=== PATIENT | female | born 1935 | race Caucasian/White ===

== ENCOUNTER 2018-05-05 14:16 | Inpatient (IN) | payer MEDICARE, OTHER ==
[2018-05-05] MEDS ORDERED: hydrALAZINE HCL 20 MG/ML 1 ML VIAL IVP STA ×2 (14:37→16:35)
--- NOTE | 2018-05-05 14:46 | ED ---
General Adult HPI - General Chief complaint: Headache Stated complaint: Headache, poss stroke Time Seen by Provider: 05/05/18 14:20 Source: patient, EMS, RN notes reviewed Mode of arrival: EMS Limitations: no limitations - History of Present Illness Initial comments: This is an 83-year-old female presents emergency room with a past medical history significant for CVA and hypertension. Patient comes in today because she started having headache she states is about a 4 out of 10 since she took her blood pressure her blood pressure was well over 200 and she decided come to the emergency department. Patient denies any chest pain difficulty breathing shortest breath per patient denies any fever chills or cough. Patient denies any abdominal pain patient denies nausea vomiting diarrhea. Patient denies any back pain. patient denies any leg swelling or calf tenderness. Patient denies any blurred vision. Patient denies any numbness weakness. Patient denies any lightheadedness dizziness or near syncopal episode. - Related Data Home Medications Medication Instructions Recorded Confirmed Allopurinol [Zyloprim] 100 mg PO BID 05/05/18 05/05/18 Apixaban [Eliquis] 2.5 mg PO BID 05/05/18 05/05/18 Aspirin EC [Ecotrin Low Dose] 81 mg PO DAILY 05/05/18 05/05/18 Butalb/Acetaminophen/Caffeine 1 - 2 cap PO Q6H PRN MDD 6 TABS 05/05/18 05/05/18 [Esgic 50-325-40 Capsule] Colchicine [Colcrys] 0.6 mg PO DAILY 05/05/18 05/05/18 Escitalopram [Lexapro] 5 mg PO DAILY 05/05/18 05/05/18 Fludrocortisone [Florinef] 0.05 mg PO DAILY 05/05/18 05/05/18 Folic Acid 1 mg PO DAILY 05/05/18 05/05/18 Insulin Aspart [NovoLOG Flexpen] 2 units SQ AC-TID 05/05/18 05/05/18 Insulin Aspart [NovoLOG Flexpen] See Protocol SQ AC-TID 05/05/18 05/05/18 Insulin Glargine [Lantus] 10 unit SQ HS 05/05/18 05/05/18 Leucovorin Calcium 5 mg PO FRSA 05/05/18 05/05/18 Levothyroxine Sodium [Synthroid] 75 mcg PO DAILY 05/05/18 05/05/18 Lisinopril [Zestril] 20 mg PO DAILY 05/05/18 05/05/18 Methotrexate Sodium [Methotrexate] 7.5 mg PO FR 05/05/18 05/05/18 Pantoprazole Sodium [Protonix] 40 mg PO BID 05/05/18 05/05/18 inFLIXimab [Remicade] 100 mg IVPB DIRECTED 05/05/18 05/05/18 Allergies Allergy/AdvReac Type Severity Reaction Status Date / Time baclofen Allergy Unknown Verified 05/05/18 15:06 cefdinir [From Omnicef] Allergy Unknown Verified 05/05/18 15:06 ciprofloxacin Allergy Unknown Verified 05/05/18 15:06 codeine Allergy Unknown Verified 05/05/18 15:06 hydrocodone Allergy Unknown Verified 05/05/18 15:06 Iodinated Contrast- Oral and Allergy Unknown Verified 05/05/18 15:06 IV Dye latex Allergy Unknown Verified 05/05/18 15:06 ofloxacin [From Floxin] Allergy Unknown Verified 05/05/18 15:06 Penicillins Allergy Unknown Verified 05/05/18 15:06 promethazine [From Phenergan] Allergy Unknown Verified 05/05/18 15:06 sulfadiazine Allergy Unknown Verified 05/05/18 15:06 sulfamethoxazole Allergy Unknown Verified 05/05/18 15:06 [From Bactrim] Tetracyclines Allergy Unknown Verified 05/05/18 15:06 theophylline [From Ángel-Dur] Allergy Unknown Verified 05/05/18 15:06 tramadol Allergy Unknown Verified 05/05/18 15:06 trimethoprim [From Bactrim] Allergy Unknown Verified 05/05/18 15:06 Review of Systems ROS Statement: Those systems with pertinent positive or pertinent negative responses have been documented in the HPI. ROS Other: All systems not noted in ROS Statement are negative. Past Medical History Past Medical History: CVA/TIA, Diabetes Mellitus, Hyperlipidemia, Hypertension, Osteoarthritis (OA) History of Any Multi-Drug Resistant Organisms: None Reported Past Surgical History: Adenoidectomy, Section, Hysterectomy, Orthopedic Surgery, Pacemaker, Tonsillectomy, Tubal Ligation Additional Past Surgical History / Comment(s): mediport for arthritis medication Past Psychological History: No Psychological Hx Reported Smoking Status: Never smoker Past Alcohol Use History: None Reported Past Drug Use History: None Reported General Exam - General Exam Comments Initial Comments: GENERAL: Patient is well-developed and well-nourished. Patient is nontoxic and well- hydrated and is in mild distress. ENT: Neck is soft and supple. No significant lymphadenopathy is noted. Oropharynx is clear. Moist mucous membranes. Neck has full range of motion without eliciting any pain. EYES: The sclera were anicteric and conjunctiva were pink and moist. Extraocular movements were intact and pupils were equal round and reactive to light. Eyelids were unremarkable. PULMONARY: Unlabored respirations. Good breath sounds bilaterally. No audible rales rhonchi or wheezing was noted. CARDIOVASCULAR: There is a regular rate and rhythm without any murmurs gallops or rubs. ABDOMEN: Soft and nontender with normal bowel sounds. No palpable organomegaly was noted. There is no palpable pulsatile mass. SKIN: Skin is clear with no lesions or rashes and otherwise unremarkable. NEUROLOGIC: Patient is alert and oriented x3. Cranial nerves II through XII are grossly intact. Motor and sensory are also intact. Normal speech, volume and content. Symmetrical smile. MUSCULOSKELETAL: Normal extremities with adequate strength and full range of motion. No lower extremity swelling or edema. No calf tenderness. LYMPHATICS: No significant lymphadenopathy is noted PSYCHIATRIC: Normal psychiatric evaluation. Limitations: no limitations Course Vital Signs 05/05/18 05/05/18 05/05/18 14:22 15:30 15:50 Temperature 98.4 F Pulse Rate 60 60 Respiratory 18 18 Rate Blood Pressure 201/119 194/97 167/76 O2 Sat by Pulse 96 100 Oximetry 05/05/18 16:27 Temperature Pulse Rate 60 Respiratory 18 Rate Blood Pressure 180/82 O2 Sat by Pulse 100 Oximetry Medical Decision Making - Medical Decision Making EKG shows a paced rhythm at 62 bpm ND interval 254 QRS is 160 QT interval [address] of the brain shows no acute normalities. Patient's troponin is elevated so started the patient on heparin I spoke with Dr. Moore admitted the patient and wrote admitting orders and I consult to cardiology - Lab Data Result diagrams: 05/05/18 13:30 05/05/18 13:30 Lab Results 05/05/18 05/05/18 05/05/18 Range/Units 13:30 13:30 13:30 WBC 6.3 (3.8-10.6) k/uL RBC 3.68 L (3.80-5.40) m/uL Hgb 10.7 L (11.4-16.0) gm/dL Hct 34.8 (34.0-46.0) % MCV 94.5 (80.0-100.0) fL MCH 29.1 (25.0-35.0) pg MCHC 30.7 L (31.0-37.0) g/dL RDW 17.9 H (11.5-15.5) % Plt Count 225 (150-450) k/uL Neutrophils % 46 % Lymphocytes % 43 % Monocytes % 4 % Eosinophils % 4 % Basophils % 1 % Neutrophils # 2.9 (1.3-7.7) k/uL Lymphocytes # 2.7 (1.0-4.8) k/uL Monocytes # 0.3 (0-1.0) k/uL Eosinophils # 0.3 (0-0.7) k/uL Basophils # 0.0 (0-0.2) k/uL Hypochromasia Moderate Anisocytosis Slight PT (9.0-12.0) sec INR (<1.2) APTT (22.0-30.0) sec Sodium 140 (137-145) mmol/L Potassium 5.0 (3.5-5.1) mmol/L Chloride 106 (98-107) mmol/L Carbon Dioxide 29 (22-30) mmol/L Anion Gap 5 mmol/L BUN 23 H (7-17) mg/dL Creatinine 1.14 H (0.52-1.04) mg/dL Est GFR (CKD-EPI)AfAm 52 (>60 ml/min/1.73 sqM) Est GFR (CKD-EPI)NonAf 45 (>60 ml/min/1.73 sqM) Glucose 141 H (74-99) mg/dL Calcium 9.5 (8.4-10.2) mg/dL Magnesium 1.7 (1.6-2.3) mg/dL Total Bilirubin 0.4 (0.2-1.3) mg/dL AST 19 (14-36) U/L ALT 17 (9-52) U/L Alkaline Phosphatase 97 (38-126) U/L Total Creatine Kinase 22 L (30-135) U/L CK-MB (CK-2) 0.4 (0.0-2.4) ng/mL CK-MB (CK-2) Rel Index 1.8 Troponin I 0.129 H* (0.000-0.034) ng/mL Total Protein 6.9 (6.3-8.2) g/dL Albumin 3.6 (3.5-5.0) g/dL 05/05/18 Range/Units 13:30 WBC (3.8-10.6) k/uL RBC (3.80-5.40) m/uL Hgb (11.4-16.0) gm/dL Hct (34.0-46.0) % MCV (80.0-100.0) fL MCH (25.0-35.0) pg MCHC (31.0-37.0) g/dL RDW (11.5-15.5) % Plt Count (150-450) k/uL Neutrophils % % Lymphocytes % % Monocytes % % Eosinophils % % Basophils % % Neutrophils # (1.3-7.7) k/uL Lymphocytes # (1.0-4.8) k/uL Monocytes # (0-1.0) k/uL Eosinophils # (0-0.7) k/uL Basophils # (0-0.2) k/uL Hypochromasia Anisocytosis PT 10.2 (9.0-12.0) sec INR 0.9 (<1.2) APTT 26.4 (22.0-30.0) sec Sodium (137-145) mmol/L Potassium (3.5-5.1) mmol/L Chloride (98-107) mmol/L Carbon Dioxide (22-30) mmol/L Anion Gap mmol/L BUN (7-17) mg/dL Creatinine (0.52-1.04) mg/dL Est GFR (CKD-EPI)AfAm (>60 ml/min/1.73 sqM) Est GFR (CKD-EPI)NonAf (>60 ml/min/1.73 sqM) Glucose (74-99) mg/dL Calcium (8.4-10.2) mg/dL Magnesium (1.6-2.3) mg/dL Total Bilirubin (0.2-1.3) mg/dL AST (14-36) U/L ALT (9-52) U/L Alkaline Phosphatase (38-126) U/L Total Creatine Kinase (30-135) U/L CK-MB (CK-2) (0.0-2.4) ng/mL CK-MB (CK-2) Rel Index Troponin I (0.000-0.034) ng/mL Total Protein (6.3-8.2) g/dL Albumin (3.5-5.0) g/dL Disposition Clinical Impression: Headache, Hypertensive urgency, Non-STEMI (non-ST elevated myocardial infarction) Disposition: ADMITTED IP TO THIS HOSP Referrals: Adin Golden MD [Primary Care Provider] - 1-2 days Time of Disposition: 16:41
[2018-05-05 15:41] LABS: Anisocytosis Slight; Basophils % (A) 1 %; Eosinophils # (A) 0.3 k/uL (0-0.7); Eosinophils % (A) 4 %; HCT 34.8 % (34.0-46.0); HGB 10.7 gm/dL (11.4-16.0); Hypochromasia Moderate; Lymphocytes # (A) 2.7 k/uL (1.0-4.8); Lymphocytes % (A) 43 %; MCH 29.1 pg (25.0-35.0); MCHC 30.7 g/dL (31.0-37.0); MCV 94.5 fL (80.0-100.0); Mean Platelet Volume 8.1; Monocytes # (A) 0.3 k/uL (0-1.0); Monocytes % (A) 4 %; Neutrophils # (A) 2.9 k/uL (1.3-7.7); Neutrophils % (A) 46 %; Platelet Count 225 k/uL (150-450); RBC 3.68 m/uL (3.80-5.40); RDW 17.9 % (11.5-15.5); WBC 6.3 k/uL (3.8-10.6)
[2018-05-05 15:52] LABS: Albumin 3.6 g/dL (3.5-5.0); Calcium 9.5 mg/dL (8.4-10.2); INR 0.9 (<1.2); Magnesium 1.7 mg/dL (1.6-2.3); Partial Thromboplastin Time 26.4 sec (22.0-30.0); Prothrombin Time 10.2 sec (9.0-12.0); Total Bilirubin 0.4 mg/dL (0.2-1.3); Total Protein 6.9 g/dL (6.3-8.2)
--- NOTE | 2018-05-05 16:17 | XR ---
EXAMINATION TYPE: XR chest 2V DATE OF EXAM: 05/05/2018 COMPARISON: NONE HISTORY: Shortness of breath TECHNIQUE: Frontal and lateral views of the chest are obtained. FINDINGS: Scattered senescent parenchymal changes noted. Hyperinflation compatible with COPD. No evidence for infiltrate. No evidence for atelectasis. Heart size is stable. Mediastinal structures are stable and grossly unremarkable. No evidence for hilar prominence. Degenerative changes dorsal spine. IMPRESSION: 1. No evidence for acute pulmonary disease.
--- NOTE | 2018-05-05 16:19 | CT ---
EXAMINATION TYPE: CT brain wo con DATE OF EXAM: 05/05/2018 COMPARISON: None HISTORY: elevated BP with weakness CT DLP: 1044.[address] of the brain was performed. The ventricles, basal cisterns and sulci overlying the cerebral convexities demonstrate mild enlargem ent. There is no evidence for intracranial hemorrhage or sulcal effacement. There is decreased attenuation about the periventricular white matter and deep white matter of both c erebral hemispheres, compatible with chronic small vessel ischemia. Differential diagnosis does inclu de demyelination. No mass effects are seen.No midline shift. Osseous calvarium is intact. If symptoms persist consider MRI. IMPRESSION: 1. Age related atrophic and chronic small vessel ischemic change without acute intracranial process s een at this time.
[2018-05-05 16:28] LABS: Creatine Kinase MB 0.4 ng/mL (0.0-2.4)
[2018-05-05 16:33] LABS: Troponin I 0.129 ng/mL (0.000-0.034)
[2018-05-05] MEDS ORDERED: HEPARIN SODIUM,PORCINE 5,000 UNIT/ML 1 ML VIAL IV ONE (16:36)
[2018-05-05] MEDS ORDERED: NITROGLYCERIN SL TABS 0.4 MG TAB SUBLINGUAL PRN (16:41)
[2018-05-05] MEDS ORDERED: HEPARIN SOD,PORK IN 0.45% NACL 25,000 UNIT in 0.45% NACL 1 250ML.BAG IV SCH (16:45)
[2018-05-05 18:34] LABS: Glucose,Whole Blood 112 mg/dL (75-99)
[2018-05-05] MEDS: NITROGLYCERIN OINT 1 INCH/GM PACKET TOPICAL SCH (20:17)
[2018-05-05 20:47] LABS: Glucose,Whole Blood 111 mg/dL (75-99)
[2018-05-05 21:07] LABS: Creatine Kinase MB 0.4 ng/mL (0.0-2.4)
[2018-05-05 21:12] LABS: Troponin I 0.142 ng/mL (0.000-0.034)
[2018-05-05] MEDS ORDERED: INFLIXIMAB 100 MG IVPB SCH (21:45)
[2018-05-05] MEDS: LISINOPRIL 10 MG TAB PO SCH (22:03)
[2018-05-05] MEDS: METOPROLOL TARTRATE 25 MG TAB PO SCH (22:03)
[2018-05-05] MEDS: ACETAMINOPHEN TAB 325 MG TAB PO PRN (22:03)
[2018-05-05] MEDS: APIXABAN 2.5 MG TABLET PO SCH (23:55)
[2018-05-05] MEDS: BUTALB/APAP/CAFF 50-325-40MG TAB PO PRN (23:55)
[2018-05-06] MEDS: NITROGLYCERIN OINT 1 INCH/GM PACKET TOPICAL SCH ×3 (00:41→08:14)
[2018-05-06 02:19] LABS: Cholesterol 196 mg/dL (<200); HDL Cholesterol 37 mg/dL (40-60); LDL Cholesterol,Calculated 113 mg/dL (0-99); Triglycerides 229 mg/dL (<150)
[2018-05-06 02:41] LABS: Creatine Kinase MB 0.3 ng/mL (0.0-2.4)
[2018-05-06 02:44] LABS: Troponin I 0.113 ng/mL (0.000-0.034)
[2018-05-06] MEDS ORDERED: HYDROmorphone 0.5 MG/0.5 ML SYRINGE IVP STA ×2 (04:58→11:40)
[2018-05-06] MEDS: LEVOTHYROXINE 75 MCG TAB PO SCH ×2 (05:45→08:10)
[2018-05-06 06:17] LABS: Glucose,Whole Blood 246 mg/dL (75-99)
[2018-05-06] MEDS ORDERED: INSULIN ASPART 100 UNIT/ML 1 ML 10 ML VIAL SQ SCH (07:30)
[2018-05-06] MEDS: FOLIC ACID 1 MG TAB PO SCH (08:08)
[2018-05-06] MEDS: APIXABAN 2.5 MG TABLET PO SCH ×2 (08:09→20:35)
[2018-05-06] MEDS: PANTOPRAZOLE 40 MG TABLET PO SCH ×2 (08:09→17:43)
[2018-05-06] MEDS: ALLOPURINOL 100 MG TAB PO SCH ×2 (08:09→20:35)
[2018-05-06] MEDS: BUTALB/APAP/CAFF 50-325-40MG TAB PO PRN (08:09)
[2018-05-06] MEDS: METOPROLOL TARTRATE 25 MG TAB PO SCH (08:09)
[2018-05-06] MEDS: ESCITALOPRAM 5 MG TAB PO SCH (08:10)
[2018-05-06] MEDS: COLCHICINE 0.6 MG EACH PO SCH (08:10)
[2018-05-06] MEDS: LISINOPRIL 10 MG TAB PO SCH (08:18)
[2018-05-06] MEDS ORDERED: hydrALAZINE HCL 20 MG/ML 1 ML VIAL IVP PRN (08:30)
[2018-05-06] MEDS: LISINOPRIL 20 MG TAB PO SCH ×2 (08:40→20:35)
[2018-05-06] MEDS: amLODIPine 10 MG TAB PO SCH (08:44)
[2018-05-06] MEDS ORDERED: LEUCOVORIN 5 MG TAB PO SCH (09:00)
[2018-05-06] MEDS ORDERED: NON-FORMULARY DRUG (Aspirin Ec 81 MG) PO SCH (09:00)
[2018-05-06] MEDS ORDERED: ASPIRIN 325 MG TAB PO SCH (09:00)
--- NOTE | 2018-05-06 09:30 | P.CRDCN ---
History of Present Illness Consult date: 05/06/18 Requesting physician: Virgilio Moore Chief complaint: Headache History of present illness: This is an 83-year-old female with known history of hypertension, hypothyroidism, history of prior pacemaker implantation, diabetes, she follows with a patient registration rep out of town. She does have history of prior CVA, paroxysmal atrial fibrillation on Eliquis for anticoagulation. He presents to the hospital on this occasion with symptoms of severe headache. According to the patient, she's been having headaches off and on for approximately one year duration. She denies any chest discomfort and overall her breathing has been stable. Blood pressure on arrival here 201/119, heart rate in the 60s, 96% on room air. White blood cell count is normal, hemoglobin 10.7, platelet count 225. Sodium 140, potassium 5.0, BUN 23, creatinine 1.1. Troponin 0.12, 0.14, 0.11. Cholesterol 196, triglycerides 229, LDL 113, HDL 37. Chest x-ray does not reveal any evidence for acute pulmonary disease. CAT scan of the brain reveals age-related atrophic and chronic small vessel ischemic change without any acute process seen. EKG shows a paced rhythm . At the time of my examination this morning, patient continues to be hypertensive, continues to complain of headache. Denies any chest pain or difficulty in breathing. Past Medical History Past Medical History: CVA/TIA, Diabetes Mellitus, Hyperlipidemia, Hypertension, Osteoarthritis (OA) Additional Past Medical History / Comment(s): RA has injections mediport q 6 months, Kidney cancer no chemo or radiation skin cancer arms History of Any Multi-Drug Resistant Organisms: None Reported Past Surgical History: Adenoidectomy, Section, Hysterectomy, Orthopedic Surgery, Pacemaker, Tonsillectomy, Tubal Ligation Additional Past Surgical History / Comment(s): mediport for arthritis medication , 1/3 kidney removed for CA Past Anesthesia/Blood Transfusion Reactions: No Reported Reaction Type of Cardiac Device: Permanent Pacemaker, AICD Device Placement Date:: 05/12/2017 Past Psychological History: No Psychological Hx Reported Smoking Status: Never smoker Past Alcohol Use History: None Reported Past Drug Use History: None Reported Medications and Allergies Home Medications Medication Instructions Recorded Confirmed Type Allopurinol [Zyloprim] 100 mg PO BID 05/05/18 05/05/18 History Apixaban [Eliquis] 2.5 mg PO BID 05/05/18 05/05/18 History Aspirin EC [Ecotrin Low Dose] 81 mg PO DAILY 05/05/18 05/05/18 History Butalb/Acetaminophen/Caffeine 1 - 2 cap PO Q6H PRN MDD 6 TABS 05/05/18 05/05/18 History [Esgic 50-325-40 Capsule] Colchicine [Colcrys] 0.6 mg PO DAILY 05/05/18 05/05/18 History Escitalopram [Lexapro] 5 mg PO DAILY 05/05/18 05/05/18 History Fludrocortisone [Florinef] 0.05 mg PO DAILY 05/05/18 05/05/18 History Folic Acid 1 mg PO DAILY 05/05/18 05/05/18 History Insulin Aspart [NovoLOG Flexpen] 2 units SQ AC-TID 05/05/18 05/05/18 History Insulin Aspart [NovoLOG Flexpen] See Protocol SQ AC-TID 05/05/18 05/05/18 History Insulin Glargine [Lantus] 6 unit SQ HS 05/05/18 05/05/18 History Leucovorin Calcium 5 mg PO FRSA 05/05/18 05/05/18 History Levothyroxine Sodium [Synthroid] 75 mcg PO DAILY 05/05/18 05/05/18 History Lisinopril [Zestril] 20 mg PO DAILY 05/05/18 05/05/18 History Methotrexate Sodium [Methotrexate] 7.5 mg PO FR 05/05/18 05/05/18 History Pantoprazole Sodium [Protonix] 40 mg PO BID 05/05/18 05/05/18 History inFLIXimab [Remicade] 100 mg IVPB DIRECTED 05/05/18 05/05/18 History Allergies Allergy/AdvReac Type Severity Reaction Status Date / Time baclofen Allergy Unknown Verified 05/05/18 15:06 cefdinir [From Omnicef] Allergy Unknown Verified 05/05/18 15:06 ciprofloxacin Allergy Unknown Verified 05/05/18 15:06 codeine Allergy Unknown Verified 05/05/18 15:06 hydrocodone Allergy Unknown Verified 05/05/18 15:06 Iodinated Contrast- Oral and Allergy Unknown Verified 05/05/18 15:06 IV Dye latex Allergy Unknown Verified 05/05/18 15:06 ofloxacin [From Floxin] Allergy Unknown Verified 05/05/18 15:06 Penicillins Allergy Unknown Verified 05/05/18 15:06 promethazine [From Phenergan] Allergy Unknown Verified 05/05/18 15:06 sulfadiazine Allergy Unknown Verified 05/05/18 15:06 sulfamethoxazole Allergy Unknown Verified 05/05/18 15:06 [From Bactrim] Tetracyclines Allergy Unknown Verified 05/05/18 15:06 theophylline [From Ángel-Dur] Allergy Unknown Verified 05/05/18 15:06 tramadol Allergy Unknown Verified 05/05/18 15:06 trimethoprim [From Bactrim] Allergy Unknown Verified 05/05/18 15:06 Physical Exam Vitals: Vital Signs Temp Pulse Pulse Resp BP BP Pulse Ox 05/06/18 07:50 96 05/06/18 04:00 97.3 F L 60 14 198/90 98 05/06/18 00:00 98.6 F 70 15 189/81 97 05/05/18 20:00 98.2 F 80 16 162/78 93 L 05/05/18 17:07 97.9 F 60 18 172/78 98 05/05/18 17:01 60 170/84 05/05/18 16:58 60 16 184/87 99 05/05/18 16:27 60 18 180/82 100 05/05/18 15:50 167/76 05/05/18 15:30 60 18 194/97 100 05/05/18 14:22 98.4 F 60 18 201/119 96 Intake and Output 05/05/18 05/06/18 05/06/18 22:59 06:59 14:59 Other: # Voids 3 2 Weight 69.853 kg 74.5 kg PHYSICAL EXAMINATION: GENERAL: 83-year-old female in no acute distress at the time of my examination HEENT: Head is atraumatic, normocephalic. Pupils equal, round. Sclera anicteric. Conjunctiva are clear. Mucous membranes of the mouth are moist. Neck is supple. There is no elevated jugular venous pressure. No carotid bruit is heard. HEART EXAMINATION: Heart S1, S2 systolic murmur heard . CHEST EXAMINATION: Lungs are clear to auscultation and precussion. No chest wall tenderness is noted on palpation or with deep breathing. ABDOMEN: Soft, nontender. Bowel sounds are heard. No organomegaly noted. EXTREMITIES: 2+ peripheral pulses with no evidence of peripheral edema and no calf tenderness noted. NEUROLOGIC patient is awake, alert and oriented 3 . . Results 05/05/18 13:30 05/05/18 13:30 Cardiac Enzymes 05/05/18 05/05/18 05/05/18 Range/Units 13:30 13:30 20:11 AST 19 (14-36) U/L CK-MB (CK-2) 0.4 0.4 (0.0-2.4) ng/mL Troponin I 0.129 H* 0.142 H* (0.000-0.034) ng/mL 05/06/18 Range/Units 01:25 AST (14-36) U/L CK-MB (CK-2) 0.3 (0.0-2.4) ng/mL Troponin I 0.113 H* (0.000-0.034) ng/mL Coagulation 05/05/18 Range/Units 13:30 PT 10.2 (9.0-12.0) sec APTT 26.4 (22.0-30.0) sec Lipids 05/06/18 Range/Units 01:25 Triglycerides 229 H (<150) mg/dL Cholesterol 196 (<200) mg/dL HDL Cholesterol 37 L (40-60) mg/dL CBC 05/05/18 Range/Units 13:30 WBC 6.3 (3.8-10.6) k/uL RBC 3.68 L (3.80-5.40) m/uL Hgb 10.7 L (11.4-16.0) gm/dL Hct 34.8 (34.0-46.0) % Plt Count 225 (150-450) k/uL Comprehensive Metabolic Panel 05/05/18 Range/Units 13:30 Sodium 140 (137-145) mmol/L Potassium 5.0 (3.5-5.1) mmol/L Chloride 106 (98-107) mmol/L Carbon Dioxide 29 (22-30) mmol/L BUN 23 H (7-17) mg/dL Creatinine 1.14 H (0.52-1.04) mg/dL Glucose 141 H (74-99) mg/dL Calcium 9.5 (8.4-10.2) mg/dL AST 19 (14-36) U/L ALT 17 (9-52) U/L Alkaline Phosphatase 97 (38-126) U/L Total Protein 6.9 (6.3-8.2) g/dL Albumin 3.6 (3.5-5.0) g/dL Current Medications Generic Name Dose Route Start Last Admin Trade Name Freq PRN Reason Stop Dose Admin Acetaminophen 650 mg 05/05/18 21:40 05/05/18 22:03 Tylenol Tab PO 650 mg Q4HR PRN Administration Fever and/ or Pain Acetaminophen/Butalbital/Caffeine 1 each 05/05/18 23:31 05/06/18 08:09 Fioricet 50-325-40 PO 1 each Q6HR PRN Administration Headache Allopurinol 100 mg 05/06/18 09:00 05/06/18 08:09 Zyloprim PO 100 mg BID [facility] Administration Amlodipine Besylate 10 mg 05/06/18 09:00 05/06/18 08:44 Norvasc PO 10 mg DAILY [facility] Administration Apixaban 2.5 mg 05/05/18 21:45 05/06/18 08:09 Eliquis PO 2.5 mg BID [facility] Administration Aspirin 325 mg 05/06/18 09:00 05/06/18 08:10 Aspirin PO 325 mg DAILY [facility] Administration Colchicine 0.6 mg 05/06/18 09:00 05/06/18 08:10 Colcrys PO 0.6 mg DAILY [facility] Administration Escitalopram Oxalate 5 mg 05/06/18 09:00 05/06/18 08:10 Lexapro PO 5 mg DAILY [facility] Administration Folic Acid 1 mg 05/06/18 12:00 05/06/18 08:08 Folic Acid PO 1 mg DAILY@1200 [facility] Administration Hydralazine HCl 20 mg 05/06/18 08:30 05/06/18 08:44 Apresoline IVP 20 mg Q4HR PRN Administration Blood Pressure - High Insulin Aspart 2 unit 05/06/18 07:30 05/06/18 08:11 Novolog SQ 2 unit AC-TID [facility] Administration Insulin Detemir 6 unit 05/06/18 21:00 Levemir SQ HS [facility] Leucovorin Calcium 5 mg 05/06/18 09:00 05/06/18 08:10 Leucovorin PO 5 mg FrSa@0900 [facility] Administration Levothyroxine Sodium 75 mcg 05/06/18 06:30 05/06/18 08:10 Synthroid PO 75 mcg DAILY@0630 [facility] Administration Lisinopril 20 mg 05/06/18 09:00 05/06/18 08:40 Zestril PO Not Given BID [facility] Methotrexate 7.5 mg 05/12/18 09:00 Methotrexate PO Fr@0900 [facility] Metoprolol Tartrate 25 mg 05/05/18 21:45 05/06/18 08:09 Lopressor PO 25 mg BID [facility] Administration Nitroglycerin 1 inch 05/05/18 18:00 05/06/18 08:14 Nitro-Bid Oint TOPICAL 1 inch Q6HR [facility] Administration Nitroglycerin 0.4 mg 05/05/18 16:41 Nitrostat SUBLINGUAL Q5M PRN Chest Pain Pantoprazole Sodium 40 mg 05/06/18 07:30 05/06/18 08:09 Protonix PO 40 mg BID-W/MEALS [facility] Administration Intake and Output 05/05/18 05/06/18 05/06/18 22:59 06:59 14:59 Other: # Voids 3 2 Weight 69.853 kg 74.5 kg 05/05/18 13:30 05/05/18 13:30 EKG Interpretations (text) EKG shows a paced rhythm Assessment and Plan Plan: Assessment and plan #1 hypertensive urgency #2 symptoms of headache, could be secondary to hypertension, CT of the brain did not reveal any acute findings #3 history of hypertension #4 diabetes #5 paroxysmal atrial fibrillation, on Eliquis for anticoagulation #6 prior pacemaker implantation #7 rheumatoid arthritis #8 hypothyroidism #9 abnormality in troponin, with no significant rise and fall pattern likely secondary to accelerated hypertension Plan We will obtain an echocardiogram with Doppler study. Decrease aspirin 81 mg daily. Add a small dose of Lipitor to the medication regime. Norvasc is also been added for more optimal blood pressure control. We will discontinue the Lopressor and changed to Coreg. Further recommendations to follow. DNP note has been reviewed, I agree with a documented findings and plan of care. Patient was seen and examined.
[2018-05-06 11:51] LABS: Glucose,Whole Blood 187 mg/dL (75-99)
[2018-05-06] MEDS: CARVEDILOL 12.5 MG TAB PO SCH ×2 (11:58→17:43)
[2018-05-06] MEDS: INSULIN ASPART 100 UNIT/ML 1 ML 10 ML VIAL SQ SCH ×3 (11:58→20:45)
--- NOTE | 2018-05-06 12:37 | P.HPIM ---
History of Present Illness H&P Date: 05/06/18 This is an 83-year-old female patient of Dr. Golden with past medical history of paroxysmal atrial fibrillation on eliquis, status post pacemaker placement, diabetes mellitus type 2, gastroesophageal reflux disease, gout, hypertension, migraine headaches, chronic kidney disease stage 3, renal cancer, rheumatoid arthritis. She had a recent hospitalization at [facility] April 20 through April 24 due to high blood pressure, left-sided weakness and headache after a fall at home where she was found by her grandson. 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 She has known carotid stenosis of 50% on the left internal carotid artery. Patient states that she has had high blood pressure readings have been updated very high at home. She recently saw Dr. Arias's nurse practitioner, Sharmila, in the office and her medication was increased. This must have been metoprolol. Patient does complain of headache. She came into [facility] emergency center for evaluation. White count was normal, hemoglobin 10.7, platelet count 225. Sodium 140, potassium 5.0, BUN 23 creatinine 1.1. Troponins 0.129, 0.142, 0.113. Triglycerides 229, cholesterol 196, LDL 113 and HDL 37. Chest x-ray showed no acute pulmonary process. CAT scan of the brain showed age-related atrophy and chronic small vessel ischemic change without acute intracranial process. EKG was a paced rhythm. Patient was given hydralazine 10 mg IV push 2 doses, Dilaudid, nitro ointment and admitted to the selective care unit and cardiology consults requested. At the time of this evaluation, blood pressure remains elevated at 210/94 and a stat dose of IV hydralazine has been ordered, amlodipine 10 mg added and lisinopril increased frequency to 20 mg twice daily. Review of Systems All systems: negative Constitutional: Reports fatigue, Denies chills, Denies fever, Denies lethargy, Denies malaise, Denies poor appetite, Denies weight loss Eyes: denies blurred vision, denies pain Ears, nose, mouth and throat: Reports headache, Denies dysphagia, Denies hoarseness, Denies sore throat, Denies vertigo Cardiovascular: Denies chest pain, Denies dyspnea on exertion, Denies edema, Denies shortness of breath, Denies syncope Respiratory: Denies cough, Denies cough with sputum, Denies dyspnea, Denies excessive sputum, Denies hemoptysis, Denies home oxygen, Denies wheezing Gastrointestinal: Denies abdominal pain, Denies diarrhea, Denies loss of appetite, Denies melena, Denies nausea, Denies vomiting Genitourinary: Denies dysuria, Denies hematuria, Denies urgency, Denies urinary frequency Musculoskeletal: Denies frequent falls, Denies gait dysfunction, Denies myalgias Integumentary: Denies pruritus, Denies rash, Denies wounds Neurological: Denies change in mentation, Denies change in speech, Denies confusion, Denies convulsions, Denies numbness, Denies seizures, Denies weakness Psychiatric: Denies anxiety, Denies depression Endocrine: Denies fatigue, Denies weight change Past Medical History Past Medical History: CVA/TIA, Diabetes Mellitus, Hyperlipidemia, Hypertension, Osteoarthritis (OA) Additional Past Medical History / Comment(s): RA has injections mediport q 6 months, Kidney cancer no chemo or radiation skin cancer arms History of Any Multi-Drug Resistant Organisms: None Reported Past Surgical History: Adenoidectomy, Section, Hysterectomy, Orthopedic Surgery, Pacemaker, Tonsillectomy, Tubal Ligation Additional Past Surgical History / Comment(s): mediport for arthritis medication , 1/3 kidney removed for CA Past Anesthesia/Blood Transfusion Reactions: No Reported Reaction Type of Cardiac Device: Permanent Pacemaker, AICD Device Placement Date:: 05/12/2017 Past Psychological History: No Psychological Hx Reported Smoking Status: Never smoker Past Alcohol Use History: None Reported Additional Past Alcohol Use History / Comment(s): Patient is a lifelong nonsmoker. She denies illicit drug use or alcohol use. She lives at home with her granddaughter and grandson but the airway during the day at work and patient 's home alone. She does not have home oxygen, no nebulizer no CPAP. Patient does not drive. She uses a walker for ambulation. Past Drug Use History: None Reported - Past Family History Father Additional Family Medical History / Comment(s): Father at age 73 from heart disease. Mother Additional Family Medical History / Comment(s): Mother at age 76 from heart disease. Brother(s) Additional Family Medical History / Comment(s): Patient has 2 brothers with no major medical problems. Daughter(s) Additional Family Medical History / Comment(s): Patient has 2 daughters and 1 as an . Patient has one son with no major medical problems. Medications and Allergies Home Medications Medication Instructions Recorded Confirmed Type Allopurinol [Zyloprim] 100 mg PO BID 05/05/18 05/05/18 History Apixaban [Eliquis] 2.5 mg PO BID 05/05/18 05/05/18 History Aspirin EC [Ecotrin Low Dose] 81 mg PO DAILY 05/05/18 05/05/18 History Butalb/Acetaminophen/Caffeine 1 - 2 cap PO Q6H PRN MDD 6 TABS 05/05/18 05/05/18 History [Esgic 50-325-40 Capsule] Colchicine [Colcrys] 0.6 mg PO DAILY 05/05/18 05/05/18 History Escitalopram [Lexapro] 5 mg PO DAILY 05/05/18 05/05/18 History Fludrocortisone [Florinef] 0.05 mg PO DAILY 05/05/18 05/05/18 History Folic Acid 1 mg PO DAILY 05/05/18 05/05/18 History Insulin Aspart [NovoLOG Flexpen] 2 units SQ AC-TID 05/05/18 05/05/18 History Insulin Aspart [NovoLOG Flexpen] See Protocol SQ AC-TID 05/05/18 05/05/18 History Insulin Glargine [Lantus] 6 unit SQ HS 05/05/18 05/05/18 History Leucovorin Calcium 5 mg PO FRSA 05/05/18 05/05/18 History Levothyroxine Sodium [Synthroid] 75 mcg PO DAILY 05/05/18 05/05/18 History Lisinopril [Zestril] 20 mg PO DAILY 05/05/18 05/05/18 History Methotrexate Sodium [Methotrexate] 7.5 mg PO FR 05/05/18 05/05/18 History Pantoprazole Sodium [Protonix] 40 mg PO BID 05/05/18 05/05/18 History inFLIXimab [Remicade] 100 mg IVPB DIRECTED 05/05/18 05/05/18 History Allergies Allergy/AdvReac Type Severity Reaction Status Date / Time baclofen Allergy Unknown Verified 05/05/18 15:06 cefdinir [From Omnicef] Allergy Unknown Verified 05/05/18 15:06 ciprofloxacin Allergy Unknown Verified 05/05/18 15:06 codeine Allergy Unknown Verified 05/05/18 15:06 hydrocodone Allergy Unknown Verified 05/05/18 15:06 Iodinated Contrast- Oral and Allergy Unknown Verified 05/05/18 15:06 IV Dye latex Allergy Unknown Verified 05/05/18 15:06 ofloxacin [From Floxin] Allergy Unknown Verified 05/05/18 15:06 Penicillins Allergy Unknown Verified 05/05/18 15:06 promethazine [From Phenergan] Allergy Unknown Verified 05/05/18 15:06 sulfadiazine Allergy Unknown Verified 05/05/18 15:06 sulfamethoxazole Allergy Unknown Verified 05/05/18 15:06 [From Bactrim] Tetracyclines Allergy Unknown Verified 05/05/18 15:06 theophylline [From Ángel-Dur] Allergy Unknown Verified 05/05/18 15:06 tramadol Allergy Unknown Verified 05/05/18 15:06 trimethoprim [From Bactrim] Allergy Unknown Verified 05/05/18 15:06 Physical Exam Vitals: Vital Signs Temp Pulse Pulse Resp BP BP Pulse Ox 05/06/18 07:50 96 05/06/18 04:00 97.3 F L 60 14 198/90 98 05/06/18 00:00 98.6 F 70 15 189/81 97 05/05/18 20:00 98.2 F 80 16 162/78 93 L 05/05/18 17:07 97.9 F 60 18 172/78 98 05/05/18 17:01 60 170/84 05/05/18 16:58 60 16 184/87 99 05/05/18 16:27 60 18 180/82 100 05/05/18 15:50 167/76 05/05/18 15:30 60 18 194/97 100 05/05/18 14:22 98.4 F 60 18 201/119 96 Intake and Output 05/05/18 05/06/18 05/06/18 22:59 06:59 14:59 Other: # Voids 3 Weight 69.853 kg 74.5 kg Gen: This is an 83-year-old female. She is sitting up in bed and appears to be in no acute distress. HEENT: Head is atraumatic, normocephalic. Pupils equal, round. Sclerae is anicteric. NECK: Supple. No JVD. No lymphadenopathy. No thyromegaly. LUNGS: Clear to auscultation. No wheezes or rhonchi. No intercostal retractions. HEART: Regular rate and rhythm. Systolic murmur. ABDOMEN: Soft. Bowel sounds are present. No masses. No tenderness. EXTREMITIES: No pedal edema. No calf tenderness. Dorsalis pedis +2 bilaterally. NEUROLOGICAL: Patient is awake, alert and oriented x3. Cranial nerves 2 through 12 are grossly intact. Results CBC & Chem 7: 05/05/18 13:30 05/05/18 13:30 Labs: Abnormal Lab Results - Last 24 Hours (Table) 05/05/18 05/05/18 05/05/18 Range/Units 13:30 13:30 13:30 RBC 3.68 L (3.80-5.40) m/uL Hgb 10.7 L (11.4-16.0) gm/dL MCHC 30.7 L (31.0-37.0) g/dL RDW 17.9 H (11.5-15.5) % BUN 23 H (7-17) mg/dL Creatinine 1.14 H (0.52-1.04) mg/dL Glucose 141 H (74-99) mg/dL POC Glucose (mg/dL) (75-99) mg/dL Total Creatine Kinase 22 L (30-135) U/L Troponin I 0.129 H* (0.000-0.034) ng/mL Triglycerides (<150) mg/dL LDL Cholesterol, Calc (0-99) mg/dL HDL Cholesterol (40-60) mg/dL 05/05/18 05/05/18 05/05/18 Range/Units 18:32 20:11 20:46 RBC (3.80-5.40) m/uL Hgb (11.4-16.0) gm/dL MCHC (31.0-37.0) g/dL RDW (11.5-15.5) % BUN (7-17) mg/dL Creatinine (0.52-1.04) mg/dL Glucose (74-99) mg/dL POC Glucose (mg/dL) 112 H 111 H (75-99) mg/dL Total Creatine Kinase 23 L (30-135) U/L Troponin I 0.142 H* (0.000-0.034) ng/mL Triglycerides (<150) mg/dL LDL Cholesterol, Calc (0-99) mg/dL HDL Cholesterol (40-60) mg/dL 05/06/18 05/06/18 05/06/18 Range/Units 01:25 01:25 06:16 RBC (3.80-5.40) m/uL Hgb (11.4-16.0) gm/dL MCHC (31.0-37.0) g/dL RDW (11.5-15.5) % BUN (7-17) mg/dL Creatinine (0.52-1.04) mg/dL Glucose (74-99) mg/dL POC Glucose (mg/dL) 246 H (75-99) mg/dL Total Creatine Kinase 21 L (30-135) U/L Troponin I 0.113 H* (0.000-0.034) ng/mL Triglycerides 229 H (<150) mg/dL LDL Cholesterol, Calc 113 H (0-99) mg/dL HDL Cholesterol 37 L (40-60) mg/dL Thrombosis Risk Factor Assmnt - DVT/VTE Prophylaxis DVT/VTE Prophylaxis: Pharmacologic Prophylaxis ordered - Choose All That Apply Any of the Below Risk Factors Present?: No Other Risk Factors: No Other congenital or acquired thrombophilia - If yes, enter type in comment: No Thrombosis Risk Factor Assessment Level: Very Low Risk Assessment and Plan Plan: 1. Hypertensive emergency. Continue amlodipine 10 mg daily, Coreg 12.5 mg twice daily, lisinopril 20 mg twice daily, hydralazine IV as needed. Cardiology consult appreciated. Florinef discontinued. 2. Headache secondary to uncontrolled hypertension. Continue Fioricet or Tylenol, patient ordered for 1 dose of IV Dilaudid. 3. Paroxysmal atrial fibrillation. Continue eliquis and Coreg. Cardiology consult appreciated. 4. Abnormal troponins. Cardiology consult appreciated. Echocardiogram has been ordered. Aspirin changed to 81 mg daily. Lopressor has been changed to Coreg. 5. Hyperlipidemia. Continue atorvastatin started by cardiology. 6. Hypothyroidism. Continue levothyroxine 75 g daily. 7. Rheumatoid arthritis. Patient is on Remicade, methotrexate. 8. Diabetes mellitus type 2, insulin requiring. Continue Lantus 6 units at bedtime and NovoLog scale. 9. Recurrent depression. Continue Lexapro 5 mg daily 10. DVT prophylaxis. 11.Gastroesophageal reflux disease and GI prophylaxis. Patient will be admitted to the hospital for a minimum of 2 night stay. Discharge plan: Most likely return home. PT and OT added. Impression and plan of care have been directed as dictated by the signing physician. Sharmaine Fang nurse practitioner acting as scribe for signing physician.
[2018-05-06 15:40] VITALS: BMI 26.5
[2018-05-06 17:16] LABS: Glucose,Whole Blood 173 mg/dL (75-99)
[2018-05-06] MEDS: ACETAMINOPHEN TAB 325 MG TAB PO PRN (17:43)
[2018-05-06] MEDS ORDERED: HYDROmorphone 1 MG/ML 1 ML SYRINGE IVP STA (20:02)
[2018-05-06] MEDS ORDERED: ONDANSETRON 4 MG/2 ML VIAL IVP PRN (20:02)
[2018-05-06 20:39] LABS: Glucose,Whole Blood 161 mg/dL (75-99)
[2018-05-06] MEDS: ATORVASTATIN 40 MG TAB PO SCH (20:45)
[2018-05-06] MEDS: INSULIN DETEMIR 100 UNIT/ML 10 ML VIAL SQ SCH (20:45)
[2018-05-06 23:13] LABS: Hemoglobin A1C 7.7 % (4.0-6.0)
[2018-05-07 05:58] LABS: Glucose,Whole Blood 137 mg/dL (75-99)
[2018-05-07] MEDS: LEVOTHYROXINE 75 MCG TAB PO SCH (06:30)
[2018-05-07] MEDS: CARVEDILOL 12.5 MG TAB PO SCH ×2 (06:30→17:34)
[2018-05-07] MEDS: PANTOPRAZOLE 40 MG TABLET PO SCH ×2 (06:30→17:34)
[2018-05-07] MEDS: INSULIN ASPART 100 UNIT/ML 1 ML 10 ML VIAL SQ SCH ×4 (06:31→20:45)
[2018-05-07 07:06] LABS: Glucose,Whole Blood 127 mg/dL (75-99)
[2018-05-07] MEDS: APIXABAN 2.5 MG TABLET PO SCH ×2 (08:25→19:38)
[2018-05-07] MEDS: COLCHICINE 0.6 MG EACH PO SCH (08:25)
[2018-05-07] MEDS: ALLOPURINOL 100 MG TAB PO SCH ×2 (08:25→19:38)
[2018-05-07] MEDS: ASPIRIN 81 MG PO SCH (08:25)
[2018-05-07] MEDS: FOLIC ACID 1 MG TAB PO SCH (08:25)
[2018-05-07] MEDS: ESCITALOPRAM 5 MG TAB PO SCH (08:25)
[2018-05-07] MEDS: LISINOPRIL 20 MG TAB PO SCH ×2 (08:25→19:38)
[2018-05-07] MEDS: amLODIPine 10 MG TAB PO SCH (08:25)
--- NOTE | 2018-05-07 09:26 | P.PN ---
Subjective Progress Note Date: 05/07/18 This is an 83-year-old female patient of Dr. Golden with past medical history of paroxysmal atrial fibrillation on eliquis, status post pacemaker placement, diabetes mellitus type 2, gastroesophageal reflux disease, gout, hypertension, migraine headaches, chronic kidney disease stage 3, renal cancer, rheumatoid arthritis. She had a recent hospitalization at [facility] April 20 through April 24 due to high blood pressure, left-sided weakness and headache after a fall at home where she was found by her grandson. 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 She has known carotid stenosis of 50% on the left internal carotid artery. Patient states that she has had high blood pressure readings have been updated very high at home. She recently saw Dr. Arias's nurse practitioner, Sharmila, in the office and her medication was increased. This must have been metoprolol. Patient does complain of headache. She came into [facility] emergency center for evaluation. White count was normal, hemoglobin 10.7, platelet count 225. Sodium 140, potassium 5.0, BUN 23 creatinine 1.1. Troponins 0.129, 0.142, 0.113. Triglycerides 229, cholesterol 196, LDL 113 and HDL 37. Chest x-ray showed no acute pulmonary process. CAT scan of the brain showed age-related atrophy and chronic small vessel ischemic change without acute intracranial process. EKG was a paced rhythm. Patient was given hydralazine 10 mg IV push 2 doses, Dilaudid, nitro ointment and admitted to the selective care unit and cardiology consults requested. At the time of this evaluation, blood pressure remains elevated at 210/94 and a stat dose of IV hydralazine has been ordered, amlodipine 10 mg added and lisinopril increased frequency to 20 mg twice daily. 05/07: The patient was feeling much better this morning and her blood pressure readings were improved. Her headache was better. Patient was prepared for discharge home but when she walked to the bathroom she developed lightheadedness and blood pressure had dropped to 97/52. Amlodipine will be discontinued although she did receive her morning dose already and patient will be monitored overnight with anticipated discharge tomorrow. Review of Systems All systems: negative Constitutional: Reports fatigue, Denies chills, Denies fever, Denies lethargy, Denies malaise, Denies poor appetite, Denies weight loss Eyes: denies blurred vision, denies pain Ears, nose, mouth and throat: Reports headache, Denies dysphagia, Denies hoarseness, Denies sore throat, Denies vertigo Cardiovascular: Denies chest pain, Denies dyspnea on exertion, Denies edema, Denies shortness of breath, Denies syncope, reports lightheadedness Respiratory: Denies cough, Denies cough with sputum, Denies dyspnea, Denies excessive sputum, Denies hemoptysis, Denies home oxygen, Denies wheezing Gastrointestinal: Denies abdominal pain, Denies diarrhea, Denies loss of appetite, Denies melena, Denies nausea, Denies vomiting Genitourinary: Denies dysuria, Denies hematuria, Denies urgency, Denies urinary frequency Musculoskeletal: Denies frequent falls, Denies gait dysfunction, Denies myalgias Integumentary: Denies pruritus, Denies rash, Denies wounds Neurological: Denies change in mentation, Denies change in speech, Denies confusion, Denies convulsions, Denies numbness, Denies seizures, Denies weakness Psychiatric: Denies anxiety, Denies depression Endocrine: Denies fatigue, Denies weight change Objective - Vital Signs Vital signs: Vital Signs Temp 98.4 F 05/07/18 07:56 Pulse 85 05/07/18 07:56 Resp 18 05/07/18 07:56 BP 97/53 05/07/18 08:59 Pulse Ox 95 05/07/18 07:56 Intake & Output 05/06/18 05/07/18 05/07/18 18:59 06:59 18:59 Intake Total 150 140 Output Total 200 Balance 150 -60 Weight 74.5 kg 77.5 kg Intake: Oral 150 140 Output: Urine 200 Other: # Voids 2 1 1 - Exam Gen: This is an 83-year-old female. She is sitting up in bed and appears to be in no acute distress. HEENT: Head is atraumatic, normocephalic. Pupils equal, round. Sclerae is anicteric. NECK: Supple. No JVD. No lymphadenopathy. No thyromegaly. LUNGS: Clear to auscultation. No wheezes or rhonchi. No intercostal retractions. HEART: Regular rate and rhythm. Systolic murmur. ABDOMEN: Soft. Bowel sounds are present. No masses. No tenderness. EXTREMITIES: No pedal edema. No calf tenderness. Dorsalis pedis +2 bilaterally. NEUROLOGICAL: Patient is awake, alert and oriented x3. Cranial nerves 2 through 12 are grossly intact. - Labs CBC & Chem 7: 05/05/18 13:30 05/05/18 13:30 Labs: Abnormal Lab Results - Last 24 Hours (Table) 05/05/18 05/06/18 05/06/18 Range/Units 13:30 11:28 17:15 POC Glucose (mg/dL) 187 H 173 H (75-99) mg/dL Hemoglobin A1c 7.7 H (4.0-6.0) % 05/06/18 05/07/18 05/07/18 Range/Units 20:38 05:56 07:05 POC Glucose (mg/dL) 161 H 137 H 127 H (75-99) mg/dL Hemoglobin A1c (4.0-6.0) % Assessment and Plan Plan: 1. Hypertensive emergency. Discontinue amlodipine due to hypotension. Continue Coreg 12.5 mg twice daily, lisinopril 20 mg twice daily, hydralazine IV as needed. Cardiology consult appreciated. Florinef discontinued. 2. Headache secondary to uncontrolled hypertension. Continue Fioricet or Tylenol, patient ordered for 1 dose of IV Dilaudid. 3. Paroxysmal atrial fibrillation. Continue eliquis and Coreg. Cardiology consult appreciated. 4. Abnormal troponins. Cardiology consult appreciated. Echocardiogram has been ordered. Aspirin changed to 81 mg daily. Lopressor has been changed to Coreg. 5. Hyperlipidemia. Continue atorvastatin started by cardiology. 6. Hypothyroidism. Continue levothyroxine 75 g daily. 7. Rheumatoid arthritis. Patient is on Remicade, methotrexate. 8. Diabetes mellitus type 2, insulin requiring. Continue Lantus 6 units at bedtime and NovoLog scale. 9. Recurrent depression. Continue Lexapro 5 mg daily 10. DVT prophylaxis. 11.Gastroesophageal reflux disease and GI prophylaxis Discharge plan: Most likely return home on Tuesday. PT and OT added. Impression and plan of care have been directed as dictated by the signing physician. Sharmaine Fang nurse practitioner acting as scribe for signing physician.
[2018-05-07 11:15] LABS: Glucose,Whole Blood 173 mg/dL (75-99)
--- NOTE | 2018-05-07 12:38 | ECHOF ---
Referral Reason:abn trop MEASUREMENTS -------- HEIGHT: 167.6 cm WEIGHT: 74.4 kg BP: 193/91 IVSd: 1.7 cm (0.6 - 1.1) LVIDd: 4.2 cm (3.9 - 5.3) LVPWd: 1.7 cm (0.6 - 1.1) EDV(Teich): 81 ml IVSs: 2.1 cm LVIDs: 2.6 cm LVPWs: 1.8 cm ESV(Teich): 24 ml EF(Teich): 71 % %FS: 40 % SV(Teich): 57 ml LA Diam: 4.3 cm (2.7 - 3.8) RVIDd: 3.5 cm (< 3.3) LALs A4C: 7.6 cm LAAs A4C: 28.4 cm LAESV A-L A4C: 90 ml LAESV MOD A4C: 85 ml LALs A2C: 7.4 cm LAAs A2C: 27.9 cm LAESV A-L A2C: 89 ml LAESV MOD A2C: 84 ml LAESV(A-L): 90 ml LAESV Index (A-L): 49.11 ml/m Ao Diam: 3.4 cm (2.0 - 3.7) AV Cusp: 2.4 cm (1.5 - 2.6) EPSS: 0.7 cm MV E Filiberto: 0.99 m/s MV DecT: 152 ms MV Dec [place]: 6.5 m/s MV A Fliiberto: 0.43 m/s MV E/A Ratio: 2.30 AV Vmax: 1.19 m/s AV maxP.70 mmHg TR Vmax: 2.75 m/s TR maxP.22 mmHg RAP: 5.00 mmHg RVSP: 35.22 mmHg MV EF SLOPE: 58.36 mm/s (70 - 150) MV EXCURSION: 1.73 cm (> 18.000) FINDINGS -------- Paced rhythm. This was a technically good study. The left ventricular size is normal. There is moderate concentric left ventricular hypertrophy. L eft ventricular systolic function is hyperdynamic with an estimated EF of >70%. The right ventricle is mildly enlarged. LA is severely dilated >40 ml/m2 The right atrium is normal in size. Aortic valve is trileaflet and is mildly thickened. Trace to mild aortic regurgitation. The mitral valve leaflets are mildly thickened. Mild mitral annular calcification present. Mild m itral regurgitation is present. Mild tricuspid regurgitation present. There is mild pulmonary hypertension. The right ventricular systolic pressure, as measured by Doppler, is 35.22mmHg. Trace/mild (physiologic) pulmonic regurgitation. The aortic root size is normal. Normal inferior vena cava with normal inspiratory collapse consistent with estimated right atrial pre ssure of 5 mmHg. There is a small, generalized pericardial effusion present. CONCLUSIONS -------- 1. Paced rhythm. 2. This was a technically good study. 3. The left ventricular size is normal. 4. There is moderate concentric left ventricular hypertrophy. 5. Left ventricular systolic function is hyperdynamic with an estimated EF of >70%. 6. The right ventricle is mildly enlarged. 7. LA is severely dilated >40 ml/m2 8. The right atrium is normal in size. 9. Aortic valve is trileaflet and is mildly thickened. 10. Trace to mild aortic regurgitation. 11. The mitral valve leaflets are mildly thickened. 12. Mild mitral annular calcification present. 13. Mild mitral regurgitation is present. 14. Mild tricuspid regurgitation present. 15. There is mild pulmonary hypertension. 16. The right ventricular systolic pressure, as measured by Doppler, is 35.22mmHg. 17. Trace/mild (physiologic) pulmonic regurgitation. 18. The aortic root size is normal. 19. Normal inferior vena cava with normal inspiratory collapse consistent with estimated right atrial pressure of 5 mmHg. 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
--- NOTE | 2018-05-07 16:05 | P.PN ---
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 She does have history of prior CVA, paroxysmal atrial fibrillation on Eliquis for anticoagulation. He presents to the hospital on this occasion with symptoms of severe headache. According to the patient, she's been having headaches off and on for approximately one year duration. She denies any chest discomfort and overall her breathing has been stable. Blood pressure on arrival here 201/119, heart rate in the 60s, 96% on room air. White blood cell count is normal, hemoglobin 10.7, platelet count 225. Sodium 140, potassium 5.0, BUN 23, creatinine 1.1. Troponin 0.12, 0.14, 0.11. Cholesterol 196, triglycerides 229, LDL 113, HDL 37. Chest x-ray does not reveal any evidence for acute pulmonary disease. CAT scan of the brain reveals age-related atrophic and chronic small vessel ischemic change without any acute process seen. EKG shows a paced rhythm . At the time of my examination this morning, patient continues to be hypertensive, continues to complain of headache. Denies any chest pain or difficulty in breathing. 05/07/2018 Patient was seen and examined this morning, overall feeling well. Dr. Granados did review the echocardiogram with Doppler study which revealed a small pericardial effusion. Hemodynamically she is stable. From our perspective she may be able to be discharged home today to follow-up in the office post discharge. Objective - Vital Signs Vital signs: Vital Signs Temp 98.2 F 05/07/18 11:52 Pulse 62 05/07/18 11:52 Resp 18 05/07/18 11:52 BP 127/64 05/07/18 11:52 Pulse Ox 95 05/07/18 11:52 Intake & Output 05/06/18 05/07/18 05/07/18 18:59 06:59 18:59 Intake Total 150 220 Output Total 200 Balance 150 20 Weight 74.5 kg 77.5 kg Intake: Oral 150 220 Output: Urine 200 Other: # Voids 2 1 1 - Exam PHYSICAL EXAMINATION: GENERAL: 83-year-old female in no acute distress at the time of my examination HEENT: Head is atraumatic, normocephalic. Pupils equal, round. Sclera anicteric. Conjunctiva are clear. Mucous membranes of the mouth are moist. Neck is supple. There is no elevated jugular venous pressure. No carotid bruit is heard. HEART EXAMINATION: Heart S1, S2 systolic murmur heard . CHEST EXAMINATION: Lungs are clear to auscultation and precussion. No chest wall tenderness is noted on palpation or with deep breathing. ABDOMEN: Soft, nontender. Bowel sounds are heard. No organomegaly noted. EXTREMITIES: 2+ peripheral pulses with no evidence of peripheral edema and no calf tenderness noted. NEUROLOGIC patient is awake, alert and oriented 3 . - Labs CBC & Chem 7: 05/05/18 13:30 05/05/18 13:30 Labs: Abnormal Lab Results - Last 24 Hours (Table) 05/05/18 05/06/18 05/06/18 Range/Units 13:30 17:15 20:38 POC Glucose (mg/dL) 173 H 161 H (75-99) mg/dL Hemoglobin A1c 7.7 H (4.0-6.0) % 05/07/18 05/07/18 05/07/18 Range/Units 05:56 07:05 11:14 POC Glucose (mg/dL) 137 H 127 H 173 H (75-99) mg/dL Hemoglobin A1c (4.0-6.0) % Assessment and Plan Plan: Assessment and plan #1 hypertensive urgency #2 symptoms of headache, could be secondary to hypertension, CT of the brain did not reveal any acute findings #3 history of hypertension #4 diabetes #5 paroxysmal atrial fibrillation, on Eliquis for anticoagulation #6 prior pacemaker implantation #7 rheumatoid arthritis #8 hypothyroidism #9 abnormality in troponin, with no significant rise and fall pattern likely secondary to accelerated hypertension Plan Echocardiogram with Doppler study was reviewed which revealed small pericardial effusion. From cardiology's perspective, she may be able to be discharged home , we will make her a follow-up appointment to see Dr. VC Granados the office post discharge. DNP note has been reviewed, I agree with a documented findings and plan of care. Patient was seen and examined.
[2018-05-07 16:45] LABS: Glucose,Whole Blood 153 mg/dL (75-99)
[2018-05-07] MEDS: ATORVASTATIN 40 MG TAB PO SCH (19:38)
[2018-05-07 20:08] LABS: Glucose,Whole Blood 159 mg/dL (75-99)
[2018-05-07] MEDS: INSULIN DETEMIR 100 UNIT/ML 10 ML VIAL SQ SCH (20:45)
[2018-05-08 05:37] LABS: Glucose,Whole Blood 123 mg/dL (75-99)
[2018-05-08 05:45] VITALS: RESP 18
[2018-05-08] MEDS: INSULIN ASPART 100 UNIT/ML 1 ML 10 ML VIAL SQ SCH ×2 (05:46→12:14)
[2018-05-08] MEDS: PANTOPRAZOLE 40 MG TABLET PO SCH (06:59)
[2018-05-08] MEDS: CARVEDILOL 12.5 MG TAB PO SCH (06:59)
[2018-05-08] MEDS: LEVOTHYROXINE 75 MCG TAB PO SCH (06:59)
[2018-05-08 07:22] LABS: Anisocytosis Slight; HCT 34.4 % (34.0-46.0); HGB 10.1 gm/dL (11.4-16.0); Hypochromasia Marked; MCH 28.6 pg (25.0-35.0); MCHC 29.5 g/dL (31.0-37.0); Macrocytosis Slight; Mean Platelet Volume 7.6; Platelet Count 220 k/uL (150-450); RBC 3.54 m/uL (3.80-5.40); WBC 6.4 k/uL (3.8-10.6)
[2018-05-08 07:26] LABS: Potassium 4.7 mmol/L (3.5-5.1)
[2018-05-08] MEDS: LISINOPRIL 20 MG TAB PO SCH (09:31)
[2018-05-08] MEDS: ALLOPURINOL 100 MG TAB PO SCH (09:31)
[2018-05-08] MEDS: APIXABAN 2.5 MG TABLET PO SCH (09:31)
[2018-05-08] MEDS: ESCITALOPRAM 5 MG TAB PO SCH (09:31)
[2018-05-08] MEDS: ASPIRIN 81 MG PO SCH (09:31)
[2018-05-08] MEDS: COLCHICINE 0.6 MG EACH PO SCH (09:31)
[2018-05-08 10:26] VITALS: TEMP 97.7
[2018-05-08 11:24] LABS: Glucose,Whole Blood 176 mg/dL (75-99)
--- NOTE | 2018-05-08 12:12 | P.PN ---
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 She does have history of prior CVA, paroxysmal atrial fibrillation on Eliquis for anticoagulation. He presents to the hospital on this occasion with symptoms of severe headache. According to the patient, she's been having headaches off and on for approximately one year duration. She denies any chest discomfort and overall her breathing has been stable. Blood pressure on arrival here 201/119, heart rate in the 60s, 96% on room air. White blood cell count is normal, hemoglobin 10.7, platelet count 225. Sodium 140, potassium 5.0, BUN 23, creatinine 1.1. Troponin 0.12, 0.14, 0.11. Cholesterol 196, triglycerides 229, LDL 113, HDL 37. Chest x-ray does not reveal any evidence for acute pulmonary disease. CAT scan of the brain reveals age-related atrophic and chronic small vessel ischemic change without any acute process seen. EKG shows a paced rhythm . At the time of my examination this morning, patient continues to be hypertensive, continues to complain of headache. Denies any chest pain or difficulty in breathing. 05/07/2018 Patient was seen and examined this morning, overall feeling well. Dr. Granados did review the echocardiogram with Doppler study which revealed a small pericardial effusion. Hemodynamically she is stable. From our perspective she may be able to be discharged home today to follow-up in the office post discharge. 05/08/2018 Patient seen and examined this morning, blood pressure 114/50 with a heart rate in the 60s, 96% on room air. White blood cell count is normal, hemoglobin 10.1 , platelet count 220. Sodium 138, potassium 4.7, BUN 29, creatinine 1.5. Objective - Vital Signs Vital signs: Vital Signs Temp 97.7 F 05/08/18 08:00 Pulse 61 05/08/18 08:00 Resp 18 05/08/18 08:00 BP 113/54 05/08/18 08:00 Pulse Ox 96 05/08/18 08:00 Intake & Output 05/07/18 05/08/18 05/08/18 18:59 06:59 18:59 Intake Total 300 900 222 Output Total 400 Balance -100 900 222 Weight 72.8 kg Intake: Oral 300 900 222 Output: Urine 400 Other: Voiding Method Toilet Toilet # Voids 1 2 - Exam PHYSICAL EXAMINATION: GENERAL: 83-year-old female in no acute distress at the time of my examination HEENT: Head is atraumatic, normocephalic. Pupils equal, round. Sclera anicteric. Conjunctiva are clear. Mucous membranes of the mouth are moist. Neck is supple. There is no elevated jugular venous pressure. No carotid bruit is heard. HEART EXAMINATION: Heart S1, S2 systolic murmur heard . CHEST EXAMINATION: Lungs are clear to auscultation and precussion. No chest wall tenderness is noted on palpation or with deep breathing. ABDOMEN: Soft, nontender. Bowel sounds are heard. No organomegaly noted. EXTREMITIES: 2+ peripheral pulses with no evidence of peripheral edema and no calf tenderness noted. NEUROLOGIC patient is awake, alert and oriented 3 . - Labs CBC & Chem 7: 05/08/18 06:51 05/08/18 06:51 Labs: Abnormal Lab Results - Last 24 Hours (Table) 05/07/18 05/07/18 05/08/18 Range/Units 16:44 20:07 05:36 RBC (3.80-5.40) m/uL Hgb (11.4-16.0) gm/dL MCHC (31.0-37.0) g/dL RDW (11.5-15.5) % Chloride (98-107) mmol/L BUN (7-17) mg/dL Creatinine (0.52-1.04) mg/dL Glucose (74-99) mg/dL POC Glucose (mg/dL) 153 H 159 H 123 H (75-99) mg/dL 05/08/18 05/08/18 05/08/18 Range/Units 06:51 06:51 11:16 RBC 3.54 L (3.80-5.40) m/uL Hgb 10.1 L (11.4-16.0) gm/dL MCHC 29.5 L (31.0-37.0) g/dL RDW 18.0 H (11.5-15.5) % Chloride 109 H (98-107) mmol/L BUN 29 H (7-17) mg/dL Creatinine 1.50 H (0.52-1.04) mg/dL Glucose 127 H (74-99) mg/dL POC Glucose (mg/dL) 176 H (75-99) mg/dL Assessment and Plan Plan: Assessment and plan #1 hypertensive urgency #2 symptoms of headache, could be secondary to hypertension, CT of the brain did not reveal any acute findings #3 history of hypertension #4 diabetes #5 paroxysmal atrial fibrillation, on Eliquis for anticoagulation #6 prior pacemaker implantation #7 rheumatoid arthritis #8 hypothyroidism #9 abnormality in troponin, with no significant rise and fall pattern likely secondary to accelerated hypertension Plan From cardiology's perspective, patient may be able to be discharged home today. We will make her a follow-up appointment to see Dr. VC Granados in the office post discharge. DNP note has been reviewed, I agree with a documented findings and plan of care. Patient was seen and examined.
[2018-05-08] MEDS: FOLIC ACID 1 MG TAB PO SCH (12:13)
[2018-05-08 13:52] VITALS: BP 134/63; PULSE 64
--- NOTE | 2018-05-08 16:23 | P.DS ---
Providers Date of admission: 05/05/18 16:41 Expected date of discharge: 05/08/18 Attending physician: Virgilio Moore Consults: 05/05/18 16:41 Consult Physician Urgent Consulting Provider: [facility] Consult Reason/Comments: Unstable angina Do you want consulting provider notified?: Yes Primary care physician: Adin Golden [facility] Course: This is an 83-year-old female patient of Dr. Golden with past medical history of paroxysmal atrial fibrillation on eliquis, status post pacemaker placement, diabetes mellitus type 2, gastroesophageal reflux disease, gout, hypertension, migraine headaches, chronic kidney disease stage 3, renal cancer, rheumatoid arthritis. She had a recent hospitalization at [facility] April 20 through April 24 due to high blood pressure, left-sided weakness and headache after a fall at home where she was found by her grandson. 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 She has known carotid stenosis of 50% on the left internal carotid artery. Patient states that she has had high blood pressure readings have been updated very high at home. She recently saw Dr. Arias's nurse practitioner, Sharmila, in the office and her medication was increased. This must have been metoprolol. Patient does complain of headache. She came into [facility] emergency center for evaluation. White count was normal, hemoglobin 10.7, platelet count 225. Sodium 140, potassium 5.0, BUN 23 creatinine 1.1. Troponins 0.129, 0.142, 0.113. Triglycerides 229, cholesterol 196, LDL 113 and HDL 37. Chest x-ray showed no acute pulmonary process. CAT scan of the brain showed age-related atrophy and chronic small vessel ischemic change without acute intracranial process. EKG was a paced rhythm. Patient was given hydralazine 10 mg IV push 2 doses, Dilaudid, nitro ointment and admitted to the selective care unit and cardiology consults requested. At the time of this evaluation, blood pressure remains elevated at 210/94 and a stat dose of IV hydralazine has been ordered, amlodipine 10 mg added and lisinopril increased frequency to 20 mg twice daily. 6: The patient was feeling much better this morning and her blood pressure readings were improved. Her headache was better. Patient was prepared for discharge home but when she walked to the bathroom she developed lightheadedness and blood pressure had dropped to 97/52. Amlodipine will be discontinued although she did receive her morning dose already and patient will be monitored overnight with anticipated discharge tomorrow. Echocardiogram reveals EF of greater than 70%, moderate concentric left ventricular hypertrophy, LA severely dilated greater than 40, mild aortic regurgitation, mild mitral regurgitation, mild tricuspid regurgitation, mild pulmonary hypertension. 05/08: Cardiology has cleared the patient for discharge with follow-up in the office with Dr. VC Granados. Blood pressures are stable this morning 137/63, heart rate in the 60s. Pulse ox 95% on room air. Patient denies having any headache. She has no dizziness. Plan to ambulate the patient and then she can be discharged home later today if vital signs remain stable. Discharge diagnoses: 1. Hypertensive emergency. Discontinue amlodipine due to hypotension. 2. Headache secondary to uncontrolled hypertension. 3. Paroxysmal atrial fibrillation. 4. Abnormal troponins. 5. Hyperlipidemia. 6. Hypothyroidism. 7. Rheumatoid arthritis. 8. Diabetes mellitus type 2, insulin requiring. 9. Recurrent depression. Discharge plan: home Impression and plan of care have been directed as dictated by the signing physician. Sharmaine Fang nurse practitioner acting as scribe for signing physician. Patient Condition at Discharge: Good Plan - Discharge Summary Discharge Rx Participant: No New Discharge Prescriptions: New Atorvastatin [Lipitor] 40 mg PO HS #30 tab Carvedilol [Coreg*] 12.5 mg PO BID-W/MEALS #60 tab Lisinopril [Zestril] 20 mg PO BID #60 tab Continue Apixaban [Eliquis] 2.5 mg PO BID Allopurinol [Zyloprim] 100 mg PO BID Leucovorin Calcium 5 mg PO FRSA Butalb/Acetaminophen/Caffeine [Esgic 50-325-40 Capsule] 1 - 2 cap PO Q6H PRN MDD 6 TABS PRN Reason: Headache Insulin Glargine [Lantus] 6 unit SQ HS Insulin Aspart [NovoLOG Flexpen] 2 units SQ AC-TID Insulin Aspart [NovoLOG Flexpen] See Protocol SQ AC-TID inFLIXimab [Remicade] 100 mg IVPB DIRECTED Pantoprazole Sodium [Protonix] 40 mg PO BID Levothyroxine Sodium [Synthroid] 75 mcg PO DAILY Folic Acid 1 mg PO DAILY Escitalopram [Lexapro] 5 mg PO DAILY Colchicine [Colcrys] 0.6 mg PO DAILY Aspirin EC [Ecotrin Low Dose] 81 mg PO DAILY Methotrexate Sodium [Methotrexate] 7.5 mg PO FR Discontinued Lisinopril [Zestril] 20 mg PO DAILY Fludrocortisone [Florinef] 0.05 mg PO DAILY Discharge Medication List Allopurinol [Zyloprim] 100 mg PO BID 05/05/18 [History] Apixaban [Eliquis] 2.5 mg PO BID 05/05/18 [History] Aspirin EC [Ecotrin Low Dose] 81 mg PO DAILY 05/05/18 [History] Butalb/Acetaminophen/Caffeine [Esgic 50-325-40 Capsule] 1 - 2 cap PO Q6H PRN MDD 6 TABS 05/05/18 [History] Colchicine [Colcrys] 0.6 mg PO DAILY 05/05/18 [History] Escitalopram [Lexapro] 5 mg PO DAILY 05/05/18 [History] Folic Acid 1 mg PO DAILY 05/05/18 [History] Insulin Aspart [NovoLOG Flexpen] 2 units SQ AC-TID 05/05/18 [History] Insulin Aspart [NovoLOG Flexpen] See Protocol SQ AC-TID 05/05/18 [History] Insulin Glargine [Lantus] 6 unit SQ HS 05/05/18 [History] Leucovorin Calcium 5 mg PO FRSA 05/05/18 [History] Levothyroxine Sodium [Synthroid] 75 mcg PO DAILY 05/05/18 [History] Methotrexate Sodium [Methotrexate] 7.5 mg PO FR 05/05/18 [History] Pantoprazole Sodium [Protonix] 40 mg PO BID 05/05/18 [History] inFLIXimab [Remicade] 100 mg IVPB DIRECTED 05/05/18 [History] Atorvastatin [Lipitor] 40 mg PO HS #30 tab 05/07/18 [Rx] Carvedilol [Coreg*] 12.5 mg PO BID-W/MEALS #60 tab 05/07/18 [Rx] Lisinopril [Zestril] 20 mg PO BID #60 tab 05/07/18 [Rx] Follow up Appointment(s)/Referral(s): [facility], [NON-STAFF] - As Needed Rocio Meng MD [STAFF PHYSICIAN] - 05/15/18 8:45 am (tuesday) Adin Golden MD [Primary Care Provider] - 05/12/18 12:45 pm (Tuesday) Patient Instructions/Handouts: Acute Headache (DC), Hypertension (DC) Activity/Diet/Wound Care/Special Instructions: Meals on Wheels: #[phone] Discharge Disposition: HOME WITH HOME HEALTH SERVICES
[2018-05-12] MEDS ORDERED: METHOTREXATE SODIUM 2.5 MG TAB PO SCH (09:00)
== END 2018-05-08 13:54 | disposition home health service (06) | DRG 305 ==
LOC: EC 14:16 → 3SCARD 16:41
PROVIDERS: ADMIT Internal Medicine; ATTEND Internal Medicine
DX: I16.1 Hypertensive emergency (principal); F33.9 Major depressive disorder, recurrent, unspecified; I31.3 Pericardial effusion (noninflammatory); E11.22 Type 2 diabetes mellitus with diabetic chronic kidney disease; I27.20 Pulmonary hypertension, unspecified; I08.3 Combined rheumatic disorders of mitral, aortic and tricuspid valves; I48.0 Paroxysmal atrial fibrillation; G31.9 Degenerative disease of nervous system, unspecified; I65.22 Occlusion and stenosis of left carotid artery; N18.3 Chronic kidney disease, stage 3 (moderate); M06.9 Rheumatoid arthritis, unspecified; I12.9 Hypertensive chronic kidney disease with stage 1 through stage 4 chronic kidney disease, or unspecified chronic kidney disease; E03.9 Hypothyroidism, unspecified; G43.909 Migraine, unspecified, not intractable, without status migrainosus; R40.2362 Coma scale, best motor response, obeys commands, at arrival to emergency department; R40.2142 Coma scale, eyes open, spontaneous, at arrival to emergency department; R40.2252 Coma scale, best verbal response, oriented, at arrival to emergency department; E78.5 Hyperlipidemia, unspecified; K21.9 Gastro-esophageal reflux disease without esophagitis; M10.9 Gout, unspecified; M19.90 Unspecified osteoarthritis, unspecified site; R77.8 Other specified abnormalities of plasma proteins; Z79.01 Long term (current) use of anticoagulants; Z79.82 Long term (current) use of aspirin; Z79.4 Long term (current) use of insulin; Z79.890 Hormone replacement therapy; Z79.899 Other long term (current) drug therapy; Z79.52 Long term (current) use of systemic steroids; Z95.810 Presence of automatic (implantable) cardiac defibrillator; Z85.528 Personal history of other malignant neoplasm of kidney; Z90.710 Acquired absence of both cervix and uterus; Z90.5 Acquired absence of kidney; Z85.828 Personal history of other malignant neoplasm of skin; Z98.51 Tubal ligation status; Z98.891 History of uterine scar from previous surgery; Z88.5 Allergy status to narcotic agent; Z88.0 Allergy status to penicillin; Z88.2 Allergy status to sulfonamides; Z88.8 Allergy status to other drugs, medicaments and biological substances; Z88.1 Allergy status to other antibiotic agents; Z91.041 Radiographic dye allergy status; Z91.040 Latex allergy status; Z82.49 Family history of ischemic heart disease and other diseases of the circulatory system; Z86.73 Personal history of transient ischemic attack (TIA), and cerebral infarction without residual deficits
CPT/HCPCS: 36415; 70450; 71046; 80048; 80053; 80061; 82550; 82553; 83036; 83735; 84484; 85025; 85027; 85610; 85730; 93005; 93306; 96374; 96376; 99285

== ENCOUNTER 2018-05-18 11:17 | Emergency (ER) | payer MEDICARE, OTHER ==
--- NOTE | 2018-05-18 12:07 | ED ---
General Adult HPI - General Chief complaint: Dizziness Stated complaint: dizziness Time Seen by Provider: 05/18/18 11:41 Source: patient, RN notes reviewed Mode of arrival: EMS Limitations: no limitations - History of Present Illness Initial comments: 83-year-old female with a past medical history of CVA, IDDM, hyperlipidemia, hypertension presents to the emergency department for a chief complaint of lightheadedness 15 minutes. Patient states this started about 45 minutes ago and resolved when she arrived about 30 minutes ago. Apparently patient was doing physical therapy standing at the counter doing arm exercises when she started to get lightheaded. Patient then sat down in a chair and started slurring her words and seemed confused. Granddaughter did witness the event and states that the slurring has resolved since she arrived at the hospital. At this time patient states she is feeling back to normal. She may start to feel lightheaded again. Patient was recently admitted for an NSTEMI and saw the strip machine operator 3 days ago for "possible blockage in the heart." Patient has no other complaints at this time including shortness of breath, chest pain, abdominal pain, nausea or vomiting, headache, or visual changes. - Related Data Home Medications Medication Instructions Recorded Confirmed Allopurinol [Zyloprim] 100 mg PO DAILY@0805/05/18 05/18/18 Apixaban [Eliquis] 2.5 mg PO BID@05/05/18 05/18/18 Aspirin EC [Ecotrin Low Dose] 81 mg PO DAILY@0805/05/18 05/18/18 Butalb/Acetaminophen/Caffeine 1 - 2 cap PO Q6H PRN MDD 6 TABS 05/05/18 05/18/18 [Esgic 50-325-40 Capsule] Colchicine [Colcrys] 0.6 mg PO DAILY@0805/05/18 05/18/18 Escitalopram [Lexapro] 5 mg PO DAILY@79905/05/18 05/18/18 Folic Acid 1 mg PO DAILY@79905/05/18 05/18/18 Insulin Aspart [NovoLOG Flexpen] See Protocol SQ AC-TID 05/05/18 05/18/18 Insulin Glargine [Lantus] 6 unit SQ HS 05/05/18 05/18/18 Leucovorin Calcium 5 mg PO FRSA 05/05/18 05/18/18 Levothyroxine Sodium [Synthroid] 75 mcg PO DAILY@0800 05/05/18 05/18/18 Methotrexate Sodium [Methotrexate] 7.5 mg PO FR 05/05/18 05/18/18 Pantoprazole Sodium [Protonix] 40 mg PO BID@0800,199905/05/18 05/18/18 inFLIXimab [Remicade] 100 mg IVPB DIRECTED 05/05/18 05/18/18 Carvedilol [Coreg*] 12.5 mg PO BID@0700,1700 05/18/18 05/18/18 Cyanocobalamin [Vitamin B-12] 500 mcg PO DAILY@0800 05/18/18 05/18/18 Lisinopril [Zestril] 20 mg PO BID@0800,199905/18/18 05/18/18 amLODIPine [Norvasc] 10 mg PO DAILY@0800 05/18/18 05/18/18 Previous Rx's Medication Instructions Recorded Atorvastatin [Lipitor] 40 mg PO HS #30 tab 05/07/18 Allergies Allergy/AdvReac Type Severity Reaction Status Date / Time baclofen Allergy Unknown Verified 05/18/18 11:52 cefdinir [From Omnicef] Allergy Unknown Verified 05/18/18 11:52 ciprofloxacin Allergy Unknown Verified 05/18/18 11:52 codeine Allergy Unknown Verified 05/18/18 11:52 hydrocodone Allergy Unknown Verified 05/18/18 11:52 Iodinated Contrast- Oral and Allergy Unknown Verified 05/18/18 11:52 IV Dye latex Allergy Unknown Verified 05/18/18 11:52 ofloxacin [From Floxin] Allergy Unknown Verified 05/18/18 11:52 Penicillins Allergy Unknown Verified 05/18/18 11:52 promethazine [From Phenergan] Allergy Unknown Verified 05/18/18 11:52 sulfadiazine Allergy Unknown Verified 05/18/18 11:52 sulfamethoxazole Allergy Unknown Verified 05/18/18 11:52 [From Bactrim] Tetracyclines Allergy Unknown Verified 05/18/18 11:52 theophylline [From Ángel-Dur] Allergy Unknown Verified 05/18/18 11:52 tramadol Allergy Unknown Verified 05/18/18 11:52 trimethoprim [From Bactrim] Allergy Unknown Verified 01/17/19 11:52 Review of Systems ROS Statement: Those systems with pertinent positive or pertinent negative responses have been documented in the HPI. ROS Other: All systems not noted in ROS Statement are negative. Past Medical History Past Medical History: CVA/TIA, Diabetes Mellitus, Hyperlipidemia, Hypertension, Osteoarthritis (OA) Additional Past Medical History / Comment(s): RA has injections mediport q 6 months, Kidney cancer no chemo or radiation skin cancer arms History of Any Multi-Drug Resistant Organisms: None Reported Past Surgical History: Adenoidectomy, Section, Hysterectomy, Orthopedic Surgery, Pacemaker, Tonsillectomy, Tubal Ligation Additional Past Surgical History / Comment(s): mediport for arthritis medication , 1/3 kidney removed for CA Past Anesthesia/Blood Transfusion Reactions: No Reported Reaction Type of Cardiac Device: Permanent Pacemaker, AICD Device Placement Date:: 05/12/2017 Past Psychological History: No Psychological Hx Reported Smoking Status: Never smoker Past Alcohol Use History: None Reported Past Drug Use History: None Reported - Past Family History Father Additional Family Medical History / Comment(s): Father at age 73 from heart disease. Mother Additional Family Medical History / Comment(s): Mother at age 76 from heart disease. Brother(s) Additional Family Medical History / Comment(s): Patient has 2 brothers with no major medical problems. Daughter(s) Additional Family Medical History / Comment(s): Patient has 2 daughters and 1 as an infant. Patient has one son with no major medical problems. General Exam Limitations: no limitations General appearance: alert, in no apparent distress Head exam: Present: atraumatic, normocephalic, normal inspection Eye exam: Present: normal appearance, PERRL, EOMI. Absent: scleral icterus, conjunctival injection, periorbital swelling ENT exam: Present: normal exam, normal oropharynx, mucous membranes moist, TM's normal bilaterally, normal external ear exam Neck exam: Present: normal inspection, full ROM. Absent: tenderness, meningismus, lymphadenopathy Respiratory exam: Present: normal lung sounds bilaterally. Absent: respiratory distress, wheezes, rales, rhonchi, stridor Cardiovascular Exam: Present: regular rate, normal rhythm, normal heart sounds. Absent: systolic murmur, diastolic murmur, rubs, gallop, clicks GI/Abdominal exam: Present: soft, normal bowel sounds. Absent: distended, tenderness, guarding, rebound, rigid Neurological exam: Present: alert, oriented X3, CN II-XII intact, normal gait Expanded Patient oriented to: Present: person, place, time Cranial nerves: EOM's Intact: Normal, Tongue Deviation: Normal, Nystagmus: Normal, Facial Sensation: Normal Cerebellar function: Finger to Nose: Normal, Romberg: Normal Upper motor neuron: Pronator Drift: Normal Sensory exam: Upper Extremity Light Touch: Normal, Upper Extremity Pin Prick: Normal, Lower Extremity Light Touch: Normal, Lower Extremity Pin Prick: Normal Motor strength exam: RUE: 5, LUE: 5, RLE: 5, LLE: 5 Eye Response: (4) open spontaneously Motor Response: (6) obeys commands Verbal Response: (5) oriented [place] Total: 15 Psychiatric exam: Present: normal affect, normal mood Course Vital Signs 05/18/18 05/18/18 05/18/18 11:28 13:00 14:16 Temperature 98.7 F Pulse Rate 60 60 Pulse Rate [ 56 L Pulse Oximetery ] Respiratory 18 16 Rate Blood Pressure 140/70 160/68 Blood Pressure 149/73 [Right Arm Sitting] Blood Pressure 120/66 [Right Arm Standing] Blood Pressure 142/76 [Right Arm Supine] O2 Sat by Pulse 99 100 Oximetry EKG Findings - EKG Comments: EKG Findings:: Normal sinus rhythm, ventricular rate 60, FL interval 338, QTC 428 Medical Decision Making - Medical Decision Making 83-year-old female presents for lightheadedness and blurred speech lasting for about 15 minutes, resolved prior to arrival. Patient does have a history of CVA. On exam no focal neuro deficits, negative Romberg. NIH 0. CBC CMP unremarkable. Urine does not show any evidence of infection. CT brain shows no acute intracranial abnormality seen. Mild to moderate atrophy and moderate patchy changes of chronic small vessel ischemic changes as well as old right sided PICA infarct noted. On reevaluation, patient remained symptom-free and is well-appearing. Given patient's symptoms she likely had a TIA. Patient did have an aspirin earlier today. Patient will be transferred to [facility] at this time given lack of neurology coverage at this facility. Dr. Cuellar accepts admission. - Lab Data Result diagrams: 05/18/18 12:14 05/18/18 12:14 Lab Results 05/18/18 05/18/18 05/18/18 Range/Units 12:14 12:14 12:14 WBC 6.9 (3.8-10.6) k/uL RBC 3.76 L (3.80-5.40) m/uL Hgb 11.3 L (11.4-16.0) gm/dL Hct 35.9 (34.0-46.0) % MCV 95.2 (80.0-100.0) fL MCH 30.1 (25.0-35.0) pg MCHC 31.6 (31.0-37.0) g/dL RDW 17.7 H (11.5-15.5) % Plt Count 194 (150-450) k/uL Neutrophils % 66 % Lymphocytes % 27 % Monocytes % 3 % Eosinophils % 2 % Basophils % 1 % Neutrophils # 4.6 (1.3-7.7) k/uL Lymphocytes # 1.8 (1.0-4.8) k/uL Monocytes # 0.2 (0-1.0) k/uL Eosinophils # 0.1 (0-0.7) k/uL Basophils # 0.0 (0-0.2) k/uL Hypochromasia Slight Anisocytosis Slight Macrocytosis Slight PT (9.0-12.0) sec INR (<1.2) Sodium 139 (137-145) mmol/L Potassium 5.1 (3.5-5.1) mmol/L Chloride 106 (98-107) mmol/L Carbon Dioxide 24 (22-30) mmol/L Anion Gap 9 mmol/L BUN 33 H (7-17) mg/dL Creatinine 1.30 H (0.52-1.04) mg/dL Est GFR (CKD-EPI)AfAm 45 (>60 ml/min/1.73 sqM) Est GFR (CKD-EPI)NonAf 39 (>60 ml/min/1.73 sqM) Glucose 222 H (74-99) mg/dL Calcium 9.9 (8.4-10.2) mg/dL Magnesium 1.6 (1.6-2.3) mg/dL Total Bilirubin 0.5 (0.2-1.3) mg/dL AST 23 (14-36) U/L ALT 20 (9-52) U/L Alkaline Phosphatase 102 (38-126) U/L Total Creatine Kinase 29 L (30-135) U/L CK-MB (CK-2) 0.3 (0.0-2.4) ng/mL CK-MB (CK-2) Rel Index 1.0 Troponin I 0.021 (0.000-0.034) ng/mL Total Protein 7.4 (6.3-8.2) g/dL Albumin 4.1 (3.5-5.0) g/dL Urine Color Urine Appearance (Clear) Urine pH (5.0-8.0) Ur Specific [place] (1.001-1.035) Urine Protein (Negative) Urine Glucose (UA) (Negative) Urine Ketones (Negative) Urine Blood (Negative) Urine Nitrite (Negative) Urine Bilirubin (Negative) Urine Urobilinogen (<2.0) mg/dL Ur Leukocyte Esterase (Negative) Urine RBC (0-5) /hpf Urine WBC (0-5) /hpf Ur Squamous Epith Cells (0-4) /hpf Urine Mucus (None) /hpf 05/18/18 05/18/18 Range/Units 12:14 13:30 WBC (3.8-10.6) k/uL RBC (3.80-5.40) m/uL Hgb (11.4-16.0) gm/dL Hct (34.0-46.0) % MCV (80.0-100.0) fL MCH (25.0-35.0) pg MCHC (31.0-37.0) g/dL RDW (11.5-15.5) % Plt Count (150-450) k/uL Neutrophils % % Lymphocytes % % Monocytes % % Eosinophils % % Basophils % % Neutrophils # (1.3-7.7) k/uL Lymphocytes # (1.0-4.8) k/uL Monocytes # (0-1.0) k/uL Eosinophils # (0-0.7) k/uL Basophils # (0-0.2) k/uL Hypochromasia Anisocytosis Macrocytosis PT 10.8 (9.0-12.0) sec INR 1.0 (<1.2) Sodium (137-145) mmol/L Potassium (3.5-5.1) mmol/L Chloride (98-107) mmol/L Carbon Dioxide (22-30) mmol/L Anion Gap mmol/L BUN (7-17) mg/dL Creatinine (0.52-1.04) mg/dL Est GFR (CKD-EPI)AfAm (>60 ml/min/1.73 sqM) Est GFR (CKD-EPI)NonAf (>60 ml/min/1.73 sqM) Glucose (74-99) mg/dL Calcium (8.4-10.2) mg/dL Magnesium (1.6-2.3) mg/dL Total Bilirubin (0.2-1.3) mg/dL AST (14-36) U/L ALT (9-52) U/L Alkaline Phosphatase (38-126) U/L Total Creatine Kinase (30-135) U/L CK-MB (CK-2) (0.0-2.4) ng/mL CK-MB (CK-2) Rel Index Troponin I (0.000-0.034) ng/mL Total Protein (6.3-8.2) g/dL Albumin (3.5-5.0) g/dL Urine Color Light Yellow Urine Appearance Clear (Clear) Urine pH 6.5 (5.0-8.0) Ur Specific [place] 1.008 (1.001-1.035) Urine Protein 2+ H (Negative) Urine Glucose (UA) Negative (Negative) Urine Ketones Negative (Negative) Urine Blood Negative (Negative) Urine Nitrite Negative (Negative) Urine Bilirubin Negative (Negative) Urine Urobilinogen <2.0 (<2.0) mg/dL Ur Leukocyte Esterase Negative (Negative) Urine RBC <1 (0-5) /hpf Urine WBC 1 (0-5) /hpf Ur Squamous Epith Cells <1 (0-4) /hpf Urine Mucus Rare H (None) /hpf Disposition Clinical Impression: TIA (transient ischemic attack) Disposition: OTHER INSTITUTION NOT DEFINED Condition: Good Is patient prescribed a controlled substance at d/c from ED?: No Referrals: Adin Golden MD [Primary Care Provider] - 1-2 days Time of Disposition: 14:59 - Out of Hospital Transfer - Req. Specs Out of Hospital Transfer - Requested Specifics: Other Emergency Center ([facility]
[2018-05-18] MEDS ORDERED: SODIUM CHLORIDE 0.9% 500 ML 500 ML IV STA (12:08)
[2018-05-18 12:33] LABS: Anisocytosis Slight; Basophils % (A) 1 %; Eosinophils # (A) 0.1 k/uL (0-0.7); Eosinophils % (A) 2 %; HCT 35.9 % (34.0-46.0); HGB 11.3 gm/dL (11.4-16.0); Hypochromasia Slight; Lymphocytes # (A) 1.8 k/uL (1.0-4.8); Lymphocytes % (A) 27 %; MCH 30.1 pg (25.0-35.0); MCHC 31.6 g/dL (31.0-37.0); MCV 95.2 fL (80.0-100.0); Macrocytosis Slight; Mean Platelet Volume 8.8; Monocytes # (A) 0.2 k/uL (0-1.0); Monocytes % (A) 3 %; Neutrophils # (A) 4.6 k/uL (1.3-7.7); Neutrophils % (A) 66 %; Platelet Count 194 k/uL (150-450); RBC 3.76 m/uL (3.80-5.40); RDW 17.7 % (11.5-15.5); WBC 6.9 k/uL (3.8-10.6)
[2018-05-18 12:41] LABS: Prothrombin Time 10.8 sec (9.0-12.0)
[2018-05-18 12:43] LABS: Albumin 4.1 g/dL (3.5-5.0); Calcium 9.9 mg/dL (8.4-10.2); Magnesium 1.6 mg/dL (1.6-2.3); Potassium 5.1 mmol/L (3.5-5.1); Total Bilirubin 0.5 mg/dL (0.2-1.3); Total Protein 7.4 g/dL (6.3-8.2)
[2018-05-18 13:03] LABS: Creatine Kinase MB 0.3 ng/mL (0.0-2.4); Troponin I 0.021 ng/mL (0.000-0.034)
--- NOTE | 2018-05-18 13:37 | CT ---
EXAMINATION TYPE: CT brain wo con DATE OF EXAM: 05/18/2018 COMPARISON: 05/05/2018 HISTORY: 83-year-old female with pain, Dizziness TECHNIQUE: Examination was done in axial plane without intravenous contrast. Coronal and sagittal r econstructions performed. CT DLP: 1011.4 mGycm Automated exposure control for dose reduction was used. FINDINGS: There is no evidence of acute intracranial hemorrhage, acute ischemic changes, mass, mass-effect, or extra-axial fluid collection. There is no effacement of cerebral sulci or basal subarachnoid cister ns. There is no hydrocephalus. There is no midline shift. De-white matter distinction is preserv ed. Mild to moderate generalized supratentorial volume loss. Wedge-shaped area of encephalomalacia inferi or right cerebellar hemisphere is unchanged. Moderate patchy white matter hypodensities in both cereb ral hemispheres. Atherosclerotic calcifications of the bilateral carotid siphons. Paranasal sinuses showed trace mucosal thickening right maxillary sinus. Some degenerative changes of the right TMJ. Mastoid air cells are well pneumatized. Orbits and globes appear intact. IMPRESSION: No acute intracranial abnormality seen. Similar mild to moderate generalized atrophy and moderate pat maria teresa changes of chronic small vessel ischemic disease. Old right-sided PICA infarct right cerebellar h emisphere.
[2018-05-18 13:44] VITALS: RESP 16
--- NOTE | 2018-05-18 13:46 | XR ---
EXAMINATION TYPE: XR chest 2V DATE OF EXAM: 05/18/2018 COMPARISON: 05/05/2018 HISTORY: 83-year-old female near syncope, pain TECHNIQUE: AP and lateral views FINDINGS: Heart mildly enlarged. Right anterior chest wall subclavian injection port catheter tip at the upper to mid SVC level. Left anterior chest wall pacemaker generator with right atrial and right ventricula r leads. Some strandy atelectasis suggested at the right base. Otherwise, no charleen consolidation or pleural ef fusion. Loss of the subacromial space on the right, similar prior exam suggesting chronic rotator cuf f tear. IMPRESSION: 1. Mild cardiomegaly. 2. Some patchy right basilar opacity, likely atelectasis. Otherwise, no acute process seen.
[2018-05-18 13:58] LABS: Appearance,Urine Clear (Clear); Bilirubin,Urine Negative (Negative); Blood,Urine Negative (Negative); Color,Urine Light Yellow; Glucose,Urine (UA) Negative (Negative); Ketones,Urine Negative (Negative); Leukocyte Esterase,Urine Negative (Negative); Mucus,Urine Rare /hpf; Nitrite,Urine Negative (Negative); PH, Urine 6.5 (5.0-8.0); Protein,Urine 2+ (Negative); RBC,Urine <1 /hpf (0-5); Specific Gravity,Urine 1.008 (1.001-1.035); Squamous Epithelial Cell,Urine <1 /hpf (0-4); Urobilinogen,Urine <2.0 mg/dL (<2.0); WBC,Urine 1 /hpf (0-5)
[2018-05-18 15:23] VITALS: BP 160/79; PULSE 61; TEMP 97.1
== END 2018-05-18 15:30 | disposition other institution (70) ==
LOC: EC 11:17
DX: G45.9 Transient cerebral ischemic attack, unspecified (principal); R29.700 NIHSS score 0; G31.9 Degenerative disease of nervous system, unspecified; E11.9 Type 2 diabetes mellitus without complications; E78.5 Hyperlipidemia, unspecified; I10 Essential (primary) hypertension; M06.9 Rheumatoid arthritis, unspecified; Z85.528 Personal history of other malignant neoplasm of kidney; Z85.828 Personal history of other malignant neoplasm of skin; Z90.710 Acquired absence of both cervix and uterus; Z98.51 Tubal ligation status; Z90.5 Acquired absence of kidney; Z95.810 Presence of automatic (implantable) cardiac defibrillator; Z98.890 Other specified postprocedural states; Z79.01 Long term (current) use of anticoagulants; Z79.4 Long term (current) use of insulin; Z79.82 Long term (current) use of aspirin; Z79.890 Hormone replacement therapy; Z79.899 Other long term (current) drug therapy; Z88.0 Allergy status to penicillin; Z88.1 Allergy status to other antibiotic agents; Z88.2 Allergy status to sulfonamides; Z88.8 Allergy status to other drugs, medicaments and biological substances; Z91.040 Latex allergy status; Z91.041 Radiographic dye allergy status
CPT/HCPCS: 36415; 70450; 71046; 80053; 81001; 82550; 82553; 83735; 84484; 85025; 85610; 93005; 96360; 96361; 99285

== ENCOUNTER 2018-09-07 12:07 | Emergency (ER) | payer MEDICARE, OTHER ==
[2018-09-07] MEDS ORDERED: SODIUM CHLORIDE 0.9% 1,000 ML IV ONE (12:39)
[2018-09-07] MEDS ORDERED: MECLIZINE 25 MG TAB PO STA (12:39)
[2018-09-07] MEDS ORDERED: DIAZEPAM 5 MG/ML 2 ML INJ IVP STA (12:39)
--- NOTE | 2018-09-07 12:43 | ED ---
General Adult HPI - General Chief complaint: Syncope Stated complaint: SYNCOPE Time Seen by Provider: 09/07/18 12:15 Source: patient, EMS, RN notes reviewed Mode of arrival: EMS Limitations: no limitations - History of Present Illness Initial comments: This is an 83-year-old female who presents emergency department stating that she was sitting in a chair became very dizzy she felt as though the room was whirling around her. Patient states this happens every few months she's been in the emergency department multiple times. Patient denies passing out or having anything going black. Patient states she felt more like the room was whirling. Patient states she does have a history of vertigo. Patient denied any chest pain palpitations difficulty breathing or shortness of breath today. Patient states sitting still while she is lying in bed currently she has no symptoms but she sits up and moves little it does seem to get worse. Patient denies any recent fever chills or cough. Patient denies having any medicines at home to treat her for vertigo. Patient denies headache patient denies any numbness or weakness. Patient denies any abdominal pain patient denies nausea vomiting. - Related Data Home Medications Medication Instructions Recorded Confirmed Allopurinol [Zyloprim] 100 mg PO DAILY@0800 05/05/18 09/07/18 Apixaban [Eliquis] 2.5 mg PO BID@05/05/18 09/07/18 Aspirin EC [Ecotrin Low Dose] 81 mg PO DAILY@0800 05/05/18 09/07/18 Escitalopram [Lexapro] 5 mg PO DAILY@0800 05/05/18 09/07/18 Folic Acid 1 mg PO DAILY@0805/05/18 09/07/18 Insulin Aspart [NovoLOG Flexpen] See Protocol SQ HS 05/05/18 09/07/18 Levothyroxine Sodium [Synthroid] 75 mcg PO DAILY@0800 05/05/18 09/07/18 Methotrexate Sodium [Methotrexate] 7.5 mg PO FR 05/05/18 09/07/18 Pantoprazole Sodium [Protonix] 40 mg PO BID@0800,199905/05/18 09/07/18 inFLIXimab [Remicade] 100 mg IVPB Q56D 05/05/18 09/07/18 Cyanocobalamin [Vitamin B-12] 500 mcg PO DAILY@0800 05/18/18 09/07/18 glipiZIDE [Glucotrol] 10 mg PO BID 09/07/18 09/07/18 Previous Rx's Medication Instructions Recorded Atorvastatin [Lipitor] 40 mg PO HS #30 tab 05/07/18 Meclizine [Antivert] 25 mg PO TID #20 tab 09/07/18 Allergies Allergy/AdvReac Type Severity Reaction Status Date / Time baclofen Allergy Unknown Verified 09/07/18 12:36 cefdinir [From Omnicef] Allergy Unknown Verified 09/07/18 12:36 ciprofloxacin Allergy Unknown Verified 09/07/18 12:36 codeine Allergy Unknown Verified 09/07/18 12:36 hydrocodone Allergy Unknown Verified 09/07/18 12:36 Iodinated Contrast- Oral and Allergy Unknown Verified 09/07/18 12:36 IV Dye latex Allergy Unknown Verified 09/07/18 12:36 ofloxacin [From Floxin] Allergy Unknown Verified 09/07/18 12:36 Penicillins Allergy Unknown Verified 09/07/18 12:36 promethazine [From Phenergan] Allergy Unknown Verified 09/07/18 12:36 sulfadiazine Allergy Unknown Verified 09/07/18 12:36 sulfamethoxazole Allergy Unknown Verified 09/07/18 12:36 [From Bactrim] Tetracyclines Allergy Unknown Verified 09/07/18 12:36 theophylline [From Ángel-Dur] Allergy Unknown Verified 09/07/18 12:36 tramadol Allergy Unknown Verified 09/07/18 12:36 trimethoprim [From Bactrim] Allergy Unknown Verified 09/07/18 12:36 Review of Systems ROS Statement: Those systems with pertinent positive or pertinent negative responses have been documented in the HPI. ROS Other: All systems not noted in ROS Statement are negative. Past Medical History Past Medical History: CVA/TIA, Diabetes Mellitus, Hyperlipidemia, Hypertension, Memory Impairment, Osteoarthritis (OA) Additional Past Medical History / Comment(s): RA has injections mediport q 6 months, Kidney cancer no chemo or radiation skin cancer arms History of Any Multi-Drug Resistant Organisms: None Reported Past Surgical History: Adenoidectomy, Section, Hysterectomy, Orthopedic Surgery, Pacemaker, Tonsillectomy, Tubal Ligation Additional Past Surgical History / Comment(s): mediport for arthritis medication, 1/3 kidney removed for CA Past Anesthesia/Blood Transfusion Reactions: No Reported Reaction Type of Cardiac Device: Permanent Pacemaker, AICD Device Placement Date:: 05/12/2017 Past Psychological History: No Psychological Hx Reported Smoking Status: Never smoker Past Alcohol Use History: None Reported Past Drug Use History: None Reported - Past Family History Father Additional Family Medical History / Comment(s): Father at age 73 from heart disease. Mother Additional Family Medical History / Comment(s): Mother at age 76 from heart disease. Brother(s) Additional Family Medical History / Comment(s): Patient has 2 brothers with no major medical problems. Daughter(s) Additional Family Medical History / Comment(s): Patient has 2 daughters and 1 as an . Patient has one son with no major medical problems. General Exam - General Exam Comments Initial Comments: GENERAL: Patient is well-developed and well-nourished. Patient is nontoxic and well- hydrated and is in mild distress. ENT: Neck is soft and supple. No significant lymphadenopathy is noted. Oropharynx is clear. Moist mucous membranes. Neck has full range of motion without eliciting any pain. EYES: The sclera were anicteric and conjunctiva were pink and moist. Extraocular movements were intact and pupils were equal round and reactive to light. Eyelids were unremarkable. PULMONARY: Unlabored respirations. Good breath sounds bilaterally. No audible rales rhonchi or wheezing was noted. CARDIOVASCULAR: There is a regular rate and rhythm without any murmurs gallops or rubs. ABDOMEN: Soft and nontender with normal bowel sounds. No palpable organomegaly was noted. There is no palpable pulsatile mass. SKIN: Skin is clear with no lesions or rashes and otherwise unremarkable. NEUROLOGIC: Patient is alert and oriented x3. Cranial nerves II through XII are grossly intact. Motor and sensory are also intact. Normal speech, volume and content. Symmetrical smile. Cerebellar testing finger to nose is normal bilaterally MUSCULOSKELETAL: Normal extremities with adequate strength and full range of motion. No lower extremity swelling or edema. No calf tenderness. LYMPHATICS: No significant lymphadenopathy is noted PSYCHIATRIC: Normal psychiatric evaluation. Normal interpersonal interactions appears functionally intact in deals appropriately with others. No signs of depression. No signs of anxiety. Limitations: no limitations Course Vital Signs 09/07/18 09/07/18 12:13 15:00 Temperature 98.2 F Pulse Rate 64 Pulse Rate [ 60 Left Sitting Pulse Oximetery ] Pulse Rate [ 60 Left Standing Pulse Oximetery ] Pulse Rate [ 60 Left Supine Pulse Oximetery ] Respiratory 24 Rate Blood Pressure 125/61 Blood Pressure 119/66 [Left Arm Sitting] Blood Pressure 96/64 [Left Arm Standing] Blood Pressure 130/64 [Left Arm Supine] O2 Sat by Pulse 100 99 Oximetry Medical Decision Making - Medical Decision Making EKG shows a paced rhythm at 61 bpm SC interval does not exist because there is no P wave. QRS is 174 Q-T intervals 482 QTC is 485. Patient was orthostatic. Patient received 1-1/2 L of fluid. She was feeling considerably better. She is going to follow-up with Dr. Munoz. I gave the pat laurie some Antivert because she feels as though the medicine that helped her today. - Lab Data Result diagrams: 09/07/18 13:50 09/07/18 13:50 Lab Results 09/07/18 09/07/18 09/07/18 Range/Units 13:50 13:50 13:50 WBC 5.8 (3.8-10.6) k/uL RBC 3.51 L (3.80-5.40) m/uL Hgb 11.4 (11.4-16.0) gm/dL Hct 35.1 (34.0-46.0) % MCV 100.0 (80.0-100.0) fL MCH 32.4 (25.0-35.0) pg MCHC 32.4 (31.0-37.0) g/dL RDW 15.1 (11.5-15.5) % Plt Count 161 (150-450) k/uL Neutrophils % 59 % Lymphocytes % 27 % Monocytes % 6 % Eosinophils % 4 % Basophils % 1 % Neutrophils # 3.5 (1.3-7.7) k/uL Lymphocytes # 1.6 (1.0-4.8) k/uL Monocytes # 0.3 (0-1.0) k/uL Eosinophils # 0.2 (0-0.7) k/uL Basophils # 0.1 (0-0.2) k/uL Macrocytosis Slight PT 10.8 (9.0-12.0) sec INR 1.0 (<1.2) APTT 29.6 (22.0-30.0) sec Sodium 135 L (137-145) mmol/L Potassium 5.1 (3.5-5.1) mmol/L Chloride 104 (98-107) mmol/L Carbon Dioxide 25 (22-30) mmol/L Anion Gap 6 mmol/L BUN 26 H (7-17) mg/dL Creatinine 1.42 H (0.52-1.04) mg/dL Est GFR (CKD-EPI)AfAm 40 (>60 ml/min/1.73 sqM) Est GFR (CKD-EPI)NonAf 35 (>60 ml/min/1.73 sqM) Glucose 248 H (74-99) mg/dL Calcium 9.9 (8.4-10.2) mg/dL Magnesium 1.6 (1.6-2.3) mg/dL Total Bilirubin 0.6 (0.2-1.3) mg/dL AST 23 (14-36) U/L ALT 19 (9-52) U/L Alkaline Phosphatase 135 H (38-126) U/L Troponin I (0.000-0.034) ng/mL Total Protein 6.7 (6.3-8.2) g/dL Albumin 3.7 (3.5-5.0) g/dL 09/07/18 Range/Units 13:50 WBC (3.8-10.6) k/uL RBC (3.80-5.40) m/uL Hgb (11.4-16.0) gm/dL Hct (34.0-46.0) % MCV (80.0-100.0) fL MCH (25.0-35.0) pg MCHC (31.0-37.0) g/dL RDW (11.5-15.5) % Plt Count (150-450) k/uL Neutrophils % % Lymphocytes % % Monocytes % % Eosinophils % % Basophils % % Neutrophils # (1.3-7.7) k/uL Lymphocytes # (1.0-4.8) k/uL Monocytes # (0-1.0) k/uL Eosinophils # (0-0.7) k/uL Basophils # (0-0.2) k/uL Macrocytosis PT (9.0-12.0) sec INR (<1.2) APTT (22.0-30.0) sec Sodium (137-145) mmol/L Potassium (3.5-5.1) mmol/L Chloride (98-107) mmol/L Carbon Dioxide (22-30) mmol/L Anion Gap mmol/L BUN (7-17) mg/dL Creatinine (0.52-1.04) mg/dL Est GFR (CKD-EPI)AfAm (>60 ml/min/1.73 sqM) Est GFR (CKD-EPI)NonAf (>60 ml/min/1.73 sqM) Glucose (74-99) mg/dL Calcium (8.4-10.2) mg/dL Magnesium (1.6-2.3) mg/dL Total Bilirubin (0.2-1.3) mg/dL AST (14-36) U/L ALT (9-52) U/L Alkaline Phosphatase (38-126) U/L Troponin I <0.012 (0.000-0.034) ng/mL Total Protein (6.3-8.2) g/dL Albumin (3.5-5.0) g/dL Disposition Clinical Impression: Vertigo Disposition: HOME SELF-CARE Condition: Good Instructions (If sedation given, give patient instructions): Vertigo (ED) Prescriptions: Meclizine [Antivert] 25 mg PO TID #20 tab Is patient prescribed a controlled substance at d/c from ED?: No Referrals: Adin Golden MD [Primary Care Provider] - 1-2 days Time of Disposition: 15:15
[2018-09-07 14:17] LABS: Basophils # (A) 0.1 k/uL (0-0.2); Basophils % (A) 1 %; Eosinophils # (A) 0.2 k/uL (0-0.7); Eosinophils % (A) 4 %; HCT 35.1 % (34.0-46.0); HGB 11.4 gm/dL (11.4-16.0); Lymphocytes # (A) 1.6 k/uL (1.0-4.8); Lymphocytes % (A) 27 %; MCH 32.4 pg (25.0-35.0); MCHC 32.4 g/dL (31.0-37.0); Macrocytosis Slight; Mean Platelet Volume 8.9; Monocytes # (A) 0.3 k/uL (0-1.0); Monocytes % (A) 6 %; Neutrophils # (A) 3.5 k/uL (1.3-7.7); Neutrophils % (A) 59 %; Platelet Count 161 k/uL (150-450); RBC 3.51 m/uL (3.80-5.40); RDW 15.1 % (11.5-15.5); WBC 5.8 k/uL (3.8-10.6)
[2018-09-07 14:19] LABS: Albumin 3.7 g/dL (3.5-5.0); Calcium 9.9 mg/dL (8.4-10.2); Magnesium 1.6 mg/dL (1.6-2.3); Potassium 5.1 mmol/L (3.5-5.1); Total Bilirubin 0.6 mg/dL (0.2-1.3); Total Protein 6.7 g/dL (6.3-8.2)
[2018-09-07 14:21] LABS: Partial Thromboplastin Time 29.6 sec (22.0-30.0); Prothrombin Time 10.8 sec (9.0-12.0)
--- NOTE | 2018-09-07 14:27 | XR ---
EXAMINATION TYPE: XR chest 2V DATE OF EXAM: 09/07/2018 COMPARISON: Chest x-ray May 18, 2018. HISTORY: Dizziness and hypotension. TECHNIQUE: Frontal and lateral views of the chest are obtained. FINDINGS: There is some chronic parenchymal change without suspicious focal air space opacity, pleur al effusion, or pneumothorax seen. The cardiac silhouette size is stable and enlarged with dual lead pacemaker redemonstrated. Degenerative change right glenohumeral joint is redemonstrated.. IMPRESSION: Cardiomegaly and chronic changes without acute pulmonary process on current study.
[2018-09-07] MEDS ORDERED: SODIUM CHLORIDE 0.9% 500 ML 500 ML IV ONE (14:59)
[2018-09-07 15:04] VITALS: PULSE 60
[2018-09-07 16:20] VITALS: BP 108/59; TEMP 97.7
[2018-09-07 16:39] VITALS: RESP 18
== END 2018-09-07 16:39 | disposition home or self-care (01) ==
LOC: EC 12:07
DX: R42 Dizziness and giddiness (principal); E11.9 Type 2 diabetes mellitus without complications; I10 Essential (primary) hypertension; M06.9 Rheumatoid arthritis, unspecified; Z86.14 Personal history of Methicillin resistant Staphylococcus aureus infection; Z85.828 Personal history of other malignant neoplasm of skin; Z85.528 Personal history of other malignant neoplasm of kidney; Z95.0 Presence of cardiac pacemaker; Z79.01 Long term (current) use of anticoagulants; Z79.82 Long term (current) use of aspirin; Z79.4 Long term (current) use of insulin; Z79.890 Hormone replacement therapy; Z79.899 Other long term (current) drug therapy; Z88.8 Allergy status to other drugs, medicaments and biological substances; Z88.1 Allergy status to other antibiotic agents; Z88.5 Allergy status to narcotic agent; Z91.041 Radiographic dye allergy status; Z91.040 Latex allergy status; Z88.0 Allergy status to penicillin; Z88.2 Allergy status to sulfonamides
CPT/HCPCS: 36415; 93005; 80053; 83735; 84484; 85025; 85610; 85730; 71046; 99284; 96374; 96361 ×2; J3360

== ENCOUNTER 2019-01-19 00:38 | Emergency (ER) | payer MEDICARE, OTHER ==
[2019-01-19 00:50] VITALS: RESP 16; TEMP 98
[2019-01-19 01:59] LABS: Basophils % (A) 0 %; Eosinophils # (A) 0.1 k/uL (0-0.7); Eosinophils % (A) 2 %; HGB 10.6 gm/dL (11.4-16.0); Lymphocytes % (A) 26 %; MCH 31.5 pg (25.0-35.0); MCHC 32.1 g/dL (31.0-37.0); MCV 98.2 fL (80.0-100.0); Mean Platelet Volume 9.2; Monocytes # (A) 0.4 k/uL (0-1.0); Monocytes % (A) 5 %; Neutrophils # (A) 5.1 k/uL (1.3-7.7); Neutrophils % (A) 66 %; Platelet Count 179 k/uL (150-450); RBC 3.36 m/uL (3.80-5.40); WBC 7.8 k/uL (3.8-10.6)
[2019-01-19 02:13] LABS: Calcium 9.4 mg/dL (8.4-10.2); Potassium 4.9 mmol/L (3.5-5.1)
[2019-01-19] MEDS ORDERED: INSULIN REGULAR 100 UNIT/ML VIAL SQ STA (02:37)
[2019-01-19] MEDS ORDERED: SODIUM CHLORIDE 0.9% 1,000 ML IV ONE ×2 (02:37→04:44)
[2019-01-19 04:16] LABS: Glucose,Whole Blood 266 mg/dL (75-99)
--- NOTE | 2019-01-19 05:35 | ED ---
Dizziness HPI - General Chief Complaint: Dizziness Stated Complaint: Near Syncope Time Seen by Provider: 01/19/19 01:13 Source: patient, EMS Mode of arrival: EMS - History of Present Illness Initial Comments: This patient is an 83-year-old woman who presents here to be evaluated for some lightheadedness that had come on tonight. The patient states that she had gotten up to use the bathroom and felt like she was going to pass out in addition to being very dizzy. She did attempt to get up and use the bathroom again and had similar symptoms. The patient's daughter is at its side and states that she has had these symptoms intermittently going back for a number of months. In addition, patient is having some generalized headache. States it is not worst headache of life. Headache is generalized, moderate, without worsening or relieving factors. No accompanying neurologic symptoms. No fever or chills. No neck stiffness. MD Complaint: dizziness -: month(s) Timing: sudden onset Description: lightheadedness, off-balance History of Same: Yes Severity: moderate Improves With: remaining still Worsens With: movement Associated Symptoms: other (Headache) - Related Data Home Medications Medication Instructions Recorded Confirmed Allopurinol [Zyloprim] 100 mg PO DAILY@0800 05/05/18 09/07/18 Apixaban [Eliquis] 2.5 mg PO BID@08,199905/05/18 09/07/18 Aspirin EC [Ecotrin Low Dose] 81 mg PO DAILY@0805/05/18 09/07/18 Escitalopram [Lexapro] 5 mg PO DAILY@0805/05/18 09/07/18 Folic Acid 1 mg PO DAILY@79905/05/18 09/07/18 Insulin Aspart [NovoLOG Flexpen] See Protocol SQ HS 05/05/18 09/07/18 Levothyroxine Sodium [Synthroid] 75 mcg PO DAILY@0805/05/18 09/07/18 Methotrexate Sodium [Methotrexate] 7.5 mg PO FR 05/05/18 09/07/18 Pantoprazole Sodium [Protonix] 40 mg PO BID@0800,199905/05/18 09/07/18 inFLIXimab [Remicade] 100 mg IVPB Q56D 05/05/18 09/07/18 Cyanocobalamin [Vitamin B-12] 500 mcg PO DAILY@0800 05/18/18 09/07/18 glipiZIDE [Glucotrol] 10 mg PO BID 09/07/18 09/07/18 Previous Rx's Medication Instructions Recorded Atorvastatin [Lipitor] 40 mg PO HS #30 tab 05/07/18 Meclizine [Antivert] 25 mg PO TID #20 tab 09/07/18 Allergies Allergy/AdvReac Type Severity Reaction Status Date / Time baclofen Allergy Unknown Verified 09/07/18 12:36 cefdinir [From Omnicef] Allergy Unknown Verified 09/07/18 12:36 ciprofloxacin Allergy Unknown Verified 09/07/18 12:36 codeine Allergy Unknown Verified 09/07/18 12:36 hydrocodone Allergy Unknown Verified 09/07/18 12:36 Iodinated Contrast- Oral and Allergy Unknown Verified 09/07/18 12:36 IV Dye latex Allergy Unknown Verified 09/07/18 12:36 ofloxacin [From Floxin] Allergy Unknown Verified 09/07/18 12:36 Penicillins Allergy Unknown Verified 09/07/18 12:36 promethazine [From Phenergan] Allergy Unknown Verified 09/07/18 12:36 sulfadiazine Allergy Unknown Verified 09/07/18 12:36 sulfamethoxazole Allergy Unknown Verified 09/07/18 12:36 [From Bactrim] Tetracyclines Allergy Unknown Verified 09/07/18 12:36 theophylline [From Ángel-Dur] Allergy Unknown Verified 09/07/18 12:36 tramadol Allergy Unknown Verified 09/07/18 12:36 trimethoprim [From Bactrim] Allergy Unknown Verified 09/07/18 12:36 Review of Systems ROS Statement: Those systems with pertinent positive or pertinent negative responses have been documented in the HPI. ROS Other: All systems not noted in ROS Statement are negative. Constitutional: Denies: fever, chills, weakness Eyes: Denies: vision change Respiratory: Denies: cough, dyspnea Cardiovascular: Reports: syncope (Near syncopal). Denies: chest pain, palpitations, edema Gastrointestinal: Denies: abdominal pain, nausea, vomiting Genitourinary: Denies: dysuria, hematuria Musculoskeletal: Denies: back pain Skin: Denies: rash Neurological: Reports: headache. Denies: weakness, numbness, paresthesias Past Medical History Past Medical History: CVA/TIA, Diabetes Mellitus, Hyperlipidemia, Hypertension, Memory Impairment, Osteoarthritis (OA) Additional Past Medical History / Comment(s): RA has injections mediport q 6 months, Kidney cancer no chemo or radiation skin cancer arms History of Any Multi-Drug Resistant Organisms: None Reported Past Surgical History: Adenoidectomy, Section, Hysterectomy, Orthopedic Surgery, Pacemaker, Tonsillectomy, Tubal Ligation Additional Past Surgical History / Comment(s): mediport for arthritis m edication, 1/3 kidney removed for CA Past Anesthesia/Blood Transfusion Reactions: No Reported Reaction Type of Cardiac Device: Permanent Pacemaker, AICD Device Placement Date:: 05/12/2017 Past Psychological History: No Psychological Hx Reported Smoking Status: Never smoker Past Alcohol Use History: None Reported Past Drug Use History: None Reported - Past Family History Father Additional Family Medical History / Comment(s): Father at age 73 from heart disease. Mother Additional Family Medical History / Comment(s): Mother at age 76 from heart disease. Brother(s) Additional Family Medical History / Comment(s): Patient has 2 brothers with no major medical problems. Daughter(s) Additional Family Medical History / Comment(s): Patient has 2 daughters and 1 as an infant. Patient has one son with no major medical problems. General Exam General appearance: alert, in no apparent distress Head exam: Present: atraumatic, normocephalic Eye exam: Present: normal appearance. Absent: scleral icterus, conjunctival injection ENT exam: Present: mucous membranes dry Neck exam: Present: normal inspection, full ROM. Absent: meningismus Respiratory exam: Present: normal lung sounds bilaterally. Absent: respiratory distress, wheezes, rales, rhonchi, stridor Cardiovascular Exam: Present: regular rate, normal rhythm, normal heart sounds. Absent: systolic murmur, diastolic murmur, rubs, gallop GI/Abdominal exam: Present: soft. Absent: distended, tenderness, guarding, rebound Extremities exam: Present: normal inspection, normal capillary refill. Absent: pedal edema, calf tenderness Back exam: Present: normal inspection Neurological exam: Present: alert, oriented X3, CN II-XII intact. Absent: motor sensory deficit Skin exam: Present: warm, dry, intact, normal color. Absent: rash Course Vital Signs 01/19/19 01/19/19 01/19/19 00:45 03:15 04:53 Temperature 98 F Pulse Rate 60 60 60 Respiratory 16 16 16 Rate Blood Pressure 121/66 112/67 92/64 O2 Sat by Pulse 99 97 99 Oximetry 01/19/19 05:40 Temperature 98 F Pulse Rate 61 Respiratory 16 Rate Blood Pressure 105/63 O2 Sat by Pulse 98 Oximetry Medical Decision Making - Medical Decision Making Patient is an 83-year-old woman with orthostatic symptoms. Found to have elevated blood sugar. Patient is given IV fluids and has relief of her symptoms. She does request to go home. - Lab Data Result diagrams: 01/19/19 01:45 01/19/19 01:45 Lab Results 01/19/19 01/19/19 01/19/19 Range/Units 01:45 01:45 04:14 WBC 7.8 (3.8-10.6) k/uL RBC 3.36 L (3.80-5.40) m/uL Hgb 10.6 L (11.4-16.0) gm/dL Hct 33.0 L (34.0-46.0) % MCV 98.2 (80.0-100.0) fL MCH 31.5 (25.0-35.0) pg MCHC 32.1 (31.0-37.0) g/dL RDW 15.0 (11.5-15.5) % Plt Count 179 (150-450) k/uL Neutrophils % 66 % Lymphocytes % 26 % Monocytes % 5 % Eosinophils % 2 % Basophils % 0 % Neutrophils # 5.1 (1.3-7.7) k/uL Lymphocytes # 2.0 (1.0-4.8) k/uL Monocytes # 0.4 (0-1.0) k/uL Eosinophils # 0.1 (0-0.7) k/uL Basophils # 0.0 (0-0.2) k/uL Sodium 136 L (137-145) mmol/L Potassium 4.9 (3.5-5.1) mmol/L Chloride 104 (98-107) mmol/L Carbon Dioxide 19 L (22-30) mmol/L Anion Gap 13 mmol/L BUN 33 H (7-17) mg/dL Creatinine 1.56 H (0.52-1.04) mg/dL Est GFR (CKD-EPI)AfAm 36 (>60 ml/min/1.73 sqM) Est GFR (CKD-EPI)NonAf 31 (>60 ml/min/1.73 sqM) Glucose 372 H (74-99) mg/dL POC Glucose (mg/dL) 266 H (75-99) mg/dL POC Glu Electronic Warfare Linguist ID Traci Jimenez Calcium 9.4 (8.4-10.2) mg/dL Disposition Clinical Impression: Dehydration, Hyperglycemia Disposition: HOME SELF-CARE Condition: Fair Instructions (If sedation given, give patient instructions): Dizziness (ED), Diabetic Hyperglycemia (ED) Is patient prescribed a controlled substance at d/c from ED?: No Referrals: Adin Golden MD [Primary Care Provider] - 1-2 days
[2019-01-19 05:40] VITALS: BP 105/63; PULSE 61
== END 2019-01-19 06:03 | disposition home or self-care (01) ==
LOC: EC 00:38
DX: E86.0 Dehydration (principal); E11.65 Type 2 diabetes mellitus with hyperglycemia; I10 Essential (primary) hypertension; M06.9 Rheumatoid arthritis, unspecified; Z79.01 Long term (current) use of anticoagulants; Z79.82 Long term (current) use of aspirin; Z79.4 Long term (current) use of insulin; Z79.890 Hormone replacement therapy; Z79.899 Other long term (current) drug therapy; Z88.1 Allergy status to other antibiotic agents; Z88.5 Allergy status to narcotic agent; Z88.0 Allergy status to penicillin; Z91.041 Radiographic dye allergy status; Z88.2 Allergy status to sulfonamides; Z88.8 Allergy status to other drugs, medicaments and biological substances; Z91.040 Latex allergy status; Z86.73 Personal history of transient ischemic attack (TIA), and cerebral infarction without residual deficits; Z85.528 Personal history of other malignant neoplasm of kidney; Z95.0 Presence of cardiac pacemaker; Z90.5 Acquired absence of kidney; Z85.828 Personal history of other malignant neoplasm of skin
CPT/HCPCS: 36415; 80048; 85025; 93005; 96360; 96361; 99284

== ENCOUNTER 2019-01-19 17:34 | Observation (INO) | payer MEDICARE, OTHER ==
[2019-01-19 17:48] LABS: Glucose,Whole Blood 343 mg/dL (75-99)
[2019-01-19] MEDS ORDERED: SODIUM CHLORIDE 0.9% 1,000 ML IV STA (18:37)
--- NOTE | 2019-01-19 18:50 | ED ---
General Adult HPI - General Chief complaint: Recheck/Abnormal Lab/Rx Stated complaint: Hyperglycemia Time Seen by Provider: 01/19/19 18:24 Source: patient Mode of arrival: wheelchair Limitations: no limitations - History of Present Illness Initial comments: Patient is an 83-year-old female with type 2 diabetes presenting to emergency Department with chief complaint of high blood sugar. Patient states that she was discharged this morning the same chief complaint along with some dizziness. Patient reports the dizziness has since resolved but she is unable to fully get her blood sugar under control. Patient reports she takes Lantus once a day and NovoLog 3 times per day prior to meals. Patient reports she recently lost her glucose monitor but found it to days ago. Patient denies any nausea or vomiting or diarrhea. Patient denies any abdominal pain or polyuria. - Related Data Home Medications Medication Instructions Recorded Confirmed Allopurinol [Zyloprim] 100 mg PO DAILY@0800 05/05/18 01/19/19 Apixaban [Eliquis] 2.5 mg PO BID@0800,199905/05/18 01/19/19 Aspirin EC [Ecotrin Low Dose] 81 mg PO DAILY@0800 05/05/18 01/19/19 Escitalopram [Lexapro] 5 mg PO DAILY@0800 05/05/18 01/19/19 Folic Acid 1 mg PO DAILY@0800 05/05/18 01/19/19 Insulin Aspart [NovoLOG Flexpen] See Protocol SQ AC-TID 05/05/18 01/19/19 Levothyroxine Sodium [Synthroid] 75 mcg PO DAILY@0800 05/05/18 01/19/19 Methotrexate Sodium [Methotrexate] 7.5 mg PO FR 05/05/18 01/19/19 Pantoprazole Sodium [Protonix] 40 mg PO BID@0800,199905/05/18 01/19/19 inFLIXimab [Remicade] 100 mg IVPB Q56D 05/05/18 01/19/19 Cyanocobalamin [Vitamin B-12] 500 mcg PO DAILY@0800 05/18/18 01/19/19 Butalb/APAP/Caff 50-325-40Mg 1 tab PO Q6H PRN 01/19/19 01/19/19 [Fioricet 50-325-40] Carvedilol 12.5 mg PO BID 01/19/19 01/19/19 Colchicine 0.6 mg PO DAILY 01/19/19 01/19/19 Insulin Glargine [Lantus] 6 unit SQ HS 01/19/19 01/19/19 Leucovorin Calcium 5 mg PO FRSA 01/19/19 01/19/19 Lisinopril 20 mg PO BID 01/19/19 01/19/19 amLODIPine [Norvasc] 10 mg PO DAILY 01/19/19 01/19/19 Previous Rx's Medication Instructions Recorded Atorvastatin [Lipitor] 40 mg PO HS #30 tab 05/07/18 Allergies Allergy/AdvReac Type Severity Reaction Status Date / Time baclofen Allergy Unknown Verified 01/19/19 19:21 cefdinir [From Omnicef] Allergy Unknown Verified 01/19/19 19:21 ciprofloxacin Allergy Unknown Verified 01/19/19 19:21 codeine Allergy Unknown Verified 01/19/19 19:21 hydrocodone Allergy Unknown Verified 01/19/19 19:21 Iodinated Contrast- Oral and Allergy Unknown Verified 01/19/19 19:21 IV Dye latex Allergy Unknown Verified 01/19/19 19:21 ofloxacin [From Floxin] Allergy Unknown Verified 01/19/19 19:21 Penicillins Allergy Unknown Verified 01/19/19 19:21 promethazine [From Phenergan] Allergy Unknown Verified 01/19/19 19:21 sulfadiazine Allergy Unknown Verified 01/19/19 19:21 sulfamethoxazole Allergy Unknown Verified 01/19/19 19:21 [From Bactrim] Tetracyclines Allergy Unknown Verified 01/19/19 19:21 theophylline [From Ángel-Dur] Allergy Unknown Verified 01/19/19 19:21 tramadol Allergy Unknown Verified 01/19/19 19:21 trimethoprim [From Bactrim] Allergy Unknown Verified 01/19/19 19:21 Review of Systems ROS Statement: Those systems with pertinent positive or pertinent negative responses have been documented in the HPI. ROS Other: All systems not noted in ROS Statement are negative. Past Medical History Past Medical History: CVA/TIA, Diabetes Mellitus, Hyperlipidemia, Hypertension, Memory Impairment, Osteoarthritis (OA) Additional Past Medical History / Comment(s): RA has injections mediport q 6 months, Kidney cancer no chemo or radiation skin cancer arms History of Any Multi-Drug Resistant Organisms: None Reported Past Surgical History: Adenoidectomy, Section, Hysterectomy, Orthopedic Surgery, Pacemaker, Tonsillectomy, Tubal Ligation Additional Past Surgical History / Comment(s): mediport for arthritis medication, 1/3 kidney removed for CA Past Anesthesia/Blood Transfusion Reactions: No Reported Reaction Type of Cardiac Device: Permanent Pacemaker, AICD Device Placement Date:: 05/12/2017 Past Psychological History: No Psychological Hx Reported Smoking Status: Never smoker Past Alcohol Use History: None Reported Past Drug Use History: None Reported - Past Family History Father Additional Family Medical History / Comment(s): Father at age 73 from heart disease. Mother Additional Family Medical History / Comment(s): Mother at age 76 from heart disease. Brother(s) Additional Family Medical History / Comment(s): Patient has 2 brothers with no major medical problems. Daughter(s) Additional Family Medical History / Comment(s): Patient has 2 daughters and 1 as an infant. Patient has one son with no major medical problems. General Exam Limitations: no limitations General appearance: alert, in no apparent distress Head exam: Present: atraumatic, normocephalic, normal inspection Eye exam: Present: normal appearance, PERRL, EOMI Pupils: Present: normal accommodation ENT exam: Present: normal exam, normal oropharynx, mucous membranes moist, TM's normal bilaterally, normal external ear exam. Absent: mucous membranes dry Neck exam: Present: normal inspection, full ROM Respiratory exam: Present: normal lung sounds bilaterally Cardiovascular Exam: Present: regular rate, normal rhythm, normal heart sounds GI/Abdominal exam: Present: soft. Absent: tenderness Extremities exam: Present: normal inspection, full ROM Back exam: Present: normal inspection, full ROM Neurological exam: Present: alert, oriented X3 Psychiatric exam: Present: normal affect, normal mood Skin exam: Present: warm, intact, normal color Course Vital Signs 01/19/19 01/19/19 01/19/19 17:41 20:07 21:36 Temperature 97.7 F Pulse Rate 61 60 Pulse Rate [ 61 Right Sitting] Pulse Rate [ 60 Right Standing] Pulse Rate [ 61 Right Supine] Respiratory 18 20 Rate Blood Pressure 94/60 132/62 Blood Pressure 135/71 [Right Arm Sitting] Blood Pressure 123/99 [Right Arm Standing] Blood Pressure 137/69 [Right Arm Supine] O2 Sat by Pulse 98 Oximetry Medical Decision Making - Medical Decision Making Patient is an 83-year-old female with history of type 2 diabetes presenting to the emergency department with a chief complaint of high blood sugar. Patient reports that she was discharges morning for hypoglycemia and has not been able to control it today. Patient is also reporting orthostatic hypertension. Orthostatics were performed with changes in pressure from sitting to standing position. UA is only indicative of high glucose. Patient is a poor kidney function with increased creatinine but it is at her baseline. Patient is dehydrated based on physical examination with dry mucous membrane. Patient was given a liter of fluid and [address] Maguire also exmined the patient and spoke with Dr. March who advosed admission. Cardiology consult. Echo ordered. - Lab Data Result diagrams: 01/19/19 18:56 01/19/19 18:56 Lab Results 01/19/19 01/19/19 01/19/19 Range/Units 17:44 18:56 18:56 WBC 7.6 (3.8-10.6) k/uL RBC 3.26 L (3.80-5.40) m/uL Hgb 10.6 L (11.4-16.0) gm/dL Hct 32.8 L (34.0-46.0) % MCV 100.8 H (80.0-100.0) fL MCH 32.7 (25.0-35.0) pg MCHC 32.4 (31.0-37.0) g/dL RDW 16.6 H (11.5-15.5) % Plt Count 177 (150-450) k/uL Anisocytosis Slight Macrocytosis Slight VBG pH (7.31-7.41) VBG pCO2 (37-51) mmHg VBG HCO3 (24-28) mmol/L Sodium 138 (137-145) mmol/L Potassium 5.0 (3.5-5.1) mmol/L Chloride 106 (98-107) mmol/L Carbon Dioxide 21 L (22-30) mmol/L Anion Gap 11 mmol/L BUN 28 H (7-17) mg/dL Creatinine 1.46 H (0.52-1.04) mg/dL Est GFR (CKD-EPI)AfAm 39 (>60 ml/min/1.73 sqM) Est GFR (CKD-EPI)NonAf 34 (>60 ml/min/1.73 sqM) Glucose 409 H (74-99) mg/dL POC Glucose (mg/dL) 343 H (75-99) mg/dL POC Glu Hot Mix Operator ID Kaceyjuly Calcium 9.4 (8.4-10.2) mg/dL Phosphorus 3.6 (2.5-4.5) mg/dL Magnesium 1.6 (1.6-2.3) mg/dL Total Bilirubin 0.4 (0.2-1.3) mg/dL AST 21 (14-36) U/L ALT 14 (9-52) U/L Alkaline Phosphatase 90 (38-126) U/L Total Protein 7.0 (6.3-8.2) g/dL Albumin 3.9 (3.5-5.0) g/dL Urine Color Urine Appearance (Clear) Urine pH (5.0-8.0) Ur Specific [place] (1.001-1.035) Urine Protein (Negative) Urine Glucose (UA) (Negative) Urine Ketones (Negative) Urine Blood (Negative) Urine Nitrite (Negative) Urine Bilirubin (Negative) Urine Urobilinogen (<2.0) mg/dL Ur Leukocyte Esterase (Negative) 01/19/19 01/19/19 01/19/19 Range/Units 18:56 21:09 21:33 WBC (3.8-10.6) k/uL RBC (3.80-5.40) m/uL Hgb (11.4-16.0) gm/dL Hct (34.0-46.0) % MCV (80.0-100.0) fL MCH (25.0-35.0) pg MCHC (31.0-37.0) g/dL RDW (11.5-15.5) % Plt Count (150-450) k/uL Anisocytosis Macrocytosis VBG pH 7.32 (7.31-7.41) VBG pCO2 45 (37-51) mmHg VBG HCO3 22 L (24-28) mmol/L Sodium (137-145) mmol/L Potassium (3.5-5.1) mmol/L Chloride (98-107) mmol/L Carbon Dioxide (22-30) mmol/L Anion Gap mmol/L BUN (7-17) mg/dL Creatinine (0.52-1.04) mg/dL Est GFR (CKD-EPI)AfAm (>60 ml/min/1.73 sqM) Est GFR (CKD-EPI)NonAf (>60 ml/min/1.73 sqM) Glucose (74-99) mg/dL POC Glucose (mg/dL) 348 H (75-99) mg/dL POC Glu Hot Mix Operator ID Ariana Murillo Calcium (8.4-10.2) mg/dL Phosphorus (2.5-4.5) mg/dL Magnesium (1.6-2.3) mg/dL Total Bilirubin (0.2-1.3) mg/dL AST (14-36) U/L ALT (9-52) U/L Alkaline Phosphatase (38-126) U/L Total Protein (6.3-8.2) g/dL Albumin (3.5-5.0) g/dL Urine Color Light Yellow Urine Appearance Clear (Clear) Urine pH 5.5 (5.0-8.0) Ur Specific [place] 1.012 (1.001-1.035) Urine Protein Trace H (Negative) Urine Glucose (UA) 4+ H (Negative) Urine Ketones Negative (Negative) Urine Blood Negative (Negative) Urine Nitrite Negative (Negative) Urine Bilirubin Negative (Negative) Urine Urobilinogen <2.0 (<2.0) mg/dL Ur Leukocyte Esterase Negative (Negative) Disposition Clinical Impression: Hyperglycemia Disposition: ADMITTED IP TO THIS HOSP Condition: Stable Additional Instructions: Patient will be admitted Is patient prescribed a controlled substance at d/c from ED?: No Referrals: Adin Golden MD [Primary Care Provider] - 1-2 days Time of Disposition: 23:33
[2019-01-19 19:10] LABS: VBG PH 7.32 (7.31-7.41)
[2019-01-19 19:18] LABS: Albumin 3.9 g/dL (3.5-5.0); Calcium 9.4 mg/dL (8.4-10.2); Magnesium 1.6 mg/dL (1.6-2.3); Phosphorus 3.6 mg/dL (2.5-4.5); Total Bilirubin 0.4 mg/dL (0.2-1.3)
[2019-01-19 19:19] LABS: Anisocytosis Slight; HCT 32.8 % (34.0-46.0); HGB 10.6 gm/dL (11.4-16.0); MCH 32.7 pg (25.0-35.0); MCHC 32.4 g/dL (31.0-37.0); MCV 100.8 fL (80.0-100.0); Macrocytosis Slight; Mean Platelet Volume 9.1; Platelet Count 177 k/uL (150-450); RBC 3.26 m/uL (3.80-5.40); RDW 16.6 % (11.5-15.5); WBC 7.6 k/uL (3.8-10.6)
[2019-01-19] MEDS ORDERED: INSULIN ASPART (NovoLOG) 100 UNIT/ML VIAL SQ ONE (19:53)
[2019-01-19 21:10] LABS: Glucose,Whole Blood 348 mg/dL (75-99)
[2019-01-19 21:42] LABS: Appearance,Urine Clear (Clear); Bilirubin,Urine Negative (Negative); Blood,Urine Negative (Negative); Color,Urine Light Yellow; Glucose,Urine (UA) 4+ (Negative); Ketones,Urine Negative (Negative); Leukocyte Esterase,Urine Negative (Negative); Nitrite,Urine Negative (Negative); PH, Urine 5.5 (5.0-8.0); Protein,Urine Trace (Negative); Specific Gravity,Urine 1.012 (1.001-1.035); Urobilinogen,Urine <2.0 mg/dL (<2.0)
[2019-01-19] MEDS ORDERED: NALOXONE 0.4 MG/ML 1 ML VIAL IV PRN (23:23)
[2019-01-19] MEDS: INSULIN DETEMIR (LEVEMIR) 100 UNIT/ML SYR SQ SCH (23:52)
[2019-01-20] MEDS: SODIUM CHLORIDE 0.9% 1,000 ML IV SCH ×2 (01:57→23:29)
[2019-01-20 07:20] LABS: Glucose,Whole Blood 81 mg/dL (75-99)
--- NOTE | 2019-01-20 13:16 | US ---
EXAMINATION TYPE: US carotid duplex BILAT DATE OF EXAM: 01/20/2019 COMPARISON: NONE CLINICAL HISTORY: near syncope. EXAM MEASUREMENTS: RIGHT: Peak Systolic Velocity (PSV) cm/sec ----- Right CCA: 54.9 ----- Right ICA: 69.7 ----- Right ECA: 52.3 ICA/CCA ratio: 1.3 RIGHT: End Diastole cm/sec ----- Right CCA: 9.5 ----- Right ICA: 17.4 ----- Right ECA: 0.0 LEFT: Peak Systolic Velocity (PSV) cm/sec ----- Left CCA: 54.9 ----- Left ICA: 71.4 ----- Left ECA: 48.8 ICA/CCA ratio: 1.3 LEFT: End Diastole cm/sec ----- Left CCA: 13.1 ----- Left ICA: 13.9 ----- Left ECA: 0.0 VERTEBRALS (direction of flow): Right Vertebral: Antegrade Left Vertebral: Antegrade Rhythm: Normal No significant stenosis seen. No elevated velocities. Bilateral plaque noted. IMPRESSION: I DO NOT SEE EVIDENCE OF A HEMODYNAMICALLY SIGNIFICANT STENOSIS IN EITHER CAROTID SYSTEM. Criteria for Assigning % of Stenosis / Diameter reduction (Estimation based on the indirect measurements of the internal carotid artery velocities (ICA PSV). 1. Normal (no stenosis)=ICA PSV < 125 cm/s: ratio < 2.0: ICA EDV<40 cm/s. 2. Less than 50% stenosis=ICA PSV < 125 cm/s: ratio < 2.0: ICA EDV<40 cm/s. 3. 50 to 69% stenosis=ICA PSV of 125 to 230 cm/s: ration 2.0 ? 4.0: ICA EDV 40-100 cm/s. 4. Greater than 70% stenosis to near occlusion= ICA PSV > 230 cm/s: ratio > 4.0: ICA EDV > 100 cm/s. 5. Near occlusion= ICA PSV velocities may be low or undetectable: variable ratio and ICA EDV. 6. Total occlusion=unable to detect flow.
[2019-01-20 13:19] LABS: Glucose,Whole Blood 247 mg/dL (75-99)
[2019-01-20 14:09] VITALS: BMI 24.0
--- NOTE | 2019-01-20 16:01 | ECHOF ---
Referral Reason:Hyperglycemia, syncope. MEASUREMENTS -------- HEIGHT: 167.6 cm WEIGHT: 67.6 kg BP: 109/67 RVIDd: 3.8 cm (< 3.3) IVSd: 1.3 cm (0.6 - 1.1) LVIDd: 5.7 cm (3.9 - 5.3) LVPWd: 1.2 cm (0.6 - 1.1) IVSs: 1.9 cm LVIDs: 4.1 cm LVPWs: 1.9 cm LA Diam: 4.3 cm (2.7 - 3.8) LAESV Index (A-L): 36.93 ml/m Ao Diam: 3.4 cm (2.0 - 3.7) AV Cusp: 2.2 cm (1.5 - 2.6) MV EXCURSION: 18.048 mm (> 18.000) MV EF SLOPE: 70 mm/s (70 - 150) EPSS: 0.2 cm MV E Filiberto: 0.89 m/s MV DecT: 234 ms MV A Filiberto: 0.67 m/s MV E/A Ratio: 1.33 RAP: 5.00 mmHg RVSP: 36.80 mmHg TAPSE: 18.96 mm FINDINGS -------- Paced rhythm. This was a technically adequate study. The left ventricle is mildly dilated. There is mild concentric left ventricular hypertrophy. Over all left ventricular systolic function is normal with, an EF between 55 - 60 %. The right ventricle is mild to moderately enlarged. LA is moderately dilated 34-39 ml/m2 The right atrium is normal in size. Interatrial and interventricular septum intact. There is mild aortic valve sclerosis. Trace to mild aortic regurgitation. Mild mitral annular calcification present. Mild mitral regurgitation is present. Mild tricuspid regurgitation present. There is mild pulmonary hypertension. The right ventricular systolic pressure, as measured by Doppler, is 36.80mmHg. Trace/mild (physiologic) pulmonic regurgitation. The aortic root size is normal. Normal inferior vena cava with normal inspiratory collapse consistent with estimated right atrial pre ssure of 5 mmHg. There is a small pericardial effusion located near the left ventricle. CONCLUSIONS -------- 1. Paced rhythm. 2. This was a technically adequate study. 3. The left ventricle is mildly dilated. 4. There is mild concentric left ventricular hypertrophy. 5. Overall left ventricular systolic function is normal with, an EF between 55 - 60 %. 6. The right ventricle is mild to moderately enlarged. 7. LA is moderately dilated 34-39 ml/m2 8. The right atrium is normal in size. 9. Interatrial and interventricular septum intact. 10. There is mild aortic valve sclerosis. 11. Trace to mild aortic regurgitation. 12. Mild mitral annular calcification present. 13. Mild mitral regurgitation is present. 14. Mild tricuspid regurgitation present. 15. There is mild pulmonary hypertension. 16. The right ventricular systolic pressure, as measured by Doppler, is 36.80mmHg. 17. Trace/mild (physiologic) pulmonic regurgitation. 18. The aortic root size is normal. 19. Normal inferior vena cava with normal inspiratory collapse consistent with estimated right atrial pressure of 5 mmHg. 20. There is a small pericardial effusion located near the left ventricle. MERCHANDISE CLERK: Porsha Mckeon RDCS
[2019-01-20 17:32] LABS: Glucose,Whole Blood 259 mg/dL (75-99)
--- NOTE | 2019-01-20 17:53 | P.HPIM ---
History of Present Illness H&P Date: 01/20/19 Chief Complaint: Near syncope This is an 83-year-old female patient of Dr. Golden with past medical history of paroxysmal atrial fibrillation on eliquis, status post pacemaker placement, diabetes mellitus type 2, gastroesophageal reflux disease, gout, hypertension, migraine headaches, chronic kidney disease stage 3, renal cancer, rheumatoid arthritis. 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 She has known carotid stenosis of 50% on the left internal carotid artery. Patient was having troubles with lightheadedness and dizziness, she'll do when he stands up, patient has no new medication changes from the office or by any other physicians within the past 2 months, patient was seen in emergency room on 920, with headache and lightheadedness, she was discharged to home are she felt better in emergency room after hydration, patient manages her on meals, no sick contacts, no diarrhea, she now comes seen to the emergency room with recurrent symptoms of lightheadedness, patient did not pass out, and was pasty 40 mL in the emergency room. Patient was given IV fluids are approximately 2 L, sugars were elevated in the 400s, patient denies any palpitations, however symptoms are recurrent in nature approximately 3 times this whole year She came into [facility] emergency center for evaluation. Chest x-ray showed no acute pulmonary process. CAT scan of the brain showed age-related atrophy and chronic small vessel ischemic change without acute intracranial process. EKG was a paced rhythm. Creatinine was 1.56, CO2 of 19, sodium 136, hemoglobin 10.6 echocardiogram and carotid Dopplers were ordered, during this admission echocardiogram shows paced rhythm, concentric LVH, EF 55- 60%, mild aortic valve sclerosis without stenosis, mild AR, mild MR mild TR, mild pulmonary hypertension with RVSP of 36 small pericardial effusion near the left ventricle no hemodynamically significant stenosis noted on the carotid s ystem, no CT of the brain was done in emergency room, EKG shows atrial paced rhythm with prolonged AV conduction septal infarct age did undetermined. We will consult cardiology for recurrent near-syncope history of pacemaker. Patient's also admitted with hyper osmolar nonketotic hyperglycemia and dehydration Review of Systems Constitutional: Reports as per HPI, Denies anorexia, Denies chills, Denies chronic headaches, Denies chronic pain, Denies daytime sleepiness, Denies fatigue, Denies fever, Denies lethargy, Denies malaise, Denies night sweats, Den ies poor appetite, Denies sweats, Denies weakness, Denies weight gain, Denies weight loss Ears, nose, mouth and throat: Reports as per HPI, Denies ant. neck pain, Denies bleeding gums, Denies dental pain, Denies dysphagia, Denies epistaxis, Denies headache, Denies hoarseness, Denies mouth pain, Denies nasal congestion, Denies nasal discharge, Denies neck fullness/pressure, Denies neck lump, Denies nose pain, Denies odynophagia, Denies post-nasal drip, Denies sinus pain, Denies sinus pressure, Denies swelling in mouth, Denies swelling in throat, Denies sore throat, Denies vertigo, Denies voice changes Cardiovascular: Reports as per HPI, Reports lightheadedness, Reports syncope (near), Denies chest pain, Denies claudication, Denies decreased exercise tolerance, Denies dyspnea on exertion, Denies edema, Denies high blood pressure, Denies irregular heart beat, Denies leg edema, Denies orthopnea, Denies palpitations, Denies paroxysmal nocturnal dyspnea, Denies phlebitis, Denies rapid heart beat, Denies shortness of breath Respiratory: Denies as per HPI, Denies congestion, Denies cough, Denies cough with sputum, Denies dyspnea, Denies excessive sputum, Denies hemoptysis, Denies home oxygen, Denies pain, Denies pain on inspiration, Denies pleurisy, Denies respiratory infections, Denies sleep apnea, Denies snoring, Denies wheezing Gastrointestinal: Reports as per HPI, Denies abdominal pain, Denies belching, Denies bloating, Denies BRBPR, Denies change in bowel habits, Denies coffee g round emesis, Denies constipation, Denies diarrhea, Denies dyspepsia, Denies early satiety, Denies excessive gas, Denies heartburn, Denies hematemesis, Denies hematochezia, Denies indigestion, Denies jaundice, Denies lactose intolerance, Denies loss of appetite, Denies melena, Denies nausea, Denies vomiting Genitourinary: Reports as per HPI Menstruation: Reports as per HPI, Denies amenorrhea, Denies amenorrhea on BC, Denies currently menstrual, Denies cycle < 21 days, Denies cycle > 35 days, Denies cycle variable, Denies menses 1-7 days, Denies menses 8 or > days, Denies menses variable, Denies period heavy, Denies period light, Denies period normal, Denies period spotting, Denies post hysterectomy, Denies postmenopausal, Denies premenarcheal Musculoskeletal: Reports as per HPI, Denies arm numbness/tingling, Denies atrophy, Denies fractures, Denies frequent falls, Denies gait dysfunction, Denies hot joints, Denies leg numbness/tingling, Denies limitation of motion, Denies loss of height, Denies low back pain, Denies morning stiffness, Denies muscle cramps, Denies muscle weakness, Denies myalgias, Denies neck pain, Denies neck stiffness, Denies prior amputations, Denies redness of joints, Denies shooting arm pain, Denies shooting leg pain Neurological: Reports as per HPI, Denies aphasia, Denies ataxia, Denies balance difficulties, Denies burning pain, Denies change in mentation, Denies change in smell/taste, Denies change in speech, Denies confusion, Denies convulsions, Denies double vision, Denies gait dysfunction, Denies head injury, Denies headaches, Denies hearing difficulties, Denies lack of coordination, Denies loss of vision, Denies memory loss, Denies migraines, Denies motor disturbance, Denies numbness, Denies paralysis, Denies paresthesias, Denies seizures, Denies sensory deficit, Denies spasticity, Denies syncope, Denies tic, Denies tingling, Denies transient paralysis, Denies tremors, Denies vertigo, Denies weakness, Denies visual changes Psychiatric: Reports as per HPI Endocrine: Reports as per HPI, Denies cold intolerance, Denies deepening of the voice, Denies excessive sweating, Denies excessive thirst, Denies fatigue, Denies flushing, Denies heat intolerance, Denies high blood sugars, Denies incr ease in ring/shoe/hat size, Denies low blood sugars, Denies nocturia, Denies palpitations, Denies polydipsia, Denies polyphagia, Denies polyuria, Denies proptosis, Denies recent glucocorticoid use, Denies thyroid mass, Denies weight change Hematologic/Lymphatic: Reports as per HPI, Denies easy bleeding, Denies easy bruising, Denies lymphadenopathy, Denies lymphedema, Denies thrombophilia Allergic/Immunologic: Reports as per HPI, Denies allergic rhinitis, Denies anaphylaxis, Denies angioedema, Denies gluten intolerance, Denies persistent infections, Denies seasonal allergies, Denies urticaria, Denies wheezing Past Medical History Past Medical History: CVA/TIA, Diabetes Mellitus, Hyperlipidemia, Hypertension, Memory Impairment, Osteoarthritis (OA) Additional Past Medical History / Comment(s): RA has injections mediport q 6 months, Kidney cancer no chemo or radiation skin cancer arms History of Any Multi-Drug Resistant Organisms: None Reported Past Surgical History: Adenoidectomy, Section, Hysterectomy, Orthopedic Surgery, Pacemaker, Tonsillectomy, Tubal Ligation Additional Past Surgical History / Comment(s): mediport for arthritis medication, 1/3 kidney removed for CA Past Anesthesia/Blood Transfusion Reactions: No Reported Reaction Type of Cardiac Device: Permanent Pacemaker, AICD Device Placement Date:: 05/12/2017 Past Psychological History: No Psychological Hx Reported Smoking Status: Never smoker Past Alcohol Use History: None Reported Past Drug Use History: None Reported - Past Family History Father History Unknown: Yes Additional Family Medical History / Comment(s): Father at age 73 from heart disease. Mother Additional Family Medical History / Comment(s): Mother at age 76 from heart disease. Brother(s) Additional Family Medical History / Comment(s): Patient has 2 brothers with no major medical problems. Daughter(s) Additional Family Medical History / Comment(s): Patient has 2 daughters and 1 as an infant. Patient has one son with no major medical problems. Medications and Allergies Home Medications Medication Instructions Recorded Confirmed Type Allopurinol [Zyloprim] 100 mg PO DAILY@0800 05/05/18 01/19/19 History Apixaban [Eliquis] 2.5 mg PO BID@0800,199905/05/18 01/19/19 History Aspirin EC [Ecotrin Low Dose] 81 mg PO DAILY@0800 05/05/18 01/19/19 History Escitalopram [Lexapro] 5 mg PO DAILY@0805/05/18 01/19/19 History Folic Acid 1 mg PO DAILY@0800 05/05/18 01/19/19 History Insulin Aspart [NovoLOG Flexpen] See Protocol SQ AC-TID 05/05/18 01/19/19 History Levothyroxine Sodium [Synthroid] 75 mcg PO DAILY@0800 05/05/18 01/19/19 History Methotrexate Sodium [Methotrexate] 7.5 mg PO FR 05/05/18 01/19/19 History Pantoprazole Sodium [Protonix] 40 mg PO BID@08,199905/05/18 01/19/19 History inFLIXimab [Remicade] 100 mg IVPB Q56D 05/05/18 01/19/19 History Atorvastatin [Lipitor] 40 mg PO HS #30 tab 05/07/18 01/19/19 Rx Cyanocobalamin [Vitamin B-12] 500 mcg PO DAILY@0800 05/18/18 01/19/19 History Butalb/APAP/Caff 50-325-40Mg 1 tab PO Q6H PRN 01/19/19 01/19/19 History [Fioricet 50-325-40] Carvedilol 12.5 mg PO BID 01/19/19 01/19/19 History Colchicine 0.6 mg PO DAILY 01/19/19 01/19/19 History Insulin Glargine [Lantus] 6 unit SQ HS 01/19/19 01/19/19 History Leucovorin Calcium 5 mg PO FRSA 01/19/19 01/19/19 History Lisinopril 20 mg PO BID 01/19/19 01/19/19 History amLODIPine [Norvasc] 10 mg PO DAILY 01/19/19 01/19/19 History Allergies Allergy/AdvReac Type Severity Reaction Status Date / Time baclofen Allergy Unknown Verified 01/19/19 19:21 cefdinir [From Omnicef] Allergy Unknown Verified 01/19/19 19:21 ciprofloxacin Allergy Unknown Verified 01/19/19 19:21 codeine Allergy Unknown Verified 01/19/19 19:21 hydrocodone Allergy Unknown Verified 01/19/19 19:21 Iodinated Contrast- Oral and Allergy Unknown Verified 01/19/19 19:21 IV Dye latex Allergy Unknown Verified 01/19/19 19:21 ofloxacin [From Floxin] Allergy Unknown Verified 01/19/19 19:21 Penicillins Allergy Unknown Verified 01/19/19 19:21 promethazine [From Phenergan] Allergy Unknown Verified 01/19/19 19:21 sulfadiazine Allergy Unknown Verified 01/19/19 19:21 sulfamethoxazole Allergy Unknown Verified 01/19/19 19:21 [From Bactrim] Tetracyclines Allergy Unknown Verified 01/19/19 19:21 theophylline [From Ángel-Dur] Allergy Unknown Verified 01/19/19 19:21 tramadol Allergy Unknown Verified 01/19/19 19:21 trimethoprim [From Bactrim] Allergy Unknown Verified 01/19/19 19:21 Physical Exam Vitals: Vital Signs Temp Pulse Pulse Pulse Pulse Resp BP 01/20/19 15:00 98.1 F 61 15 01/20/19 07:05 59 L 18 01/20/19 07:00 98.1 F 61 17 01/20/19 02:10 98.0 F 59 L 18 01/19/19 21:36 61 60 61 01/19/19 20:07 60 20 132/62 01/19/19 17:41 97.7 F 61 18 94/60 BP BP BP Pulse Ox 01/20/19 15:00 103/66 98 01/20/19 07:05 01/20/19 07:00 109/68 99 01/20/19 02:10 109/67 96 01/19/19 21:36 135/71 123/99 137/69 01/19/19 20:07 98 01/19/19 17:41 Intake and Output 01/20/19 01/20/19 01/20/19 06:59 14:59 22:59 Other: # Voids 2 2 Weight 67.585 kg - Constitutional General appearance: cooperative, no acute distress, obese - EENT Eyes: anicteric sclerae, PERRLA, dentition normal, normal appearance ENT: hard of hearing, NA/AT, normal oropharynx - Neck Neck: normal ROM - Respiratory Respiratory: bilateral: CTA, negative: diminished, dullness, rales - Cardiovascular Rhythm: regular Heart sounds: normal: S1, S2 Abnormal Heart Sounds: no systolic murmur, no diastolic murmur, no rub, no S3 Gallop, no S4 Gallop, no click, no other - Gastrointestinal General gastrointestinal: normal bowel sounds, soft - Integumentary Integumentary: decreased turgor, normal - Neurologic Neurologic: CNII-XII intact - Musculoskeletal Musculoskeletal: gait normal, strength equal bilaterally - Psychiatric Psychiatric: A&O x's 3, appropriate affect, intact judgment & insight Results CBC & Chem 7: 01/19/19 18:56 01/19/19 18:56 Labs: Abnormal Lab Results - Last 24 Hours (Table) 01/19/19 01/19/19 01/19/19 Range/Units 17:44 18:56 18:56 RBC 3.26 L (3.80-5.40) m/uL Hgb 10.6 L (11.4-16.0) gm/dL Hct 32.8 L (34.0-46.0) % MCV 100.8 H (80.0-100.0) fL RDW 16.6 H (11.5-15.5) % VBG HCO3 (24-28) mmol/L Carbon Dioxide 21 L (22-30) mmol/L BUN 28 H (7-17) mg/dL Creatinine 1.46 H (0.52-1.04) mg/dL Glucose 409 H (74-99) mg/dL POC Glucose (mg/dL) 343 H (75-99) mg/dL Hemoglobin A1c (4.0-6.0) % Urine Protein (Negative) Urine Glucose (UA) (Negative) 01/19/19 01/19/19 01/19/19 Range/Units 18:56 18:56 21:09 RBC (3.80-5.40) m/uL Hgb (11.4-16.0) gm/dL Hct (34.0-46.0) % MCV (80.0-100.0) fL RDW (11.5-15.5) % VBG HCO3 22 L (24-28) mmol/L Carbon Dioxide (22-30) mmol/L BUN (7-17) mg/dL Creatinine (0.52-1.04) mg/dL Glucose (74-99) mg/dL POC Glucose (mg/dL) 348 H (75-99) mg/dL Hemoglobin A1c 14.0 H (4.0-6.0) % Urine Protein (Negative) Urine Glucose (UA) (Negative) 01/19/19 01/20/19 Range/Units 21:33 13:08 RBC (3.80-5.40) m/uL Hgb (11.4-16.0) gm/dL Hct (34.0-46.0) % MCV (80.0-100.0) fL RDW (11.5-15.5) % VBG HCO3 (24-28) mmol/L Carbon Dioxide (22-30) mmol/L BUN (7-17) mg/dL Creatinine (0.52-1.04) mg/dL Glucose (74-99) mg/dL POC Glucose (mg/dL) 247 H (75-99) mg/dL Hemoglobin A1c (4.0-6.0) % Urine Protein Trace H (Negative) Urine Glucose (UA) 4+ H (Negative) Laboratory Results WBC 7.6 k/uL (3.8-10.6) 01/19/19 18:56 RBC 3.26 m/uL (3.80-5.40) L 01/19/19 18:56 Hgb 10.6 gm/dL (11.4-16.0) L 01/19/19 18:56 Hct 32.8 % (34.0-46.0) L 01/19/19 18:56 MCV 100.8 fL (80.0-100.0) H 01/19/19 18:56 MCH 32.7 pg (25.0-35.0) 01/19/19 18:56 MCHC 32.4 g/dL (31.0-37.0) 01/19/19 18:56 RDW 16.6 % (11.5-15.5) H 01/19/19 18:56 Plt Count 177 k/uL (150-450) 01/19/19 18:56 Anisocytosis Slight 01/19/19 18:56 Macrocytosis Slight 01/19/19 18:56 VBG pH 7.32 (7.31-7.41) 01/19/19 18:56 VBG pCO2 45 mmHg (37-51) 01/19/19 18:56 VBG HCO3 22 mmol/L (24-28) L 01/19/19 18:56 Sodium 138 mmol/L (137-145) 01/19/19 18:56 Potassium 5.0 mmol/L (3.5-5.1) 01/19/19 18:56 Chloride 106 mmol/L (98-107) 01/19/19 18:56 Carbon Dioxide 21 mmol/L (22-30) L 01/19/19 18:56 Anion Gap 11 mmol/L 01/19/19 18:56 BUN 28 mg/dL (7-17) H 01/19/19 18:56 Creatinine 1.46 mg/dL (0.52-1.04) H 01/19/19 18:56 Est GFR (CKD-EPI)AfAm 39 (>60 ml/min/1.73 sqM) 01/19/19 18:56 Est GFR (CKD-EPI)NonAf 34 (>60 ml/min/1.73 sqM) 01/19/19 18:56 Glucose 409 mg/dL (74-99) H 01/19/19 18:56 POC Glucose (mg/dL) 259 mg/dL (75-99) H 01/20/19 17:20 POC Glu Medical Assembly ID Reji Corona 01/20/19 17:[address] Glu mg/dL 355 01/19/19 18:56 Hemoglobin A1c 14.0 % (4.0-6.0) H 01/19/19 18:56 Calcium 9.4 mg/dL (8.4-10.2) 01/19/19 18:56 Phosphorus 3.6 mg/dL (2.5-4.5) 01/19/19 18:56 Magnesium 1.6 mg/dL (1.6-2.3) 01/19/19 18:56 Total Bilirubin 0.4 mg/dL (0.2-1.3) 01/19/19 18:56 AST 21 U/L (14-36) 01/19/19 18:56 ALT 14 U/L (9-52) 01/19/19 18:56 Alkaline Phosphatase 90 U/L (38-126) 01/19/19 18:56 Total Protein 7.0 g/dL (6.3-8.2) 01/19/19 18:56 Albumin 3.9 g/dL (3.5-5.0) 01/19/19 18:56 Urine Color Light Yellow 01/19/19 21:33 Urine Appearance Clear (Clear) 01/19/19 21:33 Urine pH 5.5 (5.0-8.0) 01/19/19 21:33 Ur Specific [place] 1.012 (1.001-1.035) 01/19/19 21:33 Urine Protein Trace (Negative) H 01/19/19 21:33 Urine Glucose (UA) 4+ (Negative) H 01/19/19 21:33 Urine Ketones Negative (Negative) 01/19/19 21:33 Urine Blood Negative (Negative) 01/19/19 21:33 Urine Nitrite Negative (Negative) 01/19/19 21:33 Urine Bilirubin Negative (Negative) 01/19/19 21:33 Urine Urobilinogen <2.0 mg/dL (<2.0) 01/19/19 21:33 Ur Leukocyte Esterase Negative (Negative) 01/19/19 21:33 Thrombosis Risk Factor Assmnt - Choose All That Apply Each Risk Factor Represents 3 Points: Age 75 years or older Thrombosis Risk Factor Assessment Total Risk Factor Score: 3 Thrombosis Risk Factor Assessment Level: Moderate Risk Assessment and Plan Plan: 1. Recurrent near-syncope, with positive orthostasis emergency room, IV fluids have been required to stabilize blood pressure, patient also has a pacemaker and abnormal EKG with prolonged conduction, consult were made with cardiology to evaluate for cardiac arrhythmias, patient has a negative urinalysis, carotid Dopplers are negative for hemodynamically significant stenosis, echocardiogram has been performed, without any aortic stenosis, underlying autonomic dysfunction is also suspected secondary to her diabetes mellitus, no GI losses are identified at this time, patient might benefit from tilt table test as an outpatient CT of the brain to evaluate for her headaches. Patient might need admitted 3 and prior to discharge, daily orthostatics to be done 2. Hyperosmolar nonketotic hyperglycemia, with uncontrolled blood sugars, A1c this time is 14, home medications needs to be addressed, and increase Levemir to 10 units, pre-meal NovoLog of 4 units breakfast lunch and dinner, early childhood educator aide to see what the patient is here, prior to admission she only has a scale and Levemir 6 units prior to admission 3. Metabolic acidosis secondary to dehydration and uncontrolled sugars monitor labs, IV hydration and monitor lab 4 Hypertension with initial hypotension on admission, old amlodipine 10 mg daily, continue Coreg 12.5 mg twice daily 5. Headache , no imaging studies, computed tomography scan of the brain without contrast creatinine elevated at 1.5 a sed rate to check for vasculitis 6 Paroxysmal atrial fibrillation. Currently on paced rhythm for suspected 6 sinus syndrome Continue eliquis and Coreg. Cardiology consult appreciated. 7 Hyperlipidemia. Continue atorvastatin started by cardiology. 6. Hypothyroidism. Continue levothyroxine 75 g daily. 7. Rheumatoid arthritis. Patient is on Remicade, methotrexate. 8. Diabetes mellitus type 2, insulin requiring. Continue Lantus 6 units at bedtime and NovoLog scale. 9. Recurrent depression. Continue Lexapro 5 mg daily 10. DVT prophylaxis. 11.Gastroesophageal reflux disease and GI prophylaxis.
[2019-01-20] MEDS ORDERED: ACETAMINOPHEN TAB 325 MG TAB PO PRN (19:27)
[2019-01-20] MEDS: CARVEDILOL 12.5 MG TAB PO SCH (19:36)
[2019-01-20] MEDS: PANTOPRAZOLE 40 MG TABLET PO SCH (19:47)
[2019-01-20] MEDS: APIXABAN 2.5 MG TABLET PO SCH (19:47)
[2019-01-20] MEDS: INSULIN DETEMIR (LEVEMIR) 100 UNIT/ML SYR SQ SCH (20:24)
[2019-01-20 20:33] LABS: Glucose,Whole Blood 257 mg/dL (75-99)
[2019-01-21 06:59] LABS: Glucose,Whole Blood 144 mg/dL (75-99)
[2019-01-21 07:13] LABS: Basophils % (A) 1 %; Eosinophils # (A) 0.2 k/uL (0-0.7); Eosinophils % (A) 2 %; HCT 32.3 % (34.0-46.0); HGB 10.3 gm/dL (11.4-16.0); Lymphocytes # (A) 2.2 k/uL (1.0-4.8); Lymphocytes % (A) 34 %; MCH 32.2 pg (25.0-35.0); MCHC 31.9 g/dL (31.0-37.0); MCV 100.8 fL (80.0-100.0); Macrocytosis Slight; Monocytes # (A) 0.3 k/uL (0-1.0); Monocytes % (A) 5 %; Neutrophils # (A) 3.7 k/uL (1.3-7.7); Neutrophils % (A) 57 %; Platelet Count 149 k/uL (150-450); RBC 3.21 m/uL (3.80-5.40); RDW 15.3 % (11.5-15.5); WBC 6.5 k/uL (3.8-10.6)
--- NOTE | 2019-01-21 07:15 | CT ---
EXAMINATION TYPE: CT brain wo con DATE OF EXAM: 01/21/2019 COMPARISON: Previous study dated 05/18/2018. HISTORY: GRANADOS CT DLP: 1021.4 mGycm Automated exposure control for dose reduction was used. FINDINGS: There are generalized changes of sulcal prominence and ventriculomegaly, compatible with atrophic drew nge. There is diffuse periventricular white matter lucency, compatible chronic white matter ischemic change. No acute focal lesion, mass effect or midline shift is seen. I do not see evidence of intracr anial blood. Visualized portions of the paranasal sinuses and mastoids are clear. The bony calvarium is intact. IMPRESSION: 1. NO ACUTE INTRACRANIAL ABNORMALITY. 2. MODERATE DEGENERATIVE CHANGE.
[2019-01-21 07:27] LABS: Total Protein 5.9 g/dL (6.3-8.2)
[2019-01-21 07:28] LABS: Albumin 3.1 g/dL (3.5-5.0); Calcium 9.2 mg/dL (8.4-10.2); Potassium 4.3 mmol/L (3.5-5.1); Total Bilirubin 0.4 mg/dL (0.2-1.3)
[2019-01-21] MEDS: INSULIN ASPART (NovoLOG) 100 UNIT/ML VIAL SQ SCH ×3 (07:51→17:27)
[2019-01-21] MEDS: ALLOPURINOL 100 MG TAB PO SCH (09:40)
[2019-01-21] MEDS: CARVEDILOL 12.5 MG TAB PO SCH ×2 (09:40→20:44)
[2019-01-21] MEDS: PANTOPRAZOLE 40 MG TABLET PO SCH ×2 (09:40→20:44)
[2019-01-21] MEDS: ASPIRIN 81 MG PO SCH (09:40)
[2019-01-21] MEDS: APIXABAN 2.5 MG TABLET PO SCH ×2 (09:40→20:44)
[2019-01-21] MEDS: ESCITALOPRAM 5 MG TAB PO SCH (09:41)
[2019-01-21] MEDS: LEVOTHYROXINE 75 MCG TAB PO SCH (09:41)
[2019-01-21] MEDS: CYANOCOBALAMIN 500 MCG TAB PO SCH (09:41)
[2019-01-21] MEDS: COLCHICINE 0.6 MG EACH PO SCH (09:41)
[2019-01-21 12:15] LABS: Glucose,Whole Blood 248 mg/dL (75-99)
--- NOTE | 2019-01-21 16:19 | P.CRDCN ---
History of Present Illness Consult date: 01/21/19 History of present illness: This is a 83-year-old female with history of paroxysmal atrial fibrillation and also permanent pacemaker implantation was admitted to the hospital with episodes of dizziness and near syncope. Patient did not completely pass out. She claims whenever she gets up from lying or sitting posture, she gets dizzy. She also has history of hypertension J reflux disease, gout and chronic kidney disease stage III. Since admission, it is documented that patient has some postural changes in blood pressure. Patient has a permanent pacemaker implantation. This was not evaluated with last 6 months. We'll going to evaluate the pacemaker for any malfunction. No pacemaker malfunction is noted on the telemetry unit. Denied any chest pain or shortness of breath. Patient was given IV fluids, since admission. It appears that patient is getting up and going to the bathroom without any significant problems. We'll find out the make of her pacemaker and will have pacemaker checkup. Patient is advised to have knee-high stockings and increase fluid intake. If necessary, either Florinef or midodrine can be added Review of Systems As per the chart Past Medical History Past Medical History: CVA/TIA, Diabetes Mellitus, Hyperlipidemia, Hypertension, Memory Impairment, Osteoarthritis (OA) Additional Past Medical History / Comment(s): RA has injections mediport q 6 months, Kidney cancer no chemo or radiation skin cancer arms History of Any Multi-Drug Resistant Organisms: None Reported Past Surgical History: Adenoidectomy, Section, Hysterectomy, Orthopedic Surgery, Pacemaker, Tonsillectomy, Tubal Ligation Additional Past Surgical History / Comment(s): mediport for arthritis medication, 1/3 kidney removed for CA Past Anesthesia/Blood Transfusion Reactions: No Reported Reaction Type of Cardiac Device: Permanent Pacemaker, AICD Device Placement Date:: 05/12/2017 Past Psychological History: No Psychological Hx Reported Smoking Status: Never smoker Past Alcohol Use History: None Reported Past Drug Use History: None Reported - Past Family History Father History Unknown: Yes Additional Family Medical History / Comment(s): Father at age 73 from heart disease. Mother Additional Family Medical History / Comment(s): Mother at age 76 from heart disease. Brother(s) Additional Family Medical History / Comment(s): Patient has 2 brothers with no major medical problems. Daughter(s) Additional Family Medical History / Comment(s): Patient has 2 daughters and 1 as an infant. Patient has one son with no major medical problems. Medications and Allergies Home Medications Medication Instructions Recorded Confirmed Type Allopurinol [Zyloprim] 100 mg PO DAILY@0800 05/05/18 01/19/19 History Apixaban [Eliquis] 2.5 mg PO BID@08,199905/05/18 01/19/19 History Aspirin EC [Ecotrin Low Dose] 81 mg PO DAILY@0800 05/05/18 01/19/19 History Escitalopram [Lexapro] 5 mg PO DAILY@0800 05/05/18 01/19/19 History Folic Acid 1 mg PO DAILY@79905/05/18 01/19/19 History Insulin Aspart [NovoLOG Flexpen] See Protocol SQ AC-TID 05/05/18 01/19/19 History Levothyroxine Sodium [Synthroid] 75 mcg PO DAILY@0800 05/05/18 01/19/19 History Methotrexate Sodium [Methotrexate] 7.5 mg PO FR 05/05/18 01/19/19 History Pantoprazole Sodium [Protonix] 40 mg PO BID@0800,199905/05/18 01/19/19 History inFLIXimab [Remicade] 100 mg IVPB Q56D 05/05/18 01/19/19 History Atorvastatin [Lipitor] 40 mg PO HS #30 tab 05/07/18 01/19/19 Rx Cyanocobalamin [Vitamin B-12] 500 mcg PO DAILY@0800 05/18/18 01/19/19 History Butalb/APAP/Caff 50-325-40Mg 1 tab PO Q6H PRN 01/19/19 01/19/19 History [Fioricet 50-325-40] Carvedilol 12.5 mg PO BID 01/19/19 01/19/19 History Colchicine 0.6 mg PO DAILY 01/19/19 01/19/19 History Insulin Glargine [Lantus] 6 unit SQ HS 01/19/19 01/19/19 History Leucovorin Calcium 5 mg PO FRSA 01/19/19 01/19/19 History Lisinopril 20 mg PO BID 01/19/19 01/19/19 History amLODIPine [Norvasc] 10 mg PO DAILY 01/19/19 01/19/19 History Allergies Allergy/AdvReac Type Severity Reaction Status Date / Time baclofen Allergy Unknown Verified 01/19/19 19:21 cefdinir [From Omnicef] Allergy Unknown Verified 01/19/19 19:21 ciprofloxacin Allergy Unknown Verified 01/19/19 19:21 codeine Allergy Unknown Verified 01/19/19 19:21 hydrocodone Allergy Unknown Verified 01/19/19 19:21 Iodinated Contrast- Oral and Allergy Unknown Verified 01/19/19 19:21 IV Dye latex Allergy Unknown Verified 01/19/19 19:21 ofloxacin [From Floxin] Allergy Unknown Verified 01/19/19 19:21 Penicillins Allergy Unknown Verified 01/19/19 19:21 promethazine [From Phenergan] Allergy Unknown Verified 01/19/19 19:21 sulfadiazine Allergy Unknown Verified 01/19/19 19:21 sulfamethoxazole Allergy Unknown Verified 01/19/19 19:21 [From Bactrim] Tetracyclines Allergy Unknown Verified 01/19/19 19:21 theophylline [From Ángel-Dur] Allergy Unknown Verified 01/19/19 19:21 tramadol Allergy Unknown Verified 01/19/19 19:21 trimethoprim [From Bactrim] Allergy Unknown Verified 01/19/19 19:21 Physical Exam Vitals: Vital Signs Temp Pulse Resp BP BP Pulse Ox 01/21/19 08:05 60 16 01/21/19 07:00 98.0 F 60 16 116/75 98 01/21/19 02:02 98.0 F 60 19 94/53 97 01/20/19 19:15 97.9 F 60 16 99/58 99 01/20/19 16:25 61 15 Intake and Output 01/21/19 01/21/19 01/21/19 06:59 14:59 22:59 Other: # Voids 2 2 GENERAL EXAM: Patient is alert and oriented and doesn't appear to be in any acute distress HEENT: Normocephalic. Normal reaction of pupils, equal size, normal range of extraocular motion. No erythema or exudates in the throat. NECK: No masses, no nuchal rigidity. CHEST: No chest wall deformity. LUNGS: Equal air entry with no crackles or wheeze. HEART: S1 and S2 normal with no audible mumurs or gallops. Regular rhythm, femorals equal on both sides.. ABDOMEN: No hepatosplenomegaly, normal bowel sounds, no guarding or rigidity. SKIN: No rashes CENTRAL NERVOUS SYSTEM: No focal deficits. EXTREMITIES: No cyanosis, clubbing or edema. Results 01/21/19 06:25 01/21/19 06:25 Cardiac Enzymes 01/21/19 Range/Units 06:25 AST 24 (14-36) U/L CBC 01/21/19 Range/Units 06:25 WBC 6.5 (3.8-10.6) k/uL RBC 3.21 L (3.80-5.40) m/uL Hgb 10.3 L (11.4-16.0) gm/dL Hct 32.3 L (34.0-46.0) % Plt Count 149 L (150-450) k/uL Comprehensive Metabolic Panel 01/21/19 Range/Units 06:25 Sodium 139 (137-145) mmol/L Potassium 4.3 (3.5-5.1) mmol/L Chloride 110 H (98-107) mmol/L Carbon Dioxide 22 (22-30) mmol/L BUN 29 H (7-17) mg/dL Creatinine 1.51 H (0.52-1.04) mg/dL Glucose 155 H (74-99) mg/dL Calcium 9.2 (8.4-10.2) mg/dL AST 24 (14-36) U/L ALT 21 (9-52) U/L Alkaline Phosphatase 78 (38-126) U/L Total Protein 5.9 L (6.3-8.2) g/dL Albumin 3.1 L (3.5-5.0) g/dL Current Medications Generic Name Dose Route Start Last Admin Trade Name Freq PRN Reason Stop Dose Admin Acetaminophen 650 mg 01/20/19 19:27 01/20/19 19:47 Tylenol Tab PO 650 mg Q6HR PRN Administration Fever and/ or Pain Allopurinol 100 mg 01/21/19 08:00 01/21/19 09:40 Zyloprim PO 100 mg DAILY@0800 [facility] Administration Apixaban 2.5 mg 01/20/19 20:00 01/21/19 09:40 Eliquis PO 2.5 mg BID@0800,2000 [facility] Administration Aspirin 81 mg 01/21/19 08:00 01/21/19 09:40 Aspirin PO 81 mg DAILY@0800 [facility] Administration Carvedilol 12.5 mg 01/20/19 21:00 01/21/19 09:40 Coreg PO 12.5 mg BID [facility] Administration Colchicine 0.6 mg 01/21/19 09:00 01/21/19 09:41 Colcrys PO 0.6 mg DAILY [facility] Administration Cyanocobalamin 500 mcg 01/21/19 08:00 01/21/19 09:41 Vitamin B-12 PO 500 mcg DAILY@0800 [facility] Administration Escitalopram Oxalate 5 mg 01/21/19 08:00 01/21/19 09:41 Lexapro PO 5 mg DAILY@0800 [facility] Administration Sodium Chloride 1,000 mls @ 20 mls/hr 01/19/19 23:30 01/20/19 23:29 Saline 0.9% IV Not Given .Q24H [facility] Insulin Aspart 5 unit 01/21/19 07:30 01/21/19 12:43 Novolog SQ 5 unit AC-TID [facility] Administration Protocol Insulin Detemir 10 unit 01/19/19 23:30 01/20/19 20:24 Levemir SQ 10 unit HS [facility] Administration Levothyroxine Sodium 75 mcg 01/21/19 08:00 01/21/19 09:41 Synthroid PO 75 mcg DAILY@0800 [facility] Administration Methotrexate 7.5 mg 01/26/19 09:00 Methotrexate PO FR [facility] Naloxone HCl 0.2 mg 01/19/19 23:23 Narcan IV Q2M PRN Opioid Reversal Pantoprazole Sodium 40 mg 01/20/19 20:00 01/21/19 09:40 Protonix PO 40 mg BID@0800,1999 [facility] Administration Intake and Output 01/21/19 01/21/19 01/21/19 06:59 14:59 22:59 Other: # Voids 2 2 01/21/19 06:25 01/21/19 06:25 Assessment and Plan (1) Dizziness Current Visit: Yes Status: Acute Code(s): R42 - DIZZINESS AND GIDDINESS SNOMED Code(s): 840657017 (2) Postural hypotension Current Visit: Yes Status: Acute Code(s): I95.1 - ORTHOSTATIC HYPOTENSION SNOMED Code(s): 90026058 (3) Paroxysmal atrial fibrillation Current Visit: Yes Status: Acute Code(s): I48.0 - PAROXYSMAL ATRIAL FIBRILLATION SNOMED Code(s): 272093569 (4) Presence of permanent cardiac pacemaker Current Visit: Yes Status: Acute Code(s): Z95.0 - PRESENCE OF CARDIAC PACEMAKER SNOMED Code(s): 025885108 Plan: Continue to monitor blood pressure for postural changes. Increase her salt intake. Consider knee-high stockings. We'll evaluate permanent pacemaker. If necessary, either Florinef or midodrine can bear
--- NOTE | 2019-01-21 16:35 | P.PN ---
Subjective Progress Note Date: 01/21/19 This is an 83-year-old female patient of Dr. Golden with past medical history of paroxysmal atrial fibrillation on eliquis, status post pacemaker placement, diabetes mellitus type 2, gastroesophageal reflux disease, gout, hypertension, migraine headaches, chronic kidney disease stage 3, renal cancer, rheumatoid arthritis. 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 She has known carotid stenosis of 50% on the left internal carotid artery. Patient was having troubles with lightheadedness and dizziness, she'll do when he stands up, patient has no new medication changes from the office or by any other physicians within the past 2 months, patient was seen in emergency room on 920, with headache and lightheadedness, she was discharged to home are she felt better in emergency room after hydration, patient manages her on meals, no sick contacts, no diarrhea, she now comes seen to the emergency room with recurrent symptoms of lightheadedness, patient did not pass out, and was pasty 40 mL in the emergency room. Patient was given IV fluids are approximately 2 L, sugars were elevated in the 400s, patient denies any palpitations, however symptoms are recurrent in nature approximately 3 times this whole year She came into [facility] emergency center for evaluation. Chest x-ray showed no acute pulmonary process. CAT scan of the brain showed age-related atrophy and chronic small vessel ischemic change without acute intracranial process. EKG was a paced rhythm. Creatinine was 1.56, CO2 of 19, sodium 136, hemoglobin 10.6 echocardiogram and carotid Dopplers were ordered, during this admission echocardiogram shows paced rhythm, concentric LVH, EF 55- 60%, mild aortic valve sclerosis without stenosis, mild AR, mild MR mild TR, mild pulmonary hypertension with RVSP of 36 small pericardial effusion near the left ventricle no hemodynamically significant stenosis noted on the carotid system, no CT of the brain was done in emergency room, EKG shows atrial paced rhythm with prolonged AV conduction septal infarct age did undetermined. We will consult cardiology for recurrent near-syncope history of pacemaker. Patient's also admitted with hyper osmolar nonketotic hyperglycemia and dehydration 01/21: Patient's blood sugar has been better, without any hypoglycemia episodes, blood sugars are ranging between 90-240 pre-meal, patient has been seen by dietitian, no lightheadedness on [place] stasis, orthostasis are checked and are last night, and was borderline psotive with drop of 13 mmhg on immediate standing, however BP this has stabilized without any further drop Symptoms have resolved orthostasis, were awaiting the our cardiology to evaluate arrhythmias as the patient has a pacemaker, might need interrogation, patient has been off antihypertensives secondary to normotensive readings in the hospital, orthostasis numbers in the morning, Review of Systems Constitutional: Reports as per HPI, Denies anorexia, Denies chills, Denies chronic headaches, Denies chronic pain, Denies daytime sleepiness, Denies fatigue, Denies fever, Denies lethargy, Denies malaise, Denies night sweats, Denies poor appetite, Denies sweats, Denies weakness, Denies weight gain, Denies weight loss Ears, nose, mouth and throat: Reports as per HPI, Denies ant. neck pain, Denies bleeding gums, Denies dental pain, Denies dysphagia, Denies epistaxis, Denies headache, Denies hoarseness, Denies mouth pain, Denies nasal congestion, Denies nasal discharge, Denies neck fullness/pressure, Denies neck lump, Denies nose pain, Denies odynophagia, Denies post-nasal drip, Denies sinus pain, Denies sinus pressure, Denies swelling in mouth, Denies swelling in throat, Denies sore throat, Denies vertigo, Denies voice changes Cardiovascular: Reports as per HPI, Reports lightheadedness, Reports syncope (near), Denies chest pain, Denies claudication, Denies decreased exercise tolerance, Denies dyspnea on exertion, Denies edema, Denies high blood pressure, Denies irregular heart beat, Denies leg edema, Denies orthopnea, Denies palpitations, Denies paroxysmal nocturnal dyspnea, Denies phlebitis, Denies rapid heart beat, Denies shortness of breath Respiratory: Denies as per HPI, Denies congestion, Denies cough, Denies cough with sputum, Denies dyspnea, Denies excessive sputum, Denies hemoptysis, Denies home oxygen, Denies pain, Denies pain on inspiration, Denies pleurisy, Denies respiratory infections, Denies sleep apnea, Denies snoring, Denies wheezing Gastrointestinal: Reports as per HPI, Denies abdominal pain, Denies belching, Denies bloating, Denies BRBPR, Denies change in bowel habits, Denies coffee ground emesis, Denies constipation, Denies diarrhea, Denies dyspepsia, Denies early satiety, Denies excessive gas, Denies heartburn, Denies hematemesis, Denies hematochezia, Denies indigestion, Denies jaundice, Denies lactose intolerance, Denies loss of appetite, Denies melena, Denies nausea, Denies vomiting Genitourinary: Reports as per HPI Menstruation: Reports as per HPI, Denies amenorrhea, Denies amenorrhea on BC, Denies currently menstrual, Denies cycle < 21 days, Denies cycle > 35 days, Denies cycle variable, Denies menses 1-7 days, Denies menses 8 or > days, Denies menses variable, Denies period heavy, Denies period light, Denies period normal, Denies period spotting, Denies post hysterectomy, Denies postmenopausal, Denies premenarcheal Musculoskeletal: Reports as per HPI, Denies arm numbness/tingling, Denies atro phy, Denies fractures, Denies frequent falls, Denies gait dysfunction, Denies hot joints, Denies leg numbness/tingling, Denies limitation of motion, Denies loss of height, Denies low back pain, Denies morning stiffness, Denies muscle cramps, Denies muscle weakness, Denies myalgias, Denies neck pain, Denies neck stiffness, Denies prior amputations, Denies redness of joints, Denies shooting arm pain, Denies shooting leg pain Neurological: Reports as per HPI, Denies aphasia, Denies ataxia, Denies balance difficulties, Denies burning pain, Denies change in mentation, Denies change in smell/taste, Denies change in speech, Denies confusion, Denies convulsions, Denies double vision, Denies gait dysfunction, Denies head injury, Denies headaches, Denies hearing difficulties, Denies lack of coordination, Denies loss of vision, Denies memory loss, Denies migraines, Denies motor disturbance, Denies numbness, Denies paralysis, Denies paresthesias, Denies seizures, Denies sensory deficit, Denies spasticity, Denies syncope, Denies tic, Denies tingling, Denies transient paralysis, Denies tremors, Denies vertigo, Denies weakness, Denies visual changes Psychiatric: Reports as per HPI Endocrine: Reports as per HPI, Denies cold intolerance, Denies deepening of the voice, Denies excessive sweating, Denies excessive thirst, Denies fatigue, Denies flushing, Denies heat intolerance, Denies high blood sugars, Denies increase in ring/shoe/hat size, Denies low blood sugars, Denies nocturia, Denies palpitations, Denies polydipsia, Denies polyphagia, Denies polyuria, Denies proptosis, Denies recent glucocorticoid use, Denies thyroid mass, Denies weight change Hematologic/Lymphatic: Reports as per HPI, Denies easy bleeding, Denies easy bruising, Denies lymphadenopathy, Denies lymphedema, Denies thrombophilia Allergic/Immunologic: Reports as per HPI, Denies allergic rhinitis, Denies anaphylaxis, Denies angioedema, Denies gluten intolerance, Denies persistent infections, Denies seasonal allergies, Denies urticaria, Denies wheezing Objective - Vital Signs Vital signs: Vital Signs Temp 98.0 F 01/21/19 07:00 Pulse 60 01/21/19 08:05 Resp 16 01/21/19 08:05 BP 116/75 01/21/19 07:00 Pulse Ox 98 01/21/19 07:00 Intake & Output 01/20/19 01/21/19 01/21/19 18:59 06:59 18:59 Intake Total 400 Balance 400 Weight 67.585 kg Intake: Oral 400 Other: # Voids 3 2 2 - Constitutional General appearance: Present: cooperative, no acute distress - EENT Eyes: Present: anicteric sclerae, EOMI, PERRLA, dentition normal ENT: Present: NA/AT, normal oropharynx - Neck Neck: Present: normal ROM - Respiratory Respiratory: bilateral: CTA, negative: diminished, dullness, rales - Cardiovascular Rhythm: regular Heart sounds: normal: S1, S2 Abnormal Heart Sounds: Absent: systolic murmur, diastolic murmur, rub, S3 Gallop, S4 Gallop, click, other - Gastrointestinal General gastrointestinal: Present: decreased bowel sounds, normal bowel sounds - Integumentary Integumentary: Present: normal, normal turgor - Neurologic Neurologic: Present: CNII-XII intact, focal deficits - Musculoskeletal Musculoskeletal: Present: gait normal, strength equal bilaterally - Psychiatric Psychiatric: Present: A&O x's 3, appropriate affect, intact judgment & insight - Labs CBC & Chem 7: 01/21/19 06:25 01/21/19 06:25 Labs: Abnormal Lab Results - Last 24 Hours (Table) 01/20/19 01/20/19 01/21/19 Range/Units 17:20 20:21 06:25 RBC 3.21 L (3.80-5.40) m/uL Hgb 10.3 L (11.4-16.0) gm/dL Hct 32.3 L (34.0-46.0) % MCV 100.8 H (80.0-100.0) fL Plt Count 149 L (150-450) k/uL Chloride (98-107) mmol/L BUN (7-17) mg/dL Creatinine (0.52-1.04) mg/dL Glucose (74-99) mg/dL POC Glucose (mg/dL) 259 H 257 H (75-99) mg/dL Total Protein (6.3-8.2) g/dL Albumin (3.5-5.0) g/dL 01/21/19 01/21/19 01/21/19 Range/Units 06:25 06:47 12:03 RBC (3.80-5.40) m/uL Hgb (11.4-16.0) gm/dL Hct (34.0-46.0) % MCV (80.0-100.0) fL Plt Count (150-450) k/uL Chloride 110 H (98-107) mmol/L BUN 29 H (7-17) mg/dL Creatinine 1.51 H (0.52-1.04) mg/dL Glucose 155 H (74-99) mg/dL POC Glucose (mg/dL) 144 H 248 H (75-99) mg/dL Total Protein 5.9 L (6.3-8.2) g/dL Albumin 3.1 L (3.5-5.0) g/dL Assessment and Plan Plan: 1. Recurrent near-syncope, with positive orthostasis emergency room, IV fluids have been required to stabilize blood pressure, patient also has a pacemaker and abnormal EKG with prolonged conduction, consult were made with cardiology to evaluate for cardiac arrhythmias, patient has a negative urinalysis, carotid Dopplers are negative for hemodynamically significant stenosis, echocardiogram has been performed, without any aortic stenosis, underlying autonomic dysfunction is also suspected secondary to her diabetes mellitus, no GI losses are identified at this time, patient might benefit from tilt table test as an outpatient CT of the brain to evaluate for her headaches. Patient might need admitted 3 and prior to discharge, daily orthostatics to be done, 2. Hyperosmolar nonketotic hyperglycemia, with uncontrolled blood sugars, A1c this time is 14, home medications needs to be addressed, and increase Levemir to 10 units, pre-meal NovoLog 5 units breakfast lunch and dinner, nutrition educator to see what the patient is here, prior to admission she only has a scale and Levemir 6 units prior to admission 3. Metabolic acidosis secondary to dehydration and uncontrolled sugars monitor labs, IV hydration and monitor lab 4 Hypertension with initial hypotension on admission, old amlodipine 10 mg daily, continue Coreg 12.5 mg twice daily 5. Headache , no imaging studies, computed tomography scan of the brain without contrast creatinine elevated at 1.5 a sed rate to check for vasculitis 6 Paroxysmal atrial fibrillation. Currently on paced rhythm for suspected 6 sinus syndrome Continue eliquis and Coreg. Cardiology consult appreciated. 7 Hyperlipidemia. Continue atorvastatin started by cardiology. 6. Hypothyroidism. Continue levothyroxine 75 g daily. 7. Rheumatoid arthritis. Patient is on Remicade, methotrexate. 8. Diabetes mellitus type 2, insulin requiring. Continue Lantus 6 units at bedtime and NovoLog scale. 9. Recurrent depression. Continue Lexapro 5 mg daily 10. DVT prophylaxis. 11.Gastroesophageal reflux disease and GI prophylaxis. Discharge planning in the morning, pending cardiology consultation with pacemaker evaluation
[2019-01-21 17:14] LABS: Glucose,Whole Blood 165 mg/dL (75-99)
[2019-01-21] MEDS: INSULIN DETEMIR (LEVEMIR) 100 UNIT/ML SYR SQ SCH (20:44)
[2019-01-21 20:50] LABS: Glucose,Whole Blood 131 mg/dL (75-99)
[2019-01-22] MEDS: SODIUM CHLORIDE 0.9% 1,000 ML IV SCH (00:06)
[2019-01-22 06:54] LABS: Glucose,Whole Blood 119 mg/dL (75-99)
[2019-01-22] MEDS: INSULIN ASPART (NovoLOG) 100 UNIT/ML VIAL SQ SCH ×3 (07:24→17:26)
[2019-01-22 08:08] LABS: Basophils % (A) 0 %; Eosinophils # (A) 0.1 k/uL (0-0.7); Eosinophils % (A) 2 %; HCT 33.5 % (34.0-46.0); HGB 10.6 gm/dL (11.4-16.0); Lymphocytes # (A) 2.1 k/uL (1.0-4.8); Lymphocytes % (A) 29 %; MCH 32.2 pg (25.0-35.0); MCHC 31.6 g/dL (31.0-37.0); Macrocytosis Slight; Mean Platelet Volume 8.9; Monocytes # (A) 0.1 k/uL (0-1.0); Monocytes % (A) 2 %; Neutrophils # (A) 4.8 k/uL (1.3-7.7); Neutrophils % (A) 67 %; Platelet Count 159 k/uL (150-450); RBC 3.29 m/uL (3.80-5.40); RDW 15.4 % (11.5-15.5); WBC 7.2 k/uL (3.8-10.6)
[2019-01-22 08:32] LABS: Albumin 3.3 g/dL (3.5-5.0); Calcium 9.3 mg/dL (8.4-10.2); Potassium 4.4 mmol/L (3.5-5.1); Total Bilirubin 0.5 mg/dL (0.2-1.3); Total Protein 6.4 g/dL (6.3-8.2)
[2019-01-22] MEDS: PANTOPRAZOLE 40 MG TABLET PO SCH ×2 (09:00→20:39)
[2019-01-22] MEDS: ESCITALOPRAM 5 MG TAB PO SCH (09:00)
[2019-01-22] MEDS: APIXABAN 2.5 MG TABLET PO SCH ×2 (09:00→20:39)
[2019-01-22] MEDS: ASPIRIN 81 MG PO SCH (09:00)
[2019-01-22] MEDS: ALLOPURINOL 100 MG TAB PO SCH (09:00)
[2019-01-22] MEDS: LEVOTHYROXINE 75 MCG TAB PO SCH (09:01)
[2019-01-22] MEDS: CARVEDILOL 12.5 MG TAB PO SCH ×2 (09:01→20:39)
[2019-01-22] MEDS: CYANOCOBALAMIN 500 MCG TAB PO SCH (09:01)
[2019-01-22] MEDS: COLCHICINE 0.6 MG EACH PO SCH (09:01)
--- NOTE | 2019-01-22 11:43 | P.PN ---
Subjective This is a pleasant 83-year-old female past medical history significant for paroxysmal atrial fibrillation, hypertension, dyslipidemia and permanent pacemaker implantation. She follows with Dr. Archibald out of town for cardiology. We are following her secondary to a pre-syncopal episode. She is quite vague about her symptoms and outpatient follow-up. She states it has been quite awhile since her last pacemaker interrogation. She has been seen in the office with Dr. Meng one time earlier this year after being hospitalized with abnormal troponins. She underwent a Lexiscan stress test at that time June 2018 which revealed a mildly sized reversible defect involving the lateral and apical wall consistent with stress-induced ischemia. She, unfortunately, never returned to the office. Device interrogation at that time was unremarkable with normally functioning [employer] device with underling bradycardia v junctional rhythm. Currently maintained on Eliquis 2.5 mg twice a day, aspirin 81 mg daily, and carvedilol 12.5 mg twice a day. Echocardiogram obtained on this admission reveals preserved LV systolic function with ejection fraction 55-60%, moderately dilated left atrium, mild aortic valve sclerosis, mild aortic reg urgitation, mild mitral regurgitation, mild tricuspid regurgitation and mild pulmonary hypertension with an RVSP of 36 mmHg. Blood pressure 131/86 heart rate 60 afebrile maintaining oxygen saturation on room air. GENERAL: Well-appearing, well-nourished and in no acute distress. NECK: Supple without JVD or thyromegaly. LUNGS: Breath sounds clear to auscultation bilaterally. Respiration equal and unlabored. No wheezes, rales or rhonchi. HEART: Regular rate and rhythm without murmurs, rubs or gallops. S1 and S2 heard. EXTREMITIES: Normal range of motion, no edema. No clubbing or cyanosis. Per ipheral pulses intact. ASSESSMENT Presyncope and dizziness associated with postural hypotension Paroxysmal atrial fibrillation on long-term anticoagulation Permanent pacemaker implantation, [employer] device. Generator change 03/[address] Archibald Hypertension Dyslipidemia Abnormal stress test 06/2018, currently stable. PLAN Interrogate device for evidence of an acute arrhythmia or device failure. If unremarkable she can be discharged from a cardiac perspective. Follow up in the office with Dr. Meng upon discharge. Nurse Practitioner note has been reviewed, I agree with a documented findings and plan of care. Patient was seen and examined. Objective - Vital Signs Vital signs: Vital Signs Temp 98.2 F 01/22/19 07:28 Pulse 60 01/22/19 07:28 Resp 16 01/22/19 07:28 BP 131/86 01/22/19 07:28 Pulse Ox 97 01/22/19 07:28 Intake & Output 01/21/19 01/22/19 01/22/19 18:59 06:59 18:59 Intake Total 480 480 240 Balance 480 480 240 Intake: Oral 480 480 240 Other: # Voids 3 3 - Labs CBC & Chem 7: 01/22/19 07:28 01/22/19 07:28 Labs: Abnormal Lab Results - Last 24 Hours (Table) 01/21/19 01/21/19 01/21/19 Range/Units 12:03 17:02 20:37 RBC (3.80-5.40) m/uL Hgb (11.4-16.0) gm/dL Hct (34.0-46.0) % MCV (80.0-100.0) fL Chloride (98-107) mmol/L Carbon Dioxide (22-30) mmol/L BUN (7-17) mg/dL Creatinine (0.52-1.04) mg/dL Glucose (74-99) mg/dL POC Glucose (mg/dL) 248 H 165 H 131 H (75-99) mg/dL AST (14-36) U/L ALT (9-52) U/L Alkaline Phosphatase (38-126) U/L Albumin (3.5-5.0) g/dL 01/22/19 01/22/19 01/22/19 Range/Units 06:43 07:28 07:28 RBC 3.29 L (3.80-5.40) m/uL Hgb 10.6 L (11.4-16.0) gm/dL Hct 33.5 L (34.0-46.0) % MCV 102.0 H (80.0-100.0) fL Chloride 111 H (98-107) mmol/L Carbon Dioxide 21 L (22-30) mmol/L BUN 26 H (7-17) mg/dL Creatinine 1.27 H (0.52-1.04) mg/dL Glucose 109 H (74-99) mg/dL POC Glucose (mg/dL) 119 H (75-99) mg/dL AST 114 H (14-36) U/L ALT 66 H (9-52) U/L Alkaline Phosphatase 135 H (38-126) U/L Albumin 3.3 L (3.5-5.0) g/dL
[2019-01-22 12:13] LABS: Glucose,Whole Blood 161 mg/dL (75-99)
--- NOTE | 2019-01-22 15:43 | P.PN ---
Subjective Progress Note Date: 01/22/19 This is an 83-year-old female patient of Dr. Golden with past medical history of paroxysmal atrial fibrillation on eliquis, status post pacemaker placement, diabetes mellitus type 2, gastroesophageal reflux disease, gout, hypertension, migraine headaches, chronic kidney disease stage 3, renal cancer, rheumatoid arthritis. 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 She has known carotid stenosis of 50% on the left internal carotid artery. Patient was having troubles with lightheadedness and dizziness, she'll do when he stands up, patient has no new medication changes from the office or by any other physicians within the past 2 months, patient was seen in emergency room on 920, with headache and lightheadedness, she was discharged to home are she felt better in emergency room after hydration, patient manages her on meals, no sick contacts, no diarrhea, she now comes seen to the emergency room with recurrent symptoms of lightheadedness, patient did not pass out, and was pasty 40 mL in the emergency room. Patient was given IV fluids are approximately 2 L, sugars were elevated in the 400s, patient denies any palpitations, however symptoms are recurrent in nature approximately 3 times this whole year She came into [facility] emergency center for evaluation. Chest x-ray showed no acute pulmonary process. CAT scan of the brain showed age-related atrophy and chronic small vessel ischemic change without acute intracranial process. EKG was a paced rhythm. Creatinine was 1.56, CO2 of 19, sodium 136, hemoglobin 10.6 echocardiogram and carotid Dopplers were ordered, during this admission echocardiogram shows paced rhythm, concentric LVH, EF 55- 60%, mild aortic valve sclerosis without stenosis, mild AR, mild MR mild TR, mild pulmonary hypertension with RVSP of 36 small pericardial effusion near the left ventricle no hemodynamically significant stenosis noted on the carotid system, no CT of the brain was done in emergency room, EKG shows atrial paced rhythm with prolonged AV conduction septal infarct age did undetermined. We will consult cardiology for recurrent near-syncope history of pacemaker. Patient's also admitted with hyper osmolar nonketotic hyperglycemia and dehydration 01/21: Patient's blood sugar has been better, without any hypoglycemia episodes, blood sugars are ranging between 90-240 pre-meal, patient has been seen by dietitian, no lightheadedness on [place] stasis, orthostasis are checked and are last night, and was borderline psotive with drop of 13 mmhg on immediate standing, however BP this has stabilized without any further drop Symptoms have resolved orthostasis, were awaiting the our cardiology to evaluate arrhythmias as the patient has a pacemaker, might need interrogation, patient has been off antihypertensives secondary to normotensive readings in the hospital, orthostasis numbers in the morning, 01/22: Patient has been seen by cardiology with plan to interrogate her pacemaker but unfortunately no one was available to interrogate and patient was unable to obtain ride [facility] before the office closed so patient will be waiting until tomorrow to have interrogation completed. Orthostatics are positive and admitted drain will be started. Lisinopril decreased to 2.5 m g. Blood sugars are well controlled with current medication changes in her insulins. Repeat lab work today reveals BUN 26, creatinine 1.27, hemoglobin 10.6, AST 114, ALT 66, alkaline phosphatase 135. Sodium 141, potassium 4.4, chloride 111 CO2 21 Objective - Vital Signs Vital signs: Vital Signs Temp 98.1 F 01/22/19 14:31 Pulse 64 01/22/19 14:31 Resp 16 01/22/19 14:31 BP 95/52 01/22/19 14:31 Pulse Ox 98 01/22/19 14:31 Intake & Output 01/21/19 01/22/19 01/22/19 18:59 06:59 18:59 Intake Total 480 480 480 Output Total 200 Balance 480 480 280 Intake: Oral 480 480 480 Output: Urine 200 Other: # Voids 3 3 2 - Exam Review Of Systems: Constitutional: No fever, no chills, no night sweats. No weight change. No weakness, fatigue or lethargy. No daytime sleepiness. EENT: No headache. No blurred vision or double vision, no loss of vision. No loss of Hearing, no ringing in the ears, no dizziness. No nasal drainage or congestion. No epistaxis. No sore throat. Lungs: No shortness of breath, cough, no sputum production. No wheezing. Cardiovascular: No chest pain, no lower extremity edema. No palpitations. No paroxysmal nocturnal dyspnea. No orthopnea. No lightheadedness or dizziness. No syncopal episodes. Abdominal: No abdominal pain. No nausea, vomiting. No diarrhea. No constipation. No bloody or tarry stools. No loss of appetite. Genitourinary: No dysuria, increased frequency, urgency. No urinary retention. Musculoskeletal: No myalgias. No muscle weakness, no gait dysfunction, no frequent falls. No back pain. No neck pain. Integumentary: No wounds, no lesions. No rash or pruritus. No unusual bruising. No change in hair or nails. Neurologic: No aphasia. No facial droop. No change in mentation. No head injury. No headache. No paralysis. No paresthesia. Psychiatric: No depression. No anxiety. No mood swings. Endocrine: Reports abnormal blood sugars-improved. No weight change. No exces sive sweating or thirst. No cold intolerance. - Constitutional General appearance: Present: cooperative, no acute distress - EENT Eyes: Present: anicteric sclerae, EOMI, PERRLA, dentition normal ENT: Present: NA/AT, normal oropharynx - Neck Neck: Present: normal ROM - Respiratory Respiratory: bilateral: CTA, negative: diminished, dullness, rales - Cardiovascular Rhythm: regular Heart sounds: normal: S1, S2 Abnormal Heart Sounds: Absent: systolic murmur, diastolic murmur, rub, S3 Gallop, S4 Gallop, click, other - Gastrointestinal General gastrointestinal: Present: decreased bowel sounds, normal bowel sounds - Integumentary Integumentary: Present: normal, normal turgor - Neurologic Neurologic: Present: CNII-XII intact, focal deficits - Musculoskeletal Musculoskeletal: Present: gait normal, strength equal bilaterally - Psychiatric Psychiatric: Present: A&O x's 3, appropriate affect, intact judgment & insight - Labs CBC & Chem 7: 01/22/19 07:28 01/22/19 07:28 Labs: Abnormal Lab Results - Last 24 Hours (Table) 01/21/19 01/21/19 01/22/19 Range/Units 17:02 20:37 06:43 RBC (3.80-5.40) m/uL Hgb (11.4-16.0) gm/dL Hct (34.0-46.0) % MCV (80.0-100.0) fL Chloride (98-107) mmol/L Carbon Dioxide (22-30) mmol/L BUN (7-17) mg/dL Creatinine (0.52-1.04) mg/dL Glucose (74-99) mg/dL POC Glucose (mg/dL) 165 H 131 H 119 H (75-99) mg/dL AST (14-36) U/L ALT (9-52) U/L Alkaline Phosphatase (38-126) U/L Albumin (3.5-5.0) g/dL 01/22/19 01/22/19 01/22/19 Range/Units 07:28 07:28 11:52 RBC 3.29 L (3.80-5.40) m/uL Hgb 10.6 L (11.4-16.0) gm/dL Hct 33.5 L (34.0-46.0) % MCV 102.0 H (80.0-100.0) fL Chloride 111 H (98-107) mmol/L Carbon Dioxide 21 L (22-30) mmol/L BUN 26 H (7-17) mg/dL Creatinine 1.27 H (0.52-1.04) mg/dL Glucose 109 H (74-99) mg/dL POC Glucose (mg/dL) 161 H (75-99) mg/dL AST 114 H (14-36) U/L ALT 66 H (9-52) U/L Alkaline Phosphatase 135 H (38-126) U/L Albumin 3.3 L (3.5-5.0) g/dL Assessment and Plan Plan: 1. Recurrent near-syncope, with positive orthostasis . Admitted during 10 mg 3 times daily added. 2. Hyperosmolar nonketotic hyperglycemia, with uncontrolled blood sugars, A1c this time is 14, home medications needs to be addressed, and increase Levemir to 10 units, pre-meal NovoLog 5 units breakfast lunch and dinner, life educator to see what the patient is here, prior to admission she only has a scale and Levemir 6 units prior to admission 3. Metabolic acidosis secondary to dehydration and uncontrolled sugars monitor labs, IV hydration and monitor lab 4 Hypertension with initial hypotension on admission, old amlodipine 10 mg daily, continue Coreg 12.5 mg twice daily, decrease lisinopril to 2.5 mg daily 5. Headache , no imaging studies, computed tomography scan of the brain without contrast creatinine elevated at 1.5 a sed rate to check for vasculitis 6 Paroxysmal atrial fibrillation. Currently on paced rhythm for suspected 6 sinus syndrome Continue eliquis and Coreg. Cardiology consult appreciated. 7 Hyperlipidemia. Continue atorvastatin started by cardiology. 6. Hypothyroidism. Continue levothyroxine 75 g daily. 7. Rheumatoid arthritis. Patient is on Remicade, methotrexate. 8. Diabetes mellitus type 2, insulin requiring. Continue Lantus 6 units at bedtime and NovoLog scale. 9. Recurrent depression. Continue Lexapro 5 mg daily 10. DVT prophylaxis. 11.Gastroesophageal reflux disease and GI prophylaxis. Discharge plan: Home tomorrow after pacemaker is interrogated. Impression and plan of care have been directed as dictated by the signing physician. Sharmaine Fang nurse practitioner acting as scribe for signing rach breen.
[2019-01-22 17:08] LABS: Glucose,Whole Blood 173 mg/dL (75-99)
[2019-01-22] MEDS: MIDODRINE 5 MG TAB PO SCH (17:27)
[2019-01-22 19:46] VITALS: RESP 18
[2019-01-22 20:15] LABS: Glucose,Whole Blood 143 mg/dL (75-99)
[2019-01-22] MEDS: INSULIN DETEMIR (LEVEMIR) 100 UNIT/ML SYR SQ SCH (20:39)
[2019-01-23] MEDS: SODIUM CHLORIDE 0.9% 1,000 ML IV SCH (01:49)
[2019-01-23 07:12] LABS: Glucose,Whole Blood 111 mg/dL (75-99)
[2019-01-23 07:33] LABS: Basophils # (A) 0.1 k/uL (0-0.2); Basophils % (A) 1 %; Eosinophils # (A) 0.3 k/uL (0-0.7); Eosinophils % (A) 3 %; HCT 34.3 % (34.0-46.0); HGB 11.1 gm/dL (11.4-16.0); Lymphocytes # (A) 2.7 k/uL (1.0-4.8); Lymphocytes % (A) 36 %; MCH 32.5 pg (25.0-35.0); MCHC 32.5 g/dL (31.0-37.0); Macrocytosis Slight; Mean Platelet Volume 8.7; Monocytes # (A) 0.2 k/uL (0-1.0); Monocytes % (A) 2 %; Neutrophils # (A) 4.4 k/uL (1.3-7.7); Neutrophils % (A) 57 %; Platelet Count 161 k/uL (150-450); RBC 3.42 m/uL (3.80-5.40); RDW 15.3 % (11.5-15.5); WBC 7.7 k/uL (3.8-10.6)
[2019-01-23] MEDS: INSULIN ASPART (NovoLOG) 100 UNIT/ML VIAL SQ SCH ×2 (08:08→13:05)
[2019-01-23] MEDS: MIDODRINE 5 MG TAB PO SCH (08:08)
[2019-01-23] MEDS: ALLOPURINOL 100 MG TAB PO SCH (08:08)
[2019-01-23] MEDS: CYANOCOBALAMIN 500 MCG TAB PO SCH (08:08)
[2019-01-23] MEDS: COLCHICINE 0.6 MG EACH PO SCH (08:08)
[2019-01-23] MEDS: APIXABAN 2.5 MG TABLET PO SCH (08:08)
[2019-01-23] MEDS: PANTOPRAZOLE 40 MG TABLET PO SCH (08:08)
[2019-01-23] MEDS: LEVOTHYROXINE 75 MCG TAB PO SCH (08:08)
[2019-01-23] MEDS: ASPIRIN 81 MG PO SCH (08:09)
[2019-01-23] MEDS: CARVEDILOL 12.5 MG TAB PO SCH (08:09)
[2019-01-23] MEDS: ESCITALOPRAM 5 MG TAB PO SCH (08:09)
[2019-01-23 08:39] VITALS: PULSE 61; TEMP 97.7
[2019-01-23 10:06] VITALS: BP 118/68
--- NOTE | 2019-01-23 11:24 | P.PN ---
Subjective This is a pleasant 83-year-old female past medical history significant for paroxysmal atrial fibrillation, hypertension, dyslipidemia and permanent pacemaker implantation. She is currently being followed in the hospital secondary to presyncope. She underwent a pacemaker interrogation this morning revealing normally functioning device with no significant events. She is seen and examined sitting up in bed in no acute distress. She denies chest pain, shortness of breath, dizziness or palpitations. Blood pressure supine 118/68 sitting 104/65 and standing 88/54. Currently maintained on eliquis 2.5 mg BID, aspirin 81 mg daily, coreg 12.5 mg BID and midodrine 10 mg TID. Lisinopril and amlodipine have been discontinued. GENERAL: Well-appearing, well-nourished and in no acute distress. NECK: Supple without JVD or thyromegaly. LUNGS: Breath sounds clear to auscultation bilaterally. Respiration equal and unlabored. No wheezes, rales or rhonchi. HEART: Regular rate and rhythm without murmurs, rubs or gallops. S1 and S2 heard. EXTREMITIES: Normal range of motion, no edema. No clubbing or cyanosis. Peripheral pulses intact. ASSESSMENT Presyncope and dizziness associated with postural hypotension. Ongoing. Paroxysmal atrial fibrillation on long-term anticoagulation Permanent pacemaker implantation, [employer] device. Generator change 03/[address] Archibald Hypertension Dyslipidemia Abnormal stress test 06/2018, currently stable. PLAN Decrease coreg to 6.25 mg BID. Follow up in the office with Dr. Meng upon discharge. Appointment has been made. Nurse Practitioner note has been reviewed, I agree with a documented findings and plan of care. Patient was seen and examined. Objective - Vital Signs Vital signs: Vital Signs Temp 97.7 F 01/23/19 07:00 Pulse 61 01/23/19 07:00 Resp 18 01/23/19 03:50 BP 118/68 01/23/19 10:05 Pulse Ox 98 01/23/19 07:00 Intake & Output 01/22/19 01/23/19 01/23/19 18:59 06:59 18:59 Intake Total 480 240 100 Output Total 200 Balance 280 240 100 Intake: Oral 480 240 100 Output: Urine 200 Other: Voiding Method Toilet # Voids 2 2 - Labs CBC & Chem 7: 01/23/19 07:06 01/22/19 07:28 Labs: Abnormal Lab Results - Last 24 Hours (Table) 01/22/19 01/22/19 01/22/19 Range/Units 11:52 16:57 20:12 RBC (3.80-5.40) m/uL Hgb (11.4-16.0) gm/dL POC Glucose (mg/dL) 161 H 173 H 143 H (75-99) mg/dL 01/23/19 01/23/19 Range/Units 07:01 07:06 RBC 3.42 L (3.80-5.40) m/uL Hgb 11.1 L (11.4-16.0) gm/dL POC Glucose (mg/dL) 111 H (75-99) mg/dL
[2019-01-23 11:54] LABS: Glucose,Whole Blood 87 mg/dL (75-99)
--- NOTE | 2019-01-23 14:12 | P.DS ---
Providers Date of admission: 01/20/19 00:17 Expected date of discharge: 01/23/19 Attending physician: Cristina March Consults: 01/20/19 17:49 Consult Physician Routine Consulting Provider: Zoltan Jewell Consult Reason/Comments: near syncope recurrent, pacemaker Do you want consulting provider notified?: Yes Primary care physician: [facility] Course: This is an 83-year-old female patient of Dr. Golden with past medical history of paroxysmal atrial fibrillation on eliquis, status post pacemaker placement, diabetes mellitus type 2, gastroesophageal reflux disease, gout, hypertension, migraine headaches, chronic kidney disease stage 3, renal cancer, rheumatoid arthritis. 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 She has known carotid stenosis of 50% on the left internal carotid artery. Patient was having troubles with lightheadedness and dizziness, she'll do when he stands up, patient has no new medication changes from the office or by any other physicians within the past 2 months, patient was seen in emergency room on 920, with headache and lightheadedness, she was discharged to home are she felt better in emergency room after hydration, patient manages her on meals, no sick contacts, no diarrhea, she now comes seen to the emergency room with recurrent symptoms of lightheadedness, patient did not pass out, and was pasty 40 mL in the emergency room. Patient was given IV fluids are approximately 2 L, sugars were elevated in the 400s, patient denies any palpitations, however symptoms are recurrent in nature approximately 3 times this whole year She came into [facility] emergency center for evaluation. Chest x-ray showed no acute pulmonary process. CAT scan of the brain showed age-related atrophy and chronic small vessel ischemic change without acute intracranial process. EKG was a paced rhythm. Creatinine was 1.56, CO2 of 19, sodium 136, hemoglobin 10.6 echocardiogram and carotid Dopplers were ordered, during this admission echocardiogram shows paced rhythm, concentric LVH, EF 55- 60%, mild aortic valve sclerosis without stenosis, mild AR, mild MR mild TR, mild pulmonary hypertension with RVSP of 36 small pericardial effusion near the left ventricle no hemodynamically significant stenosis noted on the carotid system, no CT of the brain was done in emergency room, EKG shows atrial paced rhythm with prolonged AV conduction septal infarct age did undetermined. We will consult cardiology for recurrent near-syncope history of pacemaker. Patient's also admitted with hyper osmolar nonketotic hyperglycemia and dehydration 01/21: Patient's blood sugar has been better, without any hypoglycemia episodes, blood sugars are ranging between 90-240 pre-meal, patient has been seen by trell peguero, no lightheadedness on [place] stasis, orthostasis are checked and are last night, and was borderline psotive with drop of 13 mmhg on immediate standing, however BP this has stabilized without any further drop Symptoms have resolved orthostasis, were awaiting the our cardiology to evaluate arrhythmias as the patient has a pacemaker, might need interrogation, patient has been off antihypertensives secondary to normotensive readings in the hospital, orthostasis numbers in the morning, 01/22: Patient has been seen by cardiology with plan to interrogate her pacemaker but unfortunately no one was available to interrogate and patient was unable to obtain ride [facility] to [facility] before the office closed so patient will be waiting until tomorrow to have interrogation completed. Orthostatics are positive and admitted drain will be started. Lisinopril decreased to 2.5 mg. Blood sugars are well controlled with current medication changes in her insulins. Repeat lab work today reveals BUN 26, creatinine 1.27, hemoglobin 10.6, AST 114, ALT 66, alkaline phosphatase 135. Sodium 141, potassium 4.4, chloride 111 CO2 21 01/23: Pacemaker was interrogated this morning and cardiology has cleared the patient for discharge. She did have repeat vital signs which were orthostatic positive. Patient has been started on Midodrine as of yesterday. Blood sugars are much improved running between 87 and 143. Patient will be discharged home today in stable condition. Discharge diagnoses: 1. Recurrent near-syncope, with positive orthostatic hypotension. 2. Hyperosmolar nonketotic hyperglycemia, with uncontrolled blood sugars, A1c this time is 14 3. Metabolic acidosis secondary to dehydration and uncontrolled sugars 4 Hypertension with initial hypotension on admission 5. Headache 6 Paroxysmal atrial fibrillation. 7 Hyperlipidemia. 6. Hypothyroidism. 7. Rheumatoid arthritis. 8. Diabetes mellitus type 2, insulin requiring. 9. Recurrent depression. 10. Gastroesophageal reflux disease and GI prophylaxis. Discharge plan: Home Impression and plan of care have been directed as dictated by the signing physician. Sharmaine Fang nurse practitioner acting as scribe for signing physician. Patient Condition at Discharge: Good Plan - Discharge Summary New Discharge Prescriptions: New INSULIN ASPART (NovoLOG) [NovoLOG (formulary)] 5 unit SQ AC-TID vial Midodrine HCl [ProAmatine] 10 mg PO TID #90 tablet Lisinopril [Zestril] 2.5 mg PO DAILY #30 tab Continue Apixaban [Eliquis] 2.5 mg PO BID@0800,1999 Allopurinol [Zyloprim] 100 mg PO DAILY@0800 Insulin Aspart [NovoLOG Flexpen] See Protocol SQ AC-TID inFLIXimab [Remicade] 100 mg IVPB Q56D Pantoprazole Sodium [Protonix] 40 mg PO BID@0800,1999 Levothyroxine Sodium [Synthroid] 75 mcg PO DAILY@0800 Folic Acid 1 mg PO DAILY@0800 Escitalopram [Lexapro] 5 mg PO DAILY@0800 Aspirin EC [Ecotrin Low Dose] 81 mg PO DAILY@0800 Methotrexate Sodium [Methotrexate] 7.5 mg PO FR Atorvastatin [Lipitor] 40 mg PO HS #30 tab Cyanocobalamin [Vitamin B-12] 500 mcg PO DAILY@0800 Colchicine 0.6 mg PO DAILY Butalb/APAP/Caff 50-325-40Mg [Fioricet 50-325-40] 1 tab PO Q6H PRN PRN Reason: Migraine Headache Carvedilol 12.5 mg PO BID Leucovorin Calcium 5 mg PO FRSA Changed Insulin Glargine [Lantus] 10 unit SQ HS #0 Discontinued amLODIPine [Norvasc] 10 mg PO DAILY Lisinopril 20 mg PO BID Discharge Medication List Allopurinol [Zyloprim] 100 mg PO DAILY@0800 05/05/18 [History] Apixaban [Eliquis] 2.5 mg PO BID@0800,199905/05/18 [History] Aspirin EC [Ecotrin Low Dose] 81 mg PO DAILY@0800 05/05/18 [History] Escitalopram [Lexapro] 5 mg PO DAILY@0800 05/05/18 [History] Folic Acid 1 mg PO DAILY@0800 05/05/18 [History] Insulin Aspart [NovoLOG Flexpen] See Protocol SQ AC-TID 05/05/18 [History] Levothyroxine Sodium [Synthroid] 75 mcg PO DAILY@0800 05/05/18 [History] Methotrexate Sodium [Methotrexate] 7.5 mg PO FR 05/05/18 [History] Pantoprazole Sodium [Protonix] 40 mg PO BID@0800,199905/05/18 [History] inFLIXimab [Remicade] 100 mg IVPB Q56D 05/05/18 [History] Atorvastatin [Lipitor] 40 mg PO HS #30 tab 05/07/18 [Rx] Cyanocobalamin [Vitamin B-12] 500 mcg PO DAILY@0800 05/18/18 [History] Butalb/APAP/Caff 50-325-40Mg [Fioricet 50-325-40] 1 tab PO Q6H PRN 01/19/19 [History] Carvedilol 12.5 mg PO BID 01/19/19 [History] Colchicine 0.6 mg PO DAILY 01/19/19 [History] Leucovorin Calcium 5 mg PO FRSA 01/19/19 [History] INSULIN ASPART (NovoLOG) [NovoLOG (formulary)] 5 unit SQ AC-TID vial 01/22/19 [Rx] Insulin Glargine [Lantus] 10 unit SQ HS #0 01/22/19 [Rx] Lisinopril [Zestril] 2.5 mg PO DAILY #30 tab 01/22/19 [Rx] Midodrine HCl [ProAmatine] 10 mg PO TID #90 tablet 01/22/19 [Rx] Follow up Appointment(s)/Referral(s): Rocio Meng MD [STAFF PHYSICIAN] - 02/02/19 9:00 am Adin Golden MD [Primary Care Provider] - 1 Week (Office will be in contact with patient upon discharge to set up a follow up appointment) Patient Instructions/Handouts: Syncope (DC), Diabetic Hyperglycemia (DC) Discharge Disposition: HOME SELF-CARE
[2019-01-23] MEDS ORDERED: CARVEDILOL 6.25 MG TAB PO SCH (17:30)
[2019-01-26] MEDS ORDERED: METHOTREXATE SODIUM 2.5 MG TAB PO SCH (09:00)
== END 2019-01-23 14:22 | disposition home or self-care (01) ==
LOC: EC 17:34 → 4SSUR 01-20 00:17
PROVIDERS: ADMIT Family Medicine; ATTEND Family Medicine
DX: I95.1 Orthostatic hypotension (principal); E11.65 Type 2 diabetes mellitus with hyperglycemia; E11.00 Type 2 diabetes mellitus with hyperosmolarity without nonketotic hyperglycemic-hyperosmolar coma (NKHHC); E86.0 Dehydration; E87.2 Acidosis; I48.0 Paroxysmal atrial fibrillation; E78.5 Hyperlipidemia, unspecified; E03.9 Hypothyroidism, unspecified; M06.9 Rheumatoid arthritis, unspecified; F33.9 Major depressive disorder, recurrent, unspecified; K21.9 Gastro-esophageal reflux disease without esophagitis; M10.9 Gout, unspecified; G43.909 Migraine, unspecified, not intractable, without status migrainosus; E11.22 Type 2 diabetes mellitus with diabetic chronic kidney disease; I12.9 Hypertensive chronic kidney disease with stage 1 through stage 4 chronic kidney disease, or unspecified chronic kidney disease; N18.3 Chronic kidney disease, stage 3 (moderate); I65.22 Occlusion and stenosis of left carotid artery; Z79.02 Long term (current) use of antithrombotics/antiplatelets; Z79.01 Long term (current) use of anticoagulants; Z79.899 Other long term (current) drug therapy; Z79.82 Long term (current) use of aspirin; Z86.73 Personal history of transient ischemic attack (TIA), and cerebral infarction without residual deficits; Z79.890 Hormone replacement therapy; Z79.4 Long term (current) use of insulin; Z88.5 Allergy status to narcotic agent; Z88.0 Allergy status to penicillin; Z88.2 Allergy status to sulfonamides; Z88.8 Allergy status to other drugs, medicaments and biological substances; Z88.1 Allergy status to other antibiotic agents; Z91.041 Radiographic dye allergy status; Z91.040 Latex allergy status; M19.90 Unspecified osteoarthritis, unspecified site; R41.3 Other amnesia; Z85.528 Personal history of other malignant neoplasm of kidney; Z95.810 Presence of automatic (implantable) cardiac defibrillator; Z85.828 Personal history of other malignant neoplasm of skin; Z90.5 Acquired absence of kidney; Z82.49 Family history of ischemic heart disease and other diseases of the circulatory system; E11.649 Type 2 diabetes mellitus with hypoglycemia without coma; E66.9 Obesity, unspecified
CPT/HCPCS: 93289; 96360; 99284; 36415; 93306; 80053 ×3; 82803; 83735; 84100; 85025 ×3; 85027; 81003; 83036; 93880; 70450; G0378 ×4

== ENCOUNTER 2019-02-16 10:15 | Inpatient (IN) | payer MEDICARE, OTHER ==
--- NOTE | 2019-02-16 10:50 | ED ---
General Adult HPI - General Chief complaint: Syncope Stated complaint: Syncope Time Seen by Provider: 02/16/19 10:15 Source: EMS, RN notes reviewed Mode of arrival: EMS Limitations: physical limitation - History of Present Illness Initial comments: This is an 83-year-old female who presents to the emergency department with past medical history significant for a pacemaker and one previous episode of syncope. Patient was sitting in Court for about 40 minutes then she got up to go speak to the guitar maker hand with her granddaughter and approximately a minute or so later she became very unsteady and eventually passed out. According to the granddaughter the patient was unconscious for about 2 minutes. Granddaughter states this happened once before in the past. That was approximately one and half years ago. Patient had no complaints of chest pain difficulty breathing shortness of breath. Patient has no complaints of a headache or neck pain. Granddaughter states she will was set down easily and granddaughter states she did not strike anything on her way down. Patient currently has no complaints. Patient does have a history of dementia. Granddaughter states that the patient has chronic lower back pain. - Related Data Home Medications Medication Instructions Recorded Confirmed Allopurinol [Zyloprim] 100 mg PO DAILY@0800 05/05/18 02/16/19 Apixaban [Eliquis] 2.5 mg PO BID@05/05/18 02/16/19 Aspirin EC [Ecotrin Low Dose] 81 mg PO DAILY@0800 05/05/18 02/16/19 Escitalopram [Lexapro] 5 mg PO DAILY@0800 05/05/18 02/16/19 Folic Acid 1 mg PO DAILY@0800 05/05/18 02/16/19 Insulin Aspart [NovoLOG Flexpen] See Protocol SQ AC-TID 05/05/18 02/16/19 Levothyroxine Sodium [Synthroid] 75 mcg PO DAILY@0800 05/05/18 02/16/19 Methotrexate Sodium [Methotrexate] 7.5 mg PO FR 05/05/18 02/16/19 Pantoprazole Sodium [Protonix] 40 mg PO BID@0800,199905/05/18 02/16/19 inFLIXimab [Remicade] 100 mg IVPB Q56D 05/05/18 02/16/19 Cyanocobalamin [Vitamin B-12] 500 mcg PO DAILY@0800 05/18/18 02/16/19 Butalb/APAP/Caff 50-325-40Mg 1 tab PO Q6H PRN 01/19/19 02/16/19 [Fioricet 50-325-40] Carvedilol 12.5 mg PO BID@0700,1700 01/19/19 02/16/19 Colchicine 0.6 mg PO DAILY@0800 01/19/19 02/16/19 Leucovorin Calcium 5 mg PO FRSA 01/19/19 02/16/19 Atorvastatin [Lipitor] 40 mg PO HS@199902/16/19 02/16/19 Insulin Glargine [Lantus] 6 unit SQ HS 02/16/19 02/16/19 Lisinopril [Zestril] 20 mg PO BID@0800,199902/16/19 02/16/19 amLODIPine [Norvasc] 10 mg PO DAILY@0800 02/16/19 02/16/19 Allergies Allergy/AdvReac Type Severity Reaction Status Date / Time baclofen Allergy Unknown Verified 02/16/19 10:31 cefdinir [From Omnicef] Allergy Unknown Verified 02/16/19 10:31 ciprofloxacin Allergy Unknown Verified 02/16/19 10:31 codeine Allergy Unknown Verified 02/16/19 10:31 hydrocodone Allergy Unknown Verified 02/16/19 10:31 Iodinated Contrast Media Allergy Unknown Verified 02/16/19 10:31 [Iodinated Contrast- Oral and IV Dye] latex Allergy Unknown Verified 02/16/19 10:31 ofloxacin [From Floxin] Allergy Unknown Verified 02/16/19 10:31 Penicillins Allergy Unknown Verified 02/16/19 10:31 promethazine [From Phenergan] Allergy Unknown Verified 02/16/19 10:31 sulfadiazine Allergy Unknown Verified 02/16/19 10:31 sulfamethoxazole Allergy Unknown Verified 02/16/19 10:31 [From Bactrim] Tetracyclines Allergy Unknown Verified 02/16/19 10:31 theophylline [From Ángel-Dur] Allergy Unknown Verified 02/16/19 10:31 tramadol Allergy Unknown Verified 02/16/19 10:31 trimethoprim [From Bactrim] Allergy Unknown Verified 02/16/19 10:31 Review of Systems ROS Statement: Those systems with pertinent positive or pertinent negative responses have been documented in the HPI. ROS Other: All systems not noted in ROS Statement are negative. Past Medical History Past Medical History: CVA/TIA, Diabetes Mellitus, Hyperlipidemia, Hypertension, Memory Impairment, Osteoarthritis (OA) Additional Past Medical History / Comment(s): RA has injections mediport q 6 months, Kidney cancer no chemo or radiation skin cancer arms History of Any Multi-Drug Resistant Organisms: None Reported Past Surgical History: Adenoidectomy, Section, Hysterectomy, Orthopedic Surgery, Pacemaker, Tonsillectomy, Tubal Ligation Additional Past Surgical History / Comment(s): mediport for arthritis medication, 1/3 kidney removed for CA Past Anesthesia/Blood Transfusion Reactions: No Reported Reaction Type of Cardiac Device: Permanent Pacemaker, AICD Device Placement Date:: 05/12/2017 Past Psychological History: No Psychological Hx Reported Smoking Status: Never smoker - Past Family History Father History Unknown: Yes Additional Family Medical History / Comment(s): Father at age 73 from heart disease. Mother Additional Family Medical History / Comment(s): Mother at age 76 from heart disease. Brother(s) Additional Family Medical History / Comment(s): Patient has 2 brothers with no major medical problems. Daughter(s) Additional Family Medical History / Comment(s): Patient has 2 daughters and 1 as an infant. Patient has one son with no major medical problems. General Exam - General Exam Comments Initial Comments: GENERAL: Patient is well-developed and well-nourished. Patient is nontoxic and well- hydrated and is in no acute distress. ENT: Neck is soft and supple. No significant lymphadenopathy is noted. Oropharynx is clear. Moist mucous membranes. Neck has full range of motion without eliciting any pain. EYES: The sclera were anicteric and conjunctiva were pink and moist. Extraocular movements were intact and pupils were equal round and reactive to light. Eyelids were unremarkable. PULMONARY: Unlabored respirations. Good breath sounds bilaterally. No audible rales rhonchi or wheezing was noted. CARDIOVASCULAR: There is a regular rate and rhythm without any murmurs gallops or rubs. ABDOMEN: Soft and nontender with normal bowel sounds. No palpable organomegaly was noted. There is no palpable pulsatile mass. SKIN: Skin is clear with no lesions or rashes and otherwise unremarkable. NEUROLOGIC: Patient is alert and oriented 2. Cranial nerves II through XII are grossly intact. Motor and sensory are also intact. Normal speech, volume and content. Symmetrical smile. MUSCULOSKELETAL: Normal extremities with adequate strength and full range of motion. No lower extremity swelling or edema. No calf tenderness. Patient has no tenderness of the back. LYMPHATICS: No significant lymphadenopathy is noted PSYCHIATRIC: Normal psychiatric evaluation. Limitations: physical limitation Course Vital Signs 02/16/19 02/16/19 10:17 12:21 Temperature 97.5 F L Pulse Rate 64 Pulse Rate [ 68 Left Pulse Oximetery] Pulse Rate [ 60 Left Sitting Pulse Oximetery ] Pulse Rate [ 73 Left Standing Pulse Oximetery ] Respiratory 17 Rate Blood Pressure 93/71 Blood Pressure 119/61 [Left Arm Sitting] Blood Pressure 122/93 [Left Arm Standing] Blood Pressure 115/63 [Left Arm Supine] O2 Sat by Pulse 100 Oximetry Medical Decision Making - Medical Decision Making Patient orthostatics were normal. I spoke with Dr. March and Dr. March wanted the patient admitted I consult neurology and cardiology. I spoke with the family patient wanted to stay at [facility] for now. - Lab Data Result diagrams: 02/16/19 11:12 02/16/19 11:12 Lab Results 02/16/19 02/16/19 02/16/19 Range/Units 11:12 11:12 11:12 WBC 8.1 (3.8-10.6) k/uL RBC 3.29 L (3.80-5.40) m/uL Hgb 10.7 L (11.4-16.0) gm/dL Hct 33.7 L (34.0-46.0) % MCV 102.3 H (80.0-100.0) fL MCH 32.6 (25.0-35.0) pg MCHC 31.9 (31.0-37.0) g/dL RDW 14.8 (11.5-15.5) % Plt Count 184 (150-450) k/uL Neutrophils % 73 % Lymphocytes % 18 % Monocytes % 5 % Eosinophils % 2 % Basophils % 0 % Neutrophils # 5.9 (1.3-7.7) k/uL Lymphocytes # 1.4 (1.0-4.8) k/uL Monocytes # 0.4 (0-1.0) k/uL Eosinophils # 0.1 (0-0.7) k/uL Basophils # 0.0 (0-0.2) k/uL Macrocytosis Slight PT 10.6 (9.0-12.0) sec INR 1.0 (<1.2) APTT 26.1 (22.0-30.0) sec Sodium 140 (137-145) mmol/L Potassium 4.8 (3.5-5.1) mmol/L Chloride 108 H (98-107) mmol/L Carbon Dioxide 19 L (22-30) mmol/L Anion Gap 13 mmol/L BUN 40 H (7-17) mg/dL Creatinine 1.72 H (0.52-1.04) mg/dL Est GFR (CKD-EPI)AfAm 32 (>60 ml/min/1.73 sqM) Est GFR (CKD-EPI)NonAf 28 (>60 ml/min/1.73 sqM) Glucose 158 H (74-99) mg/dL Calcium 10.0 (8.4-10.2) mg/dL Magnesium 1.7 (1.6-2.3) mg/dL Total Bilirubin 0.5 (0.2-1.3) mg/dL AST 19 (14-36) U/L ALT 23 (9-52) U/L Alkaline Phosphatase 119 (38-126) U/L Troponin I (0.000-0.034) ng/mL Total Protein 7.3 (6.3-8.2) g/dL Albumin 3.9 (3.5-5.0) g/dL Urine Color Urine Appearance (Clear) Urine pH (5.0-8.0) Ur Specific [place] (1.001-1.035) Urine Protein (Negative) Urine Glucose (UA) (Negative) Urine Ketones (Negative) Urine Blood (Negative) Urine Nitrite (Negative) Urine Bilirubin (Negative) Urine Urobilinogen (<2.0) mg/dL Ur Leukocyte Esterase (Negative) Urine RBC (0-5) /hpf Urine WBC (0-5) /hpf Hyaline Casts (0-2) /lpf Urine Mucus (None) /hpf 02/16/19 02/16/19 Range/Units 11:12 11:12 WBC (3.8-10.6) k/uL RBC (3.80-5.40) m/uL Hgb (11.4-16.0) gm/dL Hct (34.0-46.0) % MCV (80.0-100.0) fL MCH (25.0-35.0) pg MCHC (31.0-37.0) g/dL RDW (11.5-15.5) % Plt Count (150-450) k/uL Neutrophils % % Lymphocytes % % Monocytes % % Eosinophils % % Basophils % % Neutrophils # (1.3-7.7) k/uL Lymphocytes # (1.0-4.8) k/uL Monocytes # (0-1.0) k/uL Eosinophils # (0-0.7) k/uL Basophils # (0-0.2) k/uL Macrocytosis PT (9.0-12.0) sec INR (<1.2) APTT (22.0-30.0) sec Sodium (137-145) mmol/L Potassium (3.5-5.1) mmol/L Chloride (98-107) mmol/L Carbon Dioxide (22-30) mmol/L Anion Gap mmol/L BUN (7-17) mg/dL Creatinine (0.52-1.04) mg/dL Est GFR (CKD-EPI)AfAm (>60 ml/min/1.73 sqM) Est GFR (CKD-EPI)NonAf (>60 ml/min/1.73 sqM) Glucose (74-99) mg/dL Calcium (8.4-10.2) mg/dL Magnesium (1.6-2.3) mg/dL Total Bilirubin (0.2-1.3) mg/dL AST (14-36) U/L ALT (9-52) U/L Alkaline Phosphatase (38-126) U/L Troponin I <0.012 (0.000-0.034) ng/mL Total Protein (6.3-8.2) g/dL Albumin (3.5-5.0) g/dL Urine Color Yellow Urine Appearance Cloudy H (Clear) Urine pH 5.5 (5.0-8.0) Ur Specific [place] 1.016 (1.001-1.035) Urine Protein 1+ H (Negative) Urine Glucose (UA) Trace H (Negative) Urine Ketones Negative (Negative) Urine Blood Negative (Negative) Urine Nitrite Negative (Negative) Urine Bilirubin Negative (Negative) Urine Urobilinogen 2.0 (<2.0) mg/dL Ur Leukocyte Esterase Trace H (Negative) Urine RBC 1 (0-5) /hpf Urine WBC 1 (0-5) /hpf Hyaline Casts 4 H (0-2) /lpf Urine Mucus Rare H (None) /hpf Disposition Clinical Impression: Syncope, Incontinence of bowel Disposition: ADMITTED IP TO THIS HOSP Referrals: Adin Golden MD [Primary Care Provider] - 1-2 days Time of Disposition: 13:27
[2019-02-16 11:23] LABS: Basophils % (A) 0 %; Eosinophils # (A) 0.1 k/uL (0-0.7); Eosinophils % (A) 2 %; HCT 33.7 % (34.0-46.0); HGB 10.7 gm/dL (11.4-16.0); Lymphocytes # (A) 1.4 k/uL (1.0-4.8); Lymphocytes % (A) 18 %; MCH 32.6 pg (25.0-35.0); MCHC 31.9 g/dL (31.0-37.0); MCV 102.3 fL (80.0-100.0); Macrocytosis Slight; Mean Platelet Volume 8.3; Monocytes # (A) 0.4 k/uL (0-1.0); Monocytes % (A) 5 %; Neutrophils # (A) 5.9 k/uL (1.3-7.7); Neutrophils % (A) 73 %; Platelet Count 184 k/uL (150-450); RBC 3.29 m/uL (3.80-5.40); RDW 14.8 % (11.5-15.5); WBC 8.1 k/uL (3.8-10.6)
[2019-02-16 11:32] LABS: Partial Thromboplastin Time 26.1 sec (22.0-30.0); Prothrombin Time 10.6 sec (9.0-12.0)
--- NOTE | 2019-02-16 11:33 | XR ---
EXAMINATION TYPE: XR chest 2V DATE OF EXAM: 02/16/2019 CLINICAL HISTORY: Syncope and chest pain. TECHNIQUE: Frontal and lateral views of the chest are obtained. COMPARISON: Chest x-ray September 07, 2018 FINDINGS: There is no focal air space opacity, pleural effusion, or pneumothorax seen. The cardiac silhouette size remains enlarged with dual lead pacemaker. Stable right subclavian Mediport catheter. High riding right humeral head is consistent with chronic rotator cuff tear. IMPRESSION: Cardiomegaly without acute pulmonary process.
[2019-02-16] MEDS ORDERED: ACETAMINOPHEN TAB 325 MG TAB PO STA (11:41)
[2019-02-16 11:46] LABS: Albumin 3.9 g/dL (3.5-5.0); Magnesium 1.7 mg/dL (1.6-2.3); Potassium 4.8 mmol/L (3.5-5.1); Total Bilirubin 0.5 mg/dL (0.2-1.3); Total Protein 7.3 g/dL (6.3-8.2)
[2019-02-16 12:00] LABS: Appearance,Urine Cloudy (Clear); Bilirubin,Urine Negative (Negative); Blood,Urine Negative (Negative); Color,Urine Yellow; Glucose,Urine (UA) Trace (Negative); Hyaline Casts,Urine 4 /lpf (0-2); Ketones,Urine Negative (Negative); Leukocyte Esterase,Urine Trace (Negative); Mucus,Urine Rare /hpf; Nitrite,Urine Negative (Negative); PH, Urine 5.5 (5.0-8.0); Protein,Urine 1+ (Negative); RBC,Urine 1 /hpf (0-5); Specific Gravity,Urine 1.016 (1.001-1.035)
[2019-02-16] MEDS ORDERED: NITROGLYCERIN SL TABS 0.4 MG TAB SUBLINGUAL PRN (13:31)
[2019-02-16 14:23] LABS: Glucose,Whole Blood 208 mg/dL (75-99)
[2019-02-16] MEDS ORDERED: ACETAMINOPHEN TAB 325 MG TAB PO PRN (15:07)
--- NOTE | 2019-02-16 15:08 | P.HPIM ---
History of Present Illness H&P Date: 02/16/19 Chief Complaint: Syncope, stool incontinence Chief complaint, syncope, stool incontinence This is an 83-year-old female patient of Dr. Golden with past medical history of paroxysmal atrial fibrillation on eliquis, status post pacemaker placement, diabetes mellitus type 2, gastroesophageal reflux disease, gout, hypertension, migraine headaches, chronic kidney disease stage 3, renal cancer, rheumatoid arthritis. 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 She has known carotid stenosis of 50% on the left internal carotid artery. Patient was having troubles with lightheadedness and dizziness, she'll do when he stands up, patient has no new medication changes from the office or by any other physicians within the past 3 months, patient was seen in emergency room on with headache and lightheadedness, she was discharged to home are she felt better in emergency room after hydration, patient manages her on meals, no sick contacts, no diarrhea, she now comes seen to the emergency room with recurrent symptoms of lightheadedness, patient did not pass out, and was pasty 40 mL in the emergency room. Patient was given IV fluids are approximately 2 L, sugars were elevated in the 400s, patient denies any palpitations, however symptoms are recurrent in nature approximately 3 times this whole year on 01/20/19 She returned into [facility] emergency center for evaluation. Chest x-ray showed no acute pulmonary process. CAT scan of the brain showed age-related atrophy and chronic small vessel ischemic change without acute intracranial process. EKG was a paced rhythm. Creatinine was 1.56, CO2 of 19, sodium 136, hemoglobin 10.6 echocardiogram and carotid Dopplers were ordered, during this admission echocardiogram shows paced rhythm, concentric LVH, EF 55-60%, mild aortic valve sclerosis without stenosis, mild AR, mild MR mild TR, mild pulmonary hypertension with RVSP of 36 small pericardial effusion near the left ventricle no hemodynamically significant stenosis noted on the carotid system, no CT of the brain was done in emergency room, EKG shows atrial paced rhythm with prolonged AV conduction septal infarct age did undetermined. consult cardiology for recurrent near-syncope history of pacemaker. During her last admission, pacemaker was interrogated, and was cleared by cardiology for discharge. She was started on midodrin on her last admission, Patient's also admitted with hyper osmolar nonketotic hyperglycemia and dehydration related to her hyperglycemia She comes back emergency room 02/16/2019 after a syncopal event, white at Court no aura prior to event. Patient stood up, and thereafter lost consciousness, unknown how long, patient denies any motor deficits thereafter, no visible tonic-clonic contractions of upper and lower extremity, unknown down time, she was subsequently sent to the emergency room. ER team has noticed that she have stool incontinence related to this, and they have performed orthostatic vitals in the ER, heart rate 64, and they have reported to be negative we have no head trauma, her last CAT scan was reviewed from 01/21/2019, urinalysis negative, ex cept for proteinuria creatinine 1.7, CO2 of 19, glucose 158 no EKG for review today, patient would be seen consultation by neurology, and cardiology, EEG of the brain and repeat orthostatics, she comes in with slightly elevated creatinine from baseline, 1.7 to from previous of 1.27, consistent with acute renal sufficiency. Patient denies any new GI losses, patient denies any decline in by mouth intake Review of Systems Constitutional: Reports as per HPI, Denies anorexia, Denies chills, Denies chronic headaches, Denies chronic pain, Denies daytime sleepiness, Denies fatigue, Denies fever, Denies lethargy, Denies malaise, Denies night sweats, Denies poor appetite, Denies sweats, Denies weakness, Denies weight gain, Denies weight loss Ears, nose, mouth and throat: Reports as per HPI, Denies ant. neck pain, Denies bleeding gums, Denies dental pain, Denies dysphagia, Denies epistaxis, Denies headache, Denies hoarseness, Denies mouth pain, Denies nasal congestion, Denies nasal discharge, Denies neck fullness/pressure, Denies neck lump, Denies nose pain, Denies odynophagia, Denies post-nasal drip, Denies sinus pain, Denies sinus pressure, Denies swelling in mouth, Denies swelling in throat, Denies sore throat, Denies vertigo, Denies voice changes Cardiovascular: Reports as per HPI, Reports syncope, Denies chest pain, Denies claudication, Denies decreased exercise tolerance, Denies dyspnea on exertion, Denies edema, Denies high blood pressure, Denies irregular heart beat, Denies leg edema, Denies lightheadedness, Denies orthopnea, Denies palpitations, Denies paroxysmal nocturnal dyspnea, Denies phlebitis, Denies rapid heart beat, Denies shortness of breath Respiratory: Reports as per HPI, Denies congestion, Denies cough, Denies cough with sputum, Denies dyspnea, Denies excessive sputum, Denies hemoptysis, Denies home oxygen, Denies pain, Denies pain on inspiration, Denies pleurisy, Denies respiratory infections, Denies sleep apnea, Denies snoring, Denies wheezing Gastrointestinal: Reports as per HPI, Denies abdominal pain, Denies belching, Denies bloating, Denies BRBPR, Denies change in bowel habits, Denies coffee ground emesis, Denies constipation, Denies diarrhea, Denies dyspepsia, Denies early satiety, Denies excessive gas, Denies heartburn, Denies hematemesis, Denies hematochezia, Denies indigestion, Denies jaundice, Denies lactose intolerance, Denies loss of appetite, Denies melena, Denies nausea, Denies vomiting Genitourinary: Reports as per HPI Menstruation: Reports as per HPI Musculoskeletal: Reports as per HPI Integumentary: Reports as per HPI Neurological: Reports as per HPI, Denies aphasia, Denies ataxia, Denies balance difficulties, Denies burning pain, Denies change in mentation, Denies change in smell/taste, Denies change in speech, Denies confusion, Denies convulsions, Denies double vision, Denies gait dysfunction, Denies head injury, Denies headaches, Denies hearing difficulties, Denies lack of coordination, Denies loss of vision, Denies memory loss, Denies migraines, Denies motor disturbance, Denies numbness, Denies paralysis, Denies paresthesias, Denies seizures, Denies sensory deficit, Denies spasticity, Denies syncope, Denies tic, Denies tingling, Denies transient paralysis, Denies tremors, Denies vertigo, Denies weakness, Denies visual changes Endocrine: Reports as per HPI Hematologic/Lymphatic: Reports as per HPI Past Medical History Past Medical History: CVA/TIA, Diabetes Mellitus, Hyperlipidemia, Hypertension, Memory Impairment, Osteoarthritis (OA) Additional Past Medical History / Comment(s): RA has injections mediport q 6 weeks, Kidney cancer no chemo or radiation skin cancer arms History of Any Multi-Drug Resistant Organisms: None Reported Past Surgical History: Adenoidectomy, Section, Hysterectomy, Orthopedic Surgery, Pacemaker, Tonsillectomy, Tubal Ligation Additional Past Surgical History / Comment(s): mediport for arthritis medication, 1/3 kidney removed for CA Past Anesthesia/Blood Transfusion Reactions: No Reported Reaction Type of Cardiac Device: Permanent Pacemaker, AICD Device Placement Date:: 05/12/2017 Past Psychological History: No Psychological Hx Reported Smoking Status: Never smoker Past Alcohol Use History: None Reported Additional Past Alcohol Use History / Comment(s): Patient is a lifelong nonsmoker. She denies illicit drug use or alcohol use. She lives at home with her granddaughter and grandson. She does not have home oxygen, no nebulizer no CPAP. Patient does not drive. She uses a walker for ambulation. Past Drug Use History: None Reported - Past Family History Father History Unknown: Yes Additional Family Medical History / Comment(s): Father at age 73 from heart disease. Mother Additional Family Medical History / Comment(s): Mother at age 76 from heart disease. Brother(s) Additional Family Medical History / Comment(s): Patient has 2 brothers with no major medical problems. Daughter(s) Additional Family Medical History / Comment(s): Patient has 2 daughters and 1 as an infant. Patient has one son with no major medical problems. Medications and Allergies Home Medications Medication Instructions Recorded Confirmed Type Allopurinol [Zyloprim] 100 mg PO DAILY@0800 05/05/18 02/16/19 History Apixaban [Eliquis] 2.5 mg PO BID@0805/05/18 02/16/19 History Aspirin EC [Ecotrin Low Dose] 81 mg PO DAILY@0800 05/05/18 02/16/19 History Escitalopram [Lexapro] 5 mg PO DAILY@0805/05/18 02/16/19 History Folic Acid 1 mg PO DAILY@0805/05/18 02/16/19 History Insulin Aspart [NovoLOG Flexpen] See Protocol SQ AC-TID 05/05/18 02/16/19 History Levothyroxine Sodium [Synthroid] 75 mcg PO DAILY@0800 05/05/18 02/16/19 History Methotrexate Sodium [Methotrexate] 7.5 mg PO FR 05/05/18 02/16/19 History Pantoprazole Sodium [Protonix] 40 mg PO BID@0800,199905/05/18 02/16/19 History inFLIXimab [Remicade] 100 mg IVPB Q56D 05/05/18 02/16/19 History Cyanocobalamin [Vitamin B-12] 500 mcg PO DAILY@0800 05/18/18 02/16/19 History Butalb/APAP/Caff 50-325-40Mg 1 tab PO Q6H PRN 01/19/19 02/16/19 History [Fioricet 50-325-40] Carvedilol 12.5 mg PO BID@0700,1700 01/19/19 02/16/19 History Colchicine 0.6 mg PO DAILY@0800 01/19/19 02/16/19 History Leucovorin Calcium 5 mg PO FRSA 01/19/19 02/16/19 History Atorvastatin [Lipitor] 40 mg PO HS@199902/16/19 02/16/19 History Insulin Glargine [Lantus] 6 unit SQ HS 02/16/19 02/16/19 History Lisinopril [Zestril] 20 mg PO BID@0800,199902/16/19 02/16/19 History amLODIPine [Norvasc] 10 mg PO DAILY@0800 02/16/19 02/16/19 History Allergies Allergy/AdvReac Type Severity Reaction Status Date / Time baclofen Allergy Unknown Verified 02/16/19 10:31 cefdinir [From Omnicef] Allergy Unknown Verified 02/16/19 10:31 ciprofloxacin Allergy Unknown Verified 02/16/19 10:31 codeine Allergy Unknown Verified 02/16/19 10:31 hydrocodone Allergy Unknown Verified 02/16/19 10:31 Iodinated Contrast Media Allergy Unknown Verified 02/16/19 10:31 [Iodinated Contrast- Oral and IV Dye] latex Allergy Unknown Verified 02/16/19 10:31 ofloxacin [From Floxin] Allergy Unknown Verified 02/16/19 10:31 Penicillins Allergy Unknown Verified 02/16/19 10:31 promethazine [From Phenergan] Allergy Unknown Verified 02/16/19 10:31 sulfadiazine Allergy Unknown Verified 02/16/19 10:31 sulfamethoxazole Allergy Unknown Verified 02/16/19 10:31 [From Bactrim] Tetracyclines Allergy Unknown Verified 02/16/19 10:31 theophylline [From Ángel-Dur] Allergy Unknown Verified 02/16/19 10:31 tramadol Allergy Unknown Verified 02/16/19 10:31 trimethoprim [From Bactrim] Allergy Unknown Verified 02/16/19 10:31 Physical Exam Vitals: Vital Signs Temp Pulse Pulse Pulse Pulse Resp BP 02/16/19 14:00 59 L 17 117/59 02/16/19 12:21 68 60 73 02/16/19 10:17 97.5 F L 64 17 93/71 BP BP BP Pulse Ox 02/16/19 14:00 95 02/16/19 12:21 119/61 122/93 115/63 02/16/19 10:17 100 Intake and Output 02/15/19 02/16/19 02/16/19 22:59 06:59 14:59 Other: Weight 68.039 kg - Constitutional General appearance: cooperative, no acute distress - EENT Eyes: anicteric sclerae, EOMI, PERRLA, dentition normal, normal appearance ENT: hard of hearing, NA/AT, normal oropharynx - Neck Neck: normal ROM Thyroid: bilateral: normal size, negative: enlarged, firm, nodule - Respiratory Respiratory: bilateral: CTA, negative: diminished, dullness, rales - Cardiovascular Rhythm: regular Heart sounds: normal: S1, S2 Abnormal Heart Sounds: no systolic murmur, no diastolic murmur, no rub, no S3 Gallop, no S4 Gallop, no click, no other - Gastrointestinal No stools on evaluation of diaper, apparently per ER physician, she's been cleaned out prior to my examination General gastrointestinal: normal bowel sounds, soft - Integumentary Integumentary: decreased turgor, normal - Neurologic Neurologic: CNII-XII intact - Musculoskeletal Musculoskeletal: gait normal, strength equal bilaterally - Psychiatric Psychiatric: A&O x's 3, appropriate affect Results CBC & Chem 7: 02/16/19 11:12 02/16/19 11:12 Labs: Abnormal Lab Results - Last 24 Hours (Table) 02/16/19 02/16/19 02/16/19 Range/Units 11:12 11:12 11:12 RBC 3.29 L (3.80-5.40) m/uL Hgb 10.7 L (11.4-16.0) gm/dL Hct 33.7 L (34.0-46.0) % MCV 102.3 H (80.0-100.0) fL Chloride 108 H (98-107) mmol/L Carbon Dioxide 19 L (22-30) mmol/L BUN 40 H (7-17) mg/dL Creatinine 1.72 H (0.52-1.04) mg/dL Glucose 158 H (74-99) mg/dL POC Glucose (mg/dL) (75-99) mg/dL Urine Appearance Cloudy H (Clear) Urine Protein 1+ H (Negative) Urine Glucose (UA) Trace H (Negative) Ur Leukocyte Esterase Trace H (Negative) Hyaline Casts 4 H (0-2) /lpf Urine Mucus Rare H (None) /hpf 02/16/19 Range/Units 14:21 RBC (3.80-5.40) m/uL Hgb (11.4-16.0) gm/dL Hct (34.0-46.0) % MCV (80.0-100.0) fL Chloride (98-107) mmol/L Carbon Dioxide (22-30) mmol/L BUN (7-17) mg/dL Creatinine (0.52-1.04) mg/dL Glucose (74-99) mg/dL POC Glucose (mg/dL) 208 H (75-99) mg/dL Urine Appearance (Clear) Urine Protein (Negative) Urine Glucose (UA) (Negative) Ur Leukocyte Esterase (Negative) Hyaline Casts (0-2) /lpf Urine Mucus (None) /hpf Laboratory Results WBC 8.1 k/uL (3.8-10.6) 02/16/19 11:12 RBC 3.29 m/uL (3.80-5.40) L 02/16/19 11:12 Hgb 10.7 gm/dL (11.4-16.0) L 02/16/19 11:12 Hct 33.7 % (34.0-46.0) L 02/16/19 11:12 MCV 102.3 fL (80.0-100.0) H 02/16/19 11:12 MCH 32.6 pg (25.0-35.0) 02/16/19 11:12 MCHC 31.9 g/dL (31.0-37.0) 02/16/19 11:12 RDW 14.8 % (11.5-15.5) 02/16/19 11:12 Plt Count 184 k/uL (150-450) 02/16/19 11:12 Neutrophils % 73 % 02/16/19 11:12 Lymphocytes % 18 % 02/16/19 11:12 Monocytes % 5 % 02/16/19 11:12 Eosinophils % 2 % 02/16/19 11:12 Basophils % 0 % 02/16/19 11:12 Neutrophils # 5.9 k/uL (1.3-7.7) 02/16/19 11:12 Lymphocytes # 1.4 k/uL (1.0-4.8) 02/16/19 11:12 Monocytes # 0.4 k/uL (0-1.0) 02/16/19 11:12 Eosinophils # 0.1 k/uL (0-0.7) 02/16/19 11:12 Basophils # 0.0 k/uL (0-0.2) 02/16/19 11:12 Macrocytosis Slight 02/16/19 11:12 PT 10.6 sec (9.0-12.0) 02/16/19 11:12 INR 1.0 (<1.2) 02/16/19 11:12 APTT 26.1 sec (22.0-30.0) 02/16/19 11:12 Sodium 140 mmol/L (137-145) 02/16/19 11:12 Potassium 4.8 mmol/L (3.5-5.1) 02/16/19 11:12 Chloride 108 mmol/L (98-107) H 02/16/19 11:12 Carbon Dioxide 19 mmol/L (22-30) L 02/16/19 11:12 Anion Gap 13 mmol/L 02/16/19 11:12 BUN 40 mg/dL (7-17) H 02/16/19 11:12 Creatinine 1.72 mg/dL (0.52-1.04) H 02/16/19 11:12 Est GFR (CKD-EPI)AfAm 32 (>60 ml/min/1.73 sqM) 02/16/19 11:12 Est GFR (CKD-EPI)NonAf 28 (>60 ml/min/1.73 sqM) 02/16/19 11:12 Glucose 158 mg/dL (74-99) H 02/16/19 11:12 POC Glucose (mg/dL) 208 mg/dL (75-99) H 02/16/19 14:21 POC Glu Vice President [employer] Roque Whitaker 02/16/19 14:21 Calcium 10.0 mg/dL (8.4-10.2) 02/16/19 11:12 Magnesium 1.7 mg/dL (1.6-2.3) 02/16/19 11:12 Total Bilirubin 0.5 mg/dL (0.2-1.3) 02/16/19 11:12 AST 19 U/L (14-36) 02/16/19 11:12 ALT 23 U/L (9-52) 02/16/19 11:12 Alkaline Phosphatase 119 U/L (38-126) 02/16/19 11:12 Troponin I <0.012 ng/mL (0.000-0.034) 02/16/19 11:12 Total Protein 7.3 g/dL (6.3-8.2) 02/16/19 11:12 Albumin 3.9 g/dL (3.5-5.0) 02/16/19 11:12 Urine Color Yellow 02/16/19 11:12 Urine Appearance Cloudy (Clear) H 02/16/19 11:12 Urine pH 5.5 (5.0-8.0) 02/16/19 11:12 Ur Specific [place] 1.016 (1.001-1.035) 02/16/19 11:12 Urine Protein 1+ (Negative) H 02/16/19 11:12 Urine Glucose (UA) Trace (Negative) H 02/16/19 11:12 Urine Ketones Negative (Negative) 02/16/19 11:12 Urine Blood Negative (Negative) 02/16/19 11:12 Urine Nitrite Negative (Negative) 02/16/19 11:12 Urine Bilirubin Negative (Negative) 02/16/19 11:12 Urine Urobilinogen 2.0 mg/dL (<2.0) 02/16/19 11:12 Ur Leukocyte Esterase Trace (Negative) H 02/16/19 11:12 Urine RBC 1 /hpf (0-5) 02/16/19 11:12 Urine WBC 1 /hpf (0-5) 02/16/19 11:12 Hyaline Casts 4 /lpf (0-2) H 02/16/19 11:12 Urine Mucus Rare /hpf (None) H 02/16/19 11:12 Thrombosis Risk Factor Assmnt - DVT/VTE Prophylaxis DVT/VTE Prophylaxis: Pharmacologic Prophylaxis ordered, Low risk, early ambulation encouraged - Choose All That Apply Any of the Below Risk Factors Present?: Yes Each Factor Represents 1 point: Abnormal pulmonary function (COPD) Each Risk Factor Represents 3 Points: Age 75 years or older Thrombosis Risk Factor Assessment Total Risk Factor Score: 4 Thrombosis Risk Factor Assessment Level: Moderate Risk Assessment and Plan Plan: 1. Recurrent near-syncope, with autonomic dysfunction history, however this time it would be accompanied by stool incontinence, or ER orthostatics was negative in emergency room, IV fluids have been required to stabilize blood pressure, patient also has a pacemaker and hx abnormal EKG with prolonged conduction, consult were made with cardiology to evaluate for cardiac arrhythmias, patient has a negative urinalysis, last admission carotid Dopplers are negative for hemodynamically significant stenosis, 12/2018echocardiogram has been performed, without any aortic stenosis, underlying autonomic dysfunction is also suspected secondary to her diabetes mellitus, no GI losses are identified at this time, daily orthostatics to be done 2 acute renal sufficiency with underlying CK D stage III, anemia of chronic diseases suspected, IV fluids for hydration, orthostatics to be done daily 3. Diabetes mellitus type 2 with complications uncontrolled blood sugars, A1c this time is 14, home medications needs to be addressed, and increase Levemir to 10 units, pre-meal NovoLog of 5 units breakfast, 5 u lunch and 5 u dinner, , prior to admission and glargine 10 units 4. Autonomic dysfunction, on ranitidine 10 mg 3 times a day orthostatics to be done daily 5. Mild Metabolic acidosis secondary to dehydration and uncontrolled sugars monitor labs, IV hydration and monitor lab 6 Hypertension with initial hypotension on admission, we have discontinued in the last admission amlodipine 10 mg daily,, she should be on lisinopril2.5 mg daily not 20 mg twice a day continue Coreg 12.5 mg twice daily 7 Headache , no imaging studies, computed tomography scan of the brain with out contrast creatinine elevated at 1.5 a sed rate to check for vasculitis 8 Paroxysmal atrial fibrillation. Currently on paced rhythm for suspected sick sinus syndrome Continue eliquis and Coreg. Cardiology consult 10 Hyperlipidemia. Continue atorvastatin started by cardiology. 11 Hypothyroidism. Continue levothyroxine 75 g daily. 12 Rheumatoid arthritis. Patient is on Remicade, methotrexate. 13 Recurrent depression. Continue Lexapro 5 mg daily 14. DVT prophylaxis. 15.Gastroesophageal reflux disease and GI prophylaxis.
[2019-02-16] MEDS ORDERED: INFLUENZA VACCINE (6 MOS+) 60 MCG/0.5 ML SYRINGE IM ONE (15:30)
[2019-02-16 17:04] LABS: Glucose,Whole Blood 286 mg/dL (75-99)
[2019-02-16] MEDS: INSULIN ASPART (NovoLOG) 100 UNIT/ML VIAL SQ SCH ×2 (17:20→21:00)
[2019-02-16] MEDS: CARVEDILOL 12.5 MG TAB PO SCH (17:20)
[2019-02-16] MEDS: PANTOPRAZOLE 40 MG TABLET PO SCH (19:55)
[2019-02-16] MEDS: APIXABAN 2.5 MG TABLET PO SCH (19:55)
[2019-02-16] MEDS: ATORVASTATIN 40 MG TAB PO SCH (19:55)
[2019-02-16] MEDS ORDERED: LISINOPRIL 20 MG TAB PO SCH (20:00)
[2019-02-16 20:33] LABS: Glucose,Whole Blood 242 mg/dL (75-99)
--- NOTE | 2019-02-16 20:47 | P.CNNES ---
History of Present Illness Consult date: 02/16/19 Requesting physician: Cristina March Reason for Consult: Syncope and stool incontinence. History of Present Illness: Patient is a 83-year-old female who came to the hospital after she had a syncopal spell earlier today. Patient states that her granddaughter was going to the Court for some routine work, and patient went with her to give the [employer]. Patient states that it was late morning or early afternoon, and she w as sitting in the chair for about 15 minutes. Once they were done, she stood up from her seat to go outside, when after taking 8-10 steps, she felt dizzy and then she passed out. Next thing she remembers is waking up in the ambulance. She does not remember being taken out from the Court to the ambulance. Apparently patient did lose control of stools with this episode. Patient after being ambulance remembers everything thereafter. Patient says that she has taken breakfast and was not dehydrated. She states that she has passed out long time ago about 4 years ago. She does not pass out frequently otherwise. She does not have any problems with bowel or bladder control on an routine basis. Denies any tongue bite with this spell. Patient had a normal carotid Doppler on 01/20/2019. Chest x-ray showed cardiomegaly without acute pulmonary process. CT head showed no acute intracranial abnormality. Moderate degenerative changes. EKG showed atrial paced rhythm with prolonged AV conduction. Left axis deviation. 2-D echo from 01/20/2019 showed EF 55-60%. Left atrium is moderately dilated. There is mild aortic regurgitation. Review of Systems Arthritis. Denies any chest pain shortness of breath wheezing or cough. Denies any headache double vision loss of vision. Denies nausea vomiting diarrhea. Other review of systems also unremarkable. Past Medical History Past Medical History: CVA/TIA, Diabetes Mellitus, Hyperlipidemia, Hypertension, Memory Impairment, Osteoarthritis (OA) Additional Past Medical History / Comment(s): RA has injections mediport q 6 weeks, Kidney cancer no chemo or radiation skin cancer arms History of Any Multi-Drug Resistant Organisms: None Reported Past Surgical History: Adenoidectomy, Section, Hysterectomy, Orthopedic Surgery, Pacemaker, Tonsillectomy, Tubal Ligation Additional Past Surgical History / Comment(s): mediport for arthritis medication, 1/3 kidney removed for CA Past Anesthesia/Blood Transfusion Reactions: No Reported Reaction Type of Cardiac Device: Permanent Pacemaker, AICD Device Placement Date:: 05/12/2017 Past Psychological History: No Psychological Hx Reported Smoking Status: Never smoker Past Alcohol Use History: None Reported Additional Past Alcohol Use History / Comment(s): Patient is a lifelong nonsmoker. She denies illicit drug use or alcohol use. She lives at home with her granddaughter and grandson. She does not have home oxygen, no nebulizer no CPAP. Patient does not drive. She uses a walker for ambulation. Past Drug Use History: None Reported - Past Family History Father History Unknown: Yes Additional Family Medical History / Comment(s): Father at age 73 from heart disease. Mother Additional Family Medical History / Comment(s): Mother at age 76 from heart disease. Brother(s) Additional Family Medical History / Comment(s): Patient has 2 brothers with no major medical problems. Daughter(s) Additional Family Medical History / Comment(s): Patient has 2 daughters and 1 as an . Patient has one son with no major medical problems. Medications and Allergies Home Medications Medication Instructions Recorded Confirmed Type Allopurinol [Zyloprim] 100 mg PO DAILY@0800 05/05/18 02/16/19 History Apixaban [Eliquis] 2.5 mg PO BID@05/05/18 02/16/19 History Aspirin EC [Ecotrin Low Dose] 81 mg PO DAILY@0800 05/05/18 02/16/19 History Escitalopram [Lexapro] 5 mg PO DAILY@0800 05/05/18 02/16/19 History Folic Acid 1 mg PO DAILY@0800 05/05/18 02/16/19 History Insulin Aspart [NovoLOG Flexpen] See Protocol SQ AC-TID 05/05/18 02/16/19 History Levothyroxine Sodium [Synthroid] 75 mcg PO DAILY@0800 05/05/18 02/16/19 History Methotrexate Sodium [Methotrexate] 7.5 mg PO FR 05/05/18 02/16/19 History Pantoprazole Sodium [Protonix] 40 mg PO BID@0800,199905/05/18 02/16/19 History inFLIXimab [Remicade] 100 mg IVPB Q56D 05/05/18 02/16/19 History Cyanocobalamin [Vitamin B-12] 500 mcg PO DAILY@0800 05/18/18 02/16/19 History Butalb/APAP/Caff 50-325-40Mg 1 tab PO Q6H PRN 01/19/19 02/16/19 History [Fioricet 50-325-40] Carvedilol 12.5 mg PO BID@0700,1700 01/19/19 02/16/19 History Colchicine 0.6 mg PO DAILY@0800 01/19/19 02/16/19 History Leucovorin Calcium 5 mg PO FRSA 01/19/19 02/16/19 History Atorvastatin [Lipitor] 40 mg PO HS@199902/16/19 02/16/19 History Insulin Glargine [Lantus] 6 unit SQ HS 02/16/19 02/16/19 History Lisinopril [Zestril] 20 mg PO BID@0800,199902/16/19 02/16/19 History amLODIPine [Norvasc] 10 mg PO DAILY@0800 02/16/19 02/16/19 History Allergies Allergy/AdvReac Type Severity Reaction Status Date / Time baclofen Allergy Unknown Verified 02/16/19 10:31 cefdinir [From Omnicef] Allergy Unknown Verified 02/16/19 10:31 ciprofloxacin Allergy Unknown Verified 02/16/19 10:31 codeine Allergy Unknown Verified 02/16/19 10:31 hydrocodone Allergy Unknown Verified 02/16/19 10:31 Iodinated Contrast Media Allergy Unknown Verified 02/16/19 10:31 [Iodinated Contrast- Oral and IV Dye] latex Allergy Unknown Verified 02/16/19 10:31 ofloxacin [From Floxin] Allergy Unknown Verified 02/16/19 10:31 Penicillins Allergy Unknown Verified 02/16/19 10:31 promethazine [From Phenergan] Allergy Unknown Verified 02/16/19 10:31 sulfadiazine Allergy Unknown Verified 02/16/19 10:31 sulfamethoxazole Allergy Unknown Verified 02/16/19 10:31 [From Bactrim] Tetracyclines Allergy Unknown Verified 02/16/19 10:31 theophylline [From Ángel-Dur] Allergy Unknown Verified 02/16/19 10:31 tramadol Allergy Unknown Verified 02/16/19 10:31 trimethoprim [From Bactrim] Allergy Unknown Verified 02/16/19 10:31 Physical Examination - Vital Signs Vital Signs: Vital Signs Temp Pulse Pulse Pulse Pulse Pulse Resp 02/16/19 19:26 97.9 F 98 15 02/16/19 16:00 17 02/16/19 14:47 97.6 F 71 17 02/16/19 14:00 59 L 17 02/16/19 12:21 68 60 73 02/16/19 10:17 97.5 F L 64 17 BP BP BP BP BP Pulse Ox 02/16/19 19:26 119/56 93 L 02/16/19 16:00 02/16/19 14:47 119/71 99 02/16/19 14:00 117/59 95 02/16/19 12:21 119/61 122/93 115/63 02/16/19 10:17 93/71 100 Intake and Output 02/16/19 02/16/19 02/16/19 06:59 14:59 22:59 Output Total 1 Balance -1 Output: Urine/Stool Mix 1 Other: Voiding Method Toilet Weight 68.039 kg On examination patient is an elderly female, in no distress. There is no carotid bruit or murmur. Peripheral pulses present. Patient is fully alert awake oriented to time place and person. Speech and language functions are normal. Attention and concentration fund of knowledge is adequate. On cranial nerve exam his pupils are round and reactive to light, visual waters are full. Face is symmetric and tongue protrudes the midline. Palatal elevation and sensation normal. On muscle strength testing there is no pronator drift and the strength is normal in arms and legs distally and proximally. No ataxia. Tone and bulk of muscles normal. Reflexes are symmetric and plantars downgoing. Gait deferred. Results Patient's baseline BUN is 26 and it was 40 today. Her baseline creatinine is 1.27 and it was 1.72. Patient's hemoglobin A1c is 14.0 on 01/19/2019. MCV is elevated 102.3. - Laboratory Findings CBC and BMP: 02/16/19 11:12 02/16/19 11:12 Abnormal Lab Findings: Abnormal Labs 02/16/19 02/16/19 02/16/19 11:12 11:12 11:12 RBC 3.29 L Hgb 10.7 L Hct 33.7 L MCV 102.3 H Chloride 108 H Carbon Dioxide 19 L BUN 40 H Creatinine 1.72 H Glucose 158 H POC Glucose (mg/dL) Urine Appearance Cloudy H Urine Protein 1+ H Urine Glucose (UA) Trace H Ur Leukocyte Esterase Trace H Hyaline Casts 4 H Urine Mucus Rare H 02/16/19 02/16/19 14:21 17:03 RBC Hgb Hct MCV Chloride Carbon Dioxide BUN Creatinine Glucose POC Glucose (mg/dL) 208 H 286 H Urine Appearance Urine Protein Urine Glucose (UA) Ur Leukocyte Esterase Hyaline Casts Urine Mucus Assessment and Plan Assessment: * Syncope and collapse. Patient was dehydrated, as her renal function shows evidence of dehydration. Patient had a prolonged postictal state. Therefore seizure also needs to be ruled out. Rule out arrhythmia. * Atrial fibrillation, on anticoagulation. * History of pacemaker. * Diabetes mellitus, poorly controlled. * Macrocytosis, rule out B12/folate deficiency. Plan: * EEG to rule out epileptiform activity. * Hydration * Agree with cardiology consultation to rule out arrhythmia. May need interrogation of pacemaker data. * Consider tilt table test, now, versus if syncopal symptoms recurs. * Check B12, folate and TSH. * Neurology service not available on the weekend. * Thank you very much for allowing me to participate in care of your patient.
[2019-02-16] MEDS: INSULIN DETEMIR (LEVEMIR) 100 UNIT/ML SYR SQ SCH (21:00)
[2019-02-16 22:48] LABS: T4, Free (Free Thyroxine) 1.02 ng/dL (0.78-2.19)
[2019-02-17 02:28] LABS: Hemoglobin A1C 11.3 % (4.0-6.0)
[2019-02-17 07:02] LABS: Glucose,Whole Blood 139 mg/dL (75-99)
[2019-02-17] MEDS ORDERED: amLODIPine 10 MG TAB PO SCH (08:00)
[2019-02-17] MEDS: INSULIN ASPART (NovoLOG) 100 UNIT/ML VIAL SQ SCH ×4 (08:31→20:51)
[2019-02-17] MEDS: APIXABAN 2.5 MG TABLET PO SCH ×2 (08:58→21:17)
[2019-02-17] MEDS: ESCITALOPRAM 5 MG TAB PO SCH (08:58)
[2019-02-17] MEDS: LEVOTHYROXINE 75 MCG TAB PO SCH (08:58)
[2019-02-17] MEDS: ASPIRIN 81 MG PO SCH (08:58)
[2019-02-17] MEDS: LISINOPRIL 2.5 MG TAB PO SCH (08:58)
[2019-02-17] MEDS: CYANOCOBALAMIN 500 MCG TAB PO SCH (08:58)
[2019-02-17] MEDS: COLCHICINE 0.6 MG EACH PO SCH (08:58)
[2019-02-17] MEDS: FOLIC ACID 1 MG TAB PO SCH (08:58)
[2019-02-17] MEDS: PANTOPRAZOLE 40 MG TABLET PO SCH ×2 (08:58→21:17)
[2019-02-17] MEDS: CARVEDILOL 12.5 MG TAB PO SCH (08:58)
[2019-02-17] MEDS ORDERED: LEUCOVORIN 5 MG TAB PO SCH (09:00)
[2019-02-17] MEDS ORDERED: ASPIRIN 325 MG TAB PO SCH (09:00)
[2019-02-17 11:37] LABS: Glucose,Whole Blood 266 mg/dL (75-99)
[2019-02-17 11:41] VITALS: BMI 23.5
--- NOTE | 2019-02-17 13:29 | P.CRDCN ---
History of Present Illness Consult date: 02/17/19 Consult reason: sycope History of present illness: the patient is an 83-year-old female with past medical history of paroxysmal atrial fibrillation, sick sinus syndrome status post permanent pacemaker, diabetes mellitus type 2, GERD, hypertension, and stage III chronic kidney disease, who follows with Dr. Meng in the office. She presented to the emergency room yesterday after having a syncopal episode at the [facility]. She states she had no prodromal symptoms or warning of her collapse. this was a witness fall and there were no visible tonic-clonic contractions or motor deficits thereafter. Upon arrival to the hospital she was noted to be incontinent of stool. Orthostatic blood pressures were negative in the emergency room. White blood cell count 8.1, hemoglobin 10.7, hematocrit 33.7, platelet 184, sodium 140, potassium 4.8, BUN 40, creatinine 1.72,hemoglobin A1c 11.3, troponin 1 negative, TSH 7.4. telemetry readings revealed paced rhythm. PAST MEDICAL HISTORY: paroxysmal atrial fibrillation, sick sinus syndrome status post permanent pacemaker, diabetes mellitus type 2, GERD, hypertension, and stage III chronic kidney disease, GERD, gout, migraine headaches REVIEW OF SYSTEMS: No fever or chills. No cough or expectoration. No diaphoresis. Patient denies headache, dizziness, blurred vision, double vision. Patient denies any stomach discomfort. No nausea, vomiting. No hematochezia. No hematemesis. Denies any black stools or blood in his stools. Denies dysuria or hematuria. No muscle weakness or numbness. she denies any chest discomfort, shortness of breath, palpitations, dizziness, or lightheadedness. PHYSICAL EXAMINATION: This is a 83-year-old female in no apparent distress at the time of my examination. HEENT: Head is atraumatic, normocephalic. Pupils are equal, round. Sclerae anicteric. Conjunctivae are clear. Mucous membranes of the mouth are moist. Neck is supple. There is no jugular venous distention. No carotid bruit is heard. CHEST EXAMINATION: Lungs are clear to auscultation. No chest wall tenderness is noted on palpation or with deep breathing. HEART EXAMINATION: Heart regular rate and rhythm. S1, S2 heard. No murmurs, gallops or rub. ABDOMEN: Soft, nontender. Bowel sounds are heard. No organomegaly noted. EXTREMITIES: 2+ peripheral pulses with no evidence of peripheral edema and no calf tenderness noted. NEUROLOGIC EXAMINATION: Patient is awake, alert and oriented x3. LABORATORY DATA: White blood cell count 8.1, hemoglobin 10.7, hematocrit 33.7, platelet 184, sodium 140, potassium 4.8, BUN 40, creatinine 1.72,hemoglobin A1c 11.3, troponin 1 negative, TSH 7.4. FINAL ASSESSMENT AND PLAN: #1 syncope and collapse #2 sick sinus syndrome, status post permanent pacemaker #3 paroxysmal atrial fibrillation, on Eliquis #4 diabetes mellitus, uncontrolled #5 hypertension #6 chronic kidney disease, stage III PLAN: We will interrogate her pacemaker for proper functioning and assessment of tachyarrhythmia. Echocardiogram to be done to assess LV function and valvular heart disease. Orthostatic blood pressures to be repeated. Continue to monitor. Past Medical History Past Medical History: CVA/TIA, Diabetes Mellitus, Hyperlipidemia, Hypertension, Memory Impairment, Osteoarthritis (OA) Additional Past Medical History / Comment(s): RA has injections mediport q 6 weeks, Kidney cancer no chemo or radiation skin cancer arms History of Any Multi-Drug Resistant Organisms: None Reported Past Surgical History: Adenoidectomy, Section, Hysterectomy, Orthopedic Surgery, Pacemaker, Tonsillectomy, Tubal Ligation Additional Past Surgical History / Comment(s): mediport for arthritis medication, 1/3 kidney removed for CA Past Anesthesia/Blood Transfusion Reactions: No Reported Reaction Type of Cardiac Device: Permanent Pacemaker, AICD Device Placement Date:: 05/12/2017 Past Psychological History: No Psychological Hx Reported Smoking Status: Never smoker Past Alcohol Use History: None Reported Additional Past Alcohol Use History / Comment(s): Patient is a lifelong nonsmoker. She denies illicit drug use or alcohol use. She lives at home with her granddaughter and grandson. She does not have home oxygen, no nebulizer no CPAP. Patient does not drive. She uses a walker for ambulation. Past Drug Use History: None Reported - Past Family History Father History Unknown: Yes Additional Family Medical History / Comment(s): Father at age 73 from heart disease. Mother Additional Family Medical History / Comment(s): Mother at age 76 from heart disease. Brother(s) Additional Family Medical History / Comment(s): Patient has 2 brothers with no major medical problems. Daughter(s) Additional Family Medical History / Comment(s): Patient has 2 daughters and 1 as an . Patient has one son with no major medical problems. Medications and Allergies Home Medications Medication Instructions Recorded Confirmed Type Allopurinol [Zyloprim] 100 mg PO DAILY@0800 05/05/18 02/16/19 History Apixaban [Eliquis] 2.5 mg PO BID@0800,199905/05/18 02/16/19 History Aspirin EC [Ecotrin Low Dose] 81 mg PO DAILY@0800 05/05/18 02/16/19 History Escitalopram [Lexapro] 5 mg PO DAILY@0800 05/05/18 02/16/19 History Folic Acid 1 mg PO DAILY@0800 05/05/18 02/16/19 History Insulin Aspart [NovoLOG Flexpen] See Protocol SQ AC-TID 05/05/18 02/16/19 History Levothyroxine Sodium [Synthroid] 75 mcg PO DAILY@0800 05/05/18 02/16/19 History Methotrexate Sodium [Methotrexate] 7.5 mg PO FR 05/05/18 02/16/19 History Pantoprazole Sodium [Protonix] 40 mg PO BID@0800,199905/05/18 02/16/19 History inFLIXimab [Remicade] 100 mg IVPB Q56D 05/05/18 02/16/19 History Cyanocobalamin [Vitamin B-12] 500 mcg PO DAILY@0800 05/18/18 02/16/19 History Butalb/APAP/Caff 50-325-40Mg 1 tab PO Q6H PRN 01/19/19 02/16/19 History [Fioricet 50-325-40] Carvedilol 12.5 mg PO BID@0700,1700 01/19/19 02/16/19 History Colchicine 0.6 mg PO DAILY@0800 01/19/19 02/16/19 History Leucovorin Calcium 5 mg PO FRSA 01/19/19 02/16/19 History Atorvastatin [Lipitor] 40 mg PO HS@199902/16/19 02/16/19 History Insulin Glargine [Lantus] 6 unit SQ HS 02/16/19 02/16/19 History Lisinopril [Zestril] 20 mg PO BID@0800,199902/16/19 02/16/19 History amLODIPine [Norvasc] 10 mg PO DAILY@0800 02/16/19 02/16/19 History Allergies Allergy/AdvReac Type Severity Reaction Status Date / Time baclofen Allergy Unknown Verified 02/16/19 10:31 cefdinir [From Omnicef] Allergy Unknown Verified 02/16/19 10:31 ciprofloxacin Allergy Unknown Verified 02/16/19 10:31 codeine Allergy Unknown Verified 02/16/19 10:31 hydrocodone Allergy Unknown Verified 02/16/19 10:31 Iodinated Contrast Media Allergy Unknown Verified 02/16/19 10:31 [Iodinated Contrast- Oral and IV Dye] latex Allergy Unknown Verified 02/16/19 10:31 ofloxacin [From Floxin] Allergy Unknown Verified 02/16/19 10:31 Penicillins Allergy Unknown Verified 02/16/19 10:31 promethazine [From Phenergan] Allergy Unknown Verified 02/16/19 10:31 sulfadiazine Allergy Unknown Verified 02/16/19 10:31 sulfamethoxazole Allergy Unknown Verified 02/16/19 10:31 [From Bactrim] Tetracyclines Allergy Unknown Verified 02/16/19 10:31 theophylline [From Ángel-Dur] Allergy Unknown Verified 02/16/19 10:31 tramadol Allergy Unknown Verified 02/16/19 10:31 trimethoprim [From Bactrim] Allergy Unknown Verified 02/16/19 10:31 Physical Exam Vitals: Vital Signs Temp Pulse Pulse Resp BP BP Pulse Ox 02/17/19 12:00 98.0 F 60 16 94/57 97 02/17/19 08:00 98.4 F 60 16 96/55 97 02/17/19 04:00 97.9 F 60 15 104/60 97 02/17/19 00:00 60 15 02/16/19 23:17 97.9 F 60 15 113/55 98 02/16/19 20:00 98 15 02/16/19 19:26 97.9 F 98 15 119/56 93 L 02/16/19 16:00 17 02/16/19 14:47 97.6 F 71 17 119/71 99 02/16/19 14:00 59 L 17 117/59 95 Intake and Output 02/16/19 02/17/19 02/17/19 22:59 06:59 14:59 Intake Total 100 Output Total 1 Balance -1 100 Intake: Oral 100 Output: Urine/Stool Mix 1 Other: Voiding Method Toilet Toilet Toilet # Voids 1 Weight 68.039 kg Results 02/16/19 11:12 02/16/19 11:12 Current Medications Generic Name Dose Route Start Last Admin Trade Name Freq PRN Reason Stop Dose Admin Acetaminophen 650 mg 02/16/19 15:07 Tylenol Tab PO Q6HR PRN Fever and/ or Pain Apixaban 2.5 mg 02/16/19 20:00 02/17/19 08:58 Eliquis PO 2.5 mg BID@0800,1999 [facility] Administration Aspirin 81 mg 02/17/19 08:00 02/17/19 08:58 Aspirin PO 81 mg DAILY@0800 [facility] Administration Atorvastatin Calcium 40 mg 02/16/19 20:00 02/16/19 19:55 Lipitor PO 40 mg HS@1999 [facility] Administration Carvedilol 12.5 mg 02/16/19 17:00 02/17/19 08:58 Coreg PO 12.5 mg BID@0700,1700 [facility] Administration Colchicine 0.6 mg 02/17/19 08:00 02/17/19 08:58 Colcrys PO 0.6 mg DAILY@0800 [facility] Administration Cyanocobalamin 500 mcg 02/17/19 08:00 02/17/19 08:58 Vitamin B-12 PO 500 mcg DAILY@0800 [facility] Administration Escitalopram Oxalate 5 mg 02/17/19 08:00 02/17/19 08:58 Lexapro PO 5 mg DAILY@0800 [facility] Administration Folic Acid 1 mg 02/17/19 08:00 02/17/19 08:58 Folic Acid PO 1 mg DAILY@0800 [facility] Administration Insulin Aspart 0 unit 02/16/19 17:30 02/17/19 12:14 Novolog SQ 4 unit ACHS [facility] Administration Protocol Insulin Detemir 6 unit 02/16/19 21:00 02/16/19 21:00 Levemir SQ 6 unit HS [facility] Administration Leucovorin Calcium 5 mg 02/17/19 09:00 02/17/19 08:58 Leucovorin PO 5 mg FRSA [facility] Administration Levothyroxine Sodium 75 mcg 02/17/19 08:00 02/17/19 08:58 Synthroid PO 75 mcg DAILY@0800 [facility] Administration Lisinopril 2.5 mg 02/17/19 09:00 02/17/19 08:58 Zestril PO 2.5 mg DAILY [facility] Administration Methotrexate 7.5 mg 02/23/19 09:00 Methotrexate PO FR [facility] Nitroglycerin 0.4 mg 02/16/19 13:31 Nitrostat SUBLINGUAL Q5M PRN Chest Pain Pantoprazole Sodium 40 mg 02/16/19 20:00 02/17/19 08:58 Protonix PO 40 mg BID@0800,1999 [facility] Administration Intake and Output 02/16/19 02/17/19 02/17/19 22:59 06:59 14:59 Intake Total 100 Output Total 1 Balance -1 100 Intake: Oral 100 Output: Urine/Stool Mix 1 Other: Voiding Method Toilet Toilet Toilet # Voids 1 Weight 68.039 kg Patient Weight 02/18/19 06:59 Weight 68.039 kg 02/16/19 11:12 02/16/19 11:12
--- NOTE | 2019-02-17 14:16 | P.PN ---
Subjective Progress Note Date: 02/17/19 This is an 83-year-old female patient of Dr. Golden with past medical history of paroxysmal atrial fibrillation on eliquis, status post pacemaker placement, diabetes mellitus type 2, gastroesophageal reflux disease, gout, hypertension, migraine headaches, chronic kidney disease stage 3, renal cancer, rheumatoid arthritis. 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 She has known carotid stenosis of 50% on the left internal carotid artery. Patient was having troubles with lightheadedness and dizziness, she'll do when he stands up, patient has no new medication changes from the office or by any other physicians within the past 3 months, patient was seen in emergency room on with headache and lightheadedness, she was discharged to home are she felt better in emergency room after hydration, patient manages her on meals, no sick contacts, no diarrhea, she now comes seen to the emergency room with recurrent symptoms of lightheadedness, patient did not pass out, and was pasty 40 mL in the emergency room. Patient was given IV fluids are approximately 2 L, sugars were elevated in the 400s, patient denies any palpitations, however symptoms are recurrent in nature approximately 3 times this whole year on 01/20/19 She returned into [facility] emergency center for evaluation. Chest x-ray showed no acute pulmonary process. CAT scan of the br ain showed age-related atrophy and chronic small vessel ischemic change without acute intracranial process. EKG was a paced rhythm. Creatinine was 1.56, CO2 of 19, sodium 136, hemoglobin 10.6 echocardiogram and carotid Dopplers were ordered, during this admission echocardiogram shows paced rhythm, concentric LVH, EF 55-60%, mild aortic valve sclerosis without stenosis, mild AR, mild MR mild TR, mild pulmonary hypertension with RVSP of 36 small pericardial effusion near the left ventricle no hemodynamically significant stenosis noted on the carotid system, no CT of the brain was done in emergency room, EKG shows atrial paced rhythm with prolonged AV conduction septal infarct age did undetermined. consult cardiology for recurrent near-syncope history of pacemaker. During her last admission, pacemaker was interrogated, and was cleared by cardiology for discharge. She was started on midodrin on her last admission, Patient's also admitted with hyper osmolar nonketotic hyperglycemia and dehydration related to her hyperglycemia She comes back emergency room 02/16/2019 after a syncopal event, white at Court no aura prior to event. Patient stood up, and thereafter lost consciousness, unknown how long, patient denies any motor deficits thereafter, no visible tonic-clonic contractions of upper and lower extremity, unknown down time, she was subsequently sent to the emergency room. ER team has noticed that she have stool incontinence related to this, and they have performed orthostatic vitals in the ER, heart rate 64, and they have reported to be negative we have no head trauma, her last CAT scan was reviewed from 01/21/2019, urinalysis negative, except for proteinuria creatinine 1.7, CO2 of 19, glucose 158 no EKG for review today, patient would be seen consultation by neurology, and cardiology, EEG of the brain and repeat orthostatics, she comes in with slightly elevated creatinine from baseline, 1.7 to from previous of 1.27, consistent with acute renal sufficiency. Patient denies any new GI losses, patient denies any decline in by mouth intake 02/17: Patient is doing better today she denies any chest pain or shortness breath, she is admitted to the bathroom without any problems she is not dizzy or lightheaded, awaiting EEG, awaiting cardiology input, since this is likely related to cardiac arrhythmia and less likely seizure. Objective - Vital Signs Vital signs: Vital Signs Temp 97.9 F 02/17/19 04:00 Pulse 60 02/17/19 04:00 Resp 15 02/17/19 04:00 BP 104/60 02/17/19 04:00 Pulse Ox 97 02/17/19 04:00 Intake & Output 02/16/19 02/17/19 02/17/19 18:59 06:59 18:59 Intake Total 100 Output Total 1 Balance -1 100 Weight 68.039 kg Intake: Oral 100 Output: Urine/Stool Mix 1 Other: Voiding Method Toilet Toilet # Voids 1 - Exam - Constitutional General appearance: cooperative, no acute distress - EENT Eyes: anicteric sclerae, EOMI, PERRLA, dentition normal, normal appearance ENT: hard of hearing, NA/AT, normal oropharynx - Neck Neck: normal ROM Thyroid: bilateral: normal size, negative: enlarged, firm, nodule - Respiratory Respiratory: bilateral: CTA, negative: diminished, dullness, rales - Cardiovascular Rhythm: regular Heart sounds: normal: S1, S2 Abnormal Heart Sounds: no systolic murmur, no diastolic murmur, no rub, no S3 Gallop, no S4 Gallop, no click, no other - Gastrointestinal No stools on evaluation of diaper, apparently per ER physician, she's been cleaned out prior to my examination General gastrointestinal: normal bowel sounds, soft - Integumentary Integumentary: decreased turgor, normal - Neurologic Neurologic: CNII-XII intact - Musculoskeletal Musculoskeletal: gait normal, strength equal bilaterally - Psychiatric Psychiatric: A&O x's 3, appropriate affect - Labs CBC & Chem 7: 02/16/19 11:12 02/16/19 11:12 Labs: Abnormal Lab Results - Last 24 Hours (Table) 02/16/19 02/16/19 02/16/19 Range/Units 11:12 11:12 11:12 RBC 3.29 L (3.80-5.40) m/uL Hgb 10.7 L (11.4-16.0) gm/dL Hct 33.7 L (34.0-46.0) % MCV 102.3 H (80.0-100.0) fL Chloride 108 H (98-107) mmol/L Carbon Dioxide 19 L (22-30) mmol/L BUN 40 H (7-17) mg/dL Creatinine 1.72 H (0.52-1.04) mg/dL Glucose 158 H (74-99) mg/dL POC Glucose (mg/dL) (75-99) mg/dL Hemoglobin A1c (4.0-6.0) % TSH (0.465-4.680) mIU/L Urine Appearance Cloudy H (Clear) Urine Protein 1+ H (Negative) Urine Glucose (UA) Trace H (Negative) Ur Leukocyte Esterase Trace H (Negative) Hyaline Casts 4 H (0-2) /lpf Urine Mucus Rare H (None) /hpf 02/16/19 02/16/19 02/16/19 Range/Units 11:12 11:12 14:21 RBC (3.80-5.40) m/uL Hgb (11.4-16.0) gm/dL Hct (34.0-46.0) % MCV (80.0-100.0) fL Chloride (98-107) mmol/L Carbon Dioxide (22-30) mmol/L BUN (7-17) mg/dL Creatinine (0.52-1.04) mg/dL Glucose (74-99) mg/dL POC Glucose (mg/dL) 208 H (75-99) mg/dL Hemoglobin A1c 11.3 H (4.0-6.0) % TSH 7.400 H (0.465-4.680) mIU/L Urine Appearance (Clear) Urine Protein (Negative) Urine Glucose (UA) (Negative) Ur Leukocyte Esterase (Negative) Hyaline Casts (0-2) /lpf Urine Mucus (None) /hpf 02/16/19 02/16/19 02/17/19 Range/Units 17:03 20:32 07:00 RBC (3.80-5.40) m/uL Hgb (11.4-16.0) gm/dL Hct (34.0-46.0) % MCV (80.0-100.0) fL Chloride (98-107) mmol/L Carbon Dioxide (22-30) mmol/L BUN (7-17) mg/dL Creatinine (0.52-1.04) mg/dL Glucose (74-99) mg/dL POC Glucose (mg/dL) 286 H 242 H 139 H (75-99) mg/dL Hemoglobin A1c (4.0-6.0) % TSH (0.465-4.680) mIU/L Urine Appearance (Clear) Urine Protein (Negative) Urine Glucose (UA) (Negative) Ur Leukocyte Esterase (Negative) Hyaline Casts (0-2) /lpf Urine Mucus (None) /hpf Assessment and Plan Assessment: Assessment and Plan: 1. Recurrent near-syncope, with autonomic dysfunction history, however this time it would be accompanied by stool incontinence, or ER orthostatics was negative in emergency room, IV fluids have been required to stabilize blood pressure, patient also has a pacemaker and hx abnormal EKG with prolonged conduction, consult were made with cardiology to evaluate for cardiac arrhythmias, patient has a negative urinalysis, last admission carotid Dopplers are negative for hemodynamically significant stenosis, 12/2018echocardiogram has been performed, without any aortic stenosis, underlying autonomic dysfunction is also suspected secondary to her diabetes mellitus, no GI losses are identified at this time, daily orthostatics to be done 2 acute renal sufficiency with underlying CK D stage III, anemia of chronic diseases suspected, IV fluids for hydration, orthostatics to be done daily 3. Diabetes mellitus type 2 with complications uncontrolled blood sugars, A1c this time is 14, home medications needs to be addressed, and increase Levemir to 10 units, pre-meal NovoLog of 5 units breakfast, 5 u lunch and 5 u dinner, , prior to admission and glargine 10 units 4. Autonomic dysfunction, on ranitidine 10 mg 3 times a day orthostatics to be done daily 5. Mild Metabolic acidosis secondary to dehydration and uncontrolled sugars monitor labs, IV hydration and monitor lab 6 Hypertension with initial hypotension on admission, we have discontinued in the last admission amlodipine 10 mg daily,, she should be on lisinopril2.5 mg daily not 20 mg twice a day continue Coreg 12.5 mg twice daily 7 Headache , no imaging studies, computed tomography scan of the brain without contrast creatinine elevated at 1.5 a sed rate to check for vasculitis 8 Paroxysmal atrial fibrillation. Currently on paced rhythm for suspected sick sinus syndrome Continue eliquis and Coreg. Cardiology consult 10 Hyperlipidemia. Continue atorvastatin started by cardiology. 11 Hypothyroidism. Continue levothyroxine 75 g daily. 12 Rheumatoid arthritis. Patient is on Remicade, methotrexate. 13 Recurrent depression. Continue Lexapro 5 mg daily 14. DVT prophylaxis. 15.Gastroesophageal reflux disease and GI prophylaxis. 16. Home after clearance from cardiology and neurology.
[2019-02-17 16:38] LABS: Glucose,Whole Blood 265 mg/dL (75-99)
[2019-02-17] MEDS: CARVEDILOL 6.25 MG TAB PO SCH (17:17)
[2019-02-17 20:10] LABS: Glucose,Whole Blood 107 mg/dL (75-99)
[2019-02-17] MEDS: ATORVASTATIN 40 MG TAB PO SCH (21:17)
[2019-02-17] MEDS: INSULIN DETEMIR (LEVEMIR) 100 UNIT/ML SYR SQ SCH (21:17)
[2019-02-18 06:04] LABS: Glucose,Whole Blood 167 mg/dL (75-99)
[2019-02-18 06:43] LABS: Basophils % (A) 0 %; Eosinophils # (A) 0.1 k/uL (0-0.7); Eosinophils % (A) 2 %; HCT 31.1 % (34.0-46.0); HGB 9.6 gm/dL (11.4-16.0); Hypochromasia Slight; Lymphocytes # (A) 1.6 k/uL (1.0-4.8); Lymphocytes % (A) 28 %; MCH 32.1 pg (25.0-35.0); MCHC 30.7 g/dL (31.0-37.0); MCV 104.5 fL (80.0-100.0); Macrocytosis Moderate; Mean Platelet Volume 8.2; Monocytes # (A) 0.3 k/uL (0-1.0); Monocytes % (A) 4 %; Neutrophils # (A) 3.5 k/uL (1.3-7.7); Neutrophils % (A) 63 %; Platelet Count 165 k/uL (150-450); RBC 2.98 m/uL (3.80-5.40); RDW 15.2 % (11.5-15.5); WBC 5.6 k/uL (3.8-10.6)
[2019-02-18 07:03] LABS: Calcium 8.9 mg/dL (8.4-10.2); Potassium 5.1 mmol/L (3.5-5.1); Total Bilirubin 0.5 mg/dL (0.2-1.3); Total Protein 6.1 g/dL (6.3-8.2)
[2019-02-18] MEDS: CARVEDILOL 6.25 MG TAB PO SCH ×2 (07:11→17:03)
[2019-02-18] MEDS: INSULIN ASPART (NovoLOG) 100 UNIT/ML VIAL SQ SCH ×4 (07:12→21:17)
[2019-02-18] MEDS: LEVOTHYROXINE 75 MCG TAB PO SCH (08:10)
[2019-02-18] MEDS: APIXABAN 2.5 MG TABLET PO SCH ×2 (08:10→21:17)
[2019-02-18] MEDS: ASPIRIN 81 MG PO SCH (08:10)
[2019-02-18] MEDS: FOLIC ACID 1 MG TAB PO SCH (08:10)
[2019-02-18] MEDS: CYANOCOBALAMIN 500 MCG TAB PO SCH (08:10)
[2019-02-18] MEDS: COLCHICINE 0.6 MG EACH PO SCH (08:10)
[2019-02-18] MEDS: ESCITALOPRAM 5 MG TAB PO SCH (08:10)
[2019-02-18] MEDS: LISINOPRIL 2.5 MG TAB PO SCH (08:11)
[2019-02-18] MEDS: PANTOPRAZOLE 40 MG TABLET PO SCH ×2 (08:11→21:17)
--- NOTE | 2019-02-18 10:39 | P.PN ---
Subjective Progress Note Date: 02/18/19 This is an 83-year-old female patient of Dr. Golden with past medical history of paroxysmal atrial fibrillation on eliquis, status post pacemaker placement, diabetes mellitus type 2, gastroesophageal reflux disease, gout, hypertension, migraine headaches, chronic kidney disease stage 3, renal cancer, rheumatoid arthritis. 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 She has known carotid stenosis of 50% on the left internal carotid artery. Patient was having troubles with lightheadedness and dizziness, she'll do when he stands up, patient has no new medication changes from the office or by any other physicians within the past 3 months, patient was seen in emergency room on with headache and lightheadedness, she was discharged to home are she felt better in emergency room after hydration, patient manages her on meals, no sick contacts, no diarrhea, she now comes seen to the emergency room with recurrent symptoms of lightheadedness, patient did not pass out, and was pasty 40 mL in the emergency room. Patient was given IV fluids are approximately 2 L, sugars were elevated in the 400s, patient denies any palpitations, however symptoms are recurrent in nature approximately 3 times this whole year on 01/20/19 She returned into [facility] emergency center for evaluation. Chest x-ray showed no acute pulmonary process. CAT scan of the br ain showed age-related atrophy and chronic small vessel ischemic change without acute intracranial process. EKG was a paced rhythm. Creatinine was 1.56, CO2 of 19, sodium 136, hemoglobin 10.6 echocardiogram and carotid Dopplers were ordered, during this admission echocardiogram shows paced rhythm, concentric LVH, EF 55-60%, mild aortic valve sclerosis without stenosis, mild AR, mild MR mild TR, mild pulmonary hypertension with RVSP of 36 small pericardial effusion near the left ventricle no hemodynamically significant stenosis noted on the carotid system, no CT of the brain was done in emergency room, EKG shows atrial paced rhythm with prolonged AV conduction septal infarct age did undetermined. consult cardiology for recurrent near-syncope history of pacemaker. During her last admission, pacemaker was interrogated, and was cleared by cardiology for discharge. She was started on midodrin on her last admission, Patient's also admitted with hyper osmolar nonketotic hyperglycemia and dehydration related to her hyperglycemia She comes back emergency room 02/16/2019 after a syncopal event, white at Court no aura prior to event. Patient stood up, and thereafter lost consciousness, unknown how long, patient denies any motor deficits thereafter, no visible tonic-clonic contractions of upper and lower extremity, unknown down time, she was subsequently sent to the emergency room. ER team has noticed that she have stool incontinence related to this, and they have performed orthostatic vitals in the ER, heart rate 64, and they have reported to be negative we have no head trauma, her last CAT scan was reviewed from 01/21/2019, urinalysis negative, except for proteinuria creatinine 1.7, CO2 of 19, glucose 158 no EKG for review today, patient would be seen consultation by neurology, and cardiology, EEG of the brain and repeat orthostatics, she comes in with slightly elevated creatinine from baseline, 1.7 to from previous of 1.27, consistent with acute renal sufficiency. Patient denies any new GI losses, patient denies any decline in by mouth intake 02/17: Patient is doing better today she denies any chest pain or shortness breath, she is admitted to the bathroom without any problems she is not dizzy or lightheaded, awaiting EEG, awaiting cardiology input, since this is likely related to cardiac arrhythmia and less likely seizure. 02/18: Patient is sitting up in bed in no apparent distress, she slept well last night she denies any dizziness or lightheadedness, she has not had her pacemaker interrogated yet, this will be done tomorrow morning along with EEG that she can be discharged home. Objective - Vital Signs Vital signs: Vital Signs Temp 98.5 F 02/18/19 04:00 Pulse 61 02/18/19 04:00 Resp 17 02/18/19 04:00 BP 121/67 02/18/19 04:00 Pulse Ox 97 02/18/19 04:00 Intake & Output 02/17/19 02/18/19 02/18/19 18:59 06:59 18:59 Output Total 650 Balance -650 Weight 68.039 kg 69.6 kg Output: Urine 650 Other: Voiding Method Toilet Toilet # Voids 1 1 - Exam - Constitutional General appearance: cooperative, no acute distress - EENT Eyes: anicteric sclerae, EOMI, PERRLA, dentition normal, normal appearance ENT: hard of hearing, NA/AT, normal oropharynx - Neck Neck: normal ROM Thyroid: bilateral: normal size, negative: enlarged, firm, nodule - Respiratory Respiratory: bilateral: CTA, negative: diminished, dullness, rales - Cardiovascular Rhythm: regular Heart sounds: normal: S1, S2 Abnormal Heart Sounds: no systolic murmur, no diastolic murmur, no rub, no S3 Gallop, no S4 Gallop, no click, no other - Gastrointestinal No stools on evaluation of diaper, apparently per ER physician, she's been cleaned out prior to my examination General gastrointestinal: normal bowel sounds, soft - Integumentary Integumentary: decreased turgor, normal - Neurologic Neurologic: CNII-XII intact - Musculoskeletal Musculoskeletal: gait normal, strength equal bilaterally - Psychiatric Psychiatric: A&O x's 3, appropriate affect - Labs CBC & Chem 7: 02/18/19 06:02 02/18/19 06:02 Labs: Abnormal Lab Results - Last 24 Hours (Table) 02/16/19 02/17/19 02/17/19 Range/Units 11:12 11:33 16:37 RBC (3.80-5.40) m/uL Hgb (11.4-16.0) gm/dL Hct (34.0-46.0) % MCV (80.0-100.0) fL MCHC (31.0-37.0) g/dL Chloride (98-107) mmol/L Carbon Dioxide (22-30) mmol/L BUN (7-17) mg/dL Creatinine (0.52-1.04) mg/dL Glucose (74-99) mg/dL POC Glucose (mg/dL) 266 H 265 H (75-99) mg/dL Total Protein (6.3-8.2) g/dL Albumin (3.5-5.0) g/dL Vitamin B12 1933.0 H (200.0-944.0) pg/mL 02/17/19 02/18/19 02/18/19 Range/Units 20:09 06:02 06:02 RBC 2.98 L (3.80-5.40) m/uL Hgb 9.6 L (11.4-16.0) gm/dL Hct 31.1 L (34.0-46.0) % MCV 104.5 H (80.0-100.0) fL MCHC 30.7 L (31.0-37.0) g/dL Chloride 113 H (98-107) mmol/L Carbon Dioxide 17 L (22-30) mmol/L BUN 43 H (7-17) mg/dL Creatinine 1.52 H (0.52-1.04) mg/dL Glucose 185 H (74-99) mg/dL POC Glucose (mg/dL) 107 H (75-99) mg/dL Total Protein 6.1 L (6.3-8.2) g/dL Albumin 3.0 L (3.5-5.0) g/dL Vitamin B12 (200.0-944.0) pg/mL 02/18/19 Range/Units 06:03 RBC (3.80-5.40) m/uL Hgb (11.4-16.0) gm/dL Hct (34.0-46.0) % MCV (80.0-100.0) fL MCHC (31.0-37.0) g/dL Chloride (98-107) mmol/L Carbon Dioxide (22-30) mmol/L BUN (7-17) mg/dL Creatinine (0.52-1.04) mg/dL Glucose (74-99) mg/dL POC Glucose (mg/dL) 167 H (75-99) mg/dL Total Protein (6.3-8.2) g/dL Albumin (3.5-5.0) g/dL Vitamin B12 (200.0-944.0) pg/mL Assessment and Plan Assessment: Assessment and Plan: 1. Recurrent syncope, with autonomic dysfunction history, however this time it would be accompanied by stool incontinence, or ER orthostatics was negative in emergency room, IV fluids have been required to stabilize blood pressure, patient also has a pacemaker and hx abnormal EKG with prolonged conduction, consult were made with cardiology to evaluate for cardiac arrhythmias, patient has a negative urinalysis, last admission carotid Dopplers are negative for hemodynamically significant stenosis, 12/2018echocardiogram has been performed, without any aortic stenosis, underlying autonomic dysfunction is also suspected secondary to her diabetes mellitus, no GI losses are identified at this time, daily orthostatics to be done 2 acute renal sufficiency with underlying CK D stage III, anemia of chronic diseases suspected, IV fluids for hydration, orthostatics to be done daily 3. Diabetes mellitus type 2 with complications uncontrolled blood sugars, A1c this time is 14, home medications needs to be addressed, and increase Levemir to 10 units, pre-meal NovoLog of 5 units breakfast, 5 u lunch and 5 u dinner, , prior to admission and glargine 10 units 4. Autonomic dysfunction, on ranitidine 10 mg 3 times a day orthostatics to be done daily 5. Mild Metabolic acidosis secondary to dehydration and uncontrolled sugars monitor labs, IV hydration and monitor lab 6 Hypertension with initial hypotension on admission, we have discontinued in the last admission amlodipine 10 mg daily,, she should be on lisinopril2.5 mg daily not 20 mg twice a day continue Coreg 12.5 mg twice daily 7 Headache , no imaging studies, computed tomography scan of the brain without contrast creatinine elevated at 1.5 a sed rate to check for vasculitis 8 Paroxysmal atrial fibrillation. Currently on paced rhythm for suspected sick sinus syndrome Continue eliquis and Coreg. Cardiology consult 10 Hyperlipidemia. Continue atorvastatin started by cardiology. 11 Hypothyroidism. Continue levothyroxine 75 g daily. 12 Rheumatoid arthritis. Patient is on Remicade, methotrexate. 13 Recurrent depression. Continue Lexapro 5 mg daily 14. DVT prophylaxis. 15.Gastroesophageal reflux disease and GI prophylaxis. 16. Home after EEG and pacemaker interrogation is completed.
[2019-02-18 11:41] LABS: Glucose,Whole Blood 185 mg/dL (75-99)
--- NOTE | 2019-02-18 14:08 | P.PN ---
Subjective Progress Note Date: 02/18/19 the patient is an 83-year-old female with past medical history of paroxysmal atrial fibrillation, sick sinus syndrome status post permanent pacemaker, diabetes mellitus type 2, GERD, hypertension, and stage III chronic kidney disease, who follows with Dr. Meng in the office. She presented to the emergency room yesterday after having a syncopal episode at the [facility]. She states she had no prodromal symptoms or warning of her collapse. this was a witness fall and there were no visible tonic-clonic contractions or motor deficits thereafter. Upon arrival to the hospital she was noted to be incon tinent of stool. Orthostatic blood pressures were negative in the emergency room. White blood cell count 8.1, hemoglobin 10.7, hematocrit 33.7, platelet 184, sodium 140, potassium 4.8, BUN 40, creatinine 1.72,hemoglobin A1c 11.3, troponin 1 negative, TSH 7.4. telemetry readings revealed paced rhythm. 02/17/19 On exam the patient has been asymptomatic since her initial episode. White blood cell count 8.1, hemoglobin 10.7, hematocrit 33.7, platelet 184, sodium 140, potassium 4.8, BUN 40, creatinine 1.72,hemoglobin A1c 11.3, troponin 1 negative, TSH 7.4. Blood pressure readings have been well controlled. Awaiting recommendations per neurology. Orthostatic blood pressures negative. 02/18/19 Patient continues to be asymptomatic from the cardiac standpoint. She states she was up ambulating throughout her room without symptoms. Awaiting device interrogation to assess for cardiac arrhythmias. Also awaiting results of the EEG per neurology. Laboratory data this morning shows what WBC of 5.6, hemoglobin at 9.6, hematocrit 31.1, platelet at 165, sodium 139, potassium of 5.1, BUN 43, creatinine 1.52, AST 24, ALT 15. Blood pressures continue to be well controlled in the 1-teens. SpO2 97% on room air. Heart rates in the 50s to 60s. Objective - Vital Signs Vital signs: Vital Signs Temp 97.3 F L 02/18/19 11:51 Pulse 58 L 02/18/19 11:57 Resp 16 02/18/19 11:51 BP 113/63 02/18/19 11:57 Pulse Ox 99 02/18/19 11:51 Intake & Output 02/17/19 02/18/1919 18:59 06:59 18:59 Intake Total 610 Output Total 650 Balance -650 610 Weight 68.039 kg 69.6 kg Intake: IV 10 0.9 10 Oral 600 Output: Urine 650 Other: Voiding Method Toilet Toilet Toilet # Voids 1 1 - Exam GENERAL: Well-appearing, well-nourished and in no acute distress. NECK: Supple without JVD or thyromegaly. LUNGS: Breath sounds clear to auscultation bilaterally. Respiration equal and unlabored. No wheezes, rales or rhonchi. HEART: Regular rate and rhythm without murmurs, rubs or gallops. S1 and S2 heard. EXTREMITIES: Normal range of motion, no edema. No clubbing or cyanosis. Peripheral pulses intact and strong. - Labs CBC & Chem 7: 02/18/19 06:02 02/18/19 06:02 Labs: Abnormal Lab Results - Last 24 Hours (Table) 02/17/19 02/17/19 02/18/19 Range/Units 16:37 20:09 06:02 RBC 2.98 L (3.80-5.40) m/uL Hgb 9.6 L (11.4-16.0) gm/dL Hct 31.1 L (34.0-46.0) % MCV 104.5 H (80.0-100.0) fL MCHC 30.7 L (31.0-37.0) g/dL Chloride (98-107) mmol/L Carbon Dioxide (22-30) mmol/L BUN (7-17) mg/dL Creatinine (0.52-1.04) mg/dL Glucose (74-99) mg/dL POC Glucose (mg/dL) 265 H 107 H (75-99) mg/dL Total Protein (6.3-8.2) g/dL Albumin (3.5-5.0) g/dL 02/18/19 02/18/19 02/18/19 Range/Units 06:02 06:03 11:35 RBC (3.80-5.40) m/uL Hgb (11.4-16.0) gm/dL Hct (34.0-46.0) % MCV (80.0-100.0) fL MCHC (31.0-37.0) g/dL Chloride 113 H (98-107) mmol/L Carbon Dioxide 17 L (22-30) mmol/L BUN 43 H (7-17) mg/dL Creatinine 1.52 H (0.52-1.04) mg/dL Glucose 185 H (74-99) mg/dL POC Glucose (mg/dL) 167 H 185 H (75-99) mg/dL Total Protein 6.1 L (6.3-8.2) g/dL Albumin 3.0 L (3.5-5.0) g/dL Assessment and Plan Assessment: #1 syncope and collapse #2 sick sinus syndrome, status post permanent pacemaker #3 paroxysmal atrial fibrillation, on Eliquis #4 diabetes mellitus, uncontrolled #5 hypertension #6 chronic kidney disease, stage III Plan: Awaiting device interrogation and EEG per neurology.
[2019-02-18 17:11] LABS: Glucose,Whole Blood 223 mg/dL (75-99)
[2019-02-18 21:13] LABS: Glucose,Whole Blood 231 mg/dL (75-99)
[2019-02-18] MEDS: INSULIN DETEMIR (LEVEMIR) 100 UNIT/ML SYR SQ SCH (21:17)
[2019-02-18] MEDS: ATORVASTATIN 40 MG TAB PO SCH (21:17)
[2019-02-19 06:25] LABS: Glucose,Whole Blood 105 mg/dL (75-99)
[2019-02-19] MEDS: CARVEDILOL 6.25 MG TAB PO SCH ×2 (06:29→16:45)
[2019-02-19] MEDS: INSULIN ASPART (NovoLOG) 100 UNIT/ML VIAL SQ SCH ×4 (06:29→21:29)
[2019-02-19] MEDS: APIXABAN 2.5 MG TABLET PO SCH ×2 (08:25→21:29)
[2019-02-19] MEDS: PANTOPRAZOLE 40 MG TABLET PO SCH ×2 (08:25→21:29)
[2019-02-19] MEDS: LEVOTHYROXINE 75 MCG TAB PO SCH (08:25)
[2019-02-19] MEDS: COLCHICINE 0.6 MG EACH PO SCH (08:25)
[2019-02-19] MEDS: CYANOCOBALAMIN 500 MCG TAB PO SCH (08:25)
[2019-02-19] MEDS: FOLIC ACID 1 MG TAB PO SCH (08:25)
[2019-02-19] MEDS: ASPIRIN 81 MG PO SCH (08:25)
[2019-02-19] MEDS: ESCITALOPRAM 5 MG TAB PO SCH (08:25)
[2019-02-19 11:41] LABS: Glucose,Whole Blood 178 mg/dL (75-99)
[2019-02-19] MEDS: LISINOPRIL 2.5 MG TAB PO SCH (11:46)
--- NOTE | 2019-02-19 12:25 | P.PN ---
Subjective Progress Note Date: 02/19/19 Patient denies any new symptoms. Feeling fine. No further syncopal spells. Objective - Vital Signs Vital signs: Vital Signs Temp 97.7 F 02/19/19 08:15 Pulse 61 02/19/19 08:15 Resp 18 02/19/19 08:15 BP 106/51 02/19/19 08:15 Pulse Ox 98 02/19/19 08:15 Intake & Output 02/18/19 02/19/19 02/19/19 18:59 06:59 18:59 Intake Total 970 360 Balance 970 360 Weight 68.5 kg Intake: IV 10 0.9 10 Oral 960 360 Other: Voiding Method Toilet Toilet # Voids 1 - Exam Nonfocal. - Labs CBC & Chem 7: 02/18/19 06:02 02/18/19 06:02 Labs: Abnormal Lab Results - Last 24 Hours (Table) 02/18/19 02/18/19 02/19/19 Range/Units 16:32 21:11 06:24 POC Glucose (mg/dL) 223 H 231 H 105 H (75-99) mg/dL 02/19/19 Range/Units 11:40 POC Glucose (mg/dL) 178 H (75-99) mg/dL Assessment and Plan Assessment: * Syncope and collapse. Patient was dehydrated, as her renal function shows evidence of dehydration. Patient had a prolonged postictal state. Therefore seizure also needs to be ruled out. Rule out arrhythmia. * Atrial fibrillation, on anticoagulation. * History of pacemaker. * Diabetes mellitus, poorly controlled. * Macrocytosis, B12 1933, folate > 24. * Hypothyroidism Plan: * EEG was normal, with no epileptiform activity. * Hydration * Cardiology following to rule out arrhythmia and for interrogation of pacemaker data. * Consider tilt table test, if syncopal symptoms recurs. * B12 1933, folate >24. * Hypothyroidism, TSH 7.4/4.68. Need adjustment of thyroid medication. Free T4 normal. * Patient neurologically clear, if cleared by cardiology.
[2019-02-19] MEDS ORDERED: SODIUM CHLORIDE 0.9% 500 ML 500 ML IV ONE (13:06)
--- NOTE | 2019-02-19 15:39 | P.PN ---
Subjective Progress Note Date: 02/19/19 This is an 83-year-old female patient of Dr. Golden with past medical history of paroxysmal atrial fibrillation on eliquis, status post pacemaker placement, diabetes mellitus type 2, gastroesophageal reflux disease, gout, hypertension, migraine headaches, chronic kidney disease stage 3, renal cancer, rheumatoid arthritis. 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 She has known carotid stenosis of 50% on the left internal carotid artery. Patient was having troubles with lightheadedness and dizziness, she'll do when he stands up, patient has no new medication changes from the office or by any other physicians within the past 3 months, patient was seen in emergency room on with headache and lightheadedness, she was discharged to home are she felt better in emergency room after hydration, patient manages her on meals, no sick contacts, no diarrhea, she now comes seen to the emergency room with recurrent symptoms of lightheadedness, patient did not pass out, and was pasty 40 mL in the emergency room. Patient was given IV fluids are approximately 2 L, sugars were elevated in the 400s, patient denies any palpitations, however symptoms are recurrent in nature approximately 3 times this whole year on 01/20/19 She returned into [facility] emergency center for evaluation. Chest x-ray showed no acute pulmonary process. CAT scan of the br ain showed age-related atrophy and chronic small vessel ischemic change without acute intracranial process. EKG was a paced rhythm. Creatinine was 1.56, CO2 of 19, sodium 136, hemoglobin 10.6 echocardiogram and carotid Dopplers were ordered, during this admission echocardiogram shows paced rhythm, concentric LVH, EF 55-60%, mild aortic valve sclerosis without stenosis, mild AR, mild MR mild TR, mild pulmonary hypertension with RVSP of 36 small pericardial effusion near the left ventricle no hemodynamically significant stenosis noted on the carotid system, no CT of the brain was done in emergency room, EKG shows atrial paced rhythm with prolonged AV conduction septal infarct age did undetermined. consult cardiology for recurrent near-syncope history of pacemaker. During her last admission, pacemaker was interrogated, and was cleared by cardiology for discharge. She was started on midodrin on her last admission, Patient's also admitted with hyper osmolar nonketotic hyperglycemia and dehydration related to her hyperglycemia She comes back emergency room 02/16/2019 after a syncopal event, white at Court no aura prior to event. Patient stood up, and thereafter lost consciousness, unknown how long, patient denies any motor deficits thereafter, no visible tonic-clonic contractions of upper and lower extremity, unknown down time, she was subsequently sent to the emergency room. ER team has noticed that she have stool incontinence related to this, and they have performed orthostatic vitals in the ER, heart rate 64, and they have reported to be negative we have no head trauma, her last CAT scan was reviewed from 01/21/2019, urinalysis negative, except for proteinuria creatinine 1.7, CO2 of 19, glucose 158 no EKG for review today, patient would be seen consultation by neurology, and cardiology, EEG of the brain and repeat orthostatics, she comes in with slightly elevated creatinine from baseline, 1.7 to from previous of 1.27, consistent with acute renal sufficiency. Patient denies any new GI losses, patient denies any decline in by mouth intake 02/17: Patient is doing better today she denies any chest pain or shortness breath, she is admitted to the bathroom without any problems she is not dizzy or lightheaded, awaiting EEG, awaiting cardiology input, since this is likely related to cardiac arrhythmia and less likely seizure. 02/18: Patient is sitting up in bed in no apparent distress, she slept well last night she denies any dizziness or lightheadedness, she has not had her pacemaker interrogated yet, this will be done tomorrow morning along with EEG that she can be discharged home. 02/19: Patient has had EEG obtained this morning and she is still waiting for pacemaker interrogation [facility] nurse will organize. Patient was up this morning and did have significant orthostatic changes and a half liter of IV fluids will be ordered. Regarding her pacemaker, patient does not recall the brand but she and his placed at [facility]. Patient will be monitored overnight and plan for discharge tomorrow. Objective - Vital Signs Vital signs: Vital Signs Temp 98 F 02/19/19 11:55 Pulse 61 02/19/19 11:55 Resp 18 02/19/19 11:55 BP 119/56 02/19/19 11:55 Pulse Ox 98 02/19/19 11:55 Intake & Output 02/18/19 02/19/19 02/19/19 18:59 06:59 18:59 Intake Total 970 480 Output Total 400 Balance 970 80 Weight 68.5 kg Intake: IV 10 0.9 10 Oral 960 480 Output: Urine 400 Other: Voiding Method Toilet Toilet # Voids 1 - Exam Review Of Systems: Constitutional: No fever, no chills, no night sweats. No weight change. No weakness, fatigue or lethargy. No daytime sleepiness. EENT: No headache. No blurred vision or double vision, no loss of vision. No loss of Hearing, no ringing in the ears, reports dizziness. No nasal drainage or congestion. No epistaxis. No sore throat. Lungs: No shortness of breath, cough, no sputum production. No wheezing. Cardiovascular: No chest pain, no lower extremity edema. No palpitations. No paroxysmal nocturnal dyspnea. No orthopnea. Reports lightheadedness or dizziness. No syncopal episodes. Abdominal: No abdominal pain. No nausea, vomiting. No diarrhea. No constipation. No bloody or tarry stools.. No loss of appetite. Genitourinary: No dysuria, increased frequency, urgency. No urinary retention. Musculoskeletal: No myalgias. No muscle weakness, no gait dysfunction, no frequent falls. No back pain. No neck pain. Integumentary: No wounds, no lesions. No rash or pruritus. No unusual bruising . No change in hair or nails. Neurologic: No aphasia. No facial droop. No change in mentation. No head injury. No headache. No paralysis. No paresthesia. Psychiatric: No depression. No anxiety. No mood swings. Endocrine: No abnormal blood sugars. No weight change. No excessive sweating or thirst. No cold intolerance. - Constitutional General appearance: cooperative, no acute distress, resting in bed - EENT Eyes: anicteric sclerae, EOMI, PERRLA, dentition normal, normal appearance ENT: hard of hearing, NA/AT, normal oropharynx - Neck Neck: normal ROM Thyroid: bilateral: normal size, negative: enlarged, firm, nodule - Respiratory Respiratory: bilateral: CTA, negative: diminished, dullness, rales - Cardiovascular Rhythm: regular Heart sounds: normal: S1, S2 Abnormal Heart Sounds: no systolic murmur, no diastolic murmur, no rub, no S3 Gallop, no S4 Gallop, no click, no other - Gastrointestinal No stools on evaluation of diaper, apparently per ER physician, she's been cleaned out prior to my examination General gastrointestinal: normal bowel sounds, soft - Integumentary Integumentary: decreased turgor, normal - Neurologic Neurologic: CNII-XII intact - Musculoskeletal Musculoskeletal: gait normal, strength equal bilaterally - Psychiatric Psychiatric: A&O x's 3, appropriate affect - Labs CBC & Chem 7: 02/18/19 06:02 02/18/19 06:02 Labs: Abnormal Lab Results - Last 24 Hours (Table) 02/18/19 02/18/19 02/19/19 Range/Units 16:32 21:11 06:24 POC Glucose (mg/dL) 223 H 231 H 105 H (75-99) mg/dL 02/19/19 Range/Units 11:40 POC Glucose (mg/dL) 178 H (75-99) mg/dL Assessment and Plan Plan: 1. Recurrent syncope, with autonomic dysfunction history, however this time it would be accompanied by stool incontinence, or ER orthostatics was negative in emergency room, IV fluids have been required to stabilize blood pressure, patient also has a pacemaker and hx abnormal EKG with prolonged conduction, consult were made with cardiology to evaluate for cardiac arrhythmias, patient has a negative urinalysis, last admission carotid Dopplers are negative for hemodynamically significant stenosis, 12/2018echocardiogram has been performed, without any aortic stenosis, underlying autonomic dysfunction is also suspected secondary to her diabetes mellitus, no GI losses are identified at this time, daily orthostatics to be done. Orthostatics remain positive. IV fluid 500 mL bolus today. EEG report is pending. Pacemaker interrogation. 2 acute renal sufficiency with underlying CK D stage III, anemia of chronic diseases suspected, IV fluids for hydration, orthostatics to be done daily 3. Diabetes mellitus type 2 with complications uncontrolled blood sugars, A1c this time is 14, home medications needs to be addressed, and increase Levemir to 10 units, pre-meal NovoLog of 5 units breakfast, 5 u lunch and 5 u dinner, , prior to admission and glargine 10 units 4. Autonomic dysfunction, on ranitidine 10 mg 3 times a day orthostatics to be done daily 5. Mild Metabolic acidosis secondary to dehydration and uncontrolled sugars monitor labs, IV hydration and monitor lab 6 Hypertension with initial hypotension on admission, we have discontinued in the last admission amlodipine 10 mg daily,, she should be on lisinopril2.5 mg daily not 20 mg twice a day continue Coreg 12.5 mg twice daily 7 Headache , no imaging studies, computed tomography scan of the brain without contrast creatinine elevated at 1.5 a sed rate to check for vasculitis 8 Paroxysmal atrial fibrillation. Currently on paced rhythm for suspected sick sinus syndrome Continue eliquis and Coreg. Cardiology consult 10 Hyperlipidemia. Continue atorvastatin started by cardiology. 11 Hypothyroidism. Continue levothyroxine 75 g daily. 12 Rheumatoid arthritis. Patient is on Remicade, methotrexate. 13 Recurrent depression. Continue Lexapro 5 mg daily 14. DVT prophylaxis. 15.Gastroesophageal reflux disease and GI prophylaxis. Discharge plan: Home tomorrow Impression and plan of care have been directed as dictated by the signing physician. Sharmaine Fang nurse practitioner acting as scribe for signing physician.
[2019-02-19 16:40] LABS: Glucose,Whole Blood 223 mg/dL (75-99)
[2019-02-19 16:44] LABS: Glucose,Whole Blood 209 mg/dL (75-99)
--- NOTE | 2019-02-19 18:04 | EEG ---
ELECTROENCEPHALOGRAM REPORT DATE OF SERVICE: 02/19/2019. PREAMBLE: This is an 83-year-old female who had a syncopal spell versus seizure. This study is performed to evaluate for any epileptiform activity. EEG FINDINGS: A routine 21-channel awake digital EEG recording was accomplished utilizing the 10/20 international system with bipolar and referential montages. The background consists of well-developed, well-regulated, moderate amplitude activity in 9 to 10 Hz alpha. Background is posterior-dominant and reactive to eye opening and closing. Photic driving response was not seen. Different stages of sleep were not seen. No definitive focal or generalized epileptiform activity was seen. IMPRESSION: This is a normal awake EEG. No definitive epileptiform activity were seen. If your suspicion for seizures is high, consider prolonged, sleep-deprived EEG. MMODL / IJN: [id number] /
--- NOTE | 2019-02-19 18:16 | P.PN ---
Subjective This is Deborah Saldana PA-C dictating a progress note on this patient The patient was interviewed and examined by me as well as by Dr. Gant Case discussed with Dr. Gant and he agrees with the plan of care IMPRESSION / ASSESSMENT: Syncopal episode, etiology unclear, neurology following, possibly secondary to orthostatic hypotension Sick sinus syndrome status post pacemaker placement Paroxysmal atrial fibrillation, On anticoagulation with eliquis Diabetes Hypertension CKD PLAN: Decrease carvedilol to 3.125 mg twice a day Repeat Orthostatic vital signs tomorrow Device interrogation by [facility] Obtain office notes HPI/interval history Patient is an 83-year-old female with a past medical history of paroxysmal atrial fibrillation, sick sinus syndrome status post permanent pacemaker placement, diabetes, GERD, hypertension, and CK D who presented after syncopal episode. Patient has been ventricular paced on telemetry, no arrhythmias on telemetry. EEG today was normal. Orthostatic vital signs were positive with a drop in the setting systolic blood pressure from 106 down to 75 from lying to standing. Patient seen and examined sitting in bed. Complaining of headache in the back of her head when she moves. She has been getting up and using the bathroom, denies any dizziness. No palpitations chest pain or shortness of breath. No further syncopal episodes. EXAMINATION Temperature 97.7F, pulse 64, respirations 18, blood pressure 130/60, oxygen saturation 99% on room air Patient seen and examined lying comfortably in bed, in no acute distress Lungs are clear to auscultation bilaterally Heart is regular, no murmurs noted no elevated JVD or lower extremity edema EVIEW OF LABS, ECG No new labs today Objective - Vital Signs Vital signs: Vital Signs Temp 97.7 F 02/19/19 15:51 Pulse 64 02/19/19 15:51 Resp 18 02/19/19 15:51 BP 130/60 02/19/19 15:51 Pulse Ox 99 02/19/19 15:51 Intake & Output 02/18/19 02/19/19 02/19/19 18:59 06:59 18:59 Intake Total 970 480 Output Total 400 Balance 970 80 Weight 68.5 kg Intake: IV 10 0.9 10 Oral 960 480 Output: Urine 400 Other: Voiding Method Toilet Toilet # Voids 1 - Labs CBC & Chem 7: 02/18/19 06:02 02/18/19 06:02 Labs: Abnormal Lab Results - Last 24 Hours (Table) 02/18/19 02/19/19 02/19/19 Range/Units 21:11 06:24 11:40 POC Glucose (mg/dL) 231 H 105 H 178 H (75-99) mg/dL 02/19/19 02/19/19 Range/Units 16:26 16:42 POC Glucose (mg/dL) 223 H 209 H (75-99) mg/dL
[2019-02-19 20:01] LABS: Glucose,Whole Blood 189 mg/dL (75-99)
[2019-02-19] MEDS: INSULIN DETEMIR (LEVEMIR) 100 UNIT/ML SYR SQ SCH (21:29)
[2019-02-19] MEDS: ATORVASTATIN 40 MG TAB PO SCH (21:29)
[2019-02-20 04:58] VITALS: RESP 16
[2019-02-20 06:12] LABS: Glucose,Whole Blood 131 mg/dL (75-99)
[2019-02-20] MEDS: INSULIN ASPART (NovoLOG) 100 UNIT/ML VIAL SQ SCH ×2 (07:02→12:03)
[2019-02-20] MEDS ORDERED: CARVEDILOL 3.125 MG TAB PO SCH (07:30)
[2019-02-20] MEDS: LEVOTHYROXINE 75 MCG TAB PO SCH (08:35)
[2019-02-20] MEDS: ASPIRIN 81 MG PO SCH (08:35)
[2019-02-20] MEDS: FOLIC ACID 1 MG TAB PO SCH (08:35)
[2019-02-20] MEDS: CYANOCOBALAMIN 500 MCG TAB PO SCH (08:35)
[2019-02-20] MEDS: COLCHICINE 0.6 MG EACH PO SCH (08:35)
[2019-02-20] MEDS: PANTOPRAZOLE 40 MG TABLET PO SCH (08:35)
[2019-02-20] MEDS: APIXABAN 2.5 MG TABLET PO SCH (08:35)
[2019-02-20] MEDS: LISINOPRIL 2.5 MG TAB PO SCH (08:35)
[2019-02-20] MEDS: ESCITALOPRAM 5 MG TAB PO SCH (08:35)
[2019-02-20 11:38] LABS: Glucose,Whole Blood 168 mg/dL (75-99)
[2019-02-20 12:22] VITALS: BP 146/65; PULSE 57; TEMP 97.5
--- NOTE | 2019-02-20 12:26 | P.PN ---
Subjective Progress Note Date: 02/20/19 This is an 83-year-old female with past medical history of paroxysmal atrial fibrillation, sick sinus syndrome status post permanent pacemaker, diabetes mellitus type 2, GERD, hypertension, and stage III chronic kidney disease, who follows with Dr. Meng in the office. She presented to the emergency room after having a syncopal episode at the [facility]. She states she had no prodromal symptoms or warning of her collapse. this was a witness fall and there were no visible tonic-clonic contractions or motor deficits thereafter. Upon arrival to the hospital she was noted to be incontinent of stool. Orthostatic blood pressures were negative in the emergency room. Orthostatics were also obtained when the patient came up to the unit, blood pressure 106/50 lying, 90/54 sitting and 75/45 standing. They were performed again this morning, 132/60 lying, 131/60 sitting, 103/50 standing. An EEG was also performed which was reported to be a normal awake EEG with no definite epileptiform activity. Her device was also interrogated this morning which revealed normal function, there was some noise noted in the atrial lead causing some mode switching the capture and sense impedance are stable. Patient was seen and examined this morning, denied any dizziness or lightheadedness, overall feels well. She does have some dementia, she did not even recall that her device had been interrogated this morning. No laboratory data was available this morning. Objective - Vital Signs Vital signs: Vital Signs Temp 97.8 F 02/20/19 07:40 Pulse 61 02/20/19 07:40 Resp 16 02/20/19 07:40 BP 132/63 02/20/19 07:40 Pulse Ox 97 02/20/19 07:40 Intake & Output 02/19/19 02/20/19 02/20/19 18:59 06:59 18:59 Intake Total 720 240 Output Total 400 240 Balance 320 -240 240 Weight 68.9 kg Intake: Oral 720 240 Output: Urine 400 240 Other: Voiding Method Toilet # Voids 1 1 - Exam Patient seen and examined lying comfortably in bed, in no acute distress Lungs are clear to auscultation bilaterally Heart is regular, no murmurs noted no elevated JVD or lower extremity edema - Labs CBC & Chem 7: 02/18/19 06:02 02/18/19 06:02 Labs: Abnormal Lab Results - Last 24 Hours (Table) 02/19/19 02/19/19 02/19/19 Range/Units 16:26 16:42 20:00 POC Glucose (mg/dL) 223 H 209 H 189 H (75-99) mg/dL 02/20/19 02/20/19 Range/Units 06:10 11:27 POC Glucose (mg/dL) 131 H 168 H (75-99) mg/dL Assessment and Plan Plan: IMPRESSION / ASSESSMENT: #1 Syncopal episode, etiology unclear, neurology following, possibly secondary to orthostatic hypotension, orthostatic hypotension improved with the decreased dose of Coreg #2 Sick sinus syndrome status post pacemaker placement, device was interrogated and is functioning normally #3 Paroxysmal atrial fibrillation, On anticoagulation with eliquis #4 Diabetes #5 Hypertension #6 CKD #7 hyperlipidemia Plan The patient's device was interrogated and is functioning normally. She did have some orthostatic changes which seemed to have improved with decrease dose of Coreg. DNP note has been reviewed, I agree with a documented findings and plan of care. Patient was seen and examined.
--- NOTE | 2019-02-20 12:59 | P.PN ---
Subjective Progress Note Date: 02/20/19 Patient denies any new symptoms. Feeling fine. No further syncopal spells. Objective - Vital Signs Vital signs: Vital Signs Temp 97.5 F L 02/20/19 12:05 Pulse 57 L 02/20/19 12:05 Resp 16 02/20/19 12:05 BP 146/65 02/20/19 12:05 Pulse Ox 98 02/20/19 12:05 Intake & Output 02/19/19 02/20/19 02/20/19 18:59 06:59 18:59 Intake Total 720 240 Output Total 400 240 Balance 320 -240 240 Weight 68.9 kg Intake: Oral 720 240 Output: Urine 400 240 Other: Voiding Method Toilet # Voids 1 1 - Exam Nonfocal. - Labs CBC & Chem 7: 02/18/19 06:02 02/18/19 06:02 Labs: Abnormal Lab Results - Last 24 Hours (Table) 02/19/19 02/19/19 02/19/19 Range/Units 16:26 16:42 20:00 POC Glucose (mg/dL) 223 H 209 H 189 H (75-99) mg/dL 02/20/19 02/20/19 Range/Units 06:10 11:27 POC Glucose (mg/dL) 131 H 168 H (75-99) mg/dL Assessment and Plan Assessment: * Syncope and collapse. Patient was dehydrated, as her renal function shows evidence of dehydration. Rule out arrhythmia. Seizure unlikely, with normal EEG. * Atrial fibrillation, on anticoagulation. * History of pacemaker. * Diabetes mellitus, poorly controlled. * Macrocytosis, B12 1933, folate > 24. * Hypothyroidism Plan: * EEG was normal, with no epileptiform activity. No other neurological workup indicated. * Hydration * Cardiology following to rule out arrhythmia and for interrogation of pacemaker data. Dose of Coreg has been decreased. * B12 1933, folate >24. * Hypothyroidism, TSH 7.4/4.68. Need adjustment of thyroid medication. Free T4 normal. * Patient neurologically clear, if cleared by cardiology.
--- NOTE | 2019-02-23 08:41 | P.DS ---
Providers Date of admission: 02/16/19 13:41 Expected date of discharge: 02/20/19 Attending physician: Cristina March Consults: 02/16/19 13:31 Consult Physician Stat Consulting Provider: Davin Rueda Consult Reason/Comments: Syncope, stool incontinence Do you want consulting provider notified?: Yes 02/16/19 13:32 Consult Physician Urgent Consulting Provider: [facility] Consult Reason/Comments: Syncope Do you want consulting provider notified?: Yes Primary care physician: Adin Golden [facility] Course: This is an 83-year-old female patient of Dr. Golden with past medical history of paroxysmal atrial fibrillation on eliquis, status post pacemaker placement, diabetes mellitus type 2, gastroesophageal reflux disease, gout, hypertension, migraine headaches, chronic kidney disease stage 3, renal cancer, rheumatoid arthritis. 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 She has known carotid stenosis of 50% on the left internal carotid artery. Patient was having troubles with lightheadedness and dizziness, she'll do when he stands up, patient has no new medication changes from the office or by any other physicians within the past 3 months, patient was seen in emergency room on with headache and lightheadedness, she was discharged to home are she felt better in emergency room after hydration, patient manages her on meals, no sick contacts, no diarrhea, she now comes seen to the emergency room with recurrent symptoms of lightheadedness, patient did not pass out, and was pasty 40 mL in the emergency room. Patient was given IV fluids are approximately 2 L, sugars were elevated in the 400s, patient denies any palpitations, however symptoms are recurrent in nature approximately 3 times this whole year on 01/20/19 She returned into [facility] emergency center for evaluation. Chest x-ray showed no acute pulmonary process. CAT scan of the brain showed age-related atrophy and chronic small vessel ischemic change without acute intracranial process. EKG was a paced rhythm. Creatinine was 1.56, CO2 of 19, sodium 136, hemoglobin 10.6 echocardiogram and carotid Dopplers were ordered, during this admission echocardiogram shows paced rhythm, concentric LVH, EF 55-60%, mild aortic valve sclerosis without stenosis, mild AR, mild MR mild TR, mild pulmonary hypertension with RVSP of 36 small genna cardial effusion near the left ventricle no hemodynamically significant stenosis noted on the carotid system, no CT of the brain was done in emergency room, EKG shows atrial paced rhythm with prolonged AV conduction septal infarct age did undetermined. consult cardiology for recurrent near-syncope history of pacemaker. During her last admission, pacemaker was interrogated, and was cleared by cardiology for discharge. She was started on midodrin on her last admission, Patient's also admitted with hyper osmolar nonketotic hyperglycemia and dehydration related to her hyperglycemia She comes back emergency room 02/16/2019 after a syncopal event, white at Court no aura prior to event. Patient stood up, and thereafter lost consciousness, unknown how long, patient denies any motor deficits thereafter, no visible tonic-clonic contractions of upper and lower extremity, unknown down time, she was subsequently sent to the emergency room. ER team has noticed that she have stool incontinence related to this, and they have performed orthostatic vitals in the ER, heart rate 64, and they have reported to be negative we have no head trauma, her last CAT scan was reviewed from 01/21/2019, urinalysis negative, except for proteinuria creatinine 1.7, CO2 of 19, glucose 158 no EKG for review today, patient would be seen consultation by neurology, and cardiology, EEG of the brain and repeat orthostatics, she comes in with slightly elevated creatinine from baseline, 1.7 to from previous of 1.27, consistent with acute renal sufficiency. Patient denies any new GI losses, patient denies any decline in by mouth intake 02/17: Patient is doing better today she denies any chest pain or shortness breath, she is admitted to the bathroom without any problems she is not dizzy or lightheaded, awaiting EEG, awaiting cardiology input, since this is likely related to cardiac arrhythmia and less likely seizure. 02/18: Patient is sitting up in bed in no apparent distress, she slept well last night she denies any dizziness or lightheadedness, she has not had her pacemaker interrogated yet, this will be done tomorrow morning along with EEG that she can be discharged home. 02/19: Patient has had EEG obtained this morning and she is still waiting for pacemaker interrogation for which her nurse will coordinate. Patient was up this morning and did have significant orthostatic changes and a half liter of IV fluids will be ordered. Regarding her pacemaker, patient does not recall the brand but she and his placed at [facility]. Patient will be monitored overnight and plan for discharge tomorrow. 02/20: Pacemaker has been interrogated and is functionally normally. Patient continues to have orthostatic changes and cardiology has decreased dose of Coreg. EEG was normal. Neurology has determined no further neurologic workup is necessary. Patient will be discharged home today in stable condition. Discharge diagnoses: 1. Recurrent syncope secondary to autonomic dysfunction with history of same 2. Acute kidney injury with underlying CKD stage III 3. Diabetes mellitus type 2 with complications uncontrolled blood sugars 4. Autonomic dysfunction 5. Mild Metabolic acidosis secondary to dehydration and uncontrolled sugars 6. Hypertension with initial hypotension on admission 7. Headache 8. Paroxysmal atrial fibrillation. 10. Hyperlipidemia. 11. Hypothyroidism. 12. Rheumatoid arthritis. 13. Recurrent depression. 15. Gastroesophageal reflux disease Discharge plan: home Impression and plan of care have been directed as dictated by the signing physician. Sharmaine Fang nurse practitioner acting as scribe for signing physician. Patient Condition at Discharge: Good Plan - Discharge Summary Discharge Rx Participant: No New Discharge Prescriptions: New Carvedilol [Coreg] 3.125 mg PO BID-W/MEALS #60 tab Lisinopril [Zestril] 2.5 mg PO DAILY #30 tab Continue Apixaban [Eliquis] 2.5 mg PO BID@0800,1999 Allopurinol [Zyloprim] 100 mg PO DAILY@0800 Insulin Aspart [NovoLOG Flexpen] See Protocol SQ AC-TID inFLIXimab [Remicade] 100 mg IVPB Q56D Pantoprazole Sodium [Protonix] 40 mg PO BID@0800,1999 Levothyroxine Sodium [Synthroid] 75 mcg PO DAILY@0800 Folic Acid 1 mg PO DAILY@0800 Escitalopram [Lexapro] 5 mg PO DAILY@0800 Aspirin EC [Ecotrin Low Dose] 81 mg PO DAILY@0800 Methotrexate Sodium [Methotrexate] 7.5 mg PO FR Cyanocobalamin [Vitamin B-12] 500 mcg PO DAILY@0800 Colchicine 0.6 mg PO DAILY@0800 Butalb/APAP/Caff 50-325-40Mg [Fioricet 50-325-40] 1 tab PO Q6H PRN PRN Reason: Migraine Headache Leucovorin Calcium 5 mg PO FRSA Insulin Glargine [Lantus] 6 unit SQ HS Atorvastatin [Lipitor] 40 mg PO HS@2000 Discontinued Carvedilol 12.5 mg PO BID@0700,1700 amLODIPine [Norvasc] 10 mg PO DAILY@0800 Lisinopril [Zestril] 20 mg PO BID@799,1999 Discharge Medication List Allopurinol [Zyloprim] 100 mg PO DAILY@0800 05/05/18 [History] Apixaban [Eliquis] 2.5 mg PO BID@799,199905/05/18 [History] Aspirin EC [Ecotrin Low Dose] 81 mg PO DAILY@0805/05/18 [History] Escitalopram [Lexapro] 5 mg PO DAILY@0805/05/18 [History] Folic Acid 1 mg PO DAILY@79905/05/18 [History] Insulin Aspart [NovoLOG Flexpen] See Protocol SQ AC-TID 05/05/18 [History] Levothyroxine Sodium [Synthroid] 75 mcg PO DAILY@0805/05/18 [History] Methotrexate Sodium [Methotrexate] 7.5 mg PO FR 05/05/18 [History] Pantoprazole Sodium [Protonix] 40 mg PO BID@08,199905/05/18 [History] inFLIXimab [Remicade] 100 mg IVPB Q56D 05/05/18 [History] Cyanocobalamin [Vitamin B-12] 500 mcg PO DAILY@0805/18/18 [History] Butalb/APAP/Caff 50-325-40Mg [Fioricet 50-325-40] 1 tab PO Q6H PRN 01/19/19 [History] Colchicine 0.6 mg PO DAILY@0801/19/19 [History] Leucovorin Calcium 5 mg PO FRSA 01/19/19 [History] Atorvastatin [Lipitor] 40 mg PO HS@199902/16/19 [History] Insulin Glargine [Lantus] 6 unit SQ HS 02/16/19 [History] Carvedilol [Coreg] 3.125 mg PO BID-W/MEALS #60 tab 02/20/19 [Rx] Lisinopril [Zestril] 2.5 mg PO DAILY #30 tab 02/20/19 [Rx] Follow up Appointment(s)/Referral(s): [facility] [[facility]FF] - Rocio Meng MD [STAFF PHYSICIAN] - 02/23/19 11:00 am (With Kely MORRISON.) Adin Golden MD [Primary Care Provider] - 1 Week (Office will call with follow up appointment. ) Patient Instructions/Handouts: Syncope (DC), Hypotension (DC) Activity/Diet/Wound Care/Special Instructions: Please check blood pressures at least twice daily and bring log into follow up appointments. Discharge Disposition: HOME WITH HOME HEALTH SERVICES
[2019-02-23] MEDS ORDERED: METHOTREXATE SODIUM 2.5 MG TAB PO SCH (09:00)
== END 2019-02-20 14:20 | disposition home health service (06) | DRG 74 ==
LOC: EC 10:15 → 1SOBS 13:41 → 3SCARD 02-17 19:45 → OBSVTOIN 02-19 15:01
PROVIDERS: ADMIT Family Medicine; ATTEND Family Medicine
PROC: 4B02XSZ Measurement of Cardiac Pacemaker, External Approach (ICD-10-PCS; principal; 2019-02-20)
DX: E11.43 Type 2 diabetes mellitus with diabetic autonomic (poly)neuropathy (principal); E87.2 Acidosis; F33.9 Major depressive disorder, recurrent, unspecified; N17.9 Acute kidney failure, unspecified; E11.22 Type 2 diabetes mellitus with diabetic chronic kidney disease; E11.65 Type 2 diabetes mellitus with hyperglycemia; E86.0 Dehydration; I48.0 Paroxysmal atrial fibrillation; I27.20 Pulmonary hypertension, unspecified; I65.22 Occlusion and stenosis of left carotid artery; R15.9 Full incontinence of feces; I08.3 Combined rheumatic disorders of mitral, aortic and tricuspid valves; D63.8 Anemia in other chronic diseases classified elsewhere; D75.89 Other specified diseases of blood and blood-forming organs; F03.90 Unspecified dementia, unspecified severity, without behavioral disturbance, psychotic disturbance, mood disturbance, and anxiety; M06.9 Rheumatoid arthritis, unspecified; N18.3 Chronic kidney disease, stage 3 (moderate); E03.9 Hypothyroidism, unspecified; E78.5 Hyperlipidemia, unspecified; G89.29 Other chronic pain; I12.9 Hypertensive chronic kidney disease with stage 1 through stage 4 chronic kidney disease, or unspecified chronic kidney disease; K21.9 Gastro-esophageal reflux disease without esophagitis; G43.909 Migraine, unspecified, not intractable, without status migrainosus; M10.9 Gout, unspecified; M19.90 Unspecified osteoarthritis, unspecified site; M54.5 Low back pain; I95.1 Orthostatic hypotension; H91.90 Unspecified hearing loss, unspecified ear; Z79.01 Long term (current) use of anticoagulants; Z79.4 Long term (current) use of insulin; Z79.82 Long term (current) use of aspirin; Z79.890 Hormone replacement therapy; Z79.899 Other long term (current) drug therapy; Z85.528 Personal history of other malignant neoplasm of kidney; Z86.73 Personal history of transient ischemic attack (TIA), and cerebral infarction without residual deficits; Z90.710 Acquired absence of both cervix and uterus; Z95.0 Presence of cardiac pacemaker; Z88.5 Allergy status to narcotic agent; Z88.0 Allergy status to penicillin; Z88.2 Allergy status to sulfonamides; Z88.1 Allergy status to other antibiotic agents; Z91.041 Radiographic dye allergy status; Z91.040 Latex allergy status; Z98.51 Tubal ligation status; Z82.49 Family history of ischemic heart disease and other diseases of the circulatory system
CPT/HCPCS: 36415; 51701; 71046; 80053; 81001; 82607; 82746; 83036; 83735; 84439; 84443; 84484; 85025; 85610; 85730; 90686; 93005; 95816; 99285

== ENCOUNTER 2019-05-12 03:02 | Inpatient (IN) | payer MEDICARE, OTHER ==
[2019-05-12] MEDS ORDERED: SODIUM CHLORIDE 0.9% 1,000 ML IV STA (03:39)
[2019-05-12] MEDS ORDERED: ONDANSETRON 4 MG/2 ML VIAL IVP STA (03:39)
--- NOTE | 2019-05-12 03:40 | ED ---
General Adult HPI - General Chief complaint: Shortness of Breath Stated complaint: Diff Breathing, High Blood Sugar Source: EMS Mode of arrival: EMS - History of Present Illness Initial comments: Keira is a pleasant 84-year-old female with history of diabetes which is poorly controlled, rheumatoid arthritis, cardiac history. Patient is brought to the ER today by ambulance for evaluation of not feeling well may be some chest pain. Patient reports her whole body hurts she missed her last Remicade injection due to not feeling well at the time. She states that she has chest pain doesn't know when this started doesn't know if anything makes it better or worse doesn't know if it radiates , states that there is pain in her chest. Does state that she feels short of breath but gets short of breath sometimes has a history of COPD and wears oxygen at home when she feels like she needs it. - Related Data Home Medications Medication Instructions Recorded Confirmed Allopurinol [Zyloprim] 100 mg PO DAILY@0800 05/05/18 02/16/19 Apixaban [Eliquis] 2.5 mg PO BID@08,199905/05/18 02/16/19 Aspirin EC [Ecotrin Low Dose] 81 mg PO DAILY@0800 05/05/18 02/16/19 Escitalopram [Lexapro] 5 mg PO DAILY@0805/05/18 02/16/19 Folic Acid 1 mg PO DAILY@0800 05/05/18 02/16/19 Insulin Aspart [NovoLOG Flexpen] See Protocol SQ AC-TID 05/05/18 02/16/19 Levothyroxine Sodium [Synthroid] 75 mcg PO DAILY@0805/05/18 02/16/19 Methotrexate Sodium [Methotrexate] 7.5 mg PO FR 05/05/18 02/16/19 Pantoprazole Sodium [Protonix] 40 mg PO BID@799,199905/05/18 02/16/19 inFLIXimab [Remicade] 100 mg IVPB Q56D 05/05/18 02/16/19 Cyanocobalamin [Vitamin B-12] 500 mcg PO DAILY@0800 05/18/18 02/16/19 Butalb/APAP/Caff 50-325-40Mg 1 tab PO Q6H PRN 01/19/19 02/16/19 [Fioricet 50-325-40] Colchicine 0.6 mg PO DAILY@0800 01/19/19 02/16/19 Leucovorin Calcium 5 mg PO FRSA 01/19/19 02/16/19 Atorvastatin [Lipitor] 40 mg PO HS@2000 02/16/19 02/16/19 Insulin Glargine [Lantus] 6 unit SQ HS 02/16/19 02/16/19 Previous Rx's Medication Instructions Recorded Carvedilol [Coreg] 3.125 mg PO BID-W/MEALS #60 tab 02/20/19 Lisinopril [Zestril] 2.5 mg PO DAILY #30 tab 02/20/19 Allergies Allergy/AdvReac Type Severity Reaction Status Date / Time baclofen Allergy Unknown Verified 02/16/19 10:31 cefdinir [From Omnicef] Allergy Unknown Verified 02/16/19 10:31 ciprofloxacin Allergy Unknown Verified 02/16/19 10:31 codeine Allergy Unknown Verified 02/16/19 10:31 hydrocodone Allergy Unknown Verified 02/16/19 10:31 Iodinated Contrast Media Allergy Unknown Verified 02/16/19 10:31 [Iodinated Contrast- Oral and IV Dye] latex Allergy Unknown Verified 02/16/19 10:31 ofloxacin [From Floxin] Allergy Unknown Verified 02/16/19 10:31 Penicillins Allergy Unknown Verified 02/16/19 10:31 promethazine [From Phenergan] Allergy Unknown Verified 02/16/19 10:31 sulfadiazine Allergy Unknown Verified 02/16/19 10:31 sulfamethoxazole Allergy Unknown Verified 02/16/19 10:31 [From Bactrim] Tetracyclines Allergy Unknown Verified 02/16/19 10:31 theophylline [From Ángel-Dur] Allergy Unknown Verified 02/16/19 10:31 tramadol Allergy Unknown Verified 02/16/19 10:31 trimethoprim [From Bactrim] Allergy Unknown Verified 02/16/19 10:31 Review of Systems ROS Statement: Those systems with pertinent positive or pertinent negative responses have been documented in the HPI. ROS Other: All systems not noted in ROS Statement are negative. Past Medical History Past Medical History: CVA/TIA, Diabetes Mellitus, Hyperlipidemia, Hypertension, Memory Impairment, Osteoarthritis (OA) Additional Past Medical History / Comment(s): RA has injections mediport q 6 weeks, Kidney cancer no chemo or radiation skin cancer arms History of Any Multi-Drug Resistant Organisms: None Reported Past Surgical History: Adenoidectomy, Section, Hysterectomy, Orthopedic Surgery, Pacemaker, Tonsillectomy, Tubal Ligation Additional Past Surgical History / Comment(s): mediport for arthritis medication, 1/3 kidney removed for CA Past Anesthesia/Blood Transfusion Reactions: No Reported Reaction Type of Cardiac Device: Permanent Pacemaker, AICD Device Placement Date:: 05/12/2017 Past Psychological History: No Psychological Hx Reported Smoking Status: Never smoker Past Alcohol Use History: None Reported Past Drug Use History: None Reported - Past Family History Father History Unknown: Yes Additional Family Medical History / Comment(s): Father at age 73 from heart disease. Mother Additional Family Medical History / Comment(s): Mother at age 76 from heart disease. Brother(s) Additional Family Medical History / Comment(s): Patient has 2 brothers with no major medical problems. Daughter(s) Additional Family Medical History / Comment(s): Patient has 2 daughters and 1 as an infant. Patient has one son with no major medical problems. General Exam - General Exam Comments Initial Comments: Physical Exam GENERAL: Elderly female No acute distress HENT: Normocephalic, Atraumatic. EYES: PERRL, EOMI PULMONARY: Mild expiratory wheeze CARDIOVASCULAR: RRR No Murmur ABDOMEN: soft, non-tender, non-distended SKIN: Large bruise to right forearm : Deferred NEUROLOGIC: Alert and oriented to self MUSCULOSKELETAL: Normal extremities with adequate strength and full range of motion. No lower extremity swelling or edema. No calf tenderness. PSYCHIATRIC: Normal psychiatric evaluation. Course Vital Signs 05/12/19 05/12/19 05/12/19 03:14 04:19 05:24 Temperature 99 F Pulse Rate 61 70 Respiratory 18 18 Rate Blood Pressure 142/92 174/84 171/76 O2 Sat by Pulse 100 98 98 Oximetry 05/12/19 06:36 Temperature 98.6 F Pulse Rate 70 Respiratory 18 Rate Blood Pressure 149/71 O2 Sat by Pulse 100 Oximetry EKG Findings - EKG Comments: EKG Findings:: KG is obtained to complain of chest pain, EKG obtained at 3:25 AM, rate of 60 rhythm is atrial pace, MA 174, QRS 1 44, QTC is [address] elevations or depressions no evidence of acute skin or infarction. Medical Decision Making - Medical Decision Making The patient was seen and evaluated history was obtained patient as well as family at bedside This is a pleasant 84-year-old female with a history of dementia presenting repeatedly stating that she can catch her breath and that she's having chest pain. Patient also pain all over secondary to rheumatoid arthritis. Labs and imaging were obtained, BNP is mildly elevated consistent with congestive heart failure though there is no signs of overt heart failure on physical exam or x-ray. Troponin is negative and EKG was nonischemic. Given the patient's age and risk factors and continues complaint of chest pain her care was discussed with primary care physician Dr. March who agrees with plan for observation and evaluation by cardiology. Recommended IV Lasix and echocardiogram which were both ordered upon admission. - Lab Data Result diagrams: 05/12/19 03:59 05/12/19 03:59 Lab Results 05/12/19 05/12/19 05/12/19 Range/Units 03:59 03:59 03:59 WBC 8.4 (3.8-10.6) k/uL RBC 3.27 L (3.80-5.40) m/uL Hgb 10.3 L (11.4-16.0) gm/dL Hct 31.7 L (34.0-46.0) % MCV 97.0 (80.0-100.0) fL MCH 31.4 (25.0-35.0) pg MCHC 32.4 (31.0-37.0) g/dL RDW 13.9 (11.5-15.5) % Plt Count 282 (150-450) k/uL Neutrophils % 74 % Lymphocytes % 18 % Monocytes % 5 % Eosinophils % 1 % Basophils % 1 % Neutrophils # 6.3 (1.3-7.7) k/uL Lymphocytes # 1.5 (1.0-4.8) k/uL Monocytes # 0.5 (0-1.0) k/uL Eosinophils # 0.1 (0-0.7) k/uL Basophils # 0.1 (0-0.2) k/uL PT (9.0-12.0) sec INR (<1.2) APTT (22.0-30.0) sec Sodium 135 L (137-145) mmol/L Potassium 4.9 (3.5-5.1) mmol/L Chloride 102 (98-107) mmol/L Carbon Dioxide 21 L (22-30) mmol/L Anion Gap 12 mmol/L BUN 22 H (7-17) mg/dL Creatinine 1.24 H (0.52-1.04) mg/dL Est GFR (CKD-EPI)AfAm 47 (>60 ml/min/1.73 sqM) Est GFR (CKD-EPI)NonAf 41 (>60 ml/min/1.73 sqM) Glucose 278 H (74-99) mg/dL POC Glucose (mg/dL) (75-99) mg/dL POC Glu Ecg Technician ID Calcium 9.2 (8.4-10.2) mg/dL Magnesium 1.3 L (1.6-2.3) mg/dL Total Bilirubin 0.6 (0.2-1.3) mg/dL AST 20 (14-36) U/L ALT 9 (4-34) U/L Alkaline Phosphatase 130 H (38-126) U/L Troponin I (0.000-0.034) ng/mL NT-Pro-B Natriuret Pep 3820 pg/mL Total Protein 6.8 (6.3-8.2) g/dL Albumin 3.3 L (3.5-5.0) g/dL 05/12/19 05/12/19 05/12/19 Range/Units 03:59 03:59 06:08 WBC (3.8-10.6) k/uL RBC (3.80-5.40) m/uL Hgb (11.4-16.0) gm/dL Hct (34.0-46.0) % MCV (80.0-100.0) fL MCH (25.0-35.0) pg MCHC (31.0-37.0) g/dL RDW (11.5-15.5) % Plt Count (150-450) k/uL Neutrophils % % Lymphocytes % % Monocytes % % Eosinophils % % Basophils % % Neutrophils # (1.3-7.7) k/uL Lymphocytes # (1.0-4.8) k/uL Monocytes # (0-1.0) k/uL Eosinophils # (0-0.7) k/uL Basophils # (0-0.2) k/uL PT 10.9 (9.0-12.0) sec INR 1.0 (<1.2) APTT 31.2 H (22.0-30.0) sec Sodium (137-145) mmol/L Potassium (3.5-5.1) mmol/L Chloride (98-107) mmol/L Carbon Dioxide (22-30) mmol/L Anion Gap mmol/L BUN (7-17) mg/dL Creatinine (0.52-1.04) mg/dL Est GFR (CKD-EPI)AfAm (>60 ml/min/1.73 sqM) Est GFR (CKD-EPI)NonAf (>60 ml/min/1.73 sqM) Glucose (74-99) mg/dL POC Glucose (mg/dL) 288 H (75-99) mg/dL POC Glu Ecg Technician ID Tana Donaldson Calcium (8.4-10.2) mg/dL Magnesium (1.6-2.3) mg/dL Total Bilirubin (0.2-1.3) mg/dL AST (14-36) U/L ALT (4-34) U/L Alkaline Phosphatase (38-126) U/L Troponin I <0.012 (0.000-0.034) ng/mL NT-Pro-B Natriuret Pep pg/mL Total Protein (6.3-8.2) g/dL Albumin (3.5-5.0) g/dL Disposition Clinical Impression: Congestive heart failure, Chest pain Disposition: ADMITTED IP TO THIS HOSP
[2019-05-12 04:15] LABS: Basophils # (A) 0.1 k/uL (0-0.2); Basophils % (A) 1 %; Eosinophils # (A) 0.1 k/uL (0-0.7); Eosinophils % (A) 1 %; HCT 31.7 % (34.0-46.0); HGB 10.3 gm/dL (11.4-16.0); Lymphocytes # (A) 1.5 k/uL (1.0-4.8); Lymphocytes % (A) 18 %; MCH 31.4 pg (25.0-35.0); MCHC 32.4 g/dL (31.0-37.0); Mean Platelet Volume 9.7; Monocytes # (A) 0.5 k/uL (0-1.0); Monocytes % (A) 5 %; Neutrophils # (A) 6.3 k/uL (1.3-7.7); Neutrophils % (A) 74 %; Platelet Count 282 k/uL (150-450); RBC 3.27 m/uL (3.80-5.40); RDW 13.9 % (11.5-15.5); WBC 8.4 k/uL (3.8-10.6)
[2019-05-12 04:23] LABS: Partial Thromboplastin Time 31.2 sec (22.0-30.0); Prothrombin Time 10.9 sec (9.0-12.0)
--- NOTE | 2019-05-12 04:30 | XR ---
EXAMINATION TYPE: XR chest 2V DATE OF EXAM: 05/12/2019 COMPARISON: 02/16/2019 HISTORY: Chest pain TECHNIQUE: FINDINGS: There is no heart failure nor confluent pneumonic infiltrate. Thoracic aorta is atheromatou s. There is a left axillary pacemaker. There is right central venous catheter with tip in the superio r vena cava. Costophrenic angles are clear. Heart size is fairly normal. There is moderate right shoulder joint subacromial joint space narrowing. IMPRESSION: No active cardiopulmonary disease. Normal heart. No change.
[2019-05-12 04:33] LABS: Albumin 3.3 g/dL (3.5-5.0); Calcium 9.2 mg/dL (8.4-10.2); Magnesium 1.3 mg/dL (1.6-2.3); Potassium 4.9 mmol/L (3.5-5.1); Total Bilirubin 0.6 mg/dL (0.2-1.3); Total Protein 6.8 g/dL (6.3-8.2)
[2019-05-12] MEDS ORDERED: MAGNESIUM SULFATE-D5W PMX 1 GM in DEXTROSE/WATER 1 100ML.BAG IVPB ONE (05:05)
[2019-05-12 06:09] LABS: Glucose,Whole Blood 288 mg/dL (75-99)
[2019-05-12] MEDS ORDERED: NITROGLYCERIN SL TABS 0.4 MG TAB SUBLINGUAL PRN (06:39)
[2019-05-12] MEDS ORDERED: FUROSEMIDE 10 MG/ML 4 ML VIAL IV STA (06:41)
[2019-05-12 09:46] LABS: Glucose,Whole Blood 229 mg/dL (75-99)
--- NOTE | 2019-05-12 10:52 | P.CRDCN ---
History of Present Illness History of present illness: HISTORY OF PRESENTING ILLNESS This is a pleasant 84-year-old female past medical history significant for hypertension, dyslipidemia, diabetes mellitus, sick sinus syndrome status p ost permanent pacemaker implantation, paroxysmal atrial fibrillation and dementia. She follows in the office with Dr. Meng. We have been asked to see in consultation for chest pain. She is seen and examined resting comfortably lying completely flat in bed in no acute distress. The patient suffers from memory impairment and dementia. Her granddaughter who is her legal guardian is at the bedside and most of the information is obtained from her. Apparently the granddaughter left the home around 10:30 and her grandmother was in her normal state of health. She received a call around 2:30 in the morning stating that she was short of breath, disoriented and complaining of chest pain. Upon arrival to the emergency department EKG was obtained revealing a paced rhythm with left bundle-branch block. The patient herself does recall feeling short of breath on the previous evening however does not recall having any chest discomfort. DIAGNOSTICS EKG reveals paced rhythm with left bundle branch block. Chronic. No acute changes. Chest xray negative for an acute cardiopulmonary process. Laboratory reviewed, WBC 8.4, hemoglobin 10.3, platelets 282, sodium 135, potassium 4.9, creatinine 1.24, magnesium 1.3, cardiac enzymes negative 2, NT proBNP 3820. Current cardiac medications include Eliquis 2.5 mg twice a day, aspirin 81 mg daily, atorvastatin 40 mg daily, carvedilol 3.125 mg twice a day, lisinopril 2.5 mg daily and midodrine 2.5 mg 3 times a day as needed for systolic blood pre ssure was 110. Most recent stress test performed in the office May 2018 with a Lexiscan stress test revealing a mildly size reversible defect of the lateral apical wall consistent with stress-induced ischemia possibly in the circumflex territory. Maximum medical therapy recommended at that time. Most recent echocardiogram obtained in the office May 2018 revealed hyperdynamic LV systolic function with ejection fraction greater than 70%, mild TR, mild MR, mild AR and mild pulmonary hypertension, permanent placement a implantation. REVIEW OF SYSTEMS At the time of my exam: CONSTITUTIONAL: Denies fever or chills. CARDIOVASCULAR: Denies chest pain, shortness of breath, orthopnea, PND or palpitations. RESPIRATORY: Denies cough. GASTROINTESTINAL: Denies abdominal pain, diarrhea, constipation, nausea or vomiting. MUSCULOSKELETAL: Denies myalgias. NEUROLOGIC: Denies numbness, tingling or weakness. ENDOCRINE: Denies fatigue, weight change, polydipsia or polyurina. GENITOURINARY: Denies burning, hematuria or urgency with micturation. HEMATOLOGIC: Denies history of anemia or bleeding. PHYSICAL EXAMINATION Blood pressure 171/74 heart rate 60 afebrile and maintaining oxygen saturation on nasal cannula. CONSTITUTIONAL: No apparent distress. HEENT: Head is normocephalic. Pupils are equal, round. Sclerae anicteric. Mucous membranes of the mouth are moist. No JVD. No carotid bruit. CHEST EXAMINATION: Lungs are clear to auscultation. No chest wall tenderness is noted on palpation or with deep breathing. HEART EXAMINATION: Regular rate and rhythm. S1, S2 heard. No murmur, gallops or rub. ABDOMEN: Soft, nontender. Positive bowel sounds. EXTREMITIES: 2+ peripheral pulses, no lower extremity edema and no calf tenderness. NEUROLOGIC EXAMINATION: Patient is awake, alert and oriented. ASSESSMENT Chest pain, atypical. Paroxysmal atrial fibrillation on long-term anticoagulation Sick sinus syndrome status post permanent pacemaker implantation Hypertension Dyslipidemia Diabetes mellitus Dementia PLAN Increase lisinopril to 5 mg daily. Resume Eliquis, atorvastatin, carvedilol and aspirin as previously ordered. Repeat 2D echocardiogram and doppler study to assess cardiac structure and function. Clinically she is euvolemic with no evidence of heart failure. Stable for discharge from a cardiac perspective. She can be discharged. Thank you kindly for this consultation. Nurse Practitioner note has been reviewed, I agree with a documented findings and plan of care. Patient was seen and examined. Past Medical History Past Medical History: CVA/TIA, Diabetes Mellitus, Hyperlipidemia, Hypertension, Memory Impairment, Osteoarthritis (OA) Additional Past Medical History / Comment(s): RA has injections mediport q 6 weeks, Kidney cancer no chemo or radiation skin cancer arms History of Any Multi-Drug Resistant Organisms: None Reported Past Surgical History: Adenoidectomy, Section, Hysterectomy, Orthopedic Surgery, Pacemaker, Tonsillectomy, Tubal Ligation Additional Past Surgical History / Comment(s): mediport for arthritis medication, 1/3 kidney removed for CA Past Anesthesia/Blood Transfusion Reactions: No Reported Reaction Type of Cardiac Device: Permanent Pacemaker, AICD Device Placement Date:: 05/12/2017 Past Psychological History: Depression Smoking Status: Never smoker Past Alcohol Use History: None Reported Additional Past Alcohol Use History / Comment(s): Patient is a lifelong nonsmoker. She denies illicit drug use or alcohol use. She lives at home with her granddaughter and grandson. She does not have home oxygen, no nebulizer no CPAP. Patient does not drive. She uses a walker for ambulation. Past Drug Use History: None Reported - Past Family History Father History Unknown: Yes Additional Family Medical History / Comment(s): Father at age 73 from heart disease. Mother Additional Family Medical History / Comment(s): Mother at age 76 from heart disease. Brother(s) Additional Family Medical History / Comment(s): Patient has 2 brothers with no major medical problems. Daughter(s) Additional Family Medical History / Comment(s): Patient has 2 daughters and 1 as an infant. Patient has one son with no major medical problems. Medications and Allergies Home Medications Medication Instructions Recorded Confirmed Type Allopurinol [Zyloprim] 100 mg PO DAILY@0800 05/05/18 05/12/19 History Apixaban [Eliquis] 2.5 mg PO BID@08,199905/05/18 05/12/19 History Aspirin EC [Ecotrin Low Dose] 81 mg PO DAILY@0800 05/05/18 05/12/19 History Escitalopram [Lexapro] 5 mg PO DAILY@0800 05/05/18 05/12/19 History Folic Acid 1 mg PO DAILY@0800 05/05/18 05/12/19 History Insulin Aspart [NovoLOG Flexpen] See Protocol SQ AC-TID 05/05/18 05/12/19 History Levothyroxine Sodium [Synthroid] 75 mcg PO DAILY@0800 05/05/18 05/12/19 History Methotrexate Sodium [Methotrexate] 7.5 mg PO FR 05/05/18 05/12/19 History Pantoprazole Sodium [Protonix] 40 mg PO BID@0800,199905/05/18 05/12/19 History inFLIXimab [Remicade] 100 mg IVPB Q56D 05/05/18 05/12/19 History Cyanocobalamin [Vitamin B-12] 500 mcg PO DAILY@0800 05/18/18 05/12/19 History Butalb/APAP/Caff 50-325-40Mg 1 - 2 tab PO Q6H PRN 01/19/19 05/12/19 History [Fioricet 50-325-40] Colchicine 0.6 mg PO DAILY@0800 01/19/19 05/12/19 History Leucovorin Calcium 5 mg PO FRSA 01/19/19 05/12/19 History Atorvastatin [Lipitor] 40 mg PO DAILY@0800 02/16/19 05/12/19 History Insulin Glargine [Lantus] 6 unit SQ HS 02/16/19 05/12/19 History Carvedilol [Coreg] 3.125 mg PO BID@0800,1700 05/12/19 05/12/19 History Lisinopril [Zestril] 2.5 mg PO DAILY@0800 05/12/19 05/12/19 History Midodrine HCl [ProAmantine] 2.5 mg PO TID PRN MDD BELOW 110 05/12/19 05/12/19 History Allergies Allergy/AdvReac Type Severity Reaction Status Date / Time baclofen Allergy Unknown Verified 05/12/19 07:36 cefdinir [From Omnicef] Allergy Unknown Verified 05/12/19 07:36 ciprofloxacin Allergy Unknown Verified 05/12/19 07:36 codeine Allergy Unknown Verified 05/12/19 07:36 hydrocodone Allergy Unknown Verified 05/12/19 07:36 Iodinated Contrast Media Allergy Unknown Verified 05/12/19 07:36 [Iodinated Contrast- Oral and IV Dye] latex Allergy Unknown Verified 05/12/19 07:36 ofloxacin [From Floxin] Allergy Unknown Verified 05/12/19 07:36 Penicillins Allergy Unknown Verified 05/12/19 07:36 promethazine [From Phenergan] Allergy Unknown Verified 05/12/19 07:36 sulfadiazine Allergy Unknown Verified 05/12/19 07:36 sulfamethoxazole Allergy Unknown Verified 05/12/19 07:36 [From Bactrim] Tetracyclines Allergy Unknown Verified 05/12/19 07:36 theophylline [From Ángel-Dur] Allergy Unknown Verified 05/12/19 07:36 tramadol Allergy Unknown Verified 05/12/19 07:36 trimethoprim [From Bactrim] Allergy Unknown Verified 05/12/19 07:36 Physical Exam Vitals: Vital Signs Temp Pulse Pulse Resp BP BP Pulse Ox 05/12/19 08:05 98.1 F 60 20 171/74 05/12/19 07:47 62 18 139/64 98 05/12/19 06:36 98.6 F 70 18 149/71 100 05/12/19 05:24 70 18 171/76 98 05/12/19 04:19 174/84 98 05/12/19 03:14 99 F 61 18 142/92 100 Intake and Output 05/11/19 05/12/19 05/12/19 22:59 06:59 14:59 Other: # Voids 0 Weight 96.162 kg 96.162 kg Results 05/12/19 03:59 05/12/19 03:59 Cardiac Enzymes 05/12/19 05/12/19 Range/Units 03:59 03:59 AST 20 (14-36) U/L Troponin I <0.012 (0.000-0.034) ng/mL Coagulation 05/12/19 Range/Units 03:59 PT 10.9 (9.0-12.0) sec APTT 31.2 H (22.0-30.0) sec CBC 05/12/19 Range/Units 03:59 WBC 8.4 (3.8-10.6) k/uL RBC 3.27 L (3.80-5.40) m/uL Hgb 10.3 L (11.4-16.0) gm/dL Hct 31.7 L (34.0-46.0) % Plt Count 282 (150-450) k/uL Comprehensive Metabolic Panel 05/12/19 Range/Units 03:59 Sodium 135 L (137-145) mmol/L Potassium 4.9 (3.5-5.1) mmol/L Chloride 102 (98-107) mmol/L Carbon Dioxide 21 L (22-30) mmol/L BUN 22 H (7-17) mg/dL Creatinine 1.24 H (0.52-1.04) mg/dL Glucose 278 H (74-99) mg/dL Calcium 9.2 (8.4-10.2) mg/dL AST 20 (14-36) U/L ALT 9 (4-34) U/L Alkaline Phosphatase 130 H (38-126) U/L Total Protein 6.8 (6.3-8.2) g/dL Albumin 3.3 L (3.5-5.0) g/dL Current Medications Generic Name Dose Route Start Last Admin Trade Name Lori PRN Reason Stop Dose Admin Apixaban 2.5 mg 05/12/19 20:00 Eliquis PO BID@0800,2000 [facility] Aspirin 325 mg 05/13/19 09:00 Aspirin PO DAILY [facility] Atorvastatin Calcium 40 mg 05/13/19 08:00 Lipitor PO DAILY@0800 [facility] Carvedilol 3.125 mg 05/12/19 17:00 Coreg PO BID@0800,1700 [facility] Sodium Chloride 1,000 mls @ 100 mls/hr 05/12/19 03:39 05/12/19 04:10 Saline 0.9% IV 05/12/19 13:38 100 mls/hr .Q10H STA Administration Insulin Aspart 0 unit 05/12/19 07:30 Novolog SQ ACHS [facility] Protocol Lisinopril 2.5 mg 05/13/19 08:00 Zestril PO DAILY@0800 [facility] Nitroglycerin 0.4 mg 05/12/19 06:39 Nitrostat SUBLINGUAL Q5M PRN Chest Pain Intake and Output 05/11/19 05/12/19 05/12/19 22:59 06:59 14:59 Other: # Voids 0 Weight 96.162 kg 96.162 kg Patient Weight 05/13/19 06:59 Weight 96.162 kg 05/12/19 03:59 05/12/19 03:59
[2019-05-12 12:00] LABS: Glucose,Whole Blood 229 mg/dL (75-99)
[2019-05-12] MEDS: INSULIN ASPART (NovoLOG) 100 UNIT/ML VIAL SQ SCH ×4 (12:32→20:42)
--- NOTE | 2019-05-12 14:34 | P.HPIM ---
History of Present Illness H&P Date: 05/12/19 This is a 84-year-old pleasant female with a past medical history of hypertension, hyperlipidemia, diabetes mellitus, sick sinus syndrome status post permanent pacemaker plantation, proximal atrial fibrillation, osteoarthritis, dementia and history of CVA. Patient is followed in the outpatient setting by Dr. Golden. Patient lives at home with her granddaughter and grandson. The patient was brought into the emergency room due to chest pain. Patient states that she was feeling fine at around 10:30 she began to have chest pain and felt lightheaded. She did not feel secure. She was brought into the emergency room where EKG revealed a paced rhythm with a left bundle branch block. Patient denies any shortness of breath or feeling that her heart was racing. Granddaughter stated that around 2:00 her grandmother was feeling fine upon her arrival at home at 10:30 she was found to be not quite herself. At this time patient is resting comfortably in bed without any distress. Dalila ent is up to the commode without any difficulties. Patient denies any chest pain or shortness of breath at this time. Patient does not have any lightheadedness or dizziness upon standing. Patient denies any pain with urination, back pain or frequency. Patient has been afebrile vital signs remain ed stable. W BC 8.4, hemoglobin 10.3, potassium 4.9, BUN 22, creatinine 1.24, troponin is negative. Review of Systems Review Of Systems: Constitutional: No fever, no chills, no night sweats. No weight change. No weakness, fatigue or lethargy. No daytime sleepiness. Reported lightheadedness which is resolved EENT: No headache. No blurred vision or double vision, no loss of vision. No loss of Hearing, no ringing in the ears, no dizziness. No nasal drainage or co ngestion. No epistaxis. No sore throat. Lungs: No shortness of breath, cough, no sputum production. No wheezing. Cardiovascular: Reported chest pain which is resolved No chest pain, no lower extremity edema. No palpitations. No paroxysmal nocturnal dyspnea. No orthopnea. No lightheadedness or dizziness. No syncopal episodes. Abdominal: no abdominal discomfort. No nausea, vomiting. no diarrhea. No constipation. No bloody or tarry stools. no loss of appetite. Genitourinary: No dysuria, increased frequency, urgency. No urinary retention. Musculoskeletal: No myalgias. No muscle weakness, no gait dysfunction, no frequent falls. No back pain. No neck pain. Integumentary: No wounds, no lesions. No rash or pruritus. No unusual bruising. No change in hair or nails. Neurologic: No aphasia. No facial droop. No change in mentation. No head injury. No headache. No paralysis. No paresthesia. Psychiatric: No depression. No anxiety. No mood swings. Endocrine: No abnormal blood sugars. No weight change. No excessive sweating or thirst. Past Medical History Past Medical History: CVA/TIA, Diabetes Mellitus, Hyperlipidemia, Hypertension, Memory Impairment, Osteoarthritis (OA) Additional Past Medical History / Comment(s): RA has injections mediport q 6 weeks, Kidney cancer no chemo or radiation skin cancer arms History of Any Multi-Drug Resistant Organisms: None Reported Past Surgical History: Adenoidectomy, Section, Hysterectomy, Orthopedic Surgery, Pacemaker, Tonsillectomy, Tubal Ligation Additional Past Surgical History / Comment(s): mediport for arthritis medication, 1/3 kidney removed for CA Past Anesthesia/Blood Transfusion Reactions: No Reported Reaction Type of Cardiac Device: Permanent Pacemaker, AICD Device Placement Date:: 05/12/2017 Past Psychological History: Depression Smoking Status: Never smoker Past Alcohol Use History: None Reported Additional Past Alcohol Use History / Comment(s): Patient is a lifelong nonsmoker. She denies illicit drug use or alcohol use. She lives at home with her granddaughter and grandson. She does not have home oxygen, no nebulizer no CPAP. Patient does not drive. She uses a walker for ambulation. Past Drug Use History: None Reported - Past Family History Father History Unknown: Yes Additional Family Medical History / Comment(s): Father at age 73 from heart disease. Mother Additional Family Medical History / Comment(s): Mother at age 76 from heart disease. Brother(s) Additional Family Medical History / Comment(s): Patient has 2 brothers with no major medical problems. Daughter(s) Additional Family Medical History / Comment(s): Patient has 2 daughters and 1 as an infant. Patient has one son with no major medical problems. Medications and Allergies Home Medications Medication Instructions Recorded Confirmed Type Allopurinol [Zyloprim] 100 mg PO DAILY@0800 05/05/18 05/12/19 History Apixaban [Eliquis] 2.5 mg PO BID@799,199905/05/18 05/12/19 History Aspirin EC [Ecotrin Low Dose] 81 mg PO DAILY@0800 05/05/18 05/12/19 History Escitalopram [Lexapro] 5 mg PO DAILY@0800 05/05/18 05/12/19 History Folic Acid 1 mg PO DAILY@0805/05/18 05/12/19 History Insulin Aspart [NovoLOG Flexpen] See Protocol SQ AC-TID 05/05/18 05/12/19 History Levothyroxine Sodium [Synthroid] 75 mcg PO DAILY@79905/05/18 05/12/19 History Methotrexate Sodium [Methotrexate] 7.5 mg PO FR 05/05/18 05/12/19 History Pantoprazole Sodium [Protonix] 40 mg PO BID@08,199905/05/18 05/12/19 History inFLIXimab [Remicade] 100 mg IVPB Q56D 05/05/18 05/12/19 History Cyanocobalamin [Vitamin B-12] 500 mcg PO DAILY@0800 05/18/18 05/12/19 History Butalb/APAP/Caff 50-325-40Mg 1 - 2 tab PO Q6H PRN 01/19/19 05/12/19 History [Fioricet 50-325-40] Colchicine 0.6 mg PO DAILY@0800 01/19/19 05/12/19 History Leucovorin Calcium 5 mg PO FRSA 01/19/19 05/12/19 History Atorvastatin [Lipitor] 40 mg PO DAILY@0800 02/16/19 05/12/19 History Insulin Glargine [Lantus] 6 unit SQ HS 02/16/19 05/12/19 History Carvedilol [Coreg] 3.125 mg PO BID@0800,1700 05/12/19 05/12/19 History Lisinopril [Zestril] 2.5 mg PO DAILY@0800 05/12/19 05/12/19 History Midodrine HCl [ProAmantine] 2.5 mg PO TID PRN MDD BELOW 110 05/12/19 05/12/19 History Allergies Allergy/AdvReac Type Severity Reaction Status Date / Time baclofen Allergy Unknown Verified 05/12/19 07:36 cefdinir [From Omnicef] Allergy Unknown Verified 05/12/19 07:36 ciprofloxacin Allergy Unknown Verified 05/12/19 07:36 codeine Allergy Unknown Verified 05/12/19 07:36 hydrocodone Allergy Unknown Verified 05/12/19 07:36 Iodinated Contrast Media Allergy Unknown Verified 05/12/19 07:36 [Iodinated Contrast- Oral and IV Dye] latex Allergy Unknown Verified 05/12/19 07:36 ofloxacin [From Floxin] Allergy Unknown Verified 05/12/19 07:36 Penicillins Allergy Unknown Verified 05/12/19 07:36 promethazine [From Phenergan] Allergy Unknown Verified 05/12/19 07:36 sulfadiazine Allergy Unknown Verified 05/12/19 07:36 sulfamethoxazole Allergy Unknown Verified 05/12/19 07:36 [From Bactrim] Tetracyclines Allergy Unknown Verified 05/12/19 07:36 theophylline [From Ángel-Dur] Allergy Unknown Verified 05/12/19 07:36 tramadol Allergy Unknown Verified 05/12/19 07:36 trimethoprim [From Bactrim] Allergy Unknown Verified 05/12/19 07:36 Physical Exam Vitals: Vital Signs Temp Pulse Pulse Resp BP BP Pulse Ox 05/12/19 08:05 98.1 F 60 20 171/74 05/12/19 07:47 62 18 139/64 98 05/12/19 06:36 98.6 F 70 18 149/71 100 05/12/19 05:24 70 18 171/76 98 05/12/19 04:19 174/84 98 05/12/19 03:14 99 F 61 18 142/92 100 Intake and Output 05/11/19 05/12/19 05/12/19 22:59 06:59 14:59 Intake Total 240 Output Total 500 Balance -260 Intake: Oral 240 Output: Urine 500 Other: # Voids 0 Weight 96.162 kg 96.162 kg General Appearance: Alert, cooperative, no distress, appears stated age. Neck HEENT: Supple, no lymphadenopathy, no thyroid enlargement, no carotid bruits. Lungs: Clear to auscultation without crackles or wheezes no rhonchi, no deformity. Chest Wall: Chest wall normal expansion with deep inspiration no tenderness and no deformity was found on exam, no costochondral pain or discomfort. Heart: Regular rate and rhythm, S1, S2 normal, no murmur, rub or gallop. Back: Symmetric, no curvature, ROM normal, no CVA tenderness. Abdomen: Soft, non-tender, no rebound or rigidity, no hepatosplenomegaly. Extremities: Extremities normal, atraumatic, no cyanosis or edema. Pulses: 2+ and symmetric. Skin: Skin color, texture, tugor normal, no rashes or lesions. Neurologic: Alert oriented x3 cranial nerves II through XII intact, no motor deficit, no abnormal balance or gait Results CBC & Chem 7: 05/12/19 03:59 05/12/19 03:59 Labs: Abnormal Lab Results - Last 24 Hours (Table) 05/12/19 05/12/19 05/12/19 Range/Units 03:59 03:59 03:59 RBC 3.27 L (3.80-5.40) m/uL Hgb 10.3 L (11.4-16.0) gm/dL Hct 31.7 L (34.0-46.0) % APTT 31.2 H (22.0-30.0) sec Sodium 135 L (137-145) mmol/L Carbon Dioxide 21 L (22-30) mmol/L BUN 22 H (7-17) mg/dL Creatinine 1.24 H (0.52-1.04) mg/dL Glucose 278 H (74-99) mg/dL POC Glucose (mg/dL) (75-99) mg/dL Magnesium 1.3 L (1.6-2.3) mg/dL Alkaline Phosphatase 130 H (38-126) U/L Albumin 3.3 L (3.5-5.0) g/dL 05/12/19 05/12/19 05/12/19 Range/Units 06:08 09:43 11:54 RBC (3.80-5.40) m/uL Hgb (11.4-16.0) gm/dL Hct (34.0-46.0) % APTT (22.0-30.0) sec Sodium (137-145) mmol/L Carbon Dioxide (22-30) mmol/L BUN (7-17) mg/dL Creatinine (0.52-1.04) mg/dL Glucose (74-99) mg/dL POC Glucose (mg/dL) 288 H 229 H 229 H (75-99) mg/dL Magnesium (1.6-2.3) mg/dL Alkaline Phosphatase (38-126) U/L Albumin (3.5-5.0) g/dL Thrombosis Risk Factor Assmnt - Choose All That Apply Each Factor Represents 1 point: Heart failure (<1month) Each Risk Factor Represents 3 Points: Age 75 years or older Thrombosis Risk Factor Assessment Total Risk Factor Score: 4 Thrombosis Risk Factor Assessment Level: Moderate Risk Assessment and Plan Plan: 1. Atypical chest pain. Cardiology consult reviewed patient is scheduled for a 2-D echo. Increase lisinopril to 5 mg, resume elquis, atorvastatin, carvedilol and aspirin. Patient is stable for discharge from cardiac perspective. 2. Proximal atrial fibrillation on long-term anticoagulant. Continue elquis 3. Hypertension. Continue carvedilol and increased to Lopressor 4. Diabetes, Accu-Cheks before meals at bedtime, insulin sliding scale 5. Hyperlipidemia. Continue atorvastatin 6. Sick sinus syndrome status post permanent pacemaker implantation 7. Dementia, stable 8. History of CVA TIA 9. Osteoarthritis. Stable. Consult occupational/physical therapy 10. DVT prophylaxis. Continue Elquis 11. GI prophylaxis. Protonix 40 mg IV daily Discharge plan: Possible discharge tomorrow, home Impression and plan of care have been directed as dictated by the signing physician. Judit Chin nurse practitioner acting as scribe for signing physician.
--- NOTE | 2019-05-12 16:00 | ECHOF ---
Referral Reason:CHF MEASUREMENTS -------- HEIGHT: 170.2 cm WEIGHT: 96.2 kg BP: 149/71 RVIDd: 3.5 cm (< 3.3) IVSd: 1.4 cm (0.6 - 1.1) LVIDd: 4.8 cm (3.9 - 5.3) LVPWd: 1.4 cm (0.6 - 1.1) IVSs: 1.9 cm LVIDs: 3.0 cm LVPWs: 1.6 cm LA Diam: 4.3 cm (2.7 - 3.8) LAESV Index (A-L): 30.45 ml/m Ao Diam: 3.1 cm (2.0 - 3.7) AV Cusp: 2.3 cm (1.5 - 2.6) MV EXCURSION: 16.312 mm (> 18.000) MV EF SLOPE: 49 mm/s (70 - 150) EPSS: 0.6 cm MV E Filiberto: 0.98 m/s MV DecT: 186 ms MV A Filiberto: 0.64 m/s MV E/A Ratio: 1.54 RAP: 5.00 mmHg RVSP: 37.98 mmHg FINDINGS -------- Paced rhythm. This was a technically adequate study. The left ventricular size is normal. There is moderate concentric left ventricular hypertrophy. O verall left ventricular systolic function is normal with, an EF between 55 - 60 %. The right ventricle is mildly enlarged. LA is midly dilated 29-33ml/m2. The right atrium is normal in size. Interatrial and interventricular septum intact. There is mild aortic valve sclerosis. The mitral valve leaflets are mildly thickened. Mild mitral annular calcification present. Mild m itral regurgitation is present. Mild tricuspid regurgitation present. There is mild pulmonary hypertension. The right ventricular systolic pressure, as measured by Doppler, is 37.98mmHg. Trace/mild (physiologic) pulmonic regurgitation. The aortic root size is normal. Normal inferior vena cava with normal inspiratory collapse consistent with estimated right atrial pre ssure of 5 mmHg. There is a small pericardial effusion located near the left ventricle. CONCLUSIONS -------- 1. Paced rhythm. 2. This was a technically adequate study. 3. The left ventricular size is normal. 4. There is moderate concentric left ventricular hypertrophy. 5. Overall left ventricular systolic function is normal with, an EF between 55 - 60 %. 6. The right ventricle is mildly enlarged. 7. LA is midly dilated 29-33ml/m2. 8. The right atrium is normal in size. 9. Interatrial and interventricular septum intact. 10. There is mild aortic valve sclerosis. 11. The mitral valve leaflets are mildly thickened. 12. Mild mitral annular calcification present. 13. Mild mitral regurgitation is present. 14. Mild tricuspid regurgitation present. 15. There is mild pulmonary hypertension. 16. The right ventricular systolic pressure, as measured by Doppler, is 37.98mmHg. 17. Trace/mild (physiologic) pulmonic regurgitation. 18. The aortic root size is normal. 19. Normal inferior vena cava with normal inspiratory collapse consistent with estimated right atrial pressure of 5 mmHg. 20. There is a small pericardial effusion located near the left ventricle. DRAWER MAKER: Porsha Mckeon RDCS
[2019-05-12 16:38] LABS: Glucose,Whole Blood 240 mg/dL (75-99)
[2019-05-12] MEDS: CARVEDILOL 3.125 MG TAB PO SCH (17:27)
[2019-05-12] MEDS: APIXABAN 2.5 MG TABLET PO SCH (17:27)
[2019-05-12 20:16] LABS: Glucose,Whole Blood 197 mg/dL (75-99)
[2019-05-13 06:07] LABS: Basophils # (A) 0.1 k/uL (0-0.2); Basophils % (A) 1 %; Eosinophils # (A) 0.1 k/uL (0-0.7); Eosinophils % (A) 2 %; HGB 9.2 gm/dL (11.4-16.0); Hypochromasia Slight; Lymphocytes # (A) 1.5 k/uL (1.0-4.8); Lymphocytes % (A) 23 %; MCH 30.6 pg (25.0-35.0); MCHC 30.8 g/dL (31.0-37.0); MCV 99.3 fL (80.0-100.0); Mean Platelet Volume 9.5; Monocytes # (A) 0.4 k/uL (0-1.0); Monocytes % (A) 7 %; Neutrophils # (A) 4.2 k/uL (1.3-7.7); Neutrophils % (A) 66 %; Platelet Count 253 k/uL (150-450); RBC 3.02 m/uL (3.80-5.40); WBC 6.4 k/uL (3.8-10.6)
[2019-05-13 06:13] LABS: Glucose,Whole Blood 185 mg/dL (75-99)
[2019-05-13 06:19] LABS: Calcium 8.9 mg/dL (8.4-10.2); Potassium 4.6 mmol/L (3.5-5.1)
[2019-05-13] MEDS ORDERED: LISINOPRIL 2.5 MG TAB PO SCH (08:00)
[2019-05-13] MEDS ORDERED: PANTOPRAZOLE 40 MG/10 ML VIAL IVP SCH (09:00)
[2019-05-13] MEDS ORDERED: ASPIRIN 325 MG TAB PO SCH (09:00)
[2019-05-13] MEDS: INSULIN ASPART (NovoLOG) 100 UNIT/ML VIAL SQ SCH ×4 (09:26→20:28)
[2019-05-13] MEDS: APIXABAN 2.5 MG TABLET PO SCH ×2 (09:31→20:28)
[2019-05-13] MEDS: ASPIRIN 81 MG PO SCH (09:31)
[2019-05-13] MEDS: CARVEDILOL 3.125 MG TAB PO SCH ×2 (09:31→16:05)
[2019-05-13] MEDS: ATORVASTATIN 40 MG TAB PO SCH (09:31)
[2019-05-13] MEDS: LISINOPRIL 5 MG TAB PO SCH (09:31)
[2019-05-13] MEDS ORDERED: BARIUM SULFATE 450 ML ORAL.SUSP BOTTLE PO PRN (11:18)
[2019-05-13 11:19] LABS: Glucose,Whole Blood 200 mg/dL (75-99)
[2019-05-13] MEDS ORDERED: ONDANSETRON 4 MG/2 ML VIAL IVP PRN (11:23)
[2019-05-13 11:36] LABS: Glucose,Whole Blood 214 mg/dL (75-99)
--- NOTE | 2019-05-13 12:26 | P.PN ---
Subjective HISTORY OF PRESENTING ILLNESS This is a pleasant 84-year-old female past medical history significant for hypertension, dyslipidemia, diabetes mellitus, sick sinus syndrome status post permanent pacemaker implantation, paroxysmal atrial fibrillation and dementia. She follows in the office with Dr. Meng. She is seen and examined laying flat in bed complaining of significant pain in the right upper back, mid back and lower back. At times she also feels pain in the chest. She is shaking and quite anxious. On exam her pain does improve by sitting her up in bed. There is an area of reproducibility in the right lower scapula that causes her to grimace and shout in pain when palpated. Repeat EKG unremarkable with no acute changes noted. Blood pressure initially was 150's systolic and apparently per the staff while she was laying flat her pressure dropped to 60's systolic and then came right back up to 137/81. Heart rates stable in the 80's throughout this episode. Dr. Montano and Dr. March both present at the bedside. PHYSICAL EXAMINATION CONSTITUTIONAL: No apparent distress. HEENT: Head is normocephalic. Pupils are equal, round. Sclerae anicteric. Mucous membranes of the mouth are moist. No JVD. No carotid bruit. CHEST EXAMINATION: Lungs are clear to auscultation. No chest wall tenderness is noted on palpation or with deep breathing. HEART EXAMINATION: Irregular rate and rhythm. S1, S2 heard. No murmur, gallops or rub. EXTREMITIES: 2+ peripheral pulses, no lower extremity edema and no calf tenderness. ASSESSMENT Chest pain, atypical. Paroxysmal atrial fibrillation on long-term anticoagulation Sick sinus syndrome status post permanent pacemaker implantation Hypertension Dyslipidemia Diabetes mellitus Dementia PLAN Recommend apply a heat pack to the right upper back scapular area that appears to be actively spasming currently. Ongoing medical management. No further cardiac work-up at this time. Nurse Practitioner note has been reviewed, I agree with a documented findings and plan of care. Patient was seen and examined. Objective - Vital Signs Vital signs: Vital Signs Temp 98.4 F 05/12/19 20:00 Pulse 61 05/13/19 04:00 Resp 16 05/13/19 04:00 BP 118/62 05/13/19 04:00 Pulse Ox 97 05/13/19 04:00 Intake & Output 05/12/19 05/13/19 05/13/19 18:59 06:59 18:59 Intake Total 360 200 0 Output Total 900 1200 Balance -540 -1000 0 Weight 96.162 kg 65 kg Intake: Oral 360 200 0 Output: Urine 900 1200 Other: Voiding Method Toilet Toilet # Voids 0 0 0 - Labs CBC & Chem 7: 05/13/19 05:22 05/13/19 05:22 Labs: Abnormal Lab Results - Last 24 Hours (Table) 05/12/19 05/12/19 05/13/19 Range/Units 16:36 20:14 05:22 RBC (3.80-5.40) m/uL Hgb (11.4-16.0) gm/dL Hct (34.0-46.0) % MCHC (31.0-37.0) g/dL BUN 26 H (7-17) mg/dL Creatinine 1.32 H (0.52-1.04) mg/dL Glucose 179 H (74-99) mg/dL POC Glucose (mg/dL) 240 H 197 H (75-99) mg/dL HDL Cholesterol 31 L (40-60) mg/dL 05/13/19 05/13/19 05/13/19 Range/Units 05:22 06:11 11:08 RBC 3.02 L (3.80-5.40) m/uL Hgb 9.2 L (11.4-16.0) gm/dL Hct 30.0 L (34.0-46.0) % MCHC 30.8 L (31.0-37.0) g/dL BUN (7-17) mg/dL Creatinine (0.52-1.04) mg/dL Glucose (74-99) mg/dL POC Glucose (mg/dL) 185 H 200 H (75-99) mg/dL HDL Cholesterol (40-60) mg/dL 05/13/19 Range/Units 11:33 RBC (3.80-5.40) m/uL Hgb (11.4-16.0) gm/dL Hct (34.0-46.0) % MCHC (31.0-37.0) g/dL BUN (7-17) mg/dL Creatinine (0.52-1.04) mg/dL Glucose (74-99) mg/dL POC Glucose (mg/dL) 214 H (75-99) mg/dL HDL Cholesterol (40-60) mg/dL
[2019-05-13] MEDS: SUCRALFATE 1 GM TAB PO SCH ×2 (12:54→16:05)
[2019-05-13] MEDS: LIDOCAINE 4% CREAM 5 GM TUBE TOPICAL SCH ×3 (12:55→23:11)
[2019-05-13 13:00] VITALS: BMI 22.4
--- NOTE | 2019-05-13 14:16 | P.PN ---
Subjective Progress Note Date: 05/13/19 This is a 84-year-old pleasant female with a past medical history of hypertension, hyperlipidemia, diabetes mellitus, sick sinus syndrome status post permanent pacemaker plantation, proximal atrial fibrillation, osteoarthritis, dementia and history of CVA. Patient is followed in the outpatient setting by Dr. Golden. Patient lives at home with her granddaughter and grandson. The patient was brought into the emergency room due to chest pain. Patient states that she was feeling fine at around 10:30 she began to have chest pain and felt lightheaded. She did not feel secure. She was brought into the emergency room where EKG revealed a paced rhythm with a left bundle branch block. Patient denies any shortness of breath or feeling that her heart was racing. Granddaughter stated that around 2:00 her grandmother was feeling fine upon her arrival at home at 10:30 she was found to be not quite herself. At this time patient is resting comfortably in bed without any distress. Patient is up to the commode without any difficulties. Patient denies any chest pain or shortness of breath at this time. Patient does not have any lightheadedness or dizziness upon standing. Patient denies any pain with urination, back pain or frequency. Patient has been afebrile vital signs remained stable. W BC 8.4, hemoglobin 10.3, potassium 4.9, BUN 22, creatinine 1.24, troponin is negative. 05/13: Patient complained of chest pain and weakness blood pressure was 60. Patient had a 18 called. Upon further examination patient stated that the pain was more located in the back thoracic area. Patient denies any urinary issues or chronic back pain. Patient states that she felt very shaky and weak. Hemoglobin did drop by 1 g compared to yesterday. CT of the abdomen and pelvis with oral contrast was ordered to rule out dissection. Influenza swab and Hemoccult ordered. Obtain a urinalysis. to rule out urinary tract infection or GI bleed. Hemoglobin 9.2, BUN 26 creatinine 1.32. Due to the elevated creatinine patient was unable to have IV contrast. Review Of Systems: Constitutional: No fever, reports chills, no night sweats. No weight change. Reports weakness, no fatigue or lethargy. No daytime sleepiness. Reported lightheadedness EENT: No headache. No blurred vision or double vision, no loss of vision. No loss of Hearing, no ringing in the ears, no dizziness. No nasal drainage or congestion. No epistaxis. No sore throat. Lungs: No shortness of breath, cough, no sputum production. No wheezing. Cardiovascular: Reported chest pain which is resolved No chest pain, no lower extremity edema. No palpitations. No paroxysmal nocturnal dyspnea. No orthopnea. No lightheadedness or dizziness. No syncopal episodes. Abdominal: no abdominal discomfort. No nausea, vomiting. no diarrhea. No constipation. No bloody or tarry stools. no loss of appetite. Genitourinary: No dysuria, increased frequency, urgency. No urinary retention. Musculoskeletal: Reports myalgias. No muscle weakness, no gait dysfunction, no frequent falls. Reports back pain thoracic. No neck pain. Integumentary: No wounds, no lesions. No rash or pruritus. No unusual bruising. No change in hair or nails. Neurologic: No aphasia. No facial droop. No change in mentation. No head injury. No headache. No paralysis. No paresthesia. Psychiatric: No depression. No anxiety. No mood swings. Endocrine: No abnormal blood sugars. No weight change. No excessive sweating or thirst. Objective - Vital Signs Vital signs: Vital Signs Temp 98.2 F 05/13/19 08:15 Pulse 67 05/13/19 12:15 Resp 20 05/13/19 12:15 BP 150/68 05/13/19 12:15 Pulse Ox 100 05/13/19 12:15 Intake & Output 05/12/19 05/13/19 05/13/19 18:59 06:59 18:59 Intake Total 360 200 0 Output Total 900 1200 Balance -540 -1000 0 Weight 96.162 kg 65 kg 65 kg Intake: Oral 360 200 0 Output: Urine 900 1200 Other: Voiding Method Toilet Toilet Toilet # Voids 0 0 0 - Exam General Appearance: Alert, cooperative, no moderate distress, appears stated age. Shaking from chills. Neck HEENT: Supple, no lymphadenopathy, no thyroid enlargement, no carotid bruits. Lungs: Clear to auscultation without crackles or wheezes no rhonchi, no deformity. Chest Wall: Chest wall normal expansion with deep inspiration no tenderness and no deformity was found on exam, no costochondral pain or discomfort. Heart: Regular rate and rhythm, S1, S2 normal, no murmur, rub or gallop. Back: Tenderness to the thoracic spine with palpation Symmetric, no curvature, ROM normal, no CVA tenderness. Abdomen: Soft, non-tender, no rebound or rigidity, no hepatosplenomegaly. Extremities: Extremities normal, atraumatic, no cyanosis or edema. Pulses: 2+ and symmetric. Skin: Skin color, texture, tugor normal, no rashes or lesions. Neurologic: Alert oriented x3 cranial nerves II through XII intact, no motor deficit, no abnormal balance or gait - Labs CBC & Chem 7: 05/13/19 05:22 05/13/19 05:22 Labs: Abnormal Lab Results - Last 24 Hours (Table) 05/12/19 05/12/19 05/13/19 Range/Units 16:36 20:14 05:22 RBC (3.80-5.40) m/uL Hgb (11.4-16.0) gm/dL Hct (34.0-46.0) % MCHC (31.0-37.0) g/dL BUN 26 H (7-17) mg/dL Creatinine 1.32 H (0.52-1.04) mg/dL Glucose 179 H (74-99) mg/dL POC Glucose (mg/dL) 240 H 197 H (75-99) mg/dL HDL Cholesterol 31 L (40-60) mg/dL 05/13/19 05/13/19 05/13/19 Range/Units 05:22 06:11 11:08 RBC 3.02 L (3.80-5.40) m/uL Hgb 9.2 L (11.4-16.0) gm/dL Hct 30.0 L (34.0-46.0) % MCHC 30.8 L (31.0-37.0) g/dL BUN (7-17) mg/dL Creatinine (0.52-1.04) mg/dL Glucose (74-99) mg/dL POC Glucose (mg/dL) 185 H 200 H (75-99) mg/dL HDL Cholesterol (40-60) mg/dL 05/13/19 Range/Units 11:33 RBC (3.80-5.40) m/uL Hgb (11.4-16.0) gm/dL Hct (34.0-46.0) % MCHC (31.0-37.0) g/dL BUN (7-17) mg/dL Creatinine (0.52-1.04) mg/dL Glucose (74-99) mg/dL POC Glucose (mg/dL) 214 H (75-99) mg/dL HDL Cholesterol (40-60) mg/dL Assessment and Plan Plan: 1. Atypical chest pain. Cardiology consult reviewed, 2-D echo shows paced rhythm, EF of 55-60%, mild aortic valve sclerosis, mild mitral regurgitation and tricuspid regurgitation and mild pulmonary hypertension.. Increase lisinopril t o 5 mg, resume elquis, atorvastatin, carvedilol and aspirin. Influenza swab 2. Sudden onset Thoracic back pain with chills and hypotension. Stat CT of chest with oral contrast to rule out dissection and/or compression fractures. Hemoccult to rule out gastroparesis. Lidocaine cream to thoracic and lumbar spine as needed for pain control. 3. Abdominal pain possible gastric paresis. Hemoccult. Consult GI. Obtain urinalysis to rule out UTI. 4. Proximal atrial fibrillation on long-term anticoagulant. Continue elquis 5. Hypertension. Continue carvedilol and increased to Lopressor 6. Diabetes, Accu-Cheks before meals at bedtime, insulin sliding scale 7. Hyperlipidemia. Continue atorvastatin 8. Sick sinus syndrome status post permanent pacemaker implantation 9. Dementia, stable 10. History of CVA TIA 11. Osteoarthritis. Stable. Consult occupational/physical therapy 12. DVT prophylaxis. Continue Elquis 13. GI prophylaxis. Protonix 40 mg IV daily Discharge plan: Possible discharge tomorrow, home Impression and plan of care have been directed as dictated by the signing physician. Judit Chin nurse practitioner acting as scribe for signing physician.
[2019-05-13] MEDS: ACETAMINOPHEN TAB 325 MG TAB PO PRN (16:05)
--- NOTE | 2019-05-13 16:08 | CT ---
EXAMINATION TYPE: CT abdomen pelvis wo con DATE OF EXAM: 05/13/2019 COMPARISON: None HISTORY: Mid abdominal pain. CT DLP: 475.6 mGycm Automated exposure control for dose reduction was used. Multiple axial sections were obtained from the diaphragm to the floor the pelvis with oral contrast o nly. FINDINGS: Lung bases are clear. There is no pleural effusion. Heart size is normal. Stomach is intact. There is some thickening of the wall of the gastric fundus. Liver and spleen appear intact. Bile ducts are no t dilated. There is no pancreatic mass. There is no adrenal mass. Kidneys have normal size. There is no hydronephrosis. There is some calcifi cation on the cortical surface lower pole left kidney that could relate to old trauma or infection. T here is no retroperitoneal adenopathy. Ureters are not dilated. Bladder distends smoothly. There is n o inguinal hernia. There is no free fluid in the pelvis. There is no evidence of thickened appendix. There is no mesenteric edema. There is no ascites or free air. There is mild fat stranding in the paracolic gutters bilaterally. There is no evidence of bowel obstruction. There is multilevel mild spondylotic changes in the lumbar spine. There is no compression fracture. B valente pelvis is intact. There is a minimal degenerative first-degree L4-5 spondylolisthesis. IMPRESSION: There is some gastric wall thickening in the fundus that could relate to hypertrophic gastritis. Mild fat stranding in the paracolic gutters of uncertain significance. This could relate to old infla mmatory disease. No renal stone or obstruction.
[2019-05-13 16:49] LABS: Glucose,Whole Blood 190 mg/dL (75-99)
[2019-05-13 20:05] LABS: Glucose,Whole Blood 224 mg/dL (75-99)
[2019-05-14 00:49] LABS: Appearance,Urine Clear (Clear); Bacteria,Urine Rare /hpf; Bilirubin,Urine Negative (Negative); Blood,Urine Negative (Negative); Color,Urine Yellow; Glucose,Urine (UA) Negative (Negative); Ketones,Urine Negative (Negative); Leukocyte Esterase,Urine Moderate (Negative); Mucus,Urine Rare /hpf; Nitrite,Urine Negative (Negative); PH, Urine 5.5 (5.0-8.0); Protein,Urine Trace (Negative); RBC,Urine 8 /hpf (0-5); Specific Gravity,Urine 1.009 (1.001-1.035); Squamous Epithelial Cell,Urine <1 /hpf (0-4); Urobilinogen,Urine <2.0 mg/dL (<2.0); WBC,Urine 8 /hpf (0-5)
[2019-05-14 06:13] LABS: Glucose,Whole Blood 184 mg/dL (75-99)
[2019-05-14] MEDS: PANTOPRAZOLE 40 MG TABLET PO SCH (06:21)
[2019-05-14] MEDS: INSULIN ASPART (NovoLOG) 100 UNIT/ML VIAL SQ SCH ×4 (06:21→20:39)
[2019-05-14] MEDS: SUCRALFATE 1 GM TAB PO SCH ×3 (06:21→16:47)
[2019-05-14] MEDS: CARVEDILOL 3.125 MG TAB PO SCH ×2 (09:32→16:47)
[2019-05-14] MEDS: ASPIRIN 81 MG PO SCH (09:32)
[2019-05-14] MEDS: APIXABAN 2.5 MG TABLET PO SCH ×2 (09:32→20:38)
[2019-05-14] MEDS: LISINOPRIL 5 MG TAB PO SCH (09:32)
[2019-05-14] MEDS: ATORVASTATIN 40 MG TAB PO SCH (09:32)
[2019-05-14] MEDS: ACETAMINOPHEN TAB 325 MG TAB PO PRN (09:32)
[2019-05-14] MEDS: LIDOCAINE 4% CREAM 5 GM TUBE TOPICAL SCH ×4 (09:36→22:43)
[2019-05-14 12:31] LABS: Glucose,Whole Blood 178 mg/dL (75-99)
--- NOTE | 2019-05-14 13:09 | P.DS ---
Providers Date of admission: 05/12/19 06:39 Expected date of discharge: 05/15/19 Attending physician: Cristina March Consults: 05/12/19 06:39 Consult Physician Urgent Consulting Provider: [facility] Consult Reason/Comments: chest pain, chf Do you want consulting provider notified?: Yes, Notify in am Primary care physician: [facility] Course: This is a 84-year-old pleasant female with a past medical history of hypertension, hyperlipidemia, diabetes mellitus, sick sinus syndrome status post permanent pacemaker plantation, proximal atrial fibrillation, osteoarthritis, dementia and history of CVA. Patient is followed in the outpatient setting by Dr. Golden. Patient lives at home with her granddaughter and grandson. The patient was brought into the emergency room due to chest pain. Patient states that she was feeling fine at around 10:30 she began to have chest pain and felt lightheaded. She did not feel secure. She was brought into the emergency room where EKG revealed a paced rhythm with a left bundle branch block. Patient denies any shortness of breath or feeling that her heart was racing. Granddaughter stated that around 2:00 her grandmother was feeling fine upon her arrival at home at 10:30 she was found to be not quite herself. At this time patient is resting comfortably in bed without any distress. Patient is up to the commode without any difficulties. Patient denies any chest pain or shortness of breath at this time. Patient does not have any lightheadedness or dizziness upon standing. Patient denies any pain with urination, back pain or frequency. Patient has been afebrile vital signs remained stable. W BC 8.4, hemoglobin 10.3, potassium 4.9, BUN 22, creatinine 1.24, troponin is negative. 05/13: Patient complained of chest pain and weakness blood pressure was 60. Patient had a 18 called. Upon further examination patient stated that the pain was more located in the back thoracic area. Patient denies any urinary issues or chronic back pain. Patient states that she felt very shaky and weak. Hemoglobin did drop by 1 g compared to yesterday. CT of the abdomen and pelvis with oral contrast was ordered to rule out dissection. Influenza swab and Hemoccult ordered. Obtain a urinalysis. to rule out urinary tract infection or GI bleed. Hemoglobin 9.2, BUN 26 creatinine 1.32. Due to the elevated creatinine patient was unable to have IV contrast. 05/14: Urinalysis was clear, leukoesterase moderate, RBCs 8, WBC 8, bacteria rare. Influenza testing negative Patient has been afebrile, heart rate 61, blood pressure 136/66, pulse ox 98% on room air. CAT scan of the abdomen and pelvis without contrast revealed gastric wall thickening in the fundus could relate to hypertrophic gastritis. Mild fat stranding in the paracolic gutters of uncertain significance. This could relate to old inflammatory disease. No renal stones or obstruction. A cardiology has been following the patient with no further cardiac workup at this time. He Was recommended for the right upper back scapular area for spasms and continue current medications. Patient also has lidocaine gel and Tylenol for pain Echocardiogram reveals EF of 55-60% with moderate concentric left hypertrophy, LV mildly dilated 29-33 mL/M2, mild aortic valve sclerosis, mild mitral regurgitation, mild tricuspid regurgitation, mild p ulmonary hypertension, small pericardial effusion of the left ventricle. Discharge diagnoses: 1. Atypical chest pain. 2. Sudden onset Thoracic back pain with chills and hypotension. 3. Abdominal pain secondary to gastritis. 4. Proximal atrial fibrillation on long-term anticoagulant. 5. Hypertension. 6. Diabetes mellitus type II 7. Hyperlipidemia. 8. Sick sinus syndrome status post permanent pacemaker implantation 9. Dementia, stable 10. History of CVA 11. Osteoarthritis, generalized. Discharge plan: [facility] Impression and plan of care have been directed as dictated by the signing physician. Sharmaine Fang nurse practitioner acting as scribe for signing physician. Patient Condition at Discharge: Good Plan - Discharge Summary Discharge Rx Participant: No New Discharge Prescriptions: New Sucralfate [Carafate] 1 gm PO AC-TID #42 tab Lidocaine 4% Cream [Lmx 4] 1 applic TOPICAL QID applic Lisinopril [Zestril] 5 mg PO DAILY@0800 #30 tab Continue Apixaban [Eliquis] 2.5 mg PO BID@ Allopurinol [Zyloprim] 100 mg PO DAILY@0800 Insulin Aspart [NovoLOG Flexpen] See Protocol SQ AC-TID inFLIXimab [Remicade] 100 mg IVPB Q56D Pantoprazole Sodium [Protonix] 40 mg PO BID@ Levothyroxine Sodium [Synthroid] 75 mcg PO DAILY@0800 Folic Acid 1 mg PO DAILY@0800 Escitalopram [Lexapro] 5 mg PO DAILY@0800 Aspirin EC [Ecotrin Low Dose] 81 mg PO DAILY@0800 Methotrexate Sodium [Methotrexate] 7.5 mg PO FR Cyanocobalamin [Vitamin B-12] 500 mcg PO DAILY@0800 Colchicine 0.6 mg PO DAILY@0800 Butalb/APAP/Caff 50-325-40Mg [Fioricet 50-325-40] 1 - 2 tab PO Q6H PRN PRN Reason: Migraine Headache Leucovorin Calcium 5 mg PO FRSA Insulin Glargine [Lantus] 6 unit SQ HS Atorvastatin [Lipitor] 40 mg PO DAILY@0800 Carvedilol [Coreg] 3.125 mg PO BID@0800,1700 Midodrine HCl [ProAmantine] 2.5 mg PO TID PRN MDD BELOW 110 PRN Reason: Blood Pressure - Low Discontinued Lisinopril [Zestril] 2.5 mg PO DAILY@0800 Discharge Medication List Allopurinol [Zyloprim] 100 mg PO DAILY@0800 05/05/18 [History] Apixaban [Eliquis] 2.5 mg PO BID@0800,199905/05/18 [History] Aspirin EC [Ecotrin Low Dose] 81 mg PO DAILY@0800 05/05/18 [History] Escitalopram [Lexapro] 5 mg PO DAILY@0800 05/05/18 [History] Folic Acid 1 mg PO DAILY@0800 05/05/18 [History] Insulin Aspart [NovoLOG Flexpen] See Protocol SQ AC-TID 05/05/18 [History] Levothyroxine Sodium [Synthroid] 75 mcg PO DAILY@0800 05/05/18 [History] Methotrexate Sodium [Methotrexate] 7.5 mg PO FR 05/05/18 [History] Pantoprazole Sodium [Protonix] 40 mg PO BID@0800,199905/05/18 [History] inFLIXimab [Remicade] 100 mg IVPB Q56D 05/05/18 [History] Cyanocobalamin [Vitamin B-12] 500 mcg PO DAILY@0800 05/18/18 [History] Butalb/APAP/Caff 50-325-40Mg [Fioricet 50-325-40] 1 - 2 tab PO Q6H PRN 01/19/19 [History] Colchicine 0.6 mg PO DAILY@0800 01/19/19 [History] Leucovorin Calcium 5 mg PO FRSA 01/19/19 [History] Atorvastatin [Lipitor] 40 mg PO DAILY@0800 02/16/19 [History] Insulin Glargine [Lantus] 6 unit SQ HS 02/16/19 [History] Carvedilol [Coreg] 3.125 mg PO BID@0800,1700 05/12/19 [History] Midodrine HCl [ProAmantine] 2.5 mg PO TID PRN MDD BELOW 110 05/12/19 [History] Lidocaine 4% Cream [Lmx 4] 1 applic TOPICAL QID applic 05/14/19 [Rx] Lisinopril [Zestril] 5 mg PO DAILY@0800 #30 tab 05/14/19 [Rx] Sucralfate [Carafate] 1 gm PO AC-TID #42 tab 05/14/19 [Rx] Follow up Appointment(s)/Referral(s): Rocio Meng MD [STAFF PHYSICIAN] - 05/23/19 10:00 am (WITH [employer]MINISTRATOR) Adin Golden MD [Primary Care Provider] - 1-2 days (OFFICE WILL CALL WITH APPOINTMENT DATE AND TIME) Meghann Jewell MD [STAFF PHYSICIAN] - 06/11/19 2:15 pm (hypertrophic gastritis, BRING PICTURE ID AND INSURANCE CARDS) Patient Instructions/Handouts: Heart Failure (DC), Chest Pain (DC) Discharge Disposition: TRANSFER TO SNF/ECF
[2019-05-14 16:53] LABS: Glucose,Whole Blood 139 mg/dL (75-99)
[2019-05-14 17:25] LABS: Glucose,Whole Blood 115 mg/dL (75-99)
[2019-05-14 20:11] LABS: Glucose,Whole Blood 172 mg/dL (75-99)
[2019-05-15] MEDS: ACETAMINOPHEN TAB 325 MG TAB PO PRN ×2 (05:22→12:04)
[2019-05-15 05:25] VITALS: RESP 18; TEMP 98.2
[2019-05-15 05:56] LABS: Glucose,Whole Blood 211 mg/dL (75-99)
[2019-05-15] MEDS: SUCRALFATE 1 GM TAB PO SCH ×2 (06:19→12:04)
[2019-05-15] MEDS: PANTOPRAZOLE 40 MG TABLET PO SCH (06:19)
[2019-05-15] MEDS: INSULIN ASPART (NovoLOG) 100 UNIT/ML VIAL SQ SCH ×2 (06:19→12:04)
[2019-05-15] MEDS: ATORVASTATIN 40 MG TAB PO SCH (08:20)
[2019-05-15] MEDS: ASPIRIN 81 MG PO SCH (08:20)
[2019-05-15] MEDS: CARVEDILOL 3.125 MG TAB PO SCH (08:20)
[2019-05-15] MEDS: LISINOPRIL 5 MG TAB PO SCH (08:20)
[2019-05-15] MEDS: APIXABAN 2.5 MG TABLET PO SCH (08:20)
--- NOTE | 2019-05-15 08:20 | P.PN ---
Subjective Progress Note Date: 05/14/19 This is a 84-year-old pleasant female with a past medical history of hypertension, hyperlipidemia, diabetes mellitus, sick sinus syndrome status post permanent pacemaker plantation, proximal atrial fibrillation, osteoarthritis, dementia and history of CVA. Patient is followed in the outpatient setting by Dr. Golden. Patient lives at home with her granddaughter and grandson. The patient was brought into the emergency room due to chest pain. Patient states that she was feeling fine at around 10:30 she began to have chest pain and felt lightheaded. She did not feel secure. She was brought into the emergency room where EKG revealed a paced rhythm with a left bundle branch block. Patient denies any shortness of breath or feeling that her heart was racing. Granddaughter stated that around 2:00 her grandmother was feeling fine upon her arrival at home at 10:30 she was found to be not quite herself. At this time patient is resting comfortably in bed without any distress. Patient is up to the commode without any difficulties. Patient denies any chest pain or shortness of breath at this time. Patient does not have any lightheadedness or dizziness upon standing. Patient denies any pain with urination, back pain or frequency. Patient has been afebrile vital signs remained stable. W BC 8.4, hemoglobin 10.3, potassium 4.9, BUN 22, creatinine 1.24, troponin is negative. 05/13: Patient complained of chest pain and weakness blood pressure was 60. Patient had a 18 called. Upon further examination patient stated that the pain was more located in the back thoracic area. Patient denies any urinary issues or chronic back pain. Patient states that she felt very shaky and weak. Hemoglobin did drop by 1 g compared to yesterday. CT of the abdomen and pelvis with oral contrast was ordered to rule out dissection. Influenza swab and Hemoccult ordered. Obtain a urinalysis. to rule out urinary tract infection or GI bleed. Hemoglobin 9.2, BUN 26 creatinine 1.32. Due to the elevated creatinine patient was unable to have IV contrast. 05/14: Urinalysis was clear, leukoesterase moderate, RBCs 8, WBC 8, bacteria rare. Influenza testing negative Patient has been afebrile, heart rate 61, blood pressure 136/66, pulse ox 98% on room air. CAT scan of the abdomen and pelvis without contrast revealed gastric wall thickening in the fundus could relate to hypertrophic gastritis. Mild fat stranding in the paracolic gutters of uncertain significance. This could relate to old inflammatory disease. No renal stones or obstruction. A cardiology has been following the patient with no further cardiac workup at this time. He Was recommended for the right upper back scapular area for spasms and continue current medications. Patient also has lidocaine gel and Tylenol for pain Echocardiogram reveals EF of 55-60% with moderate concentric left hypertrophy, LV mildly dilated 29-33 mL/M2, mild aortic valve sclerosis, mild mitral regurgitation, mild tricuspid regurgitation, mild pulmonary hypertension, small pericardial effusion of the left ventricle. Patient was prepared for discharge home by patient's guardian has contacted case monitor and guardian wants patient to go to [facility]. Social work is working on discharge. Review Of Systems: Constitutional: No fever, reports chills, no night sweats. No weight change. Reports weakness, no fatigue or lethargy. No daytime sleepiness. Reported lightheadedness EENT: No headache. No blurred vision or double vision, no loss of vision. No loss of Hearing, no ringing in the ears, no dizziness. No nasal drainage or congestion. No epistaxis. No sore throat. Lungs: No shortness of breath, cough, no sputum production. No wheezing. Cardiovascular: Reported chest pain which is resolved No chest pain, no lower extremity edema. No palpitations. No paroxysmal nocturnal dyspnea. No orthopnea. No lightheadedness or dizziness. No syncopal episodes. Abdominal: no abdominal discomfort. No nausea, vomiting. no diarrhea. No constipation. No bloody or tarry stools. no loss of appetite. Genitourinary: No dysuria, increased frequency, urgency. No urinary retention. Musculoskeletal: Reports myalgias. No muscle weakness, no gait dysfunction, no frequent falls. Reports back pain thoracic. No neck pain. Integumentary: No wounds, no lesions. No rash or pruritus. No unusual bruising. No change in hair or nails. Neurologic: No aphasia. No facial droop. reports change in mentation--baseline. No head injury. No headache. No paralysis. No paresthesia. Psychiatric: No depression. No anxiety. No mood swings. Endocrine: No abnormal blood sugars. No weight change. No excessive sweating or thirst. Objective - Vital Signs Vital signs: Vital Signs Temp 98.2 F 05/14/19 04:00 Pulse 61 05/14/19 04:00 Resp 16 05/14/19 04:00 BP 136/66 05/14/19 04:00 Pulse Ox 98 05/14/19 04:00 Intake & Output 05/13/19 05/14/19 05/14/19 18:59 06:59 18:59 Intake Total 120 Output Total 300 650 Balance -180 -650 Weight 65 kg 65.5 kg Intake: Oral 120 Output: Urine 300 650 Other: Voiding Method Toilet Toilet # Voids 1 1 # Bowel Movements 0 - Exam General Appearance: Alert, cooperative, no moderate distress, appears stated age. Shaking from chills. Neck HEENT: Supple, no lymphadenopathy, no thyroid enlargement, no carotid bruits. Lungs: Clear to auscultation without crackles or wheezes no rhonchi, no deformity. Chest Wall: Chest wall normal expansion with deep inspiration no tenderness and no deformity was found on exam, no costochondral pain or discomfort. Heart: Regular rate and rhythm, S1, S2 normal, no murmur, rub or gallop. Back: Tenderness to the thoracic spine with palpation Symmetric, no curvature, ROM normal, no CVA tenderness. Abdomen: Soft, non-tender, no rebound or rigidity, no hepatosplenomegaly. Extremities: Extremities normal, atraumatic, no cyanosis or edema. Pulses: 2+ and symmetric. Skin: Skin color, texture, tugor normal, no rashes or lesions. Neurologic: Alert oriented to person and place, cranial nerves II through XII intact, no motor deficit, no abnormal balance or gait - Labs CBC & Chem 7: 05/13/19 05:22 05/13/19 05:22 Labs: Abnormal Lab Results - Last 24 Hours (Table) 05/13/19 05/13/19 05/13/19 Range/Units 11:08 11:33 16:40 POC Glucose (mg/dL) 200 H 214 H 190 H (75-99) mg/dL Urine Protein (Negative) Ur Leukocyte Esterase (Negative) Urine RBC (0-5) /hpf Urine WBC (0-5) /hpf Urine Bacteria (None) /hpf Urine Mucus (None) /hpf 05/13/19 05/14/19 05/14/19 Range/Units 20:04 00:26 06:11 POC Glucose (mg/dL) 224 H 184 H (75-99) mg/dL Urine Protein Trace H (Negative) Ur Leukocyte Esterase Moderate H (Negative) Urine RBC 8 H (0-5) /hpf Urine WBC 8 H (0-5) /hpf Urine Bacteria Rare H (None) /hpf Urine Mucus Rare H (None) /hpf Assessment and Plan Plan: 1. Atypical chest pain. Cardiology consult reviewed, 2-D echo shows paced rhythm, EF of 55-60%, mild aortic valve sclerosis, mild mitral regurgitation and tricuspid regurgitation and mild pulmonary hypertension.. Increase lisinopril to 5 mg, resume elquis, atorvastatin, carvedilol and aspirin. Influenza swab 2. Sudden onset Thoracic back pain with chills and hypotension. CT of chest ruled out dissection and/or compression fractures. Hemoccult to rule out gastroparesis. Lidocaine cream to thoracic and lumbar spine as needed for pain control. 3. Abdominal pain possible gastric paresis. Hemoccult. Consult GI. Obtain urinalysis to rule out UTI. 4. Proximal atrial fibrillation on long-term anticoagulant. Continue elquis 5. Hypertension. Continue carvedilol and increased to Lopressor 6. Diabetes, Accu-Cheks before meals at bedtime, insulin sliding scale 7. Hyperlipidemia. Continue atorvastatin 8. Sick sinus syndrome status post permanent pacemaker implantation 9. Dementia, stable 10. History of CVA TIA 11. Osteoarthritis. Stable. Consult occupational/physical therapy 12. DVT prophylaxis. Continue Elquis 13. GI prophylaxis. Protonix 40 mg IV daily Discharge plan: [facility] once arrangements are completed Impression and plan of care have been directed as dictated by the signing physician. Sharmaine Fang nurse practitioner acting as scribe for signing physician.
[2019-05-15] MEDS: LIDOCAINE 4% CREAM 5 GM TUBE TOPICAL SCH (09:00)
[2019-05-15 09:38] VITALS: BP 102/47; PULSE 62
[2019-05-15 11:48] LABS: Glucose,Whole Blood 254 mg/dL (75-99)
== END 2019-05-15 12:56 | DRG 313 ==
LOC: EC 03:02 → EEVIPCON 03:02 → 3SCARD 06:39
PROVIDERS: ADMIT Family Medicine; ATTEND Family Medicine
DX: R07.89 Other chest pain (principal); I31.3 Pericardial effusion (noninflammatory); E11.65 Type 2 diabetes mellitus with hyperglycemia; E78.5 Hyperlipidemia, unspecified; F03.90 Unspecified dementia, unspecified severity, without behavioral disturbance, psychotic disturbance, mood disturbance, and anxiety; F32.9 Major depressive disorder, single episode, unspecified; I11.0 Hypertensive heart disease with heart failure; I27.20 Pulmonary hypertension, unspecified; I44.7 Left bundle-branch block, unspecified; I48.0 Paroxysmal atrial fibrillation; I50.9 Heart failure, unspecified; J44.9 Chronic obstructive pulmonary disease, unspecified; K29.60 Other gastritis without bleeding; M06.9 Rheumatoid arthritis, unspecified; M19.90 Unspecified osteoarthritis, unspecified site; Z79.01 Long term (current) use of anticoagulants; Z79.4 Long term (current) use of insulin; Z79.82 Long term (current) use of aspirin; Z79.890 Hormone replacement therapy; Z79.899 Other long term (current) drug therapy; Z85.528 Personal history of other malignant neoplasm of kidney; Z86.73 Personal history of transient ischemic attack (TIA), and cerebral infarction without residual deficits; Z90.710 Acquired absence of both cervix and uterus; Z95.0 Presence of cardiac pacemaker; Z99.81 Dependence on supplemental oxygen; Z90.5 Acquired absence of kidney; Z90.49 Acquired absence of other specified parts of digestive tract; M54.6 Pain in thoracic spine; Z98.51 Tubal ligation status; Z88.5 Allergy status to narcotic agent; Z88.0 Allergy status to penicillin; Z88.1 Allergy status to other antibiotic agents; Z91.041 Radiographic dye allergy status; Z91.040 Latex allergy status; I08.3 Combined rheumatic disorders of mitral, aortic and tricuspid valves; R41.3 Other amnesia
CPT/HCPCS: 36415; 71046; 74176; 80048; 80053; 80061; 81001; 83735; 83880; 84484; 85025; 85610; 85730; 87502; 93005; 93306; 96361; 96365; 96375; 99285

== ENCOUNTER 2019-06-20 12:05 | Inpatient (IN) | payer MEDICARE, OTHER ==
--- NOTE | 2019-06-20 12:43 | ED ---
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 She is accompanied by her granddaughter who is able to give a history. She is currently on [place] with history of atrial fibrillation. She has history of dementia. There is no reported hematuria, no rectal bleeding, no melena. Denies pain complaints, no chest pain or dyspnea, no abdominal pain. No v omiting or diarrhea. She's had increasing fatigue and generalized weakness. - Related Data Home Medications Medication Instructions Recorded Confirmed Allopurinol [Zyloprim] 100 mg PO DAILY@0800 05/05/18 05/12/19 Apixaban [Eliquis] 2.5 mg PO BID@0800,199905/05/18 05/12/19 Aspirin EC [Ecotrin Low Dose] 81 mg PO DAILY@0800 05/05/18 05/12/19 Escitalopram [Lexapro] 5 mg PO DAILY@0800 05/05/18 05/12/19 Folic Acid 1 mg PO DAILY@0800 05/05/18 05/12/19 Insulin Aspart [NovoLOG Flexpen] See Protocol SQ AC-TID 05/05/18 05/12/19 Levothyroxine Sodium [Synthroid] 75 mcg PO DAILY@0800 05/05/18 05/12/19 Methotrexate Sodium [Methotrexate] 7.5 mg PO 05/05/18 05/12/19 Pantoprazole Sodium [Protonix] 40 mg PO BID@0800,199905/05/18 05/12/19 inFLIXimab [Remicade] 100 mg IVPB Q56D 05/05/18 05/12/19 Cyanocobalamin [Vitamin B-12] 500 mcg PO DAILY@0800 05/18/18 05/12/19 Colchicine 0.6 mg PO DAILY@0800 01/19/19 05/12/19 Leucovorin Calcium 5 mg PO FR01/19/19 05/12/19 Atorvastatin [Lipitor] 40 mg PO DAILY@0800 02/16/19 05/12/19 Insulin Glargine [Lantus] 6 unit SQ HS 02/16/19 05/12/19 Carvedilol [Coreg] 3.125 mg PO BID@0800,1700 05/12/19 05/12/19 Midodrine HCl [ProAmantine] 2.5 mg PO TID PRN MDD BELOW 110 05/12/19 05/12/19 Previous Rx's Medication Instructions Recorded Lidocaine 4% Cream [Lmx 4] 1 applic TOPICAL QID applic 05/14/19 Lisinopril [Zestril] 5 mg PO DAILY@0800 #30 tab 05/14/19 Sucralfate [Carafate] 1 gm PO AC-TID #42 tab 05/14/19 Butalb/APAP/Caff 50-325-40Mg 1 - 2 tab PO Q6H PRN #20 tab 05/15/19 [Fioricet 50-325-40] Allergies Allergy/AdvReac Type Severity Reaction Status Date / Time baclofen Allergy Unknown Verified 06/20/19 12:16 cefdinir [From Omnicef] Allergy Unknown Verified 06/20/19 12:16 ciprofloxacin Allergy Unknown Verified 06/20/19 12:16 codeine Allergy Unknown Verified 06/20/19 12:16 hydrocodone Allergy Unknown Verified 06/20/19 12:16 Iodinated Contrast Media Allergy Unknown Verified 06/20/19 12:16 [Iodinated Contrast- Oral and IV Dye] latex Allergy Unknown Verified 06/20/19 12:16 ofloxacin [From Floxin] Allergy Unknown Verified 06/20/19 12:16 Penicillins Allergy Unknown Verified 06/20/19 12:16 promethazine [From Phenergan] Allergy Unknown Verified 06/20/19 12:16 sulfadiazine Allergy Unknown Verified 06/20/19 12:16 sulfamethoxazole Allergy Unknown Verified 06/20/19 12:16 [From Bactrim] Tetracyclines Allergy Unknown Verified 06/20/19 12:16 theophylline [From Ángel-Dur] Allergy Unknown Verified 06/20/19 12:16 tramadol Allergy Unknown Verified 06/20/19 12:16 trimethoprim [From Bactrim] Allergy Unknown Verified 06/20/19 12:16 Review of Systems ROS Statement: Those systems with pertinent positive or pertinent negative responses have been documented in the HPI. ROS Other: All systems not noted in ROS Statement are negative. Past Medical History Past Medical History: CVA/TIA, Dementia, Diabetes Mellitus, Hyperlipidemia, Hypertension, Memory Impairment, Osteoarthritis (OA) Additional Past Medical History / Comment(s): RA has injections mediport q 6 weeks, Kidney cancer no chemo or radiation skin cancer arms History of Any Multi-Drug Resistant Organisms: None Reported Past Surgical History: Adenoidectomy, Section, Hysterectomy, Orthopedic Surgery, Pacemaker, Tonsillectomy, Tubal Ligation Additional Past Surgical History / Comment(s): mediport for arthritis medication, 1/3 kidney removed for CA Past Anesthesia/Blood Transfusion Reactions: No Reported Reaction Type of Cardiac Device: Permanent Pacemaker, AICD Device Placement Date:: 05/12/2017 Past Psychological History: Depression Smoking Status: Never smoker Past Alcohol Use History: None Reported Past Drug Use History: None Reported - Past Family History Father History Unknown: Yes Additional Family Medical History / Comment(s): Father at age 73 from heart disease. Mother Additional Family Medical History / Comment(s): Mother at age 76 from heart disease. Brother(s) Additional Family Medical History / Comment(s): Patient has 2 brothers with no major medical problems. Daughter(s) Additional Family Medical History / Comment(s): Patient has 2 daughters and 1 as an . Patient has one son with no major medical problems. General Exam Limitations: altered mental status General appearance: alert, in no apparent distress Head exam: Present: atraumatic, normocephalic Eye exam: Present: normal appearance, PERRL ENT exam: Present: normal exam Neck exam: Present: normal inspection. Absent: tenderness, meningismus Respiratory exam: Present: normal lung sounds bilaterally. Absent: respiratory distress, wheezes Cardiovascular Exam: Present: regular rate, normal rhythm GI/Abdominal exam: Present: soft. Absent: distended, tenderness Rectal exam: Present: normal inspection, normal rectal tone. Absent: black stool, bloody stool Extremities exam: Present: normal inspection, normal capillary refill. Absent: pedal edema Neurological exam: Present: alert, oriented X3, CN II-XII intact. Absent: motor sensory deficit Psychiatric exam: Present: normal affect, normal mood Skin exam: Present: warm, dry, intact. Absent: cyanosis, diaphoretic Course Vital Signs 06/20/19 12:13 Temperature 97.7 F Pulse Rate 60 Respiratory 20 Rate Blood Pressure 113/70 O2 Sat by Pulse 99 Oximetry EKG Findings - EKG Comments: EKG Findings:: EKG: EKG paced rhythm, rate of 60, QRS duration 160, QTC 484 Medical Decision Making - Medical Decision Making 84-year-old female presenting with increased fatigue, anemia on outpatient laboratory testing. Patient sent in by primary care physician for evaluation. Hemoglobin is rechecked in the emergency department, at 7.6. No active signs of bleeding, no melena, Hemoccult is negative. She has creatinine which is mildly elevated but stable from baseline. She has a magnesium 1.2 which may be contributory to her symptoms and this is replaced with 2 g of IV magnesium. Hemoglobin will be monitored closely as she did drop over 2 g from recent baseline. I discussed case with the admitting physician Dr. Moore who will admit. GI placed on consult. - Lab Data Result diagrams: 06/20/19 13:00 06/20/19 13:00 Lab Results 06/20/19 06/20/19 06/20/19 Range/Units 13:00 13:00 13:00 WBC 6.8 (3.8-10.6) k/uL RBC 2.54 L (3.80-5.40) m/uL Hgb 7.6 L D (11.4-16.0) gm/dL Hct 24.5 L (34.0-46.0) % MCV 96.4 (80.0-100.0) fL MCH 30.1 (25.0-35.0) pg MCHC 31.2 (31.0-37.0) g/dL RDW 16.8 H (11.5-15.5) % Plt Count 350 (150-450) k/uL Neutrophils % 69 % Lymphocytes % 19 % Monocytes % 8 % Eosinophils % 1 % Basophils % 0 % Neutrophils # 4.7 (1.3-7.7) k/uL Lymphocytes # 1.3 (1.0-4.8) k/uL Monocytes # 0.6 (0-1.0) k/uL Eosinophils # 0.1 (0-0.7) k/uL Basophils # 0.0 (0-0.2) k/uL Hypochromasia Moderate Anisocytosis Slight Macrocytosis Slight PT 10.9 (9.0-12.0) sec INR 1.1 (<1.2) APTT 34.0 H (22.0-30.0) sec Sodium 137 (137-145) mmol/L Potassium 4.5 (3.5-5.1) mmol/L Chloride 105 (98-107) mmol/L Carbon Dioxide 21 L (22-30) mmol/L Anion Gap 11 mmol/L BUN 25 H (7-17) mg/dL Creatinine 1.37 H (0.52-1.04) mg/dL Est GFR (CKD-EPI)AfAm 42 (>60 ml/min/1.73 sqM) Est GFR (CKD-EPI)NonAf 36 (>60 ml/min/1.73 sqM) Glucose 197 H (74-99) mg/dL Calcium 8.4 (8.4-10.2) mg/dL Magnesium 1.2 L (1.6-2.3) mg/dL Total Bilirubin 0.5 (0.2-1.3) mg/dL AST 20 (14-36) U/L ALT 8 (4-34) U/L Alkaline Phosphatase 97 (38-126) U/L Total Protein 6.7 (6.3-8.2) g/dL Albumin 2.8 L (3.5-5.0) g/dL Stool Occult Blood (Negative) Blood Type Blood Type Recheck Bld Type Recheck Status Antibody Screen Spec Expiration Date 06/20/19 06/20/19 Range/Units 13:00 13:42 WBC (3.8-10.6) k/uL RBC (3.80-5.40) m/uL Hgb (11.4-16.0) gm/dL Hct (34.0-46.0) % MCV (80.0-100.0) fL MCH (25.0-35.0) pg MCHC (31.0-37.0) g/dL RDW (11.5-15.5) % Plt Count (150-450) k/uL Neutrophils % % Lymphocytes % % Monocytes % % Eosinophils % % Basophils % % Neutrophils # (1.3-7.7) k/uL Lymphocytes # (1.0-4.8) k/uL Monocytes # (0-1.0) k/uL Eosinophils # (0-0.7) k/uL Basophils # (0-0.2) k/uL Hypochromasia Anisocytosis Macrocytosis PT (9.0-12.0) sec INR (<1.2) APTT (22.0-30.0) sec Sodium (137-145) mmol/L Potassium (3.5-5.1) mmol/L Chloride (98-107) mmol/L Carbon Dioxide (22-30) mmol/L Anion Gap mmol/L BUN (7-17) mg/dL Creatinine (0.52-1.04) mg/dL Est GFR (CKD-EPI)AfAm (>60 ml/min/1.73 sqM) Est GFR (CKD-EPI)NonAf (>60 ml/min/1.73 sqM) Glucose (74-99) mg/dL Calcium (8.4-10.2) mg/dL Magnesium (1.6-2.3) mg/dL Total Bilirubin (0.2-1.3) mg/dL AST (14-36) U/L ALT (4-34) U/L Alkaline Phosphatase (38-126) U/L Total Protein (6.3-8.2) g/dL Albumin (3.5-5.0) g/dL Stool Occult Blood Negative (Negative) Blood Type O Positive Blood Type Recheck No Previous Record Bld Type Recheck Status CABO Indicated Antibody Screen NEGATIVE Spec Expiration Date 06/23/2019 - 234 Disposition Clinical Impression: Hypomagnesemia, Anemia Disposition: ADMITTED IP TO THIS [facility] Condition: Stable Is patient prescribed a controlled substance at d/c from ED?: No Referrals: Adin Golden MD [Primary Care Provider] - 1-2 days Decision to Admit Reason: Admit from EC Decision Date: 06/20/19 Decision Time: 14:25
[2019-06-20 13:31] LABS: Albumin 2.8 g/dL (3.5-5.0); Calcium 8.4 mg/dL (8.4-10.2); Magnesium 1.2 mg/dL (1.6-2.3); Potassium 4.5 mmol/L (3.5-5.1); Total Bilirubin 0.5 mg/dL (0.2-1.3); Total Protein 6.7 g/dL (6.3-8.2)
[2019-06-20 13:59] LABS: INR 1.1 (<1.2); Prothrombin Time 10.9 sec (9.0-12.0)
[2019-06-20 14:00] LABS: Anisocytosis Slight; Basophils % (A) 0 %; Eosinophils # (A) 0.1 k/uL (0-0.7); Eosinophils % (A) 1 %; HCT 24.5 % (34.0-46.0); Hypochromasia Moderate; Lymphocytes # (A) 1.3 k/uL (1.0-4.8); Lymphocytes % (A) 19 %; MCH 30.1 pg (25.0-35.0); MCHC 31.2 g/dL (31.0-37.0); MCV 96.4 fL (80.0-100.0); Macrocytosis Slight; Mean Platelet Volume 10.1; Monocytes # (A) 0.6 k/uL (0-1.0); Monocytes % (A) 8 %; Neutrophils # (A) 4.7 k/uL (1.3-7.7); Neutrophils % (A) 69 %; Platelet Count 350 k/uL (150-450); RBC 2.54 m/uL (3.80-5.40); RDW 16.8 % (11.5-15.5); WBC 6.8 k/uL (3.8-10.6)
[2019-06-20] MEDS: MAGNESIUM SULFATE-D5W PMX 1 GM in DEXTROSE/WATER 1 100ML.BAG IVPB SCH ×2 (14:12→15:14)
[2019-06-20 14:17] LABS: HGB 7.6 gm/dL (11.4-16.0)
[2019-06-20] MEDS ORDERED: PANTOPRAZOLE 40 MG/10 ML VIAL IVP STA (14:20)
[2019-06-20] MEDS ORDERED: NALOXONE 0.4 MG/ML 1 ML VIAL IV PRN (14:21)
[2019-06-20] MEDS: CARVEDILOL 3.125 MG TAB PO SCH (19:23)
[2019-06-20] MEDS: ACETAMINOPHEN TAB 325 MG TAB PO PRN (19:32)
[2019-06-20] MEDS: SODIUM CHLORIDE 0.9% 1,000 ML IV SCH (19:32)
[2019-06-20] MEDS: PANTOPRAZOLE 40 MG/10 ML VIAL IVP SCH (21:00)
[2019-06-20 22:50] LABS: Anisocytosis Slight; Basophils % (A) 1 %; Eosinophils # (A) 0.1 k/uL (0-0.7); Eosinophils % (A) 2 %; HCT 22.4 % (34.0-46.0); Hypochromasia Moderate; Lymphocytes # (A) 1.5 k/uL (1.0-4.8); Lymphocytes % (A) 30 %; MCH 29.6 pg (25.0-35.0); MCHC 30.9 g/dL (31.0-37.0); MCV 95.8 fL (80.0-100.0); Macrocytosis Slight; Mean Platelet Volume 8.9; Monocytes # (A) 0.5 k/uL (0-1.0); Monocytes % (A) 9 %; Neutrophils # (A) 2.9 k/uL (1.3-7.7); Neutrophils % (A) 56 %; Platelet Count 311 k/uL (150-450); RBC 2.33 m/uL (3.80-5.40); RDW 16.9 % (11.5-15.5); WBC 5.2 k/uL (3.8-10.6)
[2019-06-20 23:21] LABS: HGB 6.9 gm/dL (11.4-16.0)
[2019-06-21 07:22] LABS: Glucose,Whole Blood 152 mg/dL (75-99)
[2019-06-21 08:24] LABS: Albumin 2.8 g/dL (3.5-5.0); Calcium 8.9 mg/dL (8.4-10.2); Magnesium 1.7 mg/dL (1.6-2.3); Potassium 4.7 mmol/L (3.5-5.1); Total Bilirubin 0.7 mg/dL (0.2-1.3); Total Protein 6.6 g/dL (6.3-8.2)
[2019-06-21] MEDS ORDERED: ASPIRIN 81 MG PO SCH (10:00)
[2019-06-21] MEDS ORDERED: amLODIPine 10 MG TAB PO SCH (10:00)
[2019-06-21] MEDS ORDERED: APIXABAN 2.5 MG TABLET PO SCH (10:00)
[2019-06-21 10:22] LABS: Anisocytosis Slight; Basophils % (A) 0 %; Eosinophils # (A) 0.1 k/uL (0-0.7); Eosinophils % (A) 1 %; HCT 26.5 % (34.0-46.0); Hypochromasia Moderate; Lymphocytes # (A) 0.8 k/uL (1.0-4.8); Lymphocytes % (A) 14 %; MCHC 30.2 g/dL (31.0-37.0); MCV 96.1 fL (80.0-100.0); Macrocytosis Slight; Mean Platelet Volume 8.9; Monocytes # (A) 0.4 k/uL (0-1.0); Monocytes % (A) 7 %; Neutrophils # (A) 4.4 k/uL (1.3-7.7); Neutrophils % (A) 76 %; Platelet Count 318 k/uL (150-450); RBC 2.76 m/uL (3.80-5.40); RDW 16.5 % (11.5-15.5); WBC 5.8 k/uL (3.8-10.6)
[2019-06-21] MEDS: CARVEDILOL 3.125 MG TAB PO SCH ×2 (11:02→18:05)
[2019-06-21] MEDS: PANTOPRAZOLE 40 MG/10 ML VIAL IVP SCH ×2 (11:02→20:25)
[2019-06-21] MEDS: ALLOPURINOL 100 MG TAB PO SCH (11:02)
[2019-06-21] MEDS: ATORVASTATIN 40 MG TAB PO SCH (11:02)
[2019-06-21] MEDS: ESCITALOPRAM 5 MG TAB PO SCH (11:04)
[2019-06-21 11:37] LABS: Glucose,Whole Blood 161 mg/dL (75-99)
[2019-06-21] MEDS: BUTALB/APAP/CAFF 50-325-40MG TAB PO PRN (12:56)
[2019-06-21] MEDS: INSULIN ASPART (NovoLOG) 100 UNIT/ML VIAL SQ SCH ×3 (12:56→20:24)
--- NOTE | 2019-06-21 14:30 | P.HPIM ---
History of Present Illness H&P Date: 06/21/19 Chief Complaint: anemia This is an 84-year-old female patient of Dr. Golden with past medical history of rheumatoid arthritis on Remicade and methotrexate, renal cancer status post resection, hypertension, hyperlipidemia, diabetes mellitus, sick sinus syndrome status post permanent pacemaker, paroxysmal atrial fibrillation, osteoarthritis, vascular dementia and history of CVA. Patient was seen by PCP and due to a hemoglobin of 7 she was instructed to come into the hospital for further evaluation. Patient denies having any nausea vomiting no abdominal pain, no blood or tarry stools. No recent diarrhea. She has had increasing fatigue and generalized weakness. She denies any chest pain or shortness of breath. Patient is a poor historian. Patient presented to [facility] emergency center for evaluation. Vital signs were stable, afebrile, pulse ox 99%. Hemoglobin 7.6, WBC 6.8 and platelet count 350. Stool for occult blood was negative. Magnesium 1.2 and was replaced in the emergency center. CO2 21, BUN 25 and creatinine 1.37, blood sugar 197. INR 1.1. Liver function tests were normal. EKG was a paced rhythm. Patient admitted to the Medr floor and consult in place with GI. Review of Systems Constitutional: Reports fatigue, Reports weakness, Denies chills, Denies fever, Denies lethargy, Denies malaise, Denies poor appetite, Denies weight loss Eyes: denies blurred vision, denies pain Ears, nose, mouth and throat: Denies dysphagia, Denies headache, Denies nasal congestion, Denies nasal discharge, Denies sore throat, Denies vertigo Cardiovascular: Denies chest pain, Denies decreased exercise tolerance, Denies dyspnea on exertion, Denies leg edema, Denies lightheadedness, Denies shortness of breath, Denies syncope Respiratory: Denies cough, Denies cough with sputum, Denies dyspnea, Denies excessive sputum, Denies hemoptysis, Denies home oxygen, Denies respiratory infections Gastrointestinal: Denies abdominal pain, Denies diarrhea, Denies loss of appetite, Denies nausea, Denies vomiting Genitourinary: Denies dysuria, Denies hematuria, Denies urgency, Denies urinary frequency Musculoskeletal: Reports muscle weakness, Denies frequent falls, Denies gait dysfunction, Denies myalgias Integumentary: Denies pruritus, Denies rash, Denies wounds Neurological: Denies change in mentation, Denies change in speech, Denies gait dysfunction, Denies numbness, Denies seizures, Denies weakness Psychiatric: Denies anxiety, Denies depression Endocrine: Denies fatigue, Denies weight change Past Medical History Past Medical History: CVA/TIA, Dementia, Diabetes Mellitus, Hyperlipidemia, Hypertension, Memory Impairment, Osteoarthritis (OA) Additional Past Medical History / Comment(s): RA has injections mediport q 6 weeks, Kidney cancer no chemo or radiation skin cancer arms History of Any Multi-Drug Resistant Organisms: None Reported Past Surgical History: Adenoidectomy, Section, Hysterectomy, Orthopedic Surgery, Pacemaker, Tonsillectomy, Tubal Ligation Additional Past Surgical History / Comment(s): mediport for arthritis medication, 1/3 kidney removed for CA Past Anesthesia/Blood Transfusion Reactions: No Reported Reaction Type of Cardiac Device: Permanent Pacemaker, AICD Device Placement Date:: 05/12/2017 Past Psychological History: Depression Smoking Status: Never smoker Past Alcohol Use History: None Reported Additional Past Alcohol Use History / Comment(s): Patient is a lifelong nonsmoker. She denies illicit drug use or alcohol use. She lives at home with her granddaughter and grandson. Granddaughter is legal guardian. She does not have home oxygen, no nebulizer no CPAP. Patient does not drive. She uses a walker for ambulation. Past Drug Use History: None Reported - Past Family History Father History Unknown: Yes Additional Family Medical History / Comment(s): Father at age 73 from heart disease. Mother Additional Family Medical History / Comment(s): Mother at age 76 from heart disease. Brother(s) Additional Family Medical History / Comment(s): Patient has 2 brothers with no major medical problems. Daughter(s) Additional Family Medical History / Comment(s): Patient has 2 daughters and 1 as an . Patient has one son with no major medical problems. Medications and Allergies Home Medications Medication Instructions Recorded Confirmed Type Allopurinol [Zyloprim] 100 mg PO DAILY 05/05/18 06/20/19 History Apixaban [Eliquis] 2.5 mg PO BID 05/05/18 06/20/19 History Aspirin EC [Ecotrin Low Dose] 81 mg PO DAILY 05/05/18 06/20/19 History Escitalopram [Lexapro] 5 mg PO DAILY 05/05/18 06/20/19 History Folic Acid 1 mg PO DAILY 05/05/18 06/20/19 History Insulin Aspart [NovoLOG Flexpen] See Protocol SQ AC-TID 05/05/18 06/20/19 History Levothyroxine Sodium [Synthroid] 75 mcg PO DAILY 05/05/18 06/20/19 History Methotrexate Sodium [Methotrexate] 7.5 mg PO FR 05/05/18 06/20/19 History Pantoprazole Sodium [Protonix] 40 mg PO BID 05/05/18 06/20/19 History Colchicine 0.6 mg PO DAILY 01/19/19 06/20/19 History Leucovorin Calcium 5 mg PO FRSA 01/19/19 06/20/19 History Atorvastatin [Lipitor] 40 mg PO DAILY 02/16/19 06/20/19 History Carvedilol [Coreg] 3.125 mg PO BID 05/12/19 06/20/19 History Butalb/APAP/Caff 50-325-40Mg 1 - 2 tab PO Q6H PRN #20 tab 05/15/19 06/20/19 Rx [Fioricet 50-325-40] Insulin Aspart [NovoLOG Flexpen] 5 units SQ AC-TID 06/20/19 06/20/19 History Insulin Glargine,Hum.rec.anlog 10 unit SQ HS 06/20/19 06/20/19 History [Lantus Solostar] Lisinopril [Zestril] 2.5 mg PO DAILY 06/20/19 06/20/19 History Midodrine HCl [ProAmatine] 10 mg PO TID 06/20/19 06/20/19 History amLODIPine [Norvasc] 10 mg PO DAILY 06/20/19 06/20/19 History inFLIXimab [Remicade] 100 mg IVPB Q35D 06/20/19 06/20/19 History Allergies Allergy/AdvReac Type Severity Reaction Status Date / Time baclofen Allergy Unknown Verified 06/20/19 15:56 cefdinir [From Omnicef] Allergy Unknown Verified 06/20/19 15:56 ciprofloxacin Allergy Unknown Verified 06/20/19 15:56 codeine Allergy Unknown Verified 06/20/19 15:56 hydrocodone Allergy Unknown Verified 06/20/19 15:56 Iodinated Contrast Media Allergy Unknown Verified 06/20/19 15:56 [Iodinated Contrast- Oral and IV Dye] latex Allergy Unknown Verified 06/20/19 15:56 ofloxacin [From Floxin] Allergy Unknown Verified 06/20/19 15:56 Penicillins Allergy Unknown Verified 06/20/19 15:56 promethazine [From Phenergan] Allergy Unknown Verified 06/20/19 15:56 sulfadiazine Allergy Unknown Verified 06/20/19 15:56 sulfamethoxazole Allergy Unknown Verified 06/20/19 15:56 [From Bactrim] Tetracyclines Allergy Unknown Verified 06/20/19 15:56 theophylline [From Ángel-Dur] Allergy Unknown Verified 06/20/19 15:56 tramadol Allergy Unknown Verified 06/20/19 15:56 trimethoprim [From Bactrim] Allergy Unknown Verified 06/20/19 15:56 Physical Exam Vitals: Vital Signs Temp Pulse Pulse Resp BP BP Pulse Ox 06/21/19 07:24 98.6 F 57 L 16 163/80 100 06/21/19 04:40 98.2 F 61 16 149/72 99 06/21/19 02:12 97.6 F 61 16 137/71 98 06/21/19 01:42 97.7 F 61 16 143/71 98 06/21/19 01:32 97.8 F 60 16 143/74 99 06/21/19 00:03 97.6 F 62 16 125/65 100 06/20/19 22:30 60 17 130/58 96 06/20/19 22:00 60 16 122/57 95 06/20/19 21:30 60 11 L 127/54 97 06/20/19 21:00 10 L 129/62 97 06/20/19 20:30 60 19 135/67 95 06/20/19 20:00 60 14 127/68 98 06/20/19 19:30 60 18 130/65 100 06/20/19 19:00 61 18 126/62 95 06/20/19 18:30 60 12 122/58 06/20/19 18:00 60 11 L 124/63 06/20/19 17:30 60 15 127/60 96 06/20/19 17:00 60 16 127/63 97 06/20/19 16:30 60 14 123/63 97 06/20/19 16:00 60 12 121/61 96 06/20/19 15:30 60 15 125/62 95 06/20/19 15:00 60 19 131/65 06/20/19 14:30 60 16 128/64 97 06/20/19 14:00 60 13 126/61 06/20/19 13:30 60 16 137/69 96 06/20/19 13:00 59 L 12 133/65 100 06/20/19 12:49 60 19 98 06/20/19 12:13 97.7 F 60 20 113/70 99 Intake and Output 06/20/19 06/21/19 06/21/19 22:59 06:59 14:59 Intake Total 310 Balance 310 Intake: Blood Product 310 Rc As-1 Unit 310 [id number] Other: Voiding Method Toilet # Voids 1 Weight 64.546 kg Gen: This is an 84-year-old female. Patient is sitting up in bed and appears to be comfortable and in no acute distress. HEENT: Head is atraumatic, normocephalic. Pupils equal, round. Sclerae is anicteric. NECK: Supple. No JVD. No lymphadenopathy. No thyromegaly. LUNGS: Clear to auscultation. No wheezes or rhonchi. No intercostal retractions. HEART: Regular rate and rhythm. No murmur. ABDOMEN: Soft. Bowel sounds are present. No masses. No tenderness. EXTREMITIES: No pedal edema. No calf tenderness. NEUROLOGICAL: Patient is awake, alert and oriented to person. Generalized weakness noted Results CBC & Chem 7: 06/21/19 09:38 06/21/19 06:37 Labs: Abnormal Lab Results - Last 24 Hours (Table) 06/20/19 06/20/19 06/20/19 Range/Units 13:00 13:00 13:00 RBC 2.54 L (3.80-5.40) m/uL Hgb 7.6 L D (11.4-16.0) gm/dL Hct 24.5 L (34.0-46.0) % MCHC (31.0-37.0) g/dL RDW 16.8 H (11.5-15.5) % APTT 34.0 H (22.0-30.0) sec Sodium (137-145) mmol/L Chloride (98-107) mmol/L Carbon Dioxide 21 L (22-30) mmol/L BUN 25 H (7-17) mg/dL Creatinine 1.37 H (0.52-1.04) mg/dL Glucose 197 H (74-99) mg/dL POC Glucose (mg/dL) (75-99) mg/dL Magnesium 1.2 L (1.6-2.3) mg/dL Albumin 2.8 L (3.5-5.0) g/dL Crossmatch 06/20/19 06/20/19 06/21/19 Range/Units 13:42 22:35 06:37 RBC 2.33 L (3.80-5.40) m/uL Hgb 6.9 L* (11.4-16.0) gm/dL Hct 22.4 L (34.0-46.0) % MCHC 30.9 L (31.0-37.0) g/dL RDW 16.9 H (11.5-15.5) % APTT (22.0-30.0) sec Sodium 136 L (137-145) mmol/L Chloride 108 H (98-107) mmol/L Carbon Dioxide 19 L (22-30) mmol/L BUN 22 H (7-17) mg/dL Creatinine 1.32 H (0.52-1.04) mg/dL Glucose 144 H (74-99) mg/dL POC Glucose (mg/dL) (75-99) mg/dL Magnesium (1.6-2.3) mg/dL Albumin 2.8 L (3.5-5.0) g/dL Crossmatch See Detail 06/21/19 Range/Units 07:21 RBC (3.80-5.40) m/uL Hgb (11.4-16.0) gm/dL Hct (34.0-46.0) % MCHC (31.0-37.0) g/dL RDW (11.5-15.5) % APTT (22.0-30.0) sec Sodium (137-145) mmol/L Chloride (98-107) mmol/L Carbon Dioxide (22-30) mmol/L BUN (7-17) mg/dL Creatinine (0.52-1.04) mg/dL Glucose (74-99) mg/dL POC Glucose (mg/dL) 152 H (75-99) mg/dL Magnesium (1.6-2.3) mg/dL Albumin (3.5-5.0) g/dL Crossmatch Thrombosis Risk Factor Assmnt - DVT/VTE Prophylaxis DVT/VTE Prophylaxis: Mechanical Prophylaxis ordered - Choose All That Apply Each Risk Factor Represents 3 Points: Age 75 years or older Thrombosis Risk Factor Assessment Total Risk Factor Score: 3 Thrombosis Risk Factor Assessment Level: Moderate Risk Assessment and Plan Plan: 1. Anemia of unclear etiology. Rule out acute bleed. GI on consult. Patient is scheduled for EGD tomorrow morning. Monitor hemoglobin closely. Continue Protonix 40 mg IV twice daily. 2. Paroxysmal atrial fibrillation. Hold elquis. 3. Hypertension. Continue Coreg 3.125 mg twice daily, amlodipine 10 mg daily, lisinopril 2.5 mg daily, midodrine 10 mg 3 times daily. 4. Diabetes mellitus type 2. Continue NovoLog scale before meals and at bedtime, Levemir 10 units at bedtime. 5. Hyperlipidemia. Continue atorvastatin 40 mg daily. 6. Sick sinus syndrome status post permanent pacemaker implantation 7. Vascular dementia. Stable. Continue folic acid 1 mg daily 8. History of CVA. 9. Osteoarthritis, generalized. Stable. 10. Gout, chronic. Continue allopurinol 100 mg daily, colchicine 0.6 mg daily. 11. Recurrent depression. Continue Lexapro 5 mg daily. 12. Hypothyroidism. Continue levothyroxine 75 g daily. 13. DVT prophylaxis. SCDs and KIMBERLEY hose 14. GI prophylaxis. Protonix 40 mg IV twice daily. Patient will be admitted to the hospital for a minimum of 2 night stay. Discharge plan: Subacute rehab at [facility] or [facility] with [facility] Impression and plan of care have been directed as dictated by the signing physician. Sharmaine Fang nurse practitioner acting as scribe for signing physician.
[2019-06-21 16:41] LABS: Glucose,Whole Blood 208 mg/dL (75-99)
[2019-06-21] MEDS: SODIUM CHLORIDE 0.9% 1,000 ML IV SCH (17:58)
[2019-06-21] MEDS: MIDODRINE 5 MG TAB PO SCH ×2 (18:05→20:25)
[2019-06-21 20:10] LABS: Ferritin 151.3 ng/mL (10.0-291.0)
--- NOTE | 2019-06-21 20:12 | CONS ---
CONSULTATION DATE OF DICTATION: 06/21/2019 REASON FOR CONSULTATION: Symptomatic anemia. HISTORY OF PRESENT ILLNESS: The patient is an 84-year-old pleasant white female with history of rheumatoid arthritis, hypertension, history of renal cancer, for which she had a nephrectomy done. She was admitted to the hospital because of severe symptomatic anemia. She was seen by her PCP and had routine labs. Hemoglobin was 7. She was advised to come to the emergency room. Repeat labs showed a hemoglobin of 6.9, requiring one unit of blood transfusion. The patient denies any abdominal pain, reports no nausea, vomiting. No rectal bleeding or melena. She says that she has been chronically anemic for many years but never required a blood transfusion. She recalls having a colonoscopy many years ago that was normal. No recent history of NSAID use. No prior history of peptic ulcer disease. PAST MEDICAL HISTORY: Significant for CVA, dementia, diabetes mellitus, hypertension, hyperlipidemia, osteoarthritis, history of rheumatoid arthritis and Remicade infusion, kidney cancer. PAST SURGICAL HISTORY: Adenoidectomy, , hysterectomy, tonsillectomy, tubal ligation, pacemaker implantation, permanent pacemaker and AICD. SOCIAL HISTORY: No smoking. No alcohol use. FAMILY HISTORY: Father had heart disease. Mother of heart disease. REVIEW OF SYSTEMS: CARDIOPULMONARY: She denies any chest pain or shortness of breath. GENITOURINARY: No dysuria or hematuria. MUSCULOSKELETAL: Unremarkable. SKIN: Unremarkable. ENDOCRINE: Unremarkable. PSYCHIATRIC: Unremarkable. NEUROLOGY: Unremarkable. ENT/VISION: Unremarkable. CONSTITUTIONAL: No recent weight loss. No fever, chills, night sweats. MEDICATIONS: Medications at home include Remicade, Norvasc, Protonix, ProAmatine, methotrexate, Zestril, Synthroid, leucovorin, NovoLog, folic acid, Lantus, Lexapro, colchicine, Coreg, Fioricet, Lipitor, Ecotrin, Eliquis and Zyloprim. ALLERGIES: PENICILLIN, CIPRO, CODEINE, HYDROCODONE, FLOXIN, PHENERGAN, SULFADIAZINE, BACTRIM, TETRACYCLINE, WOODY-DUR, TRAMADOL, OMNICEF AND BACLOFEN. PHYSICAL EXAMINATION: She appears comfortable. No apparent distress. Vital signs are stable. Blood pressure is 163/80, pulse rate 57, temperature 98.6. HEENT examination unremarkable. Conjunctivae pink. Sclerae anicteric. Oral cavity no lesions. NECK: No JVD or lymph node enlargement. CHEST: Clear to auscultation. HEART: Regular rate and rhythm. ABDOMEN: Soft. It was non-tender, non-distended. Bowel sounds are positive. No organomegaly. EXTREMITIES: No pedal edema. SKIN: No rashes. NEUROLOGIC: Alert and oriented x3. No focal deficits. LABS: Labs done at the time of admission to the hospital: WBC 5.2, hemoglobin 6.9, platelets normal. Basic metabolic panel is within normal limits. MCV is 95. BUN 22, creatinine 1.32. Rest of the labs are within normal limits. Repeat labs after one unit of blood transfusion showed hemoglobin of 8. IMPRESSION: 1. Severe symptomatic anemia with a hemoglobin of 6.9 g/dL. Clinically no evidence of active ongoing bleeding. Patient has been on Eliquis for atrial fibrillation for almost 3 years. Her last EGD/colonoscopy was many years ago, and according to the patient it was within normal limits. Most likely we are dealing with occult GI blood loss. Clinically no evidence of active ongoing bleeding. Possibility of anemia secondary to chronic kidney disease cannot be excluded. 2. History of atrial fibrillation on Eliquis, currently on hold. 3. History of diabetes mellitus. 4. Hypertension. 5. Hyperlipidemia. 6. Cardiac arrhythmia, status post pacemaker and AICD implantation. RECOMMENDATIONS: 1. Hold Eliquis. 2. Regular diet. 3. Repeat CBC in the morning. 4. Obtain iron studies. 5. Will proceed with EGD and colonoscopy on Tuesday as part of workup of anemia. Discussed with the patient as well as her granddaughter who was at the bedside about risks, benefits and complications, and she is agreeable to it. Thank you for this consultation. MMODL / IJN: [id number] /
[2019-06-21 20:13] LABS: Glucose,Whole Blood 169 mg/dL (75-99)
[2019-06-21 20:20] LABS: % Iron Saturation 2.31 (12.00-45.00)
[2019-06-21] MEDS: INSULIN DETEMIR (LEVEMIR) 100 UNIT/ML SYR SQ SCH (20:24)
[2019-06-22] MEDS: LEVOTHYROXINE 75 MCG TAB PO SCH (05:04)
[2019-06-22] MEDS: BUTALB/APAP/CAFF 50-325-40MG TAB PO PRN (06:07)
[2019-06-22 06:50] LABS: Glucose,Whole Blood 142 mg/dL (75-99)
[2019-06-22 07:23] LABS: Anisocytosis Slight; HCT 26.5 % (34.0-46.0); HGB 8.1 gm/dL (11.4-16.0); Hypochromasia Moderate; MCH 29.3 pg (25.0-35.0); MCHC 30.5 g/dL (31.0-37.0); MCV 95.9 fL (80.0-100.0); Macrocytosis Slight; Mean Platelet Volume 9.7; Platelet Count 335 k/uL (150-450); RBC 2.77 m/uL (3.80-5.40); RDW 16.6 % (11.5-15.5); WBC 6.8 k/uL (3.8-10.6)
[2019-06-22] MEDS: INSULIN ASPART (NovoLOG) 100 UNIT/ML VIAL SQ SCH ×4 (07:48→21:10)
[2019-06-22] MEDS: FOLIC ACID 1 MG TAB PO SCH (07:51)
[2019-06-22] MEDS: amLODIPine 5 MG TAB PO SCH (07:51)
[2019-06-22] MEDS: LISINOPRIL 2.5 MG TAB PO SCH (07:51)
[2019-06-22] MEDS: LEUCOVORIN 5 MG TAB PO SCH (07:52)
[2019-06-22] MEDS: ALLOPURINOL 100 MG TAB PO SCH (07:52)
[2019-06-22] MEDS: CARVEDILOL 3.125 MG TAB PO SCH ×2 (07:52→16:00)
[2019-06-22] MEDS: PANTOPRAZOLE 40 MG TABLET PO SCH (07:52)
[2019-06-22] MEDS: ESCITALOPRAM 5 MG TAB PO SCH (07:52)
[2019-06-22] MEDS: ATORVASTATIN 40 MG TAB PO SCH (07:52)
[2019-06-22] MEDS: COLCHICINE 0.6 MG EACH PO SCH (07:53)
[2019-06-22] MEDS: SODIUM CHLORIDE 0.9% 1,000 ML IV SCH (07:54)
[2019-06-22] MEDS: MIDODRINE 5 MG TAB PO SCH ×2 (07:54→15:57)
[2019-06-22] MEDS ORDERED: METHOTREXATE SODIUM 2.5 MG TAB PO SCH (09:00)
[2019-06-22 11:58] LABS: Glucose,Whole Blood 120 mg/dL (75-99)
--- NOTE | 2019-06-22 14:07 | P.PN ---
Subjective Progress Note Date: 06/22/19 This is an 84-year-old female patient of Dr. Golden with past medical history of rheumatoid arthritis on Remicade and methotrexate, renal cancer status post resection, hypertension, hyperlipidemia, diabetes mellitus, sick sinus syndrome status post permanent pacemaker, paroxysmal atrial fibrillation, osteoarthritis, vascular dementia and history of CVA. Patient was seen by PCP and due to a hemoglobin of 7 she was instructed to come into the hospital for further evaluation. Patient denies having any nausea vomiting no abdominal pain, no blood or tarry stools. No recent diarrhea. She has had increasing fatigue and generalized weakness. She denies any chest pain or shortness of breath. Patient is a poor historian. Patient presented to [facility] emergency center for evaluation. Vital signs were stable, afebrile, pulse ox 99%. Hemoglobin 7.6, WBC 6.8 and platelet count 350. Stool for occult blood was negative. Magnesium 1.2 and was replaced in the emergency center. CO2 21, BUN 25 and creatinine 1.37, blood sugar 197. INR 1.1. Liver function tests were normal. EKG was a paced rhythm. Patient admitted to the MedSur floor and consult in place with GI. 06/22: Patient has not had a bowel movement, no vomiting. Patient has been seen by GI with plan for EGD and colonoscopy on Tuesday. Patient is afebrile, heart rate 60, blood pressure 131/71, pulse ox 96% on room air. Repeat hemoglobin 8.1. Blood sugars running between 120 and 208. Patient is status post transfusion of 1 unit packed RBCs. Objective - Vital Signs Vital signs: Vital Signs Temp 97.8 F 06/22/19 07:41 Pulse 60 06/22/19 07:41 Resp 16 06/22/19 07:41 BP 131/71 06/22/19 07:41 Pulse Ox 96 06/22/19 07:41 Intake & Output 06/21/19 06/22/19 06/22/19 18:59 06:59 18:59 Intake Total 120 Balance 120 Intake: Oral 120 Other: Voiding Method Toilet Toilet # Voids 2 2 1 - Exam Review of Systems Constitutional: Reports fatigue, Reports weakness, Denies chills, Denies fever, Denies lethargy, Denies malaise, Denies poor appetite, Denies weight loss Eyes: denies blurred vision, denies pain Ears, nose, mouth and throat: Denies dysphagia, Denies headache, Denies nasal congestion, Denies nasal discharge, Denies sore throat, Denies vertigo Cardiovascular: Denies chest pain, Denies decreased exercise tolerance, Denies dyspnea on exertion, Denies leg edema, Denies lightheadedness, Denies shortness of breath, Denies syncope Respiratory: Denies cough, Denies cough with sputum, Denies dyspnea, Denies excessive sputum, Denies hemoptysis, Denies home oxygen, Denies respiratory infections Gastrointestinal: Denies abdominal pain, Denies diarrhea, Denies loss of a ppetite, Denies nausea, Denies vomiting Genitourinary: Denies dysuria, Denies hematuria, Denies urgency, Denies urinary frequency Musculoskeletal: Reports muscle weakness, Denies frequent falls, Denies gait dysfunction, Denies myalgias Integumentary: Denies pruritus, Denies rash, Denies wounds Neurological: Denies change in mentation, Denies change in speech, Denies gait dysfunction, Denies numbness, Denies seizures, Denies weakness Psychiatric: Denies anxiety, Denies depression Endocrine: Denies fatigue, Denies weight change Physical exam: Gen: This is an 84-year-old female. Patient is sitting up in bed and appears to be comfortable and in no acute distress. HEENT: Head is atraumatic, normocephalic. Pupils equal, round. Sclerae is anicteric. NECK: Supple. No JVD. No lymphadenopathy. No thyromegaly. LUNGS: Clear to auscultation. No wheezes or rhonchi. No intercostal retractions. HEART: Regular rate and rhythm. No murmur. ABDOMEN: Soft. Bowel sounds are present. No masses. No tenderness. EXTREMITIES: No pedal edema. No calf tenderness. NEUROLOGICAL: Patient is awake, alert and oriented to person. Generalized weakness noted - Labs CBC & Chem 7: 06/22/19 06:29 06/21/19 06:37 Labs: Abnormal Lab Results - Last 24 Hours (Table) 06/21/19 06/21/19 06/21/19 Range/Units 06:37 09:38 11:36 RBC 2.76 L (3.80-5.40) m/uL Hgb 8.0 L (11.4-16.0) gm/dL Hct 26.5 L (34.0-46.0) % MCHC 30.2 L (31.0-37.0) g/dL RDW 16.5 H (11.5-15.5) % Lymphocytes # 0.8 L (1.0-4.8) k/uL POC Glucose (mg/dL) 161 H (75-99) mg/dL Iron 5 L (50-170) ug/dL TIBC 216 L (228-460) ug/dL % Saturation 2.31 L (12.00-45.00) 06/21/19 06/21/19 06/22/19 Range/Units 16:39 20:11 06:29 RBC 2.77 L (3.80-5.40) m/uL Hgb 8.1 L (11.4-16.0) gm/dL Hct 26.5 L (34.0-46.0) % MCHC 30.5 L (31.0-37.0) g/dL RDW 16.6 H (11.5-15.5) % Lymphocytes # (1.0-4.8) k/uL POC Glucose (mg/dL) 208 H 169 H (75-99) mg/dL Iron (50-170) ug/dL TIBC (228-460) ug/dL % Saturation (12.00-45.00) 06/22/19 Range/Units 06:49 RBC (3.80-5.40) m/uL Hgb (11.4-16.0) gm/dL Hct (34.0-46.0) % MCHC (31.0-37.0) g/dL RDW (11.5-15.5) % Lymphocytes # (1.0-4.8) k/uL POC Glucose (mg/dL) 142 H (75-99) mg/dL Iron (50-170) ug/dL TIBC (228-460) ug/dL % Saturation (12.00-45.00) Assessment and Plan Plan: 1. Anemia of unclear etiology. Rule out acute bleed. GI on consult. Patient is scheduled for EGD tomorrow. Monitor hemoglobin closely. Continue Protonix 40 mg IV twice daily. 2. Paroxysmal atrial fibrillation. Hold elquis. 3. Hypertension. Continue Coreg 3.125 mg twice daily, amlodipine 10 mg daily, lisinopril 2.5 mg daily, midodrine 10 mg 3 times daily. 4. Diabetes mellitus type 2. Continue NovoLog scale before meals and at bedtime, Levemir 10 units at bedtime. 5. Hyperlipidemia. Continue atorvastatin 40 mg daily. 6. Sick sinus syndrome status post permanent pacemaker implantation 7. Vascular dementia. Stable. Continue folic acid 1 mg daily 8. History of CVA. 9. Osteoarthritis, generalized. Stable. 10. Gout, chronic. Continue allopurinol 100 mg daily, colchicine 0.6 mg daily. 11. Recurrent depression. Continue Lexapro 5 mg daily. 12. Hypothyroidism. Continue levothyroxine 75 g daily. 13. DVT prophylaxis. SCDs and KIMBERLEY hose 14. GI prophylaxis. Protonix 40 mg IV twice daily. Discharge plan: Subacute rehab at [facility] or home with [facility] on Tuesday Impression and plan of care have been directed as dictated by the signing physician. Sharmaine Fang nurse practitioner acting as scribe for signing physician.
[2019-06-22 14:38] VITALS: BMI 22.9
[2019-06-22 16:51] LABS: Hemoglobin A1C 7.9 % (4.0-6.0)
[2019-06-22 16:55] LABS: Glucose,Whole Blood 133 mg/dL (75-99)
[2019-06-22] MEDS ORDERED: PEG 3350-NA SULF,BICARB,CL/KCL 4,000 ML BOTTLE PO ONE (17:00)
--- NOTE | 2019-06-22 18:58 | PN ---
PROGRESS NOTE DATE OF DICTATION: June 22, 2019 Patient is an 84-year-old pleasant white female admitted to hospital with severe symptomatic anemia and hemoglobin of 6.9 g/dL requiring a unit of blood transfusion. Today hemoglobin stable at 8.1. She denies any GI symptoms. No active bleeding. Stool Hemoccult was negative. Iron indices show a ferritin of 151, iron saturation of 2.3%, and serum iron is 5%. She denies any symptoms today. PHYSICAL EXAMINATION: Appears comfortable, no apparent distress. Vital signs is stable. Blood pressure is 154/73, pulse rate 59, temperature 97.9. HEENT examination unremarkable. Conjunctivae pink. Sclerae anicteric. Oral cavity no lesions. NECK: No JVD or lymph node enlargement. CHEST was clear to auscultation. HEART: Regular rate and rhythm. ABDOMEN: Soft. Bowel sounds are positive. No organomegaly EXTREMITIES: No pedal edema. SKIN no rashes. NEUROLOGIC: Alert and oriented x3. No focal deficits. LABS: Done today WBC is 6.8, hemoglobin 8.1, platelets 355. IMPRESSION: 1. Severe symptomatic anemia, severe symptomatic iron deficiency anemia with a hemoglobin of 6.9 requiring one unit of blood transfusion. No active bleeding. 2. Atrial fibrillation on Eliquis, currently on hold. 3. Diabetes mellitus. 4. Hypothyroidism. RECOMMENDATIONS: 1. Continue to hold Eliquis. 2. We will proceed with EGD colonoscopy tomorrow. Discussed with the patient as well as her family, risks, benefits and complications of procedure and she is agreeable to it. Thank you for this consultation. MMODL / IJN: [id number] /
[2019-06-22] MEDS: ACETAMINOPHEN TAB 325 MG TAB PO PRN (19:59)
[2019-06-22 20:35] LABS: Glucose,Whole Blood 137 mg/dL (75-99)
[2019-06-22] MEDS: INSULIN DETEMIR (LEVEMIR) 100 UNIT/ML SYR SQ SCH (21:10)
[2019-06-23] MEDS: LEVOTHYROXINE 75 MCG TAB PO SCH (05:26)
[2019-06-23 06:57] LABS: Glucose,Whole Blood 79 mg/dL (75-99)
[2019-06-23] MEDS: INSULIN ASPART (NovoLOG) 100 UNIT/ML VIAL SQ SCH ×4 (07:03→20:22)
[2019-06-23 07:18] LABS: Anisocytosis Slight; HCT 28.3 % (34.0-46.0); HGB 8.6 gm/dL (11.4-16.0); Hypochromasia Moderate; MCH 29.3 pg (25.0-35.0); MCHC 30.5 g/dL (31.0-37.0); MCV 96.2 fL (80.0-100.0); Macrocytosis Slight; Mean Platelet Volume 8.9; Platelet Count 360 k/uL (150-450); RBC 2.94 m/uL (3.80-5.40); RDW 16.5 % (11.5-15.5); WBC 6.2 k/uL (3.8-10.6)
[2019-06-23] MEDS: COLCHICINE 0.6 MG EACH PO SCH (07:56)
[2019-06-23] MEDS: LISINOPRIL 2.5 MG TAB PO SCH (07:56)
[2019-06-23] MEDS: ESCITALOPRAM 5 MG TAB PO SCH (07:56)
[2019-06-23] MEDS: CARVEDILOL 3.125 MG TAB PO SCH ×2 (07:57→17:02)
[2019-06-23] MEDS: ATORVASTATIN 40 MG TAB PO SCH (07:57)
[2019-06-23] MEDS: FOLIC ACID 1 MG TAB PO SCH (07:57)
[2019-06-23] MEDS: ALLOPURINOL 100 MG TAB PO SCH (07:57)
[2019-06-23] MEDS: amLODIPine 5 MG TAB PO SCH (07:57)
[2019-06-23] MEDS: LEUCOVORIN 5 MG TAB PO SCH (07:57)
[2019-06-23] MEDS: PANTOPRAZOLE 40 MG TABLET PO SCH (08:05)
[2019-06-23] MEDS ORDERED: MAGNESIUM CITRATE 296 ML BOTTLE PO ONE (08:06)
--- NOTE | 2019-06-23 09:25 | PN ---
PROGRESS NOTE DATE OF DICTATION: 06/23/2019 Patient is an 84-year-old pleasant white female admitted to the hospital with symptomatic anemia secondary to iron deficiency from chronic occult GI blood loss. Patient denies any GI symptoms. Hemoglobin was 6.9 and she got one unit of blood. Today it is 8.6. She was scheduled for an EGD and colonoscopy today. However, she could not tolerate the prep and hence the procedure was canceled. Family is at the bedside. Patient denies any symptoms. PHYSICAL EXAMINATION: Vital signs are stable. Blood pressure is 132/69, pulse rate 60, temperature 98.1. HEENT examination unremarkable. Conjunctivae pink. Sclerae anicteric. Oral cavity no lesions. NECK: No JVD or lymph node enlargement. CHEST: Clear to auscultation. HEART: Regular rate and rhythm. ABDOMEN: Soft. Bowel sounds are positive. No organomegaly. EXTREMITIES: No pedal edema. SKIN: No rashes. NEUROLOGIC: Alert and oriented x3. No focal deficits. LABS: Labs from today show WBC 6.2, hemoglobin 8.6, platelets normal. Basic metabolic panel is within normal limits. IMPRESSION: 1. Normocytic anemia; iron indices consistent with iron deficiency. Clinically no evidence of active bleeding. Most likely we are dealing with occult GI blood loss. 2. History of atrial fibrillation, on Eliquis, currently on hold. 3. History of hypertension. 4. Hypothyroidism. 5. Rheumatoid arthritis, on Remicade and methotrexate. RECOMMENDATIONS: I had a lengthy discussion with the patient's family who was at the bedside. I gave them an option of having the endoscopic workup on an outpatient basis, but the family wants the workup to be done while in the hospital. She will be rescheduled for tomorrow. In the meantime, we will start colon prep today. Risks, benefits and complications were discussed with the family, and they are agreeable to it. Thank you for this consultation. MMODL / IJN: [id number] /
[2019-06-23] MEDS: BUTALB/APAP/CAFF 50-325-40MG TAB PO PRN (10:13)
[2019-06-23 11:40] LABS: Glucose,Whole Blood 118 mg/dL (75-99)
--- NOTE | 2019-06-23 12:48 | P.PN ---
Subjective Progress Note Date: 06/23/19 This is an 84-year-old female patient of Dr. Golden with past medical history of rheumatoid arthritis on Remicade and methotrexate, renal cancer status post resection, hypertension, hyperlipidemia, diabetes mellitus, sick sinus syndrome status post permanent pacemaker, paroxysmal atrial fibrillation, osteoarthritis, vascular dementia and history of CVA. Patient was seen by PCP and due to a hemoglobin of 7 she was instructed to come into the hospital for further evaluation. Patient denies having any nausea vomiting no abdominal pain, no blood or tarry stools. No recent diarrhea. She has had increasing fatigue and generalized weakness. She denies any chest pain or shortness of breath. Patient is a poor historian. Patient presented to [facility] emergency center for evaluation. Vital signs were stable, afebrile, pulse ox 99%. Hemoglobin 7.6, WBC 6.8 and platelet count 350. Stool for occult blood was negative. Magnesium 1.2 and was replaced in the emergency center. CO2 21, BUN 25 and creatinine 1.37, blood sugar 197. INR 1.1. Liver function tests were normal. EKG was a paced rhythm. Patient admitted to the [facility] floor and consult in place with GI. 06/22: Patient has not had a bowel movement, no vomiting. Patient has been seen by GI with plan for EGD and colonoscopy on Tuesday. Patient is afebrile, heart rate 60, blood pressure 131/71, pulse ox 96% on room air. Repeat hemoglobin 8.1. Blood sugars running between 120 and 208. Patient is status post transfusion of 1 unit packed RBCs. 06/23: Patient was scheduled for EGD and colonoscopy today but she refused to drink the prep which she states tasted bad. Prep material has been changed by GI and patient has been rescheduled for Tuesday. Patient denies having any nausea or vomiting, no diarrhea, no bloody stools. Patient has been afebrile, heart rate 61, blood pressure 132/68, pulse ox 90% on room air. Repeat blood work reveals white count 6.2, hemoglobin 8.6, blood sugars running between 79 and 137. Objective - Vital Signs Vital signs: Vital Signs Temp 98.1 F 06/23/19 01:11 Pulse 60 06/23/19 01:11 Resp 14 06/23/19 01:11 BP 132/69 06/23/19 01:11 Pulse Ox 97 06/23/19 01:11 Intake & Output 06/22/19 06/23/19 06/23/19 18:59 06:59 18:59 Intake Total 20 Balance 20 Weight 64.546 kg Intake: Oral 20 Other: Voiding Method Toilet Toilet # Voids 1 1 - Exam Review of Systems Constitutional: Reports fatigue, Reports weakness, Denies chills, Denies fever, Denies lethargy, Denies malaise, Denies poor appetite, Denies weight loss Eyes: denies blurred vision Ears, nose, mouth and throat: Denies dysphagia, Denies headache, Denies nasal congestion, Denies nasal discharge, Denies sore throat, Denies vertigo Cardiovascular: Denies chest pain, Denies decreased exercise tolerance, Denies dyspnea on exertion, Denies leg edema, Denies lightheadedness, Denies shortness of breath, Denies syncope Respiratory: Denies cough, Denies cough with sputum, Denies dyspnea, Denies excessive sputum, Denies hemoptysis, Denies home oxygen, Denies respiratory infections Gastrointestinal: Denies abdominal pain, Denies diarrhea, Denies loss of appetite, Denies nausea, Denies vomiting Genitourinary: Denies dysuria, Denies hematuria, Denies urgency, Denies urinary frequency Musculoskeletal: Reports muscle weakness, Denies frequent falls, Denies gait dysfunction, Denies myalgias Integumentary: Denies pruritus, Denies rash, Denies wounds Neurological: Denies change in mentation, Denies change in speech, Denies gait dysfunction, Denies numbness, Denies seizures, Denies weakness Psychiatric: Denies anxiety, Denies depression Endocrine: Denies fatigue, Denies weight change Physical exam: Gen: This is an 84-year-old female. Patient is sitting up in bed and appears to be comfortable and in no acute distress. Multiple family members at bedside HEENT: Head is atraumatic, normocephalic. Pupils equal, round. Sclerae is anicteric. NECK: Supple. No JVD. No lymphadenopathy. No thyromegaly. LUNGS: Clear to auscultation. No wheezes or rhonchi. No intercostal retractions. HEART: Regular rate and rhythm. No murmur. ABDOMEN: Soft. Bowel sounds are present. No masses. No tenderness. EXTREMITIES: No pedal edema. No calf tenderness. NEUROLOGICAL: Patient is awake, alert and oriented to person. Generalized weakness noted - Labs CBC & Chem 7: 06/23/19 06:51 06/21/19 06:37 Labs: Abnormal Lab Results - Last 24 Hours (Table) 06/22/19 06/22/19 06/22/19 Range/Units 06:29 11:56 16:54 RBC (3.80-5.40) m/uL Hgb (11.4-16.0) gm/dL Hct (34.0-46.0) % MCHC (31.0-37.0) g/dL RDW (11.5-15.5) % POC Glucose (mg/dL) 120 H 133 H (75-99) mg/dL Hemoglobin A1c 7.9 H (4.0-6.0) % 06/22/19 06/23/19 Range/Units 20:31 06:51 RBC 2.94 L (3.80-5.40) m/uL Hgb 8.6 L (11.4-16.0) gm/dL Hct 28.3 L (34.0-46.0) % MCHC 30.5 L (31.0-37.0) g/dL RDW 16.5 H (11.5-15.5) % POC Glucose (mg/dL) 137 H (75-99) mg/dL Hemoglobin A1c (4.0-6.0) % Assessment and Plan Plan: 1. Anemia of unclear etiology. Rule out acute bleed. GI on consult. Patient is rescheduled for EGD and colonoscopy for Tuesday due to inability to complete prep. Monitor hemoglobin closely. Continue Protonix 40 mg IV twice daily. 2. Paroxysmal atrial fibrillation. Hold elquis. 3. Hypertension. Continue Coreg 3.125 mg twice daily, amlodipine 10 mg daily, lisinopril 2.5 mg daily, midodrine 10 mg 3 times daily. 4. Diabetes mellitus type 2. Continue NovoLog scale before meals and at bedtime, Levemir 10 units at bedtime. 5. Hyperlipidemia. Continue atorvastatin 40 mg daily. 6. Sick sinus syndrome status post permanent pacemaker implantation 7. Vascular dementia. Stable. Continue folic acid 1 mg daily 8. History of CVA. 9. Osteoarthritis, generalized. Stable. 10. Gout, chronic. Continue allopurinol 100 mg daily, colchicine 0.6 mg daily. 11. Recurrent depression. Continue Lexapro 5 mg daily. 12. Hypothyroidism. Continue levothyroxine 75 g daily. 13. DVT prophylaxis. SCDs and KIMBERLEY hose 14. GI prophylaxis. Protonix 40 mg IV twice daily. Discharge plan: Subacute rehab at [facility] or home with [facility] on Tuesday Impression and plan of care have been directed as dictated by the signing physician. Sharmaine Fang nurse practitioner acting as scribe for signing physician.
[2019-06-23] MEDS: SODIUM CHLORIDE 0.9% 1,000 ML IV SCH (12:49)
[2019-06-23] MEDS ORDERED: PEG 3350-NA SULF,BICARB,CL/KCL 4,000 ML BOTTLE PO ONE (16:00)
[2019-06-23 16:44] LABS: Glucose,Whole Blood 117 mg/dL (75-99)
[2019-06-23 20:09] LABS: Glucose,Whole Blood 128 mg/dL (75-99)
[2019-06-23] MEDS: INSULIN DETEMIR (LEVEMIR) 100 UNIT/ML SYR SQ SCH (21:35)
[2019-06-23 21:59] VITALS: RESP 16
[2019-06-24] MEDS: LEVOTHYROXINE 75 MCG TAB PO SCH (05:36)
[2019-06-24 06:52] LABS: Glucose,Whole Blood 70 mg/dL (75-99)
[2019-06-24] MEDS: INSULIN ASPART (NovoLOG) 100 UNIT/ML VIAL SQ SCH ×4 (07:32→20:31)
[2019-06-24] MEDS: amLODIPine 5 MG TAB PO SCH (07:33)
[2019-06-24] MEDS: ESCITALOPRAM 5 MG TAB PO SCH (07:33)
[2019-06-24] MEDS: PANTOPRAZOLE 40 MG TABLET PO SCH (07:33)
[2019-06-24] MEDS: FOLIC ACID 1 MG TAB PO SCH (07:33)
[2019-06-24] MEDS: ALLOPURINOL 100 MG TAB PO SCH (07:33)
[2019-06-24] MEDS: CARVEDILOL 3.125 MG TAB PO SCH ×2 (07:33→17:10)
[2019-06-24] MEDS: COLCHICINE 0.6 MG EACH PO SCH (07:33)
[2019-06-24] MEDS: LISINOPRIL 2.5 MG TAB PO SCH (07:33)
[2019-06-24] MEDS: ATORVASTATIN 40 MG TAB PO SCH (07:33)
[2019-06-24] MEDS ORDERED: PROPOFOL 10 MG/ML 20 ML VIAL IV ONE (08:01)
[2019-06-24] MEDS ORDERED: IV FLUID CONTINUATION 1,000 ML IV ONE ×2 (08:05)
--- NOTE | 2019-06-24 08:31 | P.PCN ---
Date of Procedure: 06/24/19 Procedure(s) Performed: Brief history: Patient is a pleasant 84-year-old white female admitted hospital with symptomatic anemia and hemoglobin of 6.9 g/dL. No active bleeding. She has been on a Eliquis has been on hold for 2 days. She is scheduled for an upper endoscopy as well as colonoscopy as a part of evaluation of Iron deficiency anemia Procedure performed: Esophagogastroduodenoscopy with biopsy Colonoscopy with biopsy Preoperative diagnosis: Iron deficiency anemia Anesthesia: MAC Procedure: After informed consent was obtained from the patient was brought into the endoscopy unit and IV sedation was administered by anesthesia under continuous monitoring. Initially upper endoscopy was done. The Olympus GF 160 video endoscope was inserted inserted into the mouth and esophagus intubated without any difficulty and was gradually advanced into the stomach and duodenum and carefully examined. The bulb and second part of the duodenum appeared normal. Biopsies were done from the duodenum to rule out celiac disease. The scope was then withdrawn into the stomach adequately insufflated with air and upon careful examination the antrum had mild gastritis and biopsies were done from this area. The body, cardia and fundus appeared normal. The scope was then withdrawn into the esophagus. The GE junction was located at 40 cm to the incisors. It appeared regular with no erythema erosions or ulcerations. Rest of the esophagus appeared normal. Patient tolerated the procedure well. At this time the patient continued to remain sedation. Initial digital rectal examination was normal. Olympus CF 160 video colonoscope was then inserted into the rectum and gradually advanced to the cecum without any difficulty. Careful examination was performed as the scope was gradually being withdrawn. The prep was excellent. In the base of the cecum there was a 3-4 mm polyp that was removed by cold biopsy. The cecum, ascending colon, transverse colon, descending colon, sigmoid colon and rectum appeared normal. Retroflexion was performed in the rectum and no lesions were noted. Patient tolerated the procedure well. Impression: 1. Upper endoscopy revealed minimal antral gastritis but no evidence of peptic ulcer disease 2. Colonoscopy revealed a 3-4 mm small cecal polyp status post removal by cold biopsy. Rest of the colon appeared normal Recommendations: Findings of this examination were discussed with the patient as well as her family. She was advised to follow with the biopsy results. Anticoagulation can be resumed today. Diet will be advanced as tolerated
[2019-06-24] MEDS ORDERED: ASPIRIN 81 MG PO SCH (09:00)
[2019-06-24] MEDS: APIXABAN 2.5 MG TABLET PO SCH ×2 (09:01→20:52)
--- NOTE | 2019-06-24 10:48 | P.PN ---
Subjective Progress Note Date: 06/24/19 This is an 84-year-old female patient of Dr. Golden with past medical history of rheumatoid arthritis on Remicade and methotrexate, renal cancer status post resection, hypertension, hyperlipidemia, diabetes mellitus, sick sinus syndrome status post permanent pacemaker, paroxysmal atrial fibrillation, osteoarthritis, vascular dementia and history of CVA. Patient was seen by PCP and due to a hemoglobin of 7 she was instructed to come into the hospital for further evaluation. Patient denies having any nausea vomiting no abdominal pain, no blood or tarry stools. No recent diarrhea. She has had increasing fatigue and generalized weakness. She denies any chest pain or shortness of breath. Patient is a poor historian. Patient presented to [facility] emergency center for evaluation. Vital signs were stable, afebrile, pulse ox 99%. Hemoglobin 7.6, WBC 6.8 and platelet count 350. Stool for occult blood was negative. Magnesium 1.2 and was replaced in the emergency center. CO2 21, BUN 25 and creatinine 1.37, blood sugar 197. INR 1.1. Liver function tests were normal. EKG was a paced rhythm. Patient admitted to the [facility] floor and consult in place with GI. 06/22: Patient has not had a bowel movement, no vomiting. Patient has been seen by GI with plan for EGD and colonoscopy on Tuesday. Patient is afebrile, heart rate 60, blood pressure 131/71, pulse ox 96% on room air. Repeat hemoglobin 8.1. Blood sugars running between 120 and 208. Patient is status post transfusion of 1 unit packed RBCs. 06/23: Patient was scheduled for EGD and colonoscopy today but she refused to drink the prep which she states tasted bad. Prep material has been changed by GI and patient has been rescheduled for Tuesday. Patient denies having any nausea or vomiting, no diarrhea, no bloody stools. Patient has been afebrile, heart rate 61, blood pressure 132/68, pulse ox 90% on room air. Repeat blood work reveals white count 6.2, hemoglobin 8.6, blood sugars running between 79 and 137. 06/24: Patient underwent EGD and colonoscopy this morning with Dr. Lilly Jewell. EGD revealed minimal antral gastritis but no evidence of peptic ulcer disease. Colonoscopy revealed a 3 to fours millimeter small cecal polyp removed by cold biopsy. The rest of the colon was normal. Anticoagulation to be resumed today. Diet can be advanced as tolerated. Eliquis and aspirin 81 mg has been resumed by Dr. Jewell but we will discontinue aspirin as it appears that she does not need to continue this. Blood sugars running between 70 and 128. Repeat CBC ordered for tomorrow morning. Patient denies any complaints. She does not recall where she lives. Family is planning for discharge to [facility] tomorrow. Objective - Vital Signs Vital signs: Vital Signs Temp 97.9 F 06/24/19 06:45 Pulse 76 06/24/19 06:45 Resp 16 06/24/19 06:45 BP 121/57 06/24/19 06:45 Pulse Ox 96 06/24/19 06:45 Intake & Output 06/23/19 06/24/19 06/24/19 18:59 06:59 18:59 Intake Total 160 450 Balance 160 450 Intake: IV 160 450 Sodium Chloride 0.9% 1, 160 000 ml @ 20 mls/hr IV . Q24H [facility] Rx#:[id number] Other: Voiding Method Toilet # Voids 1 # Bowel Movements 1 - Exam Review of Systems Constitutional: Reports fatigue, Reports weakness, Denies chills, Denies fever, Denies lethargy, Denies malaise, Denies poor appetite, Denies weight loss Ears, nose, mouth and throat: Denies dysphagia, Denies headache, Denies nasal congestion, Denies nasal discharge, Denies sore throat, Denies vertigo Cardiovascular: Denies chest pain, Denies decreased exercise tolerance, Denies dyspnea on exertion, Denies leg edema, Denies lightheadedness, Denies shortness of breath, Denies syncope Respiratory: Denies cough, Denies cough with sputum, Denies dyspnea, Denies excessive sputum, Denies hemoptysis, Denies home oxygen, Denies respiratory infections Gastrointestinal: Denies abdominal pain, Denies diarrhea, Denies loss of appetite, Denies nausea, Denies vomiting Genitourinary: Denies dysuria, Denies hematuria, Denies urgency, Denies urinary frequency Musculoskeletal: Reports muscle weakness, Denies frequent falls, Denies gait dysfunction, Denies myalgias Integumentary: Denies pruritus, Denies rash, Denies wounds Neurological: Denies change in mentation, Denies change in speech, Denies gait dysfunction, Denies numbness, Denies seizures, Denies weakness Psychiatric: Denies anxiety, Denies depression Endocrine: Denies fatigue, Denies weight change Physical exam: Gen: This is an 84-year-old female. Patient is sitting up in bed and appears to be comfortable and in no acute distress. HEENT: Head is atraumatic, normocephalic. Pupils equal, round. Sclerae is anicteric. NECK: Supple. No JVD. No lymphadenopathy. No thyromegaly. LUNGS: Clear to auscultation. No wheezes or rhonchi. No intercostal retractions. HEART: Regular rate and rhythm. No murmur. ABDOMEN: Soft. Bowel sounds are present. No masses. No tenderness. EXTREMITIES: No pedal edema. No calf tenderness. NEUROLOGICAL: Patient is awake, alert and oriented to person. Generalized weakness noted - Labs CBC & Chem 7: 06/23/19 06:51 06/21/19 06:37 Labs: Abnormal Lab Results - Last 24 Hours (Table) 06/23/19 06/23/19 06/23/19 Range/Units 11:38 16:43 20:07 POC Glucose (mg/dL) 118 H 117 H 128 H (75-99) mg/dL 06/24/19 Range/Units 06:51 POC Glucose (mg/dL) 70 L (75-99) mg/dL Assessment and Plan Plan: 1. Acute blood loss anemia possibly related to antral gastritis all along with chronic anemia. GI on consult appreciated. Status post EGD and colonoscopy as above. Monitor hemoglobin closely. Continue Protonix oral daily. 2. Paroxysmal atrial fibrillation. Resume elquis. 3. Hypertension. Continue Coreg 3.125 mg twice daily, amlodipine 10 mg daily, lisinopril 2.5 mg daily, midodrine 10 mg 3 times daily. 4. Diabetes mellitus type 2. Continue NovoLog scale before meals and at bedtime, Levemir 10 units at bedtime. 5. Hyperlipidemia. Continue atorvastatin 40 mg daily. 6. Sick sinus syndrome status post permanent pacemaker implantation 7. Vascular dementia. Stable. Continue folic acid 1 mg daily 8. History of CVA. 9. Osteoarthritis, generalized. Stable. 10. Gout, chronic. Continue allopurinol 100 mg daily, colchicine 0.6 mg daily. 11. Recurrent depression. Continue Lexapro 5 mg daily. 12. Hypothyroidism. Continue levothyroxine 75 g daily. 13. DVT prophylaxis. SCDs and KIMBERLEY hose 14. GI prophylaxis. Protonix 40 mg daily. Discharge plan: Subacute rehab at [facility] or home with [facility] on Tuesday Impression and plan of care have been directed as dictated by the signing physician. Sharmaine Fang nurse practitioner acting as scribe for signing physician.
--- NOTE | 2019-06-24 10:54 | P.DS ---
<Ch[place]Adin - Last Filed: 06/25/19 13:08> Patient Condition at Discharge: Stable Plan - Discharge Summary New Discharge Prescriptions: New INSULIN ASPART (NovoLOG) [NovoLOG (formulary)] 0 unit SQ ACHS vial Continue Apixaban [Eliquis] 2.5 mg PO BID Allopurinol [Zyloprim] 100 mg PO DAILY Pantoprazole Sodium [Protonix] 40 mg PO BID Levothyroxine Sodium [Synthroid] 75 mcg PO DAILY Folic Acid 1 mg PO DAILY Escitalopram [Lexapro] 5 mg PO DAILY Methotrexate Sodium [Methotrexate] 7.5 mg PO FR Colchicine 0.6 mg PO DAILY Leucovorin Calcium 5 mg PO FRSA Atorvastatin [Lipitor] 40 mg PO DAILY Carvedilol [Coreg] 3.125 mg PO BID Butalb/APAP/Caff 50-325-40Mg [Fioricet 50-325-40] 1 - 2 tab PO Q6H PRN #20 tab PRN Reason: Migraine Headache amLODIPine [Norvasc] 10 mg PO DAILY Lisinopril [Zestril] 2.5 mg PO DAILY inFLIXimab [Remicade] 100 mg IVPB Q35D Insulin Glargine,Hum.rec.anlog [Lantus Solostar] 10 unit SQ HS Discontinued Insulin Aspart [NovoLOG Flexpen] See Protocol SQ AC-TID Aspirin EC [Ecotrin Low Dose] 81 mg PO DAILY Insulin Aspart [NovoLOG Flexpen] 5 units SQ AC-TID Midodrine HCl [ProAmatine] 10 mg PO TID Discharge Medication List Allopurinol [Zyloprim] 100 mg PO DAILY 05/05/18 [History] Apixaban [Eliquis] 2.5 mg PO BID 05/05/18 [History] Escitalopram [Lexapro] 5 mg PO DAILY 05/05/18 [History] Folic Acid 1 mg PO DAILY 05/05/18 [History] Levothyroxine Sodium [Synthroid] 75 mcg PO DAILY 05/05/18 [History] Methotrexate Sodium [Methotrexate] 7.5 mg PO FR 05/05/18 [History] Pantoprazole Sodium [Protonix] 40 mg PO BID 05/05/18 [History] Colchicine 0.6 mg PO DAILY 01/19/19 [History] Leucovorin Calcium 5 mg PO FRSA 01/19/19 [History] Atorvastatin [Lipitor] 40 mg PO DAILY 02/16/19 [History] Carvedilol [Coreg] 3.125 mg PO BID 05/12/19 [History] Butalb/APAP/Caff 50-325-40Mg [Fioricet 50-325-40] 1 - 2 tab PO Q6H PRN #20 tab 05/15/19 [Rx] Insulin Glargine,Hum.rec.anlog [Lantus Solostar] 10 unit SQ HS 06/20/19 [History] Lisinopril [Zestril] 2.5 mg PO DAILY 06/20/19 [History] amLODIPine [Norvasc] 10 mg PO DAILY 06/20/19 [History] inFLIXimab [Remicade] 100 mg IVPB Q35D 06/20/19 [History] INSULIN ASPART (NovoLOG) [NovoLOG (formulary)] 0 unit SQ ACHS vial 06/24/19 [Rx] Follow up Appointment(s)/Referral(s): [facility], [NON-STAFF] - As Needed [facility], [NON-STAFF] - As Needed Adin Golden MD [Primary Care Provider] - 1 Week (after discharge from ECF) Patient Instructions/Handouts: Anemia (ED), Anemia (GEN) Discharge Disposition: TRANSFER TO SNF/ECF <Sharmaine Fang - Last Filed: 06/26/19 08:12> Providers Date of admission: 06/20/19 14:21 Expected date of discharge: 06/25/19 Attending physician: Virgilio Moore [facility] Course: This is an 84-year-old female patient of Dr. Golden with past medical history of rheumatoid arthritis on Remicade and methotrexate, renal cancer status post resection, hypertension, hyperlipidemia, diabetes mellitus, sick sinus syndrome status post permanent pacemaker, paroxysmal atrial fibrillation, osteoarthritis, vascular dementia and history of CVA. Patient was seen by PCP and due to a hemoglobin of 7 she was instructed to come into the hospital for further evaluation. Patient denies having any nausea vomiting no abdominal pain, no blood or tarry stools. No recent diarrhea. She has had increasing fatigue and generalized weakness. She denies any chest pain or shortness of breath. Patient is a poor historian. Patient presented to [facility] emergency center for evaluatio n. Vital signs were stable, afebrile, pulse ox 99%. Hemoglobin 7.6, WBC 6.8 and platelet count 350. Stool for occult blood was negative. Magnesium 1.2 and was replaced in the emergency center. CO2 21, BUN 25 and creatinine 1.37, blood sugar 197. INR 1.1. Liver function tests were normal. EKG was a paced rhythm. Patient admitted to the [facility] floor and consult in place with GI. 06/22: Patient has not had a bowel movement, no vomiting. Patient has been seen by GI with plan for EGD and colonoscopy on Tuesday. Patient is afebrile, heart rate 60, blood pressure 131/71, pulse ox 96% on room air. Repeat hemoglobin 8.1. Blood sugars running between 120 and 208. Patient is status post transfusion of 1 unit packed RBCs. 06/23: Patient was scheduled for EGD and colonoscopy today but she refused to drink the prep which she states tasted bad. Prep material has been changed by GI and patient has been rescheduled for Tuesday. Patient denies having any nausea or vomiting, no diarrhea, no bloody stools. Patient has been afebrile, heart rate 61, blood pressure 132/68, pulse ox 90% on room air. Repeat blood work reveals white count 6.2, hemoglobin 8.6, blood sugars running between 79 and 137. 06/24: Patient underwent EGD and colonoscopy this morning with Dr. Lilly Jewell. EGD revealed minimal antral gastritis but no evidence of peptic ulcer disease. Colonoscopy revealed a 3 to fours millimeter small cecal polyp removed by cold biopsy. The rest of the colon was normal. Anticoagulation to be resumed today. Diet can be advanced as tolerated. Eliquis and aspirin 81 mg has been resumed by Dr. Jewell but we will discontinue aspirin as it appears that she does not need to continue this. Blood sugars running between 70 and 128. Repeat CBC ordered for tomorrow morning. Patient denies any complaints. She does not recall where she lives. Family is planning for discharge to [facility] tomorrow. Family spoke with insurance case manager and social work and have changed their minds regarding ECF. They have chosen [facility] and all arrangements are completed and patient transferred in stable condition. Vital signs were stable, patient afebrile. Discharge diagnoses: 1. Acute blood loss anemia possibly related to antral gastritis all along with chronic anemia. Status post transfusion of 1 unit of packed RBCs. 2. Paroxysmal atrial fibrillation. 3. Hypertension. 4. Diabetes mellitus type 2. 5. Hyperlipidemia. 6. Sick sinus syndrome status post permanent pacemaker implantation 7. Vascular dementia. Stable. 8. History of CVA. 9. Osteoarthritis, generalized. 10. Gout, chronic. 11. Recurrent depression. 12. Hypothyroidism. Discharge plan: Subacute rehab at [facility] Impression and plan of care have been directed as dictated by the signing physician. Sharmaine Fang nurse practitioner acting as scribe for signing physician. Plan - Discharge Summary Discharge Rx Participant: No
[2019-06-24 11:17] LABS: Glucose,Whole Blood 75 mg/dL (75-99)
[2019-06-24] MEDS: SODIUM CHLORIDE 0.9% 1,000 ML IV SCH (13:11)
[2019-06-24 16:59] LABS: Glucose,Whole Blood 123 mg/dL (75-99)
[2019-06-24] MEDS: ACETAMINOPHEN TAB 325 MG TAB PO PRN (17:10)
[2019-06-24 20:31] LABS: Glucose,Whole Blood 129 mg/dL (75-99)
[2019-06-24] MEDS: INSULIN DETEMIR (LEVEMIR) 100 UNIT/ML SYR SQ SCH (21:54)
[2019-06-25] MEDS: LEVOTHYROXINE 75 MCG TAB PO SCH (06:04)
[2019-06-25 07:05] LABS: Glucose,Whole Blood 118 mg/dL (75-99)
[2019-06-25 07:31] LABS: Anisocytosis Slight; HCT 28.1 % (34.0-46.0); HGB 8.5 gm/dL (11.4-16.0); Hypochromasia Marked; MCH 29.3 pg (25.0-35.0); MCHC 30.4 g/dL (31.0-37.0); MCV 96.4 fL (80.0-100.0); Macrocytosis Slight; Mean Platelet Volume 9.1; Platelet Count 352 k/uL (150-450); RBC 2.91 m/uL (3.80-5.40); RDW 16.3 % (11.5-15.5); WBC 6.2 k/uL (3.8-10.6)
[2019-06-25] MEDS: CARVEDILOL 3.125 MG TAB PO SCH (08:59)
[2019-06-25] MEDS: amLODIPine 5 MG TAB PO SCH (08:59)
[2019-06-25] MEDS: INSULIN ASPART (NovoLOG) 100 UNIT/ML VIAL SQ SCH ×2 (08:59→12:05)
[2019-06-25] MEDS: ESCITALOPRAM 5 MG TAB PO SCH (09:00)
[2019-06-25] MEDS: ATORVASTATIN 40 MG TAB PO SCH (09:00)
[2019-06-25] MEDS: PANTOPRAZOLE 40 MG TABLET PO SCH (09:00)
[2019-06-25] MEDS: APIXABAN 2.5 MG TABLET PO SCH (09:00)
[2019-06-25] MEDS: ALLOPURINOL 100 MG TAB PO SCH (09:00)
[2019-06-25] MEDS: LISINOPRIL 2.5 MG TAB PO SCH (09:00)
[2019-06-25] MEDS ORDERED: FOLIC ACID 1 MG TAB PO ONE (09:30)
[2019-06-25 11:49] LABS: Glucose,Whole Blood 113 mg/dL (75-99)
[2019-06-25] MEDS: COLCHICINE 0.6 MG EACH PO SCH (12:05)
[2019-06-25 15:50] VITALS: BP 119/60; PULSE 62; TEMP 98.3
== END 2019-06-25 16:18 | DRG 378 ==
LOC: EC 12:05 → 6NMEDSUR 14:21 → 4SSUR 22:56
PROVIDERS: ADMIT Internal Medicine; ATTEND Internal Medicine
PROC: 0DB78ZX Excision of Stomach, Pylorus, Via Natural or Artificial Opening Endoscopic, Diagnostic (ICD-10-PCS; principal; 2019-06-24 08:00)
PROC: 0DB98ZX Excision of Duodenum, Via Natural or Artificial Opening Endoscopic, Diagnostic (ICD-10-PCS; principal; 2019-06-24 08:00)
PROC: 0DBH8ZX Excision of Cecum, Via Natural or Artificial Opening Endoscopic, Diagnostic (ICD-10-PCS; principal; 2019-06-24 08:00)
DX: K29.71 Gastritis, unspecified, with bleeding (principal); D62 Acute posthemorrhagic anemia; F33.9 Major depressive disorder, recurrent, unspecified; D50.9 Iron deficiency anemia, unspecified; E03.9 Hypothyroidism, unspecified; E11.9 Type 2 diabetes mellitus without complications; E78.5 Hyperlipidemia, unspecified; E83.42 Hypomagnesemia; F01.50 Vascular dementia, unspecified severity, without behavioral disturbance, psychotic disturbance, mood disturbance, and anxiety; I10 Essential (primary) hypertension; I48.0 Paroxysmal atrial fibrillation; K63.5 Polyp of colon; M06.9 Rheumatoid arthritis, unspecified; M19.90 Unspecified osteoarthritis, unspecified site; M1A.9XX0 Chronic gout, unspecified, without tophus (tophi); Z79.01 Long term (current) use of anticoagulants; Z79.4 Long term (current) use of insulin; Z79.82 Long term (current) use of aspirin; Z79.890 Hormone replacement therapy; Z79.899 Other long term (current) drug therapy; Z82.49 Family history of ischemic heart disease and other diseases of the circulatory system; Z85.528 Personal history of other malignant neoplasm of kidney; Z86.73 Personal history of transient ischemic attack (TIA), and cerebral infarction without residual deficits; Z90.5 Acquired absence of kidney; Z90.710 Acquired absence of both cervix and uterus; Z95.810 Presence of automatic (implantable) cardiac defibrillator; Z85.828 Personal history of other malignant neoplasm of skin; Z98.51 Tubal ligation status; Z88.5 Allergy status to narcotic agent; Z88.0 Allergy status to penicillin; Z88.2 Allergy status to sulfonamides; Z88.8 Allergy status to other drugs, medicaments and biological substances; Z88.1 Allergy status to other antibiotic agents; Z91.041 Radiographic dye allergy status; Z91.040 Latex allergy status
CPT/HCPCS: 36415; 36430; 43239; 45380; 80053; 82272; 82728; 83036; 83540; 83550; 83735; 85025; 85027; 85610; 85730; 86850; 86900; 86901; 86920; 88305; 93005; 96365; 96366; 96375; 96376; 99285